=== PATIENT | female | born 1975 | race African-American/Black ===

== ENCOUNTER 2020-12-15 09:52 | Emergency (ER) | payer OTHER, BC ==
--- OUTSIDE RECORDS SUMMARY | 2020-12-15 09:56 | XMS REPORT | Continuity of Care Document ---
:1975 Author Organization [facility] t Address [address] [place] [address] Care Team Providers Name Role Phone Glen BAUMANN Primary Care Physician Fab BAUMANN Attending Clinician Sheba Scott Attending Clinician 3, Bridgette Mr Attending Clinician Unavailable 1, [address] Ct Room Attending Clinician Unavailable Fab BAUMANN Attending Clinician Alfredo BAUMANN Attending Clinician Bernard Ríos MD Attending Clinician FAB Attending Clinician Unavailable NANCY Attending Clinician Unavailable Nancy BAUMANN Attending Clinician Reema Diamond MD Attending Clinician Nancy BAUMANN Attending Clinician FAB Admitting Clinician Unavailable NANCY Admitting Clinician Unavailable Payers Payer Name Policy Type Policy Effective Date Expiration Date [facility] Number AETNA - MGD [id number] [facility] l [facility] [id number] MO/POS BLUE CROSS/BLUE [id number] [facility] [facility] SHIELDBCBS PPO 00:00:00 - Medical POS EPO Center [id number] 2018-Present [phone] [address], [place] [address]KPV Problems Condition Condition Condition Status Onset Resolution Last Treating Co mments Source Name Details Category Date Date Treatment Clinician Date Colon Colon Disease Active [facility] - [facility]: Medical 00 [place] S/P S/P Disease Active [facility] colect[facility] colectomy 01-24 [facility] - 00:00: Medical 00 Center Allergies, Adverse Reactions, Alerts Allergy Allergy Status Severity Reaction(s) Onset Inactive Treating Comm ents Source Name Type Date Date Clinician Ciprofmarni Propensi Active Other (See States [facility] xacin ty to Comments) 5-25 body felt [facility] - adverse 00:00: numb and Medical reaction 00 couldn't Center s walk. Family History Family Member Diagnosis Comments Start Date Stop Date Source Natural father Heart disease [facility] Natural father Stroke [facility] Natural mother Heart disease [facility] Social History Social Habit Start Date Stop Date Quantity Comments Source History [facility] - [facility]d Dr[facility] History [facility] - Alcohol Binge Medical Sara ter Sex Assigned At [facility] Exposure to Not sure [facility] - SARS[facility]CoV-2 (event) [facility] Tobacco use and 2020-12-14 2020-12-[address] [facility] Daniella kes - exposure 00:00:00 00:00:00 Medical Center Alcohol intake 2020-12-14 2020-12-14 [facility]:00 of alcohol Medical Center (finding) History SDOH 2019-12-16 2019-12-[address] [facility] - Alcohol Frequency 00:00:00 00:00:00 Medical [place] Alcohol Comment 2019-12-16 2019-12-[address] Daniella kes - 00:00:00 00:00:00 Medical Center Smoking Status Start Date Stop Date Source [facility]ations Ordered Filled Start Stop Current Ordering Indication Dosage Frequency Signature Comments Components Source Medication Medication Date Date Medication? Clinician (SIG) Name Name acetaminoph Yes 500mg Take [address] en 2-24 mg by [facility] - (TYLENOL) 15:13: mouth Medical 500 MG 46 every 6 Center tablet (six) hours as needed for Pain. METOPROLOL Yes 25mg Take [address] SUCCINATE 2-24 by mouth [facility] - ORAL 15:12: as needed Medical 46 . Center amitriptyli Yes 10mg Take [address] ne (ELAVIL) 2-24 by mouth [facility] - 10 MG 15:12: every Medical tablet 46 night as Center needed for Sleep. ergocalcife Yes [id number] Q7D Take [facility] rol 2-24 50,000 [facility] - (ERGOCALCIF 15:12: Units by Nm dg BAKER) 1,250 46 mouth once Ce nter mcg (50,000 a week. unit) capsule furosemide Yes 20mg Q.5D Take [address] (LASIX) 20 4-08 by mouth 2 Elizabeth es - MG tablet 14:57: (two) Medical 54 times Center daily. multivitami 2019-0 Yes 1{capsu QD Take [address] n capsule 4-08 le} capsule by Luke [facility] - 14:57: mouth Medical 54 daily. Center ibuprofen 0 Yes 200mg Take [address] (ADVIL,MOTR 4-08 mg by [facility] - IN) 200 MG 14:57: mouth Medica l tablet 54 every 6 Center (six) hours as needed for Pain. traMADoL 0 2020- No 100mg Take 2 [facility] t (ULTRAM) 50 4-08 04-11 tablets [facility] - mg tablet 00:00: 23:59 (100 mg Medi julius 00 :00 total) by Center mouth every 6 (six) hours for 10 doses. Max Daily Amount: 400 mg Vital Signs Vital Name Observation Time Observation Value Comments Source Body height 2020-12-14 15:13:[address] [facility] Body weight 2020-12-14 15:13:00 83.008 kg [facility] BMI 2020-12-14 15:13:00 31.41 kg/m2 [facility] Body temperature 2020-01-27 11:49:00 36.61 Goldie [facility] Respiratory rate 2020-01-27 11:49:00 16 /min [facility] Oxygen saturation in 2020-01-27 11:49:00 98 /min [facility] - Arterial blood by Medical Ce nter Pulse oximetry Systolic blood 2020-01-27 11:49:00 99 mm[Hg] [facility] Diastolic blood 2020-01-27 11:49:00 62 mm[Hg] [facility] Heart rate 2020-01-27 11:49:00 76 /min [facility] Procedures Procedure Date / Time Performing Clinician Source Performed MR ABDOMEN WITH & WITHOUT 2020-05-11 14:23:00 System, Provider N ot [facility] - IV CONTRAST In [facility] CT ABDOMEN/PELVIS WITH IV 2020-03-07 15:40:00 System, Provider N ot [facility] - CONTRAST In [facility] RHYTHM STRIP - SCAN 2020-01-29 10:00:37 Provider, Default [facility] POCT-GLUCOSE METER 2020-01-27 00:[facility] 2020-01-26 17:51:39 Provider, Default [facility] - - [facility] POCT-GLUCOSE METER 2020-01-26 11:12:00 Fab [facility] POCT-GLUCOSE METER 2020-01-26 09:13[facility] W/PLT COUNT & AUTO 2020-01-26 03:32:00 Dutch Jackson [facility] BASIC METABOLIC PANEL (7) 2020-01-26 03:32:00 Dutch Jackson [facility] MAGNESIUM 2020-01-26 03:32:00 Dutch Jackson [facility] PHOSPHORUS 2020-01-26 03:32:00 Dutch Jackson [facility] POCT-GLUCOSE METER 2020-01-25 21:21:00 Iyer, [facility] POCT-GLUCOSE METER 2020-01-25 14:09:00 Iyer, [facility] TISSUE EXAM 2020-01-25 11:45:00 Iyer, [facility] ANESTHESIA SPINAL BLOCK 2020-01-25 09:32:49 Greg Fuentes [facility] ROBOTIC 2020-01-25 08:30:00 Iyer, [facility] LAPAROSCOPY,HEMICOLECTOMY Medica [facility] PROCEDURE W/ DAVINCI XI 2020-01-25 08:30:00 Iyer, [facility] ABORH, MANUAL 2020-01-25 07:43:00 Maria Luz Stauffer [facility] POCT , URINE 2020-01-25 07:34:00 Yaneth Scott [facility] TYPE AND SCREEN, AUTOMATED 2020-01-25 07:32:[address] [facility] CARCINOEMBRYONIC ANTIGEN 2019-12-21 14:58:32 Rich Del Castillo [facility] (CEA) [facility] REPORT OF PROCEDURE - 2019-12-21 14:29:25 Rich Del Castillo [facility] 2019-12-21 14:12:00 Rich Del Castillo [facility] COLONOSCOPY,BIOPSY 2019-12-21 13:49:00 Rich Del Castillo [facility] COLONOSCOPY,SUBMUCOSAL 2019-12-21 13:49:[address] [facility] POCT , URINE 2019-12-21 12:54:00 Ana Diamond [facility] Plan of Care Planned Activity Planned Date Details Comments Source Future Scheduled Test 2020-10-21 DEPRESSION SCREENING [facility] - 00:00:00 (12+) [code = [facility] DEPRESSION SCREENING (12+)] Future Scheduled Test [address] [facility] - 00:00:00 (procedure) [code = Medical Center 10181925] Future Scheduled Test 2020-06-21 INFLU[address]ZA VACCINE [facility] - 00:00:00 (#1) [code = Medical Center INFLUENZA VACCINE (#1)] Future Scheduled Test 2020-05-21 INFLUENZA VACCINE [place] [facility] 00:00:00 [code = INFLUENZA VACCINE] Future Scheduled Test 1996 [facility] malignant neoplasm Medical C enter of cervix (procedure) [code = 419022742] Future Scheduled Test 1996 Screening for [place] [facility] 00:00:00 malignant neoplasm of cervix (procedure) [code = 305357849] Future Scheduled Test 1994 DTAP/TDAP/TD [facility] - 00:[facility] VACCINES (1 - Tdap) Medical Center [code = DTAP/TDAP/TD VACCINES (1 - Tdap)] Future Scheduled Test [address] [facility] - 00:00:00 SCREENING [code = [facility] nt HEPATITIS C SCREENING] Future Scheduled Test 1993 Hepatitis C [place] [facility] 00:00:00 screening (procedure) [code = 552691193] Future Scheduled Test 1991 COVID-19 VACCINE (1 [place] [facility] 00:00:00 of 2) [code = COVID-19 VACCINE (1 of 2)] Future Appointment 2020-12-23 Rich Del Castillo MD, [facility] - 14:30:[address] [place], [place] [id number] Future Appointment 2020-12-23 Rich Del Castillo MD, [facility] - 14:30:[address] [place], [place] [address] Encounters Start End Encounter Admission Attending Care Care Encounter Source Date/Time Date/Time Type Type Clinicians Facility Department ID 2020-11-09 2020-11-09 Office Marshall Iyer [facility] [id number] 11:33:31 13:00:49 Visit Bridgette [id number] 0.2.7.2.686 [id number] 2020-08-10 2020-08-10 Office Iyer, [facility] [id number] 10:44:10 13:53:12 Visit Bridgette [id number] 0.2.7.2.686 [id number] 2020-08-09 2020-08-09 Office Iyer, [facility] [id number] 13:17:27 15:01:04 Visit Bridgette 350.1.13.21 0.2.7.2.686 [id number] 2020-05-11 2020-05-11 Office Iyer, [facility] [id number] 12:06:08 13:26:37 Visit Bridgette 350.1.13.21 0.2.7.2.686 [id number] 2020-03-02 2020-03-02 Office Iyer, [facility] [id number] 10:08:22 10:23:22 Visit Bridgette 350.1.13.21 0.2.7.2.686 [id number] 2020-02-09 2020-02-09 Office Iyer, [facility] [id number] 11:30:47 13:19:13 Visit Bridgette 350.1.13.21 0.2.7.2.686 [id number] 2020-01-05 2020-01-05 Office Iyer, [facility] [id number] 09:22:56 10:26:50 Visit Bridgette 350.1.13.21 0.2.7.2.686 [id number] 2019-12-08 2019-12-08 Office Nancy BCLalito [id number] 13:55:08 14:25:08 Visit Rich AMBULATOR 350.1.13.21 Y 0.2.7.2.686 [id number] Results Test Description Test Time Test Comments Results Result [facility] e Comments MR, ABDOMEN, 2020-05-11 FINAL REPORT WITHOUT / WITH IV 18:20:00 PATIENT ID: CONTRAST [id number] TECHNIQUE: MRI of the abdomen WITHOUT and WITH intravenous contrast. INDICATION: c18.2. COMPARISON: CT from 03/07/2020. FINDINGS: LOWER THORAX: Unremarkable. LIVER: No hepatic signal abnormality. A cyst in segment VII measures 1.3 cm on series 7 image 11. A cyst in segment measures 0.5 cm on series 7 image 13. BILIARY: Static bile in the gallbladder. No biliary ductal dilatation or filling defect.SPLEEN: No splenomegaly.PANCRE : No focal masses or ductal dilatation. ADRENALS: No adrenal nodules.KIDNEYS/URE TERS: No hydronephrosis or solid mass lesions. PERITONEUM/RETROPER ITONEUM: Trace free fluid in the pelvis.LYMPH NODES: No lymphadenopathy.VES SELS: Unremarkable. GI TRACT: No distention or wall thickening. BONES AND SOFT TISSUES: Unremarkable. IMPRESSION: No metastatic disease in the abdomen. Signed: Dylan Sánchez Verified Date/Time: 05/11/2020 18:20:12 Reading Location: [address] Radiology Reading Room abdomen 2020-05-11 Interface, [facility] & with IV 18:20:00 Ris In - 05/11/2020 - Medical contrast 6:[address] REPORT TECHNIQUE: MRI of the abdomen WITHOUT and WITH intravenous contrast. INDICATION: c18.2. COMPARISON: CT from 03/07/2020. FINDINGS: LOWER THORAX: Unremarkable. LIVER: No hepatic signal abnormality. A cyst in segment VII measures 1.3 cm on series 7 image 11. A cyst in segment measures 0.5 cm on series 7 image 13. BILIARY: Static bile in the gallbladder. No biliary ductal dilatation or filling defect.SPLEEN: No splenomegaly.PANCRE : No focal masses or ductal dilatation. ADRENALS: No adrenal nodules.KIDNEYS/URE TERS: No hydronephrosis or solid mass lesions. PERITONEUM/RETROPER ITONEUM: Trace free fluid in the pelvis.LYMPH NODES: No lymphadenopathy.VES SELS: Unremarkable. GI TRACT: No distention or wall thickening. BONES AND SOFT TISSUES: Unremarkable. IMPRESSION: No metastatic disease in the abdomen. Signed: Dylan Sánchez Verified Date/Time: 05/11/2020 18:20:12 Reading Location: [address] Radiology Reading Room , ABDOMEN 2020-03-07 FINAL REPORT 16:09:00 CT of the abdomen and pelvis, with contrast Clinical History: C18.2, R10.31 Technique: CT of the abdomen and pelvis is performed with intravenous contrast administration. This exam was performed according to our departmental dose optimization program which includes automated exposure control, adjustment of the mA and/or kV according to patient's size and/or use of iterative reconstructive technique. Comparison Film: None Discussion: Visualized lower thorax is unremarkable. No liver lesion is identified. There is no biliary ductal dilatation, gallbladder is unremarkable. The spleen, pancreas, adrenal glands are unremarkable. Kidneys demonstrate no mass, hydronephrosis or radiopaque stone. No bowel obstruction. Patient is status post right hemicolectomy. No abnormal bowel wall thickening. In the pelvis, bladder, uterus and adnexa are unremarkable. No recurrent mass, ascites, or lymphadenopathy. Osseous structures are intact. No suspicious bony lesion is identified. Impression: Status post right hemicolectomy. No recurrent mass or metastatic disease identified in the abdomen or pelvis. Signed: Frank Finn Verified Date/Time: 03/07/2020 16:09:09 Reading Location: [facility] C013X Ortho Consult Reading Room Abdomen/Pelvis 2020-03-07 Interface, [facility] with IV Contrast 16:09:00 Ris In - 03/07/2020 - Medical 4:11 PM CDINAL Center REPORT CT of the abdomen and pelvis, with contrast Clinical History: C18.2, R10.31 Technique: CT of the abdomen and pelvis is performed with intravenous contrast administration. This exam was performed according to our departmental dose optimization program which includes automated exposure control, adjustment of the mA and/or kV according to patient's size and/or use of iterative reconstructive technique. Comparison Film: None Discussion: Visualized lower thorax is unremarkable. No liver lesion is identified. There is no biliary ductal dilatation, gallbladder is unremarkable. The spleen, pancreas, adrenal glands are unremarkable. Kidneys demonstrate no mass, hydronephrosis or radiopaque stone. No bowel obstruction. Patient is status post right hemicolectomy. No abnormal bowel wall thickening. In the pelvis, bladder, uterus and adnexa are unremarkable. No recurrent mass, ascites, or lymphadenopathy. Osseous structures are intact. No suspicious bony lesion is identified. Impression: Status post right hemicolectomy. No recurrent mass or metastatic disease identified in the abdomen or pelvis. Signed: Frank Finn Verified Date/Time: 03/07/2020 16:09:09 Reading Location: [facility] C013X Ortho Consult Reading Room Tissue Exam 2020-01-27 13:45:00 Test Item Value Reference Range Interpretation Comme nts Case Report (test code = 104) Surgical Pathology Report Case: [id number] Authorizing Provider: Marshall Iyer MD Collected: 01/25/2020 11:45 AM Ordering Location: [facility] Received: 01/25/2020 01:32 PM SERVICES Pathologist: Vashti Caballero MD Specimen: Large Intestine, Colon - Right/Ascending DIAGNOSIS (test code = 3220) [id number] pcd BSbHBaqkjLuTQssv2WoO7SoZtWwIAtnddInOXPwGw dbprkxNIBaPMM7euSpWPOzNTuoJYMrJDalUq7fwRT tqBbqSvNgMCEpw5zanyDKwqnxgSg3n2wyXKAmJpO7 zSCxRCgfH1stfeTxaKSgENDgMYo4vZ40JSImqJ8ba XSqHMruqwSoCvD9WIwqZNUnVaQ5UHTukDSkUEZvS1 qwWEAyQNlvBMIqZAvgrMQwNAZ9gCvpp6N3wIHpmAO roTypXnKiVfQdISHPm1JzSAa5gMkaH4PfQREzBvC9 fNBdEJFbGVbnRGZvVVUlbaB5qI70YFrearP7nEJap 9Ltv04ka570xN0epZLhQXO3IUGsVVYrxXWuSIAiWH A4TEDrtMZxL0n1EdLpeNYvM4M3NoZtwKMcX2D9OjP cqOPsL8M1LpDhtQByZVHtdIUgGo6wpPZrkDRwxw2n ep09BNO1n4NuzHvpYDU4GDZ3VuPyEz2hdZFuQDKuE T9aYzOrnPHdTWIrqf68kFavSFlqzxNdmT2jTqNoGD PemAEqWPSqQX9vlPXpRZUosG5ubgsgZJQnTxFvoby gWYPibRvyuoYnXg0qoGqbIWZ0WJtpO3xigB5sYkS7 CJilD9lpiQ7iQCu9YHmbvVE8XFHbnY4uHA9razfmd 3tvSbNbFB5kyhfhl7ptMaSpPZ7mget9x7hjCwOrWD 4pgvzgm0ddYdEhDNifYVQmxmpcPTLjg8YhzqyoTIA po7LnO4BklNxiD47lvQhoB85vPLOtcDsgyJ9trExi qL1nTcUjTqZiPHwhqOurnLZawqbhCSvdcoHqCRlnt uioKOKzBAxkA2doMrQuMBQjiRuxFUntu5PmSHWqXO WwNnIzGSVGEG9VAC9RRELGXE8UDFKKQCNEHSYIOH3 TNZGBFEAKPLhrKSEHMSWYYKOJNO1FNRlkuKWvFCDf VQ0bLDEHTz6GFJMNDA5ZLQCdVB1TZNDKTVQKAHybP RjUIjRONC0ITAZEFGTodEDrKZLkAT6mZ5PXTWWYH7 VmATCYH3JlHOlDYE2ZLL8TTrVeXirzR76yqOOdUGD jDY8mUUDRJ8ZjYV1FPGDERnWMIiSIDQ0VS9GUJNFH FNTcRAFOZEGWTJkrNVXhJOJcZFAFHWeeZXMLF9iRD gSNQKuYDMyXKLNZR7JjYD8ALPAVRaOgD6EuOH8NXf BJMIYAO7OEITMMJsGCAe6XTAlvOLjHQGHAQlXADSO YJHKMXSWFLVGdD3LcUCDYOu8KIAZmPVBAVGdDWKme JNZTY4KMLFyjZZTYBN7APCOWYielsAHgBTOaQE3cS x4fJUZEHK5HESKILCTXFoCYX9jFFeNSJDYIRLaQWX MCIAOxvtQcKQXeZQ6IMPyZHFGBD2KCR0IIRTOCEAw AZlPYVE9PYLpCEF1ZKQXJXLXraJQfVALoOD6pZDaq NTjVCRofDb6IUTYlOcCCXMTRZfQuJa7KLN2KLHPCR HTQGBVkI6ONW7zIX11IRQqlIdJ3AFboLGHnOHXjPR IzQKGuGHRTJCDQJpBOBXvHPA1EWNEJNW5kIR4qF67 DAGILKV7QCKOBG2EGS8ucDNFcFXJzOQSHHVVNV9sG F8sQFXWCGUhGFBMTPEIDPNNFJ9PYEF9DEFazMD2ZZ KIADwGOOLn9mQEVLZk6rA7pLSE2MRBBEw3gOHbqxR CeRVNdYH4lP4OABSPXEe2OQBvUEUWKJP7VBAccVNK uBXRtPGCVRYQiX65KLPMFXTurLZT2l2zurSJrESWt kPCfEZGcPOkfhmMpZHAjScmhsbozFRQvBLY6etExF TPwCKbcRJToCWdbMi4stPYdkHrbHwMfEAXfz6nuaa APbmnexXv0t9zvGEFpHkU1nRRfJEzwY8bezrYkfLE tCPXuDVk9rZ22IXCjnD9ugDEwOXqdwiTpTyV7RLfd QIYmUdK6OJBxfPUeBHFeT5uyJVIzQRxeLHWrNYaev OJaXCE1gDpca3A7qVOnzFKzsIeoMtHsLySbKqJNw5 WsRZf4nScaN2FcJFTfOjC3cJHvGBDoAHvjXFMsRPJ wppE3zB89WMxjkqB3xIMnk7Mmk08vt632wF4kzXCs HSG2WTZnYTVaeQXaMDZlCSS0WMVzlQCvV6joJDNvM T1mswfnHXzfAOigKSUuhRA9EAUhwKSmV8KnGSBnVX raZNLwocc7UsItOe2thSIkvZwbBKbaf3jzd3aeeMC jJci1XMSiMzRrGeguEIrzn5Cpd2gaXBBzvg3wZKR7 cJTofSmvq9Y7nVJhZPHonBWkPIMcAQ6lmLWcASVzh U5cwqmnJRJtAuFfpjwcXRDckGegyeLzXf8hdAbhXA J7JAvhY8vaaX1aBfY9PYruK0esvM2yPHw1DAgbBFO rtVI4ofH8SGXwaUHcO7KqkE7eONHvWW7gczn5m2fw AFL7WXbcJSUxWmF6usX0NSCzxZWlKJYpyHmbMQtdt 382SDU9IeFoNLSpu7QjJ1TcbHffP67xsZgkC49iAZ JbcWeskR3ylLuhoE7vZqEgSxDhCRouaSbyIU4eOEE xQ8phtMJeXYHzSILpE5bgRaXjbR5fiJwnWFimxuUr CTVxZar6GNLdkMHzIDSlLdb6RLThNAThN27syyimH TO5aJ5ni5opr7MuJGqmYCA5TSGrc11rTCgihdA6UU alId7qMuIrVUD0CGfvRKO7vN== COMMENT (test code = 3359) a7gnkHDeCIKspFLoRpQgVJJeLEPfq7zzPNSlfZEd Z qSbMpFeNnRkLbgobORwFLWaPpOcl8mdk567fDIfo7 jkSZYtUcN4cCVjHZHwdZSmV507ZUBqCNiqy3eyn7G zUAZwmQQdy0K6QPTOldqsaIp5dDxjN68cq6P5Tnvu K6hdPFIxXJUqV4JaRQ0eJMJdVjx0JIV3RMK8OLQjR STfG5PoOD2yFGFjfZRnOKv1o4pvyPhuXSIkPEX2p9 naEFpztwYiUU1vde7dwJr5d6rehuTzPISgJLDlfFO BDNJnE5SxcXewVc5aaKb5lMjuGpmwXNH8Nch8ZA7v ev83tfw5hKvvXSFflekxIwZ6HLjlZQUzvrqrSYi3S FxtYXJnbDcyMFxtYXJncjcyMFxtYXJndDcyMFxtYX WbSaozYLweOAWxLUW0RUrmf921SCW6PFarf3kvj8x qdDUbLdv6UTYwXwNlXsneFUzsl9Gul2aiRFVwrw5x RWQ5pSVppMror3Y3bKUhUDNmaFJpjvDyOCXkToF8C JyuYN1iyz73XVKdLYN0yw8bhJSefEbsgnWmlDKvXK oyL1AkYQVqs303FOPfN1YnXPVfy2T6duHtZlZlVGO bnJI2gqU3UUYpKHu3uCUiieC1cwQosTVrY5zyqL89 DfXphNTuO6YbqU82CjXqxPLeE5CdvP98NuXxxRKjL 4SonH48VtSbxBAfQSAdyADzCe0gmAPudKHce7CisM BwEQclF24nv724GMBdabDtZ2lonURheblktZIljal eBBjbwmK9AEo7cxHydxzqgLcbmLPjsuhcNHrugqFd TDqkdnugQUFlQBtpS6stIhKkCXZzeCozIEtrr1RtX BNaBQAxRtReSP5ylL4gqOzmuP1ozGRalLCkrBJpvL QbhwHsOh5hUK8ZMrBuew77DYitxjymUUYQXVGjMP8 IOY47SAJBUYKkAxVkouSyAUkIGOVbZRbheeWpUESs q6ZrWBYxm64vdCJqe4KaH58lz75tWdylxCY5JTHcS A7kOfHnTlBcyPpzpU8kAlQzSyFsKAmpMU8rRYYmG8 bqvIMmEUThZKIlU2dhEpAcqF7etQwzGPumrcRiQMX xNjAgXCdhMFxwbGFpblxmMVxmczIwXGxhbmcxMDMz MAleW6cqKpPhDUUbvVrmWYvzu8LbBDPiVKMoNvHnx GFyXHBsYWluXGYxXGZzMjBcbGFuZzEwMzNcaGljaF dsTDiwDkUeYZPwZOurS9kgKtGhJ2VsPXAvLjQcWuM UNMYuCG61XJHzwvQ3UTApd663FFJiCUzfDRTpNXPr MjBcbGFuZzEwMzNcaGljaFxmMVxkYmNoXGYxXGxvY 7quCrThBmDzVQrvZEVagETjCXlrt3DbzuOnlQyiXC XrLBHyNZQoAFsnFWQyKQKgSgQvmPksqN3tOwYqPyA mZXomJG3aIQTxP3cjwYLxYHMtAPDwY9seSyPhvJ3a yNcwTLhywxLiSP9oUTqhr9Mlk1OqsdFudOHpgcXdj PXsUSGhsO4nWR2rWZ4ASvRgiy76YTrqqemtaU13JU Nzr9MfTkhjiMK2JH7jFG0vO2Sij0L0APqbfWVrPDk yo7MfRfwlqGM2KPlbR8puCU3UIR2UDE6mlAIodU== SYNOPTIC REPORT (test code = 71) COLON AND RECTUM: Resection, Inclu ding Transanal Disk Excision of Rectal Neoplasms (ColoRectal - All Specimens) 8th Edition - Protocol posted: 12/17/2018 SPECIMEN Procedure: Right hemicolectomy TUMOR Tumor Site: Right (ascending) colon Histologic Type: Adenocarcinoma Histologic Grade: G2: Moderately differentiated Tumor Size: Greatest dimension (Centimeters): 2.8 cm Tumor Deposits: Not identified Tumor Extension: Tumor invades muscularis propria Macroscopic Tumor Perforation: Not identified Lymphovascular Invasion: Not identified Perineural Invasion: Not identified Treatment Effect: No known presurgical therapy MARGINS Margins: All margins are uninvolved by invasive carcinoma, high-grade dysplasia, intramucosal adenocarcinoma, and adenoma Margins Examined: Proximal Margins Examined: Distal Margins Examined: Radial or Mesenteric Distance of Invasive Carcinoma from Closest Margin: 7.0 cm Closest Margin: Radial or Mesenteric LYMPH NODES Number of Lymph Nodes Involved: 0 Number of Lymph Nodes Examined: 47 PATHOLOGIC STAGE CLASSIFICATION (pTNM, AJCC 8th Edition) Primary Tumor (pT): pT2 Regional Lymph Nodes (pN): pN0 ADDITIONAL FINDINGS Additional Pathologic Findings: None identified CPT Code(s) (test code = 3357) [id number]vTKJg bGFuZ wOsOrJpLsFvSicxeSAcSLEqLwRbc0xnt650uIXua4 qoNTNtNnE2zRLrKJAvaTVjW056o2rxh9ukbfTxnGM 6RMJqYPE7QRhajlSdzqT9TEygkRLgHuA8PZrqdlHw NPrhqvMuerCqWoc2ENMiI244DQE7sDejs1ywDSF4V NGvGZNpIgYbVe8smSJeI544QAItWBIKPBNmnEy6RY DmazVffiPgxNGDk790J155c7iaQTGspnFpgPcEynk ri4quT081WCYxkTUcbnKtCaMlIDCfpOZocLI6SIBz WL0ykckoUtGeTZ2adocsNuGsYN1ptdw1TzZtSS8ad oiyOqFtQFpaJBPydtzxCFMdj4IujbmnQZ8rQ9Lzy3 M8zX7ouHSkMXDkaTSwAaHyTKYclh8vlZDhYPrpt1L aBRZ7rhT6xEDdxQAfUSHqTT41Jhxpd9KjXrrsWRD0 SRTinpBqr5Kwn3mkWfBavfSpT8otI0SdYIBrPSHhO QLrYgTlfmCzh1Wzw5QsgEQshDx4c4bnWPJoQWNjiL xcx2vfCPU6ZRNyQ8N0tSWsw0psAOapTKOrjOF9jtv wWJvvUJZyrtU6qvxxQDceMTKrjFY5dpdbYWsyBHPz RyD7ubccLOecACSnQNR3RTmkt138NAA5WNrqGhfqK WdlXHBnbmNvbnRccGduZGVjXHBsYWluXHBsYWluXG YgZUOkBuImfBkljYsdaA7kGgKgMnJmLWzkCS1cBHU mZ9qdpZRvSAGfIGLaA6joDiIuxK0naEvvRDjnssQh FUk8WeY5YNTzkq8= CLINICAL HISTORY (test code = 3356) a4mzkHLfUTKjtZSzFjDyWKDcHMOrw4k cZGVmbGFuZ qKeUtXbSbSbOqdlmDClJZKuSmMge8yhj603rFWdw3 nbBNWcCeZ0vRRcBQFnbBOoA717FIHjANsur4ksh7P xHKKqnJYac8N6KJAWqiicwOy1aNsnG57ud5Q6Kvbn R1ftNAXyUOIcG3LmIK3wFTJmWsr3XZE7MWP1BENoJ YGzG7HiMZ9kYCPsdWTeCZn1r1yuoMhqUQGxFGC3q6 obGWywumUuEV4dyt0vaFe8r5rkilZfXNPwGXLfsPE ROZJrJ8BooHkoPq0tbTn7pRbiFqdjTMX9Gee9EM3l ot50vxz6cBzjCYDozpphEdX3AUlsCJLryeduADs5R FxtYXJnbDcyMFxtYXJncjcyMFxtYXJndDcyMFxtYX EwZwliRUgkOZDyLUR1UBqdt231OWU3JImfm3vqb7k rnNXlLii1VTYcMcHuXiojVPtgv9Flg7zyLSBkma4d ZGN8kDGmfCfhk4R6uVHaWGNteBLicwYrSUKfYsF4R BpsRB3xbb24NQJvZPO5cl5kpTEpjTzozrAayUGkTR saO6HuMHBqv754SSEqS5UbURPwy9F9vgFaNiBnCWC voFY6ntP6RDIpQAh9cQNwjyK3klZdpQXwT1hseM14 KcHssBKqT4HikQ68StDcrNJoX5KzmI69MwHcaQRjO 3QsaL61LkBjcRTuRVLoxTMlVr4ojQByuHDqc8MkhL QiWCoiP67hp714UPSugtZeR9vnzRLzumjooVPacth eZBfukzG6ISDbpwPtnAgfzO6aFcIrWxXfVHmsHO2r SRUzF3oycPGtEORqNMDxP9dwAxJwxQ9bhFipKSsfo qZsAB93QODuDNLjkO8sGR0vnAnkxwQdhUFuYW8skM LupHZoXzQuy8oezcezYBF6 SPECIMEN SOURCE (test code = 3377) w7engNXeBWClqVAbCnDdOZEnTPTyj3sa ZGVmbGFuZ bDkQzMdNlQlWqtoiXUlQJXoXgUwl1ulz401fFGms9 bbIFIlQpU8tUJlBJFwhIPgU982YYUzFUmwn2bet3O qRPUliTJwd5T2BXIJbdvriKt6kCguK06sd3J8Tcns O8ytPNVoQIUfI1HqSM1jDGWfQcm3SKA5RLS5GIUeI SVjK0MvEZ1eTDPppFAqUVt3m6xclGpgGVOpFDY5t6 tmWZcenaHsNY0jsg2lhUz6s1esfyXrWQEgKKEmaAU ZHICtI5BqwZleKm2sfAd0kPkjHrpiUVR8Czu0JE8p wk95tsx1dNzqQYFzdcqwTqY2YCpyYXNjcnvkXGi4V FxtYXJnbDcyMFxtYXJncjcyMFxtYXJndDcyMFxtYX DgGodeACmpHRUaKKJ1SYcyp406YFI0GSeyi3nnc3w zqQKrNtj7IAZfVmTuCosaFTejq6Nno4amPGYbrk4k KQI6iBJifScbx1N5zIXpZEYvnPAakuQjIHKeMcC8P GfbUB4awb99EQAkCIU1xl7gvUClwLmortFxrWEeIT bwO7ImVQUuc959QMQrQ8ZuWBPiw5S8gpUbZwZrIBR rbSG1jxJ9CVIgGAw3iOHbhdY4gtLryWRwP6vhdS36 DcCqmKKfD4ShsN67NyBqgSVnW5LydL08VuLgaPXuZ 8WvoD44YgKkhIJhXUJeiAKxEq2ioKMerLUub2VexL JnNOtzL61hf561MYGpobFoK6cjwTVyttzyiEThdlk rJQuprtV7DZSdQZCdGSydCHVrHCPjNnEkcGKbMaZu PaMmtEyonWimZDvdWbIiCXJcZJriR3maEvMiIpFzU RDFBoNmYBOvY7PbsL72QJE8qQ3lEWXqk0jsdl1coB rpsL8gw3XdprLmzgonuUVtyH== GROSS DESCRIPTION (test code = 3366) m8bbqNTtPZLvrRLkLkYbFGLyFKR jc2tlCNVggRIvN hVtXbQzPrRhWrgfmLDqINOtPxEhk6vvz192bVXnz4 ecCXJsHcW7oRSwBQBjjAXlA179d7tvm3sooxKymNG 0XSDcONO8UClidnQgsmD5DLivuOBsFgM7DLlzcxVp BLpuesIkgiYzQkt4MGWgN774WLE0fWeho3lyVDR4A GKmWBJaLsGwZv9psTAqP405SFQlPNTBREQvvFv3KF ZvxqIjuuEdaNPBj268H548z3dkJSKzfiWciAiKksy su1srV785TVUxfMYevtGrFeLyINDppZEquLD1CIBy CP4efwzyHyUfGS2fetxzAuCpCS0aodh0NwDiWI5qd gygEnMhVGenKQRtysenCQMlz7IvxzqdMC8wE4Paa4 T4bR3qdHUfPNQxkYFqBoOlKHKxlc9xxAHsUAfri0U kYDR1dbM2mTCbuHMoBXQeAI28Rnifv2UePqekPLQ3 SFGtazBrj5Jfb7zzUcQgmjLbK0dzT5CjAUCkSGApA FFzQmCaiuTai1Pdo4RykQQgbWk8i9ggSUVsINScyJ hzw6jgFTO6KLLgP6P1gWXgm1nsWUalVUGoqTC7qok sDDtaHCXuibJ5bsiySYgtVLEzgJX3fdmrEHdqTEKt MdW1gpliYJpyKTOhMZQ9FLsew816NPC1LTvxNoagG WdlXHBnbmNvbnRccGduZGVjXHBsYWluXHBsYWluXG [file] VELHrJQ3KOSNokUGI9 MICROSCOPIC DESCRIPTION (test code = x6qpzMUwNNNgpLOfRwJmHZXdLUN jp1poSHJheZMeB 3371) iWeUySiWhObCqjohRZyKBNqLiOaw9dky281iOBgh2 lpEEOgQoJ1wODiMCUmdVGkW037f5nut6nwicJoyOY 6HNUwPVL6JQfzkoLlaaT3OVczgEEoRyH4RUroesVv CHowipTyysLvRha5RZXvO491PEM6aLurp8trQHR5X VMbTSOwYgJtHh3hpRImQ828AUUiGNJLKBZywOe7OT TpuwOkilInqQYOs091O391x8kqCYQpzaTezWoHvzm fg8peD643DLQfyOPlnjCxGmCuLIGdqLZtmHG8MADf SI1gmurgPbZaJF9lngddIiSuNQ6lopj1YgXnSE6up tkbGzNeBLpmBRLnpnfrKWYpr0JvsuwoPS1hH1Uoq8 R8oK2wtCEdAHSjxEIeEhTrVYPfeg0igXDtFWmzl7D zEOF2ziQ0rMLkgRHiGVNjNT92Miuyj2QzGlsuTNV6 QHMazjEho7Qwp3toYfEapoCtK8rgB2QjWMPvQWIrQ OFnKiFskvWxt7Poz8IffJMytYj0k5siXFSwOPLkbC xvz7mcALJ8BXQuO7V7kADug4gfEGrvEHHqfBO2xpp bHVxbRMBmotA1zgakHVsfKTIygQM1hrpvQZkiHKQy YrZ5sbxdBIbaZGXiERS4WKauu409SFX0TAndPvznT WdlXHBnbmNvbnRccGduZGVjXHBsYWluXHBsYWluXG VpVKTaAjWydZkssKfaiC6lJvHgZaEcUMthTM9qKFD kL0ogkHDpOZGgCLNsS9kjYiZwrM9hqBksBMoankDm DNRsthOahu5zZF3caUPucK== Gross assessment was performed at [facility], (test code = 2777) Department of Pathology, [address] [place] [address], Technical component was performed at [facility], (test code = 2778) Department of Pathology, [address] [place] [address], Professional component was performed [facility], at (test code = 2779) Department of Pathology, [address] [place] [address], [facility] HospitalT[facility] [id number] 13:45:00Surgical Pathology Report Case: [id number] Authorizing Provider: Marshall Iyer MD Collected: 01/25/2020 11:45 AM Ordering Location: [facility] Received: 01/25/2020 01:32 PM SERVICES Pathologist: Vashti Caballero MD Specimen: Large Intestine, Colon - Right/Ascending ASCENDING COLON AND TERMINAL ILEUM, HEMICOLECTOMY: - ADENOCARCINOMA, MODERATELY DIFFERENTIATED - GREATEST TUMOR DIMENSION: 2.8 CM - TUMOR INVADES INTO MUSCULARIS PROPRIA - ALL MARGINS NEGATIVE FOR INVASIVE OR INTRAMUCOSAL CARCINOMA, HIGH GRADE DYSPLASIA OR ADENOMA (PROXIMAL, DISTAL, MESENTERIC) - NO PERINEURAL INVASION IDENTIFIED - NO LYMPHOVASCULAR INVASION IDENTIFIED - 47 LYMPH NODES NEGATIVE FOR METASTATIC CARCINOMA (0/47) TATTOO PIGMENT SEEN IN SOME LYMPH NODES - PATHOLOGIC STAGE CLASSIFICATION (pTNM, AJCC 8th Edition) : uP3D9Iy - SEE SYNOPTIC REPORT - SEE COMMENT Signing Patholo gist Direct Phone Line: [phone] signed by Vashti Caballero MD on 01/27/2020 at 1:45PMImmunohistochemical stains for MMR proteins, MSH-2, MSH-6, PMS-2 and MLH-1, was performed on priorcolon biopsy [id number]. IHC Interpretation:No loss of nuclear expression of MMR proteins: low probability of microsatellite instability-high (MSI-H).COLON AND RECTUM: Resection, Including Transanal Disk Excision of Rectal Neoplasms (ColoRectal - All Specimens)8th Edition - Protocol posted: 12/17/2018SPECIMEN Procedure: Right hemicolectomy TUMOR Tumor Site: Right (ascending) colon Histologic Type: Adenocarcinoma Histologic Grade: G2: Moderately differentiated Tumor Size: Greatest dimension (Centimeters): 2.8 cm Tumor Deposits: Not identified Tumor Extension: Tumor invades muscularis propria Macroscopic Tumor Perforation: Not identified Lymphovascular Invasion: Not identified Perineural Invasion: Not identified Treatment Effect: No known presurgical therapy MARGINS Margins: All margins are uninvolved by invasive carcinoma, high-grade dysplasia, intramucosal adenocarcinoma, and adenoma Margins Examined: Proximal Margins Examined: Distal Margins Examined: Radial or Mesenteric Distance of Invasive Carcinoma from Closest Margin: 7.0 cm Closest Margin: Radial or Mesenteric LYMPH NODES Number of Lymph Nodes Involved: 0 Number of Lymph Nodes Examined: 47 PATHOLOGIC STAGE CLASSIFICATION (pTNM, AJCC 8th Edition) Primary Tumor (pT): pT2 Regional Lymph Nodes (pN): pN0 ADDITIONAL FINDINGS Additional Pathologic Findings: None identified [id number] malignant neoplasm of colonA. Large intestine, colon-right/ascendingA. Received fresh, labeled with the patient's name, accession number "large intestine, colon- right/ascending" is a right hemicolectomy. The terminal ileum is 3.7 cm in length and 2.7 cm in diameter. The colon is 13.5 cm in length and 3.5 cm in diameter. There is a moderate amount of mesenteric adipose tissue. The appendix is absent.The serosa displays an area of tattoo ink in the proximal ascending colon. The remaining serosa is pink and smooth. The specimen is opened to reveal an ill-defined, north-pink, polypoid mass just proximal to the tattoo ink in the proximal ascending colon measuring 2.8 x 2.4 x 0.9 cm. The mass is 7.5 cm from the distal margin, 7.0 cm from the closest mesenteric margin, and 8.2 cm from the proximal margin. The mass involves the muscularis propria, but does not invade into the underlying fat or serosa. There is tattoo ink in the mucosa of the ileocecal valve. The mucosa is north-pink, smooth with normal architecture. There are multiple pink-blas lymph nodes ranging 0.2- 1.1 cm. Attendance Clerk sections (mass in its entirety) are submitted.Ink code:Blue- serosaSection code:A1: Entire proximal margin, en faceA2: Attendance Clerk of distal margin, en faceA3: Closest mesenteric margin, en faceA4: Ileocecal valve with tattoo ink and terminal ileumA5-A7: Mass to muscleA8-A9: Mass to serosa, full-thicknessA 10-11: Remainder of massA 12: Uninvolved colonic mucosaA 13: 5 intact lymph nodesA 14: 5 intact lymph nodesA 15: 1 lymph node, trisectedA 16-A 27: 1 lymph node bisected in each cassetteA 28: 5 intact lymph nodesA 29: 5 intact lymph nodesA 30: 5 intact lymph nodesA 31: 5 intact lymph nodesChelsea RAY Frank PA (ASCP)Performed.[facility], Department of Pathology, [address] [place] [address], [facility], [facility] of [facility], [address] [place] [address], [facility]fgphuP[facility], Department of Pathology, [address] [place] [address], GMW-Glucose [id number] 00:49:00 Test Item Value Reference Range Interpretation Comments POC-Glucose Meter (test 104 mg/dL 70-110 : TE STED AT [facility] code = 1538) [address] [place] [address], 770 30: Electronic Warfare Operator/Techni johnathon ID = [id number] for CROW GARCIA Lab Interpretation (test Normal code = 71745-2) [facility] [id number] 00:49:00 Test Item Value Reference Range Interpretation Comments POC-GLUCOSE METER 104 mg/dL 70-110 : TESTED A T [facility] 6720 (BEAKER) (test code = [facility], 1538) 827[address]: Electronic Warfare Operator/Techni johnathon ID = [id number] for CROW GOMEZ POCT-GLUCOSE [id number] 11:24:00 Test Item Value Reference Range Interpretation Comments POC-GLUCOSE METER 103 mg/dL 70-110 : TESTED A T [facility] 6720 (BEAKER) (test code = [facility], 1538) 08806: Electronic Warfare Operator/Techni johnathon ID = [id number] for HÉCTOR FIERRO, MARY POCT-GLUCOSE [id number] 09:24:00 Test Item Value Reference Range Interpretation Comments POC-GLUCOSE METER 92 mg/dL 70-110 : TESTED A T [facility] 6720 (BEAKER) (test code = [facility], 1538) 12374: Electronic Warfare Operator/Techni johnathon ID = [id number] for BLAINE ER, MARY Basic metabolic [id number] 04:27:00 Test Item Value Reference Range Interpretation Comments Sodium (test code = 137 meq/L 098-650 0440-2) Potassium (test code = 4.1 meq/L 3.5-5.1 2823-3) Chloride (test code = 110 meq/L 98-107 H 5-0) CO2 (test code = 24 meq/L 22-29 8-9) BUN (test code = 7 mg/dL 7-21 3094-0) Creatinine (test code 0.83 mg/dL 0.57-1.25 = 2160-0) Glucose (test code = 108 mg/dL 70-105 H 2345-7) Calcium (test code = 7.9 mg/dL 8.4-10.2 L 34248-1) EGFR (test code = 91 mL/min/1.73 [place] [address]-3) NOT ACCURATE CREATININE CLEARANCE IN PREDICTING GLOMERULAR FILTRATION RATE . ESTIMATED GFR I S NOT APPLICABLE FOR DIALYSIS PATIENTS. SHONDA (test code = SHONDA) Electronic Warfare Operator ASHLY Starkey Lab Interpretation Abnormal (test code = 78371-4) [facility] HospitalBASIC METABOLIC [id number] 04:27:00 Test Item Value Reference Range Interpretation Comments SODIUM (BEAKER) 137 meq/L 136-145 (test code = 381) POTASSIUM (BEAKER) 4.1 meq/L 3.5-5.1 (test code = 379) CHLORIDE (BEAKER) 110 meq/L 98-107 H (test code = 382) CO2 (BEAKER) (test 24 meq/L 22-29 code = 355) BLOOD UREA NITROGEN 7 mg/dL 7-21 (BEAKER) (test code = 354) CREATININE (BEAKER) 0.83 mg/dL 0.57-1.25 (test code = 358) GLUCOSE RANDOM 108 mg/dL 70-105 H (BEAKER) (test code = 652) CALCIUM (BEAKER) 7.9 mg/dL 8.4-10.2 L (test code = 697) EGFR (BEAKER) (test 91 mL/min/1.73 ESTIMA JEFF GFR IS code = 1092) sq m NOT ACCURATE CREATININE CLEARANCE IN PREDICTING GLOMERULAR FILTRATION RATE . ESTIMATED GFR I S NOT APPLICABLE FOR DIALYSIS PATIEN TS. Electronic Warfare Operator ID - BARBARA [id number] 04:26:00 Test Item Value Reference Range Interpretation Comments Magnesium (test code = 1.9 mg/dL 1.6-2.6 41146-1) SHONDA (test code = SHONDA) Electronic Warfare Operator ASHLY JIMENEZ M Lab Interpretation (test Normal code = 51188-6) [facility] HospitalPhosphorus2020-04-07 04:26:00 Test Item Value Reference Range Interpretation Comments Phosphorus (test code = 3.0 mg/dL 2.3-4.7 2777-1) SHONDA (test code = SHONDA) Electronic Warfare Operator ID - BARBARA M Lab Interpretation (test Normal code = 22672-7) [facility] HospitalMAGNESIUM2020-04-07 04:26:00 Test Item Value Reference Range Interpretation Comments MAGNESIUM (BEAKER) (test code = 1.9 mg/dL 1.6-2.6 627) Electronic Warfare Operator ID - BARBARA [id number] 04:26:00 Test Item Value Reference Range Interpretation Comments PHOSPHORUS (BEAKER) (test code = 3.0 mg/dL 2.3-4.7 604) Electronic Warfare Operator ID - BARBARA MCBC with platelet count + automated [id number] 04:09:00 Test Item Value Reference Range Interpretation Comments WBC (test code = 6690-2) 7.2 See_Comment [A utomated message] The system [employer] generated this result transmitted ref erence range: 3.5 - 10 .5 K/L. The refe rence range was not u sed to interpret this result as normal/abnor mal. RBC (test code = 789-8) 3.44 See_Comment L [Au tomated message] The system [employer] generated this result transmitted ref erence range: 3.93 - 5 .22 M/L. The refe rence range was not u sed to interpret this result as normal/abnor mal. MCHC (test code = 786-4) 31.1 See_Comment L [A utomated message] The system [employer] generated this result transmitted ref erence range: 32.2 - 3 5.5 GM/DL. The refe rence range was not u sed to interpret this result as normal/abnor mal. Hematocrit (test code = 27.3 % 34.1-44.9 L 4544-3) MCV (test code = 787-2) 79.4 fL 79.4-94.8 MCH (test code = 785-6) 24.7 pg 25.6-32.2 L RDW (test code = 788-0) 15.6 % 11.7-14.4 H Platelets (test code = 241 See_Comment [Aut omated message] 777-3) The system [employer] generated this result transmitted ref erence range: 150 - 45 0 K/CU MM. The referen ce range was not u sed to interpret this result as normal/abnor mal. MPV (test code = 9.6 fL 9.4-12.3 86561-4) nRBC (test code = 413) 0 See_Comment [Aut omated message] The system [employer] generated this result transmitted ref erence range: 0 - 0 /1 00 WBC. The refere nce range was not u sed to interpret this result as normal/abnor mal. % Neutros (test code = 70 % 429) % Lymphs (test code = 18 % 430) % Monos (test code = 12 % 431) % Eos (test code = 432) 0 % % Baso (test code = 437) 0 % # Neutros (test code = 5.02 See_Comment [Aut omated message] 670) The system [employer] generated this result transmitted ref erence range: 1.56 - 6 .13 K/L. The refe rence range was not u sed to interpret this result as normal/abnor mal. # Lymphs (test code = 1.25 See_Comment [Auto mated message] 414) The system [employer] generated this result transmitted ref erence range: 1.18 - 3 .74 K/L. The refe rence range was not u sed to interpret this result as normal/abnor mal. # Monos (test code = 0.85 See_Comment H [Autom ated message] 415) The system [employer] generated this result transmitted ref erence range: 0.24 - 0 .36 K/L. The refe rence range was not u sed to interpret this result as normal/abnor mal. # Eos (test code = 416) 0.00 See_Comment L [Au tomated message] The system [employer] generated this result transmitted ref erence range: 0.04 - 0 .36 K/L. The refe rence range was not u sed to interpret this result as normal/abnor mal. # Baso (test code = 417) 0.01 See_Comment [A utomated message] The system [employer] generated this result transmitted ref erence range: 0.01 - 0 .08 K/L. The refe rence range was not u sed to interpret this result as normal/abnor mal. Immature 0 % 0-1 Granulocytes-Relative (test code = 2801) Lab Interpretation (test Abnormal code = 50265-1) [facility] W/PLT COUNT & AUTO [id number] 04:09:00 Test Item Value Reference Range Interpretation Comments WHITE BLOOD CELL COUNT (BEAKER) 7.2 K/ L 3.5-10.5 (test code = 775) RED BLOOD CELL COUNT (BEAKER) 3.44 M/ L 3.93-5.22 L (test code = 761) HEMOGLOBIN (BEAKER) (test code = 8.5 GM/DL 11.2-15.7 L 410) HEMATOCRIT (BEAKER) (test code = 27.3 % 34.1-44.9 L 411) MEAN CORPUSCULAR VOLUME (BEAKER) 79.4 fL 79.4-94.8 (test code = 753) MEAN CORPUSCULAR HEMOGLOBIN 24.7 pg 25.6-32.2 L (BEAKER) (test code = 751) MEAN CORPUSCULAR HEMOGLOBIN CONC 31.1 GM/DL 32.2-35.5 L (BEAKER) (test code = 752) RED CELL DISTRIBUTION WIDTH 15.6 % 11.7-14.4 H (BEAKER) (test code = 412) PLATELET COUNT (BEAKER) (test 241 K/CU MM 150-450 code = 756) MEAN PLATELET VOLUME (BEAKER) 9.6 fL 9.4-12.3 (test code = 754) NUCLEATED RED BLOOD CELLS 0 /100 WBC 0-0 (BEAKER) (test code = 413) NEUTROPHILS RELATIVE PERCENT 70 % (BEAKER) (test code = 429) LYMPHOCYTES RELATIVE PERCENT 18 % (BEAKER) (test code = 430) MONOCYTES RELATIVE PERCENT 12 % (BEAKER) (test code = 431) EOSINOPHILS RELATIVE PERCENT 0 % (BEAKER) (test code = 432) BASOPHILS RELATIVE PERCENT 0 % (BEAKER) (test code = 437) NEUTROPHILS ABSOLUTE COUNT 5.02 K/ L 1.56-6.13 (BEAKER) (test code = 670) LYMPHOCYTES ABSOLUTE COUNT 1.25 K/ L 1.18-3.74 (BEAKER) (test code = 414) MONOCYTES ABSOLUTE COUNT (BEAKER) 0.85 K/ L 0.24-0.36 H (test code = 415) EOSINOPHILS ABSOLUTE COUNT 0.00 K/ L 0.04-0.36 L (BEAKER) (test code = 416) BASOPHILS ABSOLUTE COUNT (BEAKER) 0.01 K/ L 0.01-0.08 (test code = 417) IMMATURE GRANULOCYTES-RELATIVE 0 % 0-1 PERCENT (BEAKER) (test code = 2801) POCT-GLUCOSE [id number] 21:33:00 Test Item Value Reference Range Interpretation Comments POC-GLUCOSE METER 122 mg/dL 70-110 H : TESTED A T [facility] 6720 (BEAKER) (test code = [facility]AQUELIN [facility], 1538) 14969: Electronic Warfare Operator/Techni johnathon ID = [id number] for LOAN EMMANUEL POCT-GLUCOSE [id number] 14:21:00 Test Item Value Reference Range Interpretation Comments POC-GLUCOSE METER 126 mg/dL 70-110 H : TESTED A T [facility] 6720 (BEAKER) (test code = YAQUELIN Woodward [facility], 1538) 71844: Electronic Warfare Operator/Techni johnathon ID = [id number] for TERESSA WHITAKER ANESTHESIA SPINAL [id number] 09:32:49Greg Fuentes MD - 01/25/2020 9:32 AM CDTSpinal BlockPatient location during procedure: ORStart time: 01/25/2020 8:51 AMEnd time: 01/25/2020 8:56 AM Procedure Indication: procedure for pain, at surgeon's request and post-op pain managementStaffingAnesthesiologist: Greg Fuentes MDPerformed: personally Preanesthetic ChecklistCompleted: patient identified, pre-op evaluation, timeout performed, IV checked, risks and benefits discussed, monitors and equipment checked, anesthesia consent given, prep site dry prior to draping and maximum sterile barriers were used: cap, mask, sterile gown, sterile gloves, and large sterile sheetPrepPrep: BetadineProcedures: sterile gloves, surgical mask, surgical hat, sterile technique and prep and sterile drape appliedSpinal BlockPatient position: sittingPatient monitoring: EKG, HR, BP and BeO1Kjmjozbp: midlineLevel: L3-4Injection technique: single-shotNeedleNeedle type: Other (tomas) Needle gauge: 25 GNeedle Length: 9 cmUsed introducerAssessmentSensory level: T57Ezhltb: cerebrospinal fluidpatient tolerated the procedure well, patient had no immediate complic ations and patient had adequate level of anesthesia and negative Allis clamp testAdditional NotesPatient tolerated well. No pain on injection or throughout procedure.[facility] HospitalABORH, [id number] 08:15:00 Test Item Value Reference Range Interpretation Comments ABO Grouping (test code = 2588) A Rh Factor (test code = 2589) POS [facility] HospitalType and screen, [id number] 08:14:00 Test Item Value Reference Range Interpretation Comments ABO/RH AUTOMATED (BEAKER) (test A POSITIVE code = 2260) Ab Scrn (test code = 890-4) NEGATIVE [facility] HospitalPOCT , [id number] 07:34:00 Test Item Value Reference Range Interpretation Comments Test Urine, POC (test Negative code = 9302291) Control line present?, POC (test Yes code = 9173542) Background clear?, POC (test code Yes = 9269067) UPT Cassette Lot #, POC (test code 8543715 = 9091395) UPT Cassette Expiration Date, POC 05/20/2021 (test code = 4848538) [facility] HospitalTISSUE [id number] 16:17:00Surgical Pathology Report Case: [id number] Authorizing Provider: Rich Del Castillo MD Collected: 12/21/2019 1412 Ordering Location: [facility] Received: 12/21/2019 1608 SERVICES Pathologist: Liv Brown MD Specimen: Large Intestine, Colon - Right/Ascending, ULCER/ MASS BX Immunohistochemical stains for MSH-2, MSH-6, PMS-2 and MLH-1 were performed on this adenocarcinoma. Tumor cells have nuclear reactivity with MSH-2, MSH-6, PMS-2 and MLH-1. The lymphocytes and stromal cells show nuclear staining as positive internal controls. IHC Interpretation:No loss of nuclear expression of MMR proteins: low probability of microsatellite instability-high (MSI- H).Addendum electronically signed by Liv Azevedo MD on 12/31/2019 at 4:17 PMA. COLON, ASCENDING, BIOPSY OF ULCER/MASS: - INVASIVE ADENOCARCINOMA, MODERATELY DIFFERENTIATEDComment: The finding was communicated via secure email with Dr. Del Castillo at 8:36 on December 23, 2019.FREDISK/brooke Signing Pathologist Direct Phone Line: [phone] signed by Liv Azevedo MD on 12/23/2019 at 5:25 [id number]; [id number]; 08335 z3Yxjmy diagnosis: Lower abdominal painRight ascending colonReceived in formalin labeled with the patient's name, accession number and "right ascending colon ulcer/mass" are multiple north-pink tissue fragments measuring up to 0.2 cm in greatest dimension which are filtered and submitted in toto in A1. PA/pl Immunohistochemical stains for MMR are pending. An addendum will follow. The interpretation of this case included the use of immunohistochemistry or special stains.Control Slides Examined: In-house known positive controls were evaluated along with the test tissue. These control slides run alongside ofthe patients sample show appropriate staining. Internal positive and negative controls when available are evaluated Immunohistochemistry technical testing was performed at [facility], Pathology Laboratory where it was developed and its performance characteristics were determined.It has not been cleared or approved by the U.S. Food and Drug Administration. The FDA has determinedthat such clearance or approval is not necessary. The test is used for clinical purposes. It should not be regarded as investigational or for research. This laboratory is certified under the Clinical Laboratory Improvement Amendments of 1988 (CLIA-88) as qualified to perform high complexity clinical laboratory testing. Carcinoembryonic Antigen (CEA)2019-12-21 17:16:00 Test Item Value Reference Range Interpretation Comments CEA, SERUM (test code = 1.2 ng/mL 0-5 9-6) SHONDA (test code = SHONDA) Electronic Warfare Operator ID - DB Lab Interpretation (test Normal code = 00578-2) [facility] HospitalCARCINOEMBRYONIC ANTIGEN (CEA)2019-12-21 17:16:00 Test Item Value Reference Range Interpretation Comments CARCINOEMBRYONIC ANTIGEN (BEAKER) 1.2 ng/mL 0.0-5.0 (test code = 685) Electronic Warfare Operator ID - DB
--- NOTE | 2020-12-15 11:38 | RAD REPORT ---
EXAM DESCRIPTION: RAD - Chest Single View - 12/15/2020 11:07 am CLINICAL HISTORY: subclavian VT, right-sided chest and shoulder pain COMPARISON: May 2011 TECHNIQUE: AP portable chest image was obtained 12/15/2020 11:07 am . FINDINGS: Lungs are clear. Heart and vasculature are normal. No measurable pleural effusion and no p neumothorax. No acute bony abnormality seen. No acute aortic findings suspected. IMPRESSION: No acute cardiopulmonary process. No significant change from comparison study.
[2020-12-15 11:43] LABS: Absolute Lymphocytes (CBC) 2.3 K/uL (0.7-4.9); Basophils % 0.9 % (0-1.3); Hematocrit 34.1 % (36.0-45.0); Lymphocytes % 50.3 % (15.3-44.8); RBC Red Blood Cell Count 4.15 M/uL (3.86-4.86)
[2020-12-15 11:55] LABS: Protime INR 1.04
[2020-12-15 12:01] LABS: ALT/SGPT 22 U/L (12-78); AST/SGOT 16 U/L (15-37); Albumin 3.6 g/dL (3.4-5.0); Alkaline Phosphatase 81 U/L (45-117); BUN Blood Urea Nitrogen 13 mg/dL (7-18); Bicarbonate 26 mmol/L (21-32); Bilirubin Direct < 0.1 mg/dL (0-0.2); Bilirubin Total 0.4 mg/dL (0.2-1.0); Glucose Level 95 mg/dL (74-106); Magnesium 2.3 mg/dL (1.8-2.4); NT PRO-BNP 6 pg/mL (<125); Potassium 3.6 mmol/L (3.5-5.1); Protein, Total 7.7 g/dL (6.4-8.2); Sodium Level 141 mmol/L (136-145); Troponin (Emerg Dept Use Only) < 0.02 ng/mL (0.0-0.045)
[2020-12-15 13:14] LABS: Blood Morphology Comment NOT SEEN (NOT SEEN); Platelet Estimate ADEQ
--- NOTE | 2020-12-15 13:18 | RAD REPORT ---
EXAM DESCRIPTION: CT - Chest Angio - 12/15/2020 1:05 pm CLINICAL HISTORY: Chest pain/right subclavian venous thrombus COMPARISON: None. TECHNIQUE: Dynamically enhanced axial 3 mm thick images of the chest were obtained during administra tion of <100> mL Isovue 370 IV contrast. Coronal and oblique reconstruction images were generated and reviewed. Exam utilizes a protocol for optimal evaluation of pulmonary arterial tree. Maximum intensity projections 3D imaging was utilized All CT scans are performed using dose optimization technique as appropriate and may include automated exposure control or mA/KV adjustment according to patient size. FINDINGS: A pulmonary embolus is not seen. A thoracic aortic aneurysm is not noted. A pleural effusion is not seen. A pericardial effusion is not seen. A lung consolidation is not present. IMPRESSION: Negative for a pulmonary embolism.
[2020-12-15] MEDS ORDERED: RIVAROXABAN 10 MG TABLET PO ONE (14:15)
[2020-12-15] MEDS ORDERED: HYDROCODONE/APAP 10/325 TAB ONE (15:00)
--- NOTE | 2020-12-15 15:59 | ER ---
Nurse's Notes [facility] Name: Melissa Cuadra Age: 45 yrs Sex: Female : 1975 Arrival Date: 12/15/2020 Time: 09:53 Bed 15 Private MD: Kenna Carroll K Diagnosis: Acute embolism and thrombosis of right subclavian vein Presentation: 12/15 10:19 Chief complaint: Patient states: i just came here got blood work today and sonogram and tw2 xray today my doctor sent me over Dr. Carroll and she said the talked to Dr. Varghese, having right sided pain, and right arm. Coronavirus screen: At this time, the client does not indicate any symptoms associated with coronavirus-19. Ebola Screen: Patient denies travel to an Ebola-affected area in the 21 days before illness onset. Initial Sepsis Screen: Does the patient meet any 2 criteria? No. Patient's initial sepsis screen is negative. Does the patient have a suspected source of infection? No. Patient's initial sepsis screen is negative. Risk Assessment: Do you want to hurt yourself or someone else? Patient reports no desire to harm self or others. Onset of symptoms was December 15, 2020. 10:19 Method Of Arrival: Ambulatory tw2 10:19 Acuity: JENNY 3 tw2 Triage Assessment: 10:22 General: Appears uncomfortable, well groomed, Behavior is calm, cooperative, tw2 appropriate for age. Pain: Complains of pain in abdomen and right arm. 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 - Social history:: Smoking status: . Screenin:33 Abuse screen: Denies threats or abuse. Nutritional screening: No deficits noted. tw2 Tuberculosis screening: No symptoms or risk factors identified. Fall Risk None identified. Assessment: 10:25 General: SEE TRIAGE NOTE. bp 11:30 Reassessment: No changes from previously documented assessment. Patient and/or family bp updated on plan of care and expected duration. Pain level reassessed. Patient is alert, oriented x 3, equal unlabored respirations, skin warm/dry/pink. ALL CURRENT ORDERS COMPLETED. 13:30 Reassessment: No changes from previously documented assessment. Patient and/or family bp updated on plan of care and expected duration. Pain level reassessed. Patient is alert, oriented x 3, equal unlabored respirations, skin warm/dry/pink. PT RETURNED FROM CT. 15:30 Reassessment: No changes from previously documented assessment. Patient and/or family bp updated on plan of care and expected duration. Pain level reassessed. Patient is alert, oriented x 3, equal unlabored respirations, skin warm/dry/pink. PT SEEN BY HOSPITALIST. PER PT, SHE WOULD PREFER D/C. 16:46 Reassessment: PT D/C HOME AMBULATORY, DX WITH DVT. bp Vital Signs: 10:19 BP 109 / 83; Pulse 82; Resp 17; Temp 97.8(TE); Pulse Ox 99% on R/A; Weight 82.55 kg; tw2 Height 5 ft. 4 in. (162.56 cm); Pain 8/10; 11:33 BP 97 / 84; Pulse 84; Resp 16; Pulse Ox 99% ; bp 13:30 BP 103 / 82; Pulse 73; Resp 17; Pulse Ox 95% ; bp 15:30 BP 101 / 82; Pulse 86; Resp 17; Pulse Ox 97% ; bp 16:30 BP 114 / 76; Pulse 64; Resp 18; Temp 97.9; Pulse Ox 95% ; bp 10:19 Body Mass Index 31.24 (82.55 kg, 162.56 cm) tw2 ED Course: 09:53 Patient arrived in ED. as 09:54 Kenna Carroll MD is Private Physician. as 09:56 Neno Varghese MD is Attending Physician. kdr 10:21 Triage completed. tw2 10:22 Arm band placed on. tw2 10:25 Bed in low position. Call light in reach. tw2 10:32 Macario Nunez, WILIAM is Primary Nurse. bp 11:07 XRAY Chest (1 view) In Process Unspecified. EDMS 11:33 Inserted saline lock: 20 gauge in left antecubital area, using aseptic technique. Blood bp collected. 13:05 CT Chest Angio In Process Unspecified. EDMS 15:58 Kenna Carroll MD is Referral Physician. kdr 16:47 No provider procedures requiring assistance completed. IV discontinued, intact, bp bleeding controlled, No redness/swelling at site. Pressure dressing applied. Administered Medications: 14:15 Drug: Br[place] 10 mg-325 mg 1 tabs Route: PO; bp 16:20 Follow up: Response: No adverse reaction bp 14:45 Drug: Xarelto 10 mg Route: PO; bp 16:21 Follow up: Response: No adverse reaction bp 16:00 Drug: HydroCORTISONE 50 mg Route: IVP; Site: right antecubital; bp 16:21 Follow up: Response: No adverse reaction bp Outcome: 15:59 Discharge ordered by MD. kdr 16:47 Discharged to home ambulatory. bp 16:47 Condition: stable 16:47 Discharge instructions given to patient, Instructed on discharge instructions, follow up and referral plans. the need for admit, Demonstrated understanding of instructions, follow-up care, medications, Prescriptions given X 3. 17:04 Patient left the ED. aa5 Signatures: Dispatcher [employer] EDMS Neno Varghese MD MD kdr Stephanie Trotter Audri, RN RN aa5 Rahel Hernandez RN RN tw2 Macario Nunez, RN RN bp
--- NOTE | 2020-12-15 15:59 | EDPHYS ---
Physician Documentation [facility] Name: Melissa Cuadra Age: 45 yrs Sex: Female : 1975 Arrival Date: 12/15/2020 Time: 09:53 Bed 15 Private MD: Kenna Carroll K ED Physician Neno Varghese HPI: 12/16 12:42 This 45 yrs old Black Female presents to ER via Ambulatory with complaints of abnormal kdr u/s VT subclavian vein. 12:43 The patient or guardian complains of pain, that is acute. The complaints affect the kdr anterior aspect of right shoulder, right bicep, right antecubital area and dorsal aspect of right forearm. Context: The problem was sustained at home, resulted from unknown cause, The patient had been having pain for a few weeks and Dr. sanchez sent her for US of her arm. A right subclavian VT was found and the patient was told to come to the ED. Onset: The symptoms/episode began/occurred gradually, 2 week(s) ago. Treatment prior to arrival includes: no previous treatment. Modifying factors: The symptoms are alleviated by nothing. the symptoms are aggravated by movement, lifting weight, bending arm. Associated signs and symptoms: The patient has no apparent associated signs or symptoms. Severity of symptoms: At their worst the symptoms were moderate, in the emergency department the symptoms are unchanged. The patient has not experienced similar symptoms in the past. The patient has been recently seen by a physician: the patient's primary care provider. 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 - Social history:: Smoking status: . ROS: 12/16 12:43 Constitutional: Negative for fever, chills, and weight loss, Eyes: Negative for injury, kdr pain, redness, and discharge, ENT: Negative for injury, pain, and discharge, Neck: Negative for injury, pain, and swelling, Cardiovascular: Negative for chest pain, palpitations, and edema, Respiratory: Negative for shortness of breath, cough, wheezing, and pleuritic chest pain. Exam: 14:52 Constitutional: This is a well developed, well nourished patient who is awake, alert, kdr and in no acute distress. Head/Face: Normocephalic, atraumatic. Eyes: Pupils equal round and reactive to light, extra-ocular motions intact. Lids and lashes normal. Conjunctiva and sclera are non-icteric and not injected. Cornea within normal limits. Periorbital areas with no swelling, redness, or edema. Neck: Trachea midline, no thyromegaly or masses palpated, and no cervical lymphadenopathy. Supple, full range of motion without nuchal rigidity, or vertebral point tenderness. No Meningismus. Chest/axilla: Normal chest wall appearance and motion. Nontender with no deformity. No lesions are appreciated. Cardiovascular: Regular rate and rhythm with a normal S1 and S2. No gallops, murmurs, or rubs. Normal PMI, no JVD. No pulse deficits. Respiratory: Lungs have equal breath sounds bilaterally, clear to auscultation and percussion. No rales, rhonchi or wheezes noted. No increased work of breathing, no retractions or nasal flaring. Abdomen/GI: Soft, non-tender, with normal bowel sounds. No distension or tympany. No guarding or rebound. No evidence of tenderness throughout. Back: No spinal tenderness. No costovertebral tenderness. Full range of motion. Skin: Warm, dry with normal turgor. Normal color with no rashes, no lesions, and no evidence of cellulitis. Neuro: Awake and alert, GCS 15, oriented to person, place, time, and situation. Cranial nerves II-XII grossly intact. Motor strength 5/5 in all extremities. Sensory grossly intact. Cerebellar exam normal. Normal gait. Psych: Awake, alert, with orientation to person, place and time. Behavior, mood, and affect are within normal limits. 14:52 Musculoskeletal/extremity: Extremities: grossly normal except: noted in the anterior aspect of right shoulder, right bicep, right antecubital area, posterior aspect of right shoulder, right tricep and right elbow: decreased ROM, pain, tenderness. Vital Signs: 12/15 10:19 BP 109 / 83; Pulse 82; Resp 17; Temp 97.8(TE); Pulse Ox 99% on R/A; Weight 82.55 kg; tw2 Height 5 ft. 4 in. (162.56 cm); Pain 8/10; 11:33 BP 97 / 84; Pulse 84; Resp 16; Pulse Ox 99% ; bp 13:30 BP 103 / 82; Pulse 73; Resp 17; Pulse Ox 95% ; bp 15:30 BP 101 / 82; Pulse 86; Resp 17; Pulse Ox 97% ; bp 16:30 BP 114 / 76; Pulse 64; Resp 18; Temp 97.9; Pulse Ox 95% ; bp 10:19 Body Mass Index 31.24 (82.55 kg, 162.56 cm) tw2 MDM: 15:59 Patient medically screened. [facility] 12/16 14:52 Data reviewed: vital signs, nurses notes, lab test result(s), EKG, radiologic studies. kdr Counseling: I had a detailed discussion with the patient and/or guardian regarding: the historical points, exam findings, and any diagnostic results supporting the discharge/admit diagnosis, lab results, radiology results, the need for outpatient follow up. Physician consultation: Kimberly Finnegan MD regarding consult, patient's condition, need to come to ED to see patient, and will see patient in ED, immediately, would like medications started, Eliquis. Special discussion: I discussed with the patient/guardian in detail that at this point there is no indication for admission to the hospital. It is understood, however, that if the symptoms persist or worsen the patient needs to return immediately for re-evaluation. ED course: The patient was stable and without complication in the ED.. 12/15 10:31 Order name: Basic Metabolic Panel; Complete Time: 12:27 [facility] 12/15 10:31 Order name: CBC with Diff; Complete Time: 13:53 [facility] 12/15 10:31 Order name: LFT's; Complete Time: 12:27 [facility] 12/15 10:31 Order name: Magnesium; Complete Time: 12:27 [facility] 12/15 10:31 Order name: NT PRO-BNP; Complete Time: 12:27 [facility] 12/15 10:31 Order name: PT-INR; Complete Time: 12:27 [facility] 12/15 10:31 Order name: Troponin (emerg Dept Use Only); Complete Time: 12:27 [facility] 12/15 10:31 Order name: XRAY Chest (1 view); Complete Time: 12:27 [facility] 12/15 10:31 Order name: DD; Complete Time: 12:27 [facility] 12/15 11:49 Order name: Manual Differential; Complete Time: 13:53 EDMS 12/15 16:03 Order name: COVID-19 : Document "Date of Symptom Onset" if Symptomatic. [facility] 12/15 16:03 Order name: Flu kdr 12/15 10:31 Order name: EKG; Complete Time: 10: [facility] 12/15 10:31 Order name: Cardiac monitoring; Complete Time: 10: [facility] 12/15 10:31 Order name: EKG - Nurse/Tech; Complete Time: 12: [facility] 12/15 10:31 Order name: IV Saline Lock; Complete Time: 11: [facility] 12/15 10:31 Order name: Labs collected and sent; Complete Time: 11: [facility] 12/15 10:31 Order name: O2 Per Protocol; Complete Time: 10:33 [facility] 12/15 10:31 Order name: O2 Sat Monitoring; Complete Time: 10: [facility] 12/15 12:29 Order name: CT Chest Angio; Complete Time: 13:53 kdr Administered Medications: 12/15 14:15 Drug: Hannacroix 10 mg-325 mg 1 tabs Route: PO; bp 16:20 Follow up: Response: No adverse reaction bp 14:45 Drug: Xarelto 10 mg Route: PO; bp 16:21 Follow up: Response: No adverse reaction bp 16:00 Drug: HydroCORTISONE 50 mg Route: IVP; Site: right antecubital; bp 16:21 Follow up: Response: No adverse reaction bp Disposition: 12/15/20 15:59 Discharged to Home. Impression: Acute embolism and thrombosis of right subclavian vein. - Condition is Stable. - Discharge Instructions: Deep Vein Thrombosis, Venous Thromboembolism. - Prescriptions for Tramadol 50 mg Oral Tablet - take 1 tablet by ORAL route every 8 hours as needed; 12 tablet. - Medication Reconciliation Form, Thank You Letter, Prescription Opioid Use, Work release form form. - Follow up: Kenna Carroll MD; When: 2 - 3 days; Reason: If symptoms return, Further diagnostic work-up, Recheck today's complaints, Continuance of care, Re-evaluation by your physician. - Problem is an ongoing problem. - Symptoms are unchanged. - Notes: See the perscription given for diections on her medications. Dr. Finnegan can be contacted by your oncologist at [phone]. Signatures: Dispatcher [employer] EDCO Neno Varghese MD MD kdr Jane Fitzgerald, RN RN aa5 Rahel Hernandez RN RN tw2 Macario Nunez RN RN bp Corrections: (The following items were deleted from the chart) 16:39 16:04 CORONAVIRUS ordered. [facility]CO EDMS 16:39 16:04 Influenza Screen (A ordered. [facility] EDMS 17:04 15:59 12/15/2020 15:59 Discharged to Home. Impression: Acute embolism and thrombosis of aa5 right subclavian vein. Condition is Stable. Discharge Instructions: Deep Vein Thrombosis. Forms are Medication Reconciliation Form, Thank You Letter, Antibiotic Education, Prescription Opioid Use. Follow up: Kenna Carroll; When: 2 - 3 days; Reason: If symptoms return, Further diagnostic work-up, Recheck today's complaints, Continuance of care, Re-evaluation by your physician. Problem is an ongoing problem. Symptoms are unchanged. kdr
[2020-12-15] MEDS ORDERED: HYDROCORTISONE SUC 100 MG INJ ONE (16:24)
--- NOTE | 2020-12-15 16:51 | P.CNS ---
Date of Consult: 12/15/20 Reason for Consult: Right subclavian DVT Requesting Physician: Neno Varghese Primary Care Provider: Glen Chief Complaint: Right upper extremity pain History of Present Illness: Patient is a 45-year-old female came to the hospital with pain in her right upper extremity. She was found have a subclavian DVT in the right subclavian vein. Patient has a history of colon cancer status post prior shore a section. She has had no evidence of lymph node involvement. She has not had any other treatments including no chemo or radiation. She has been following up with her oncologist as an outpatient in the [facility] [place] system. She was having pain in her right side and she noticed some swelling in the right upper extremity. The pain was worsening so she went to see her PCP, Dr. Carroll. Dr. Carroll Center to the ER were she had a right upper extremity Doppler performed which revealed a subclavian DVT. Patient will be started on anti coagulation and she can be discharged with further outpatient follow-up. She will get started on Eliquis 10 mg p.o. b.i.d. for 1 week and then she will take 5 mg p.o. b.i.d. for at least 3-6 months. She needs to have a hypercoagulable workup performed. She also needs to make sure she is ruled out for metastatic colon cancer. I will also give her some medication for phlebitis-hydrocortisone 50 mg IV push x1 and then prednisone 20 mg daily for 5 days Allergies ciprofloxacin [From Cipro] Allergy (Unverified 05/28/17 20:37) Unknown - Past Medical/Surgical History -: Colon cancer -: Partial colectomy - Family History Father Family History: Reviewed- Non-Contributory - Social History Smoking Status: Current every day smoker Review of Systems 10-point ROS is otherwise unremarkable Physical Examination Reviewed General: Alert, In no apparent distress, Oriented x3 HEENT: Atraumatic, Normocephalic Neck: Supple, 2+ carotid pulse no bruit, JVD not distended, No Thyromegaly Respiratory: Clear to auscultation bilaterally, Normal air movement Cardiovascular: Normal pulses, Regular rate/rhythm, Normal S1 S2 Gastrointestinal: Hypoactive, Soft and benign, Non-distended Musculoskeletal: No clubbing, Swelling, Erythema Neurological: Normal gait, Normal speech, Normal strength at 5/5 x4 extr, Normal tone, Sensation intact, Cranial nerves 3-12 intact Laboratory Data (last 24 hrs) 12/15/20 11:31: PT 12.0, INR 1.04 12/15/20 11:31: WBC 4.70, Hgb 11.2 L, Hct 34.1 L, Plt Count 297 12/15/20 11:31: Sodium 141, Potassium 3.6, BUN 13, Creatinine 0.81, Glucose 95, Magnesium 2.3, Total Bilirubin 0.4, AST 16, ALT 22, Alkaline Phosphatase 81 - Problems (1) Deep vein thrombosis, upper right extremity Current Visit: Yes Status: Acute (2) History of colon cancer Current Visit: Yes Status: Acute Conclusions/ Impression: Plan: 1. Continue with hydrocortisone IV push x1 2. Eliquis 10 mg p.o. x1 3. Plan to discharge on Eliquis 10 mg p.o. b.i.d. for 1 week, then 5 mg p.o. b.i.d. for 3 months 4. Prednisone 20 mg p.o. daily for 5 days to help with phlebitis symptoms 5. Outpatient follow with Oncology for hypercoagulable workup as well as evaluation for metastasis of colon cancer Critical Care: No Time Spent Managing Pts care (In Minutes): 40
[2020-12-15 17:34] LABS: SARS-COV-2 RT PCR NEGATIVE (NEGATIVE)
== END 2020-12-15 17:04 | disposition home or self-care (01) ==
LOC: ER 09:52
DX: I82.B11 Acute embolism and thrombosis of right subclavian vein (principal); Z20.822 Contact with and (suspected) exposure to COVID-19; Z85.038 Personal history of other malignant neoplasm of large intestine; Z88.1 Allergy status to other antibiotic agents
CPT/HCPCS: 85025; 80048; 36415; 83735; 85610; 85379; 80076; 84484; 83880; 0240U; 71275; 71045; 96374; 99284; Q9967; J1720

== ENCOUNTER 2023-02-18 20:26 | Emergency (ER) | payer OTHER, BC ==
--- OUTSIDE RECORDS SUMMARY | 2023-02-18 20:38 | XMS REPORT | Continuity of Care Document ---
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 14:00: 00:00 mouth Medical capsule 34 :00 daily . [facility] furosemide 2021- No 20mg Q.5D Take [address] [facility] (LASIX) 20 7- 07-28 by mouth 2 [facility] MG tablet 13:59: 00:00 (two) Medica l 23 :00 times Center daily. furosemide 2021- No 20mg Q.5D Take [address] [facility] (LASIX) 20 7- 07-28 by mouth 2 [facility] MG tablet 13:59: 00:00 (two) Medica l 23 :00 times Center daily. furosemide 2021- No 20mg Q.5D Take [address] [facility] (LASIX) 20 7- 07-28 by mouth 2 [facility]iella k[facility] MG tablet 13:59: 00:00 (two) Medica l 23 :00 times Center daily. furosemide 2021-2021- No 20mg Q.5D Take [address] [facility] (LASIX) 20 7-28 07-28 by mouth 2 [facility]iella k[facility] MG tablet 13:59: 00:00 (two) Medica l 23 :00 times Center daily. furosemide 2021- No 20mg Q.5D Take [address] [facility] (LASIX) 20 7-28 07-28 by mouth 2 [facility]iella kes MG tablet 13:59: 00:00 (two) Medica l 23 :00 times Center daily. furosemide 2021-2021- No 20mg Q.5D Take [address] [facility] (LASIX) 20 7-28 07-28 by mouth 2 [facility]iella k[facility] MG tablet 13:59: 00:00 (two) Medica l 23 :00 times Center daily. furosemide 2021-2021- No 20mg Q.5D Take [address] [facility] (LASIX) 20 7-28 07-28 by mouth 2 [facility] k[facility] MG tablet 13:59: 00:00 (two) Medica l 23 :00 times Center daily. furosemide 2021- 2022- No 20mg Q.5D Take [address] [facility] (LASIX) 20 05-17 by mouth 2 [facility]iella k[facility] MG tablet 13:59: 00:00 (two) Medica l 23 :00 times Center daily. furosemide 2021-2021- No 20mg Q.5D Take [address] [facility] (LASIX) 20 05-17 by mouth 2 [facility]iella k[facility] MG tablet 13:59: 00:00 (two) Medica l 23 :00 times Center daily. furosemide 2021- 202- No 20mg Q.5D Take [address] [facility] (LASIX) 05-17 by mouth 2 [facility] k[facility] MG tablet 13:59: 00:00 (two) Medica l 23 :00 times Center daily. furosemide 2021- No 20mg Q.5D Take [address] [facility] (LASIX) 05-17 by mouth 2 [facility]iella k[facility] MG tablet 13:59: 00:00 (two) Medica l 23 :00 times Center daily. ergocalcife 2021-0 2022- No [id number] Q7D Take [facility] 05-17 50,000 [facility] (ERGOCALCIF 13:59: 00:00 Units by M edical SAMUEL) 1,250 08 :00 mouth once Ce nter mcg (50,000 a week. unit) capsule ergocalcife 2021-0 2022- No [id number] Q7D Take [facility] 05-17 50,000 [facility] (ERGOCALCIF 13:59: 00:00 Units by M edical SAMUEL) 1,250 08 :00 mouth once Ce nter mcg (50,000 a week. unit) capsule ergocalcife 2-0 2022- No [id number] Q7D Take [facility] 05-17- 50,000 [facility] (ERGOCALCIF 13:59: 00:00 Units by M edical SAMUEL) 1,250 08 :00 mouth once Ce nter mcg (50,000 a week. unit) capsule ergocalcife 2022-0 2022- No [id number] Q7D Take [facility] 7-05-17 50,000 [facility] (ERGOCALCIF 13:59: 00:00 Units by M edical SAMUEL) 1,250 08 :00 mouth once Ce nter mcg (50,000 a week. unit) capsule ergocalcife 2022-0 2022- No [id number] Q7D Take [facility] 7-05-17 50,000 [facility] (ERGOCALCIF 13:59: 00:00 Units by M edical SAMUEL) 1,250 08 :00 mouth once Ce nter mcg (50,000 a week. unit) capsule ergocalcife 2022-0 2022- No [id number] Q7D Take [facility] rol 7-05-17 50,000 [facility] (ERGOCALCIF 13:59: 00:00 Units by M edical SAMUEL) 1,250 08 :00 mouth once Ce nter mcg (50,000 a week. unit) capsule ergocalcife 2022-0 2022- No [id number] Q7D Take [facility] 7-05-17 50,000 [facility] (ERGOCALCIF 13:59: 00:00 Units by M edical SAMUEL) 1,250 08 :00 mouth once Ce nter mcg (50,000 a week. unit) capsule ergocalcife 2022-0 2022- No [id number] Q7D Take [facility] 7-05-17 50,000 [facility] (ERGOCALCIF 13:59: 00:00 Units by M edical SAMUEL) 1,250 08 :00 mouth once Ce nter mcg (50,000 a week. unit) capsule ergocalcife 2022-0 2022- No [id number] Q7D Take [facility] 7-05-17 50,000 [facility] (ERGOCALCIF 13:59: 00:00 Units by M edical SAMUEL) 1,250 08 :00 mouth once Ce nter mcg (50,000 a week. unit) capsule ergocalcife 2022-0 2022- No [id number] Q7D Take [facility] 7-28 05-17 50,000 [facility] (ERGOCALCIF 13:59: 00:00 Units by M edical SAMUEL) 1,250 08 :00 mouth once Ce nter mcg (50,000 a week. unit) capsule ergocalcife 2021-2021- No [id number] Q7D Take [facility] 05-17 50,000 [facility] (ERGOCALCIF 13:59: 00:00 Units by Lalito BAKER) 1,250 08 :00 mouth once Ce nter mcg (50,000 a week. unit) capsule furosemide 2021-2021- No 20mg Take 20 mg [facility] (LASIX) 20 7- 07 by mouth [facility] MG tablet 09:16: 00:00 daily. of 06 :00 Medicin e gabapentin 2021-2021- No 100mg Take 100 [facility] ([facility]) [facility] 09:15: 00:00 mouth. of capsule 57 :00 Medicin e Multiple Yes 1{capsu Take 1 [facility] Vitamin 7- le} capsule by [facility] (MULTIVITAM 08:50: mouth. of INS) CAPS 37 Medicin e tramadol Yes tramadol [facility] (ULTRAM) 50 7- 50 mg [facility] MG tablet 08:50: tablet of 37 Medicin e chlorthalid Yes 25mg Take 1 [facility] one 7- Tablet by [place] (HYGROTEN) 00:00: mouth of 25 MG 00 daily. Medicin tablet e chlorthalid Yes 25mg Take 1 [facility] one 7- Tablet by [place] (HYGROTEN) 00:00: mouth of 25 MG 00 daily. Medicin tablet e furosemide Yes 20mg Take 20 mg [facility] (LASIX) 20 6-29 by mouth Colle ge MG tablet 08:48: daily. of 07 Medicin e Multiple Yes 1{capsu Take 1 [facility] Vitamin 6-29 le} capsule by [facility] (MULTIVITAM 08:48: mouth. of INS) CAPS 07 Medicin e gabapentin 2021-0 Yes 100mg Take 100 [facility] (NEURONTIN) 6-29 mg by [place] 100 MG 08:48: mouth. of capsule 07 Medicin e tramadol Yes tramadol [facility] (ULTRAM) 50 6-29 50 mg [facility] MG tablet 08:48: tablet of 07 Medicin e Apixaban 2021- No 5mg Take 5 mg [place] [facility] (ELIQUIS) 5 6-29 06-29 by mouth [facility] MG TABS 08:47: 00:00 two times of 45 :00 daily. Medicin e Na Yes [id number] 177mL Take 177 [place] [facility] Sulfate-K 6-29 mL by [place] Sulfate-Mg 00:00: mouth See of Sulf 00 Admin Medicin (SUPREP Instructio e BOWEL PREP ns. KIT) 17.5-3.13-1 .6 GM/177ML SOLN Na Yes [id number] 177mL Take 177 [place] [facility] Sulfate-K 6-29 mL by [place] Sulfate-Mg 00:00: mouth See of Sulf 00 Admin Medicin (SUPREP Instructio e BOWEL PREP ns. KIT) 17.5-3.13-1 .6 GM/177ML SOLN chlorthalid 2021- No TAKE ONE B [facility] one 04-04 (1) [place] (HYGROTEN) 00:00: 00:00 TABLET(S) o f 50 MG 00 :00 BY MOUTH Medicin tablet EVERY e MORNING. Na 2021- No [id number] 177mL Take 177 [facility] Sulfate-K 6-13 06-29 mL by [place] Sulfate-Mg 00:00: 00:00 mouth See o f Sulf 00 :00 Admin Medicin (SUPREP Instructio e BOWEL PREP ns. KIT) 17.5-3.13-1 .6 GM/177ML SOLN ondansetron Yes DISSOLVE 1 [facility] (ZOFRAN-ODT 6-09 TABLET BY Col [facility]ge ) 4 mg 00:00: MOUTH of disintegrat 00 EVERY 8 Medic in ing tablet HOURS e NEEDED FOR NAUSEA FOR UP TO 5 DAYS ondansetron Yes DISSOLVE 1 [facility] (ZOFRAN-ODT 6-09 TABLET BY [facility] ) 4 mg 00:00: MOUTH of disintegrat 00 EVERY 8 Medic in ing tablet HOURS e NEEDED FOR NAUSEA FOR UP TO 5 DAYS ondansetron 2021- No DISSOLVE 1 [facility] (ZOFRAN-ODT 6- 12-22 TABLET BY Co llege ) 4 mg 00:00: 00:00 MOUTH of disintegrat 00 :00 EVERY 8 Medic in ing tablet HOURS e NEEDED FOR NAUSEA FOR UP TO 5 DAYS linaCLOtide 2021-0 Yes TAKE 1 [facility] (LINZESS) 6-06 CAPSULE BY [facility] 145 MCG 00:00: MOUTH of CAPS 00 EVERY DAY Medicin e linaCLOtide 2021-0 Yes TAKE 1 [facility] (LINZESS) 6-06 CAPSULE BY [facility] 145 MCG 00:00: MOUTH of CAPS 00 EVERY DAY Medicin e linaCLOtide 2021-0 2021- No TAKE 1 [place] [facility] (LINZESS) 03-26 12- CAPSULE BY [facility] 145 MCG 00:00: 00:00 MOUTH of CAPS 00 :00 EVERY DAY Medicin e dicyclomine 2021- No 10mg Take 1 [place] [facility] (BENTYL) 10 03-26 capsule by [facility] MG capsule 00:00: 00:00 mouth 3 of 00 :00 times Medicin daily as e needed for Pain. ondansetron 2021-0 2021- No 4mg Take [address] [facility] (ZOFRAN-ODT 6-04 06-09 tablet (4 Daniella k[facility] ) 4 MG 00:00: 23:59 mg total) Medic al disintegrat 00 :00 by mouth Cent er ing tablet every 8 (eight) hours as needed for Nausea for up to 5 days. ondansetron 2021-0 2021- No 4mg Take [address] [facility] (ZOFRAN-ODT 6-04 06-09 tablet (4 Daniella kes ) 4 MG 00:00: 23:59 mg total) Medic al disintegrat 00 :00 by mouth Cent er ing tablet every 8 (eight) hours as needed for Nausea for up to 5 days. ondansetron 2021-0 2021- No 4mg Take [address] [facility] (ZOFRAN-ODT 6-04 06-09 tablet (4 Daniella kes ) 4 MG 00:00: 23:59 mg total) Medic al disintegrat 00 :00 by mouth Cent er ing tablet every 8 (eight) hours as needed for Nausea for up to 5 days. ondansetron 2021-0 2021- No 4mg Take [address] [facility] (ZOFRAN-ODT 6-04 06-09 tablet (4 Daniella kes ) 4 MG 00:00: 23:59 mg total) Medic al disintegrat 00 :00 by mouth Cent er ing tablet every 8 (eight) hours as needed for Nausea for up to 5 days. ondansetron 2022-0 2022- No 4mg Take [address] [facility] (ZOFRAN-ODT 6-04 06-09 tablet (4 Daniella kes ) 4 MG 00:00: 23:59 mg total) Medic al disintegrat 00 :00 by mouth Cent er ing tablet every 8 (eight) hours as needed for Nausea for up to 5 days. ondansetron 2022-0 2- No 4mg Take [address] [facility] (ZOFRAN-ODT 6-04 06-09 tablet (4 [facility]iella kes ) 4 MG 00:00: 23:59 mg total) Medic al disintegrat 00 :00 by mouth Cent er ing tablet every 8 (eight) hours as needed for Nausea for up to 5 days. ondansetron 2-0 2- No 4mg Take [address] [facility] (ZOFRAN-ODT 6-04 06-09 tablet (4 [facility]iella kes ) 4 MG 00:00: 23:59 mg total) Medic al disintegrat 00 :00 by mouth Cent er ing tablet every 8 (eight) hours as needed for Nausea for up to 5 days. ondansetron 2-0 2- No 4mg Take [address] [facility] (ZOFRAN-ODT 6-04 06-09 tablet (4 Daniella kes ) 4 MG 00:00: 23:59 mg total) Medic al disintegrat 00 :00 by mouth Cent er ing tablet every 8 (eight) hours as needed for Nausea for up to 5 days. ondansetron 2-0 2- No 4mg Take [address] [facility] (ZOFRAN-ODT 6-04 06-09 tablet (4 Daniella kes ) 4 MG 00:00: 23:59 mg total) Medic al disintegrat 00 :00 by mouth Cent er ing tablet every 8 (eight) hours as needed for Nausea for up to 5 days. ondansetron 2022-0 2- No 4mg Take [address] [facility] (ZOFRAN-ODT 6-04 06-09 tablet (4 Daniella kes ) 4 MG 00:00: 23:59 mg total) Medic al disintegrat 00 :00 by mouth Cent er ing tablet every 8 (eight) hours as needed for Nausea for up to 5 days. ondansetron 2021- No 4mg Take [address] [facility] (ZOFRAN-ODT -01 24-09 tablet (4 Daniella kes ) 4 MG 00:00: 23:59 mg total) Medic al disintegrat 00 :00 by mouth Cent er ing tablet every 8 (eight) hours as needed for Nausea for up to 5 days. traMADoL 2021- No 50mg Take [address] [facility] (ULTRAM) 50 6- 06-07 tablet (50 L [facility] mg tablet 00:00: 23:59 mg total) Me dical 00 :00 by mouth Center every 6 (six) hours as needed for Pain for up to 3 days. Max Daily Amount: 200 mg traMADoL 2021-2021- No 50mg Take [address] [facility] (ULTRAM) 50 6- 06-07 tablet (50 L [facility] mg tablet 00:00: 23:59 mg total) Me dical 00 :00 by mouth Center every 6 (six) hours as needed for Pain for up to 3 days. Max Daily Amount: 200 mg traMADoL 2021- No 50mg Take [address] [facility] (ULTRAM) 50 6- 06-07 tablet (50 [facility] mg tablet 00:00: 23:59 mg total) Me dical 00 :00 by mouth Center every 6 (six) hours as needed for Pain for up to 3 days. Max Daily Amount: 200 mg traMADoL 2021- No 50mg Take [address] [facility] (ULTRAM) 50 - 06-07 tablet (50 [facility] mg tablet 00:00: 23:59 mg total) Me dical 00 :00 by mouth Center every 6 (six) hours as needed for Pain for up to 3 days. Max Daily Amount: 200 mg traMADoL 2021- No 50mg Take [address] [facility] (ULTRAM) 50 6-04 06-07 tablet (50 [facility] mg tablet 00:00: 23:59 mg total) Me dical 00 :00 by mouth Center every 6 (six) hours as needed for Pain for up to 3 days. Max Daily Amount: 200 mg traMADoL 2021- No 50mg Take [address] [facility] (ULTRAM) 50 6-04 06-07 tablet (50 [facility] mg tablet 00:00: 23:59 mg total) Me dical 00 :00 by mouth Center every 6 (six) hours as needed for Pain for up to 3 days. Max Daily Amount: 200 mg traMADoL 2021-0 2- No 50mg Take [address] [facility] (ULTRAM) 50 6-04 06-07 tablet (50 [facility] mg tablet 00:00: 23:59 mg total) Me dical 00 :00 by mouth Center every 6 (six) hours as needed for Pain for up to 3 days. Max Daily Amount: 200 mg traMADoL 2021-0 2021- No 50mg Take [address] [facility] (ULTRAM) 50 6-04 06-07 tablet (50 L [facility] mg tablet 00:00: 23:59 mg total) Me dical 00 :00 by mouth Center every 6 (six) hours as needed for Pain for up to 3 days. Max Daily Amount: 200 mg traMADoL 2021-0 2021- No 50mg Take [address] [facility] (ULTRAM) 50 6-04 06-07 tablet (50 L [facility] mg tablet 00:00: 23:59 mg total) Me dical 00 :00 by mouth Center every 6 (six) hours as needed for Pain for up to 3 days. Max Daily Amount: 200 mg traMADoL 2021-0 2021- No 50mg Take [address] [facility] (ULTRAM) 50 6-04 06-07 tablet (50 [facility] mg tablet 00:00: 23:59 mg total) Me dical 00 :00 by mouth Center every 6 (six) hours as needed for Pain for up to 3 days. Max Daily Amount: 200 mg traMADoL 2021-0 2021- No 50mg Take [address] [facility] (ULTRAM) 50 6-04 06-07 tablet (50 [facility] mg tablet 00:00: 23:59 mg total) Me dical 00 :00 by mouth Center every 6 (six) hours as needed for Pain for up to 3 days. Max Daily Amount: 200 mg B12 LIPO-B B12 LIPO-B 2021-0 No B12 LIPO-B [place] [facility] QW IM QW 5-04 IM QW Communi 00:00: [facility] B12 LIPO-B B12 LIPO-B 2021-0 No B12 LIPO-B [place] [facility] QW IM QW 5-04 IM QW Communi 00:00: ty 00 [facility] B12 LIPO-B B12 LIPO-B 0 No B12 LIPO-B [place] [facility] QW IM QW 5-04 IM QW Communi 00:00: ty 00 [facility] B12 LIPO-B B12 LIPO-B 0 No B12 LIPO-B [place] [facility] QW IM QW 5-04 IM QW Communi 00:00: ty 00 [facility] B12 LIPO-B B12 LIPO-B 0 No B12 LIPO-B [place] [facility] QW IM QW 5-04 IM QW Communi 00:00: ty 00 [facility] B12 LIPO-B B12 LIPO-B 0 No B12 LIPO-B [place] [facility] QW IM QW 5-04 IM QW Communi 00:00: ty 00 [facility] B12 LIPO-B B12 LIPO-B 0 No B12 LIPO-B [place] [facility] QW IM QW 5-04 IM QW Communi 00:00: ty 00 [facility] B12 LIPO-B B12 LIPO-B 0 No B12 LIPO-B [place] [facility] QW IM QW 5-04 IM QW Communi 00:00: ty 00 [facility] rivaroxaban 0 2021- No 1{tbl} Take 1 [facility] (XARELTO) 01-19 06-29 Tablet by [facility] 10 MG TABS 00:00: 00:00 mouth of 00 :00 daily Medicin (with main e meal). furosemide Yes 20mg Take 20 mg [facility] (LASIX) 20 3-31 by mouth Colle ge MG tablet 14:40: daily. of Medicin e Multiple Yes 1{capsu Take 1 [facility] Vitamin 3-31 le} capsule by [facility] (MULTIVITAM 14:40: mouth. of INS) CAPS 06 Medicin e Apixaban Yes 2.5mg Take 2.5 [facility] 2.5 MG TABS 3-31 mg by [facility] 00:00: mouth of 00 every 12 Medicin hours. e Apixaban Yes 2.5mg Take 2.5 [facility] 2.5 MG TABS 3-31 mg by [facility] 00:00: mouth of 00 every 12 Medicin hours. e Apixaban Yes 2.5mg Take 2.5 [facility] 2.5 MG TABS 3-31 mg by [facility] 00:00: mouth of 00 every 12 Medicin hours. e furosemide Yes 20mg Take 20 mg [facility] (LASIX) 20 3-21 by mouth Colle ge MG tablet 14:05: daily. of 44 Medicin e Multiple Yes 1{capsu Take 1 [facility] Vitamin 3-21 le} capsule by Mal e (MULTIVITAM 14:05: mouth. of INS) CAPS 44 Medicin e Na No [SUPREP] [facility] Sulfate-K 3-21 03-21 Take as Colleg e Sulfate-Mg 00:00: 00:00 directed. o f Sulf 00 :00 Medicin (SUPREP e BOWEL PREP KIT) 17.5-3.13-1 .6 GM/177ML SOLN LINZESS 145 Yes TAKE 1 [facility] MCG CAPS 3-10 CAPSULE BY Colle ge 00:00: MOUTH of 00 EVERY DAY Medicin e LINZESS 145 Yes TAKE 1 [facility] MCG CAPS 3-10 CAPSULE BY Colle ge 00:00: MOUTH of 00 EVERY DAY Medicin e furosemide Yes 20mg Take 20 mg [facility] (LASIX) 20 1-27 by mouth Colle ge MG tablet 13:53: daily. of 40 Medicin e Multiple Yes 1{capsu Take 1 [facility] Vitamin 1-27 le} capsule by Mal e (MULTIVITAM 13:53: mouth. of INS) CAPS 40 Medicin e furosemide 2020-10 Yes 20mg Take 20 mg [facility] (LASIX) 20 2-23 by mouth Colle ge MG tablet 16:34: daily. of 45 Medicin e Multiple 2020-10 Yes 1{capsu Take 1 [facility] Vitamin 2-23 le} capsule by [facility]g e (MULTIVITAM 16:34: mouth. of INS) CAPS 45 Medicin e linaCLOtide 2020-10 Yes 145ug Take 145 [facility] (LINZESS) 2-09 mcg by [place] 145 MCG 00:00: mouth of CAPS 00 daily. Medicin e linaCLOtide 2020-10 Yes 145ug Take 145 [facility] (LINZESS) 2-09 mcg by [place] 145 MCG 00:00: mouth of CAPS 00 daily. Medicin e MOTEGRITY 2 2020-10 Yes TAKE 2 MG [facility] MG TABS 2-08 BY MOUTH [place] 00:00: DAILY. of 00 Medicin e MOTEGRITY 2 2020-10- No TAKE 2 MG [facility] MG TABS 2-08 -27 BY MOUTH [place] 00:00: 00:00 DAILY. of 00 :00 Medicin e furosemide 2020-10 Yes 20mg Take 20 mg [facility] (LASIX) 20 1-30 by mouth Colle ge MG tablet 09:16: daily. of 54 Medicin e Multiple 2020-10 Yes 1{capsu Take 1 [facility] Vitamin 1-30 le} capsule by [facility] (MULTIVITAM 09:16: mouth. of INS) [facility] 54 Medicin e Ergocalcife 2020-10- No [id number] Take [place] [facility] rol 1.25 MG 1-30 11-30 50,000 Colle ge ([id number] UT) 09:16: 00:00 Units by of [facility] 51 :00 mouth. Medicin e ELIQUIS 5 2020-10 Yes TAKE 1 [facility] MG TABS 1-30 TABLET BY [place] 00:00: MOUTH of 00 TWICE A Medicin DAY e ELIQUIS 5 2020-10 Yes TAKE 1 [facility] MG TABS 1-30 TABLET BY [place] 00:00: MOUTH of 00 TWICE A Medicin DAY e ELIQUIS 5 2020-10 Yes TAKE 1 [facility] MG TABS 1-30 TABLET BY [place] 00:00: MOUTH of 00 TWICE A Medicin DAY e ELIQUIS 5 2020-10- No TAKE 1 [facility] MG TABS 1-30 03-31 TABLET BY [facility] 00:00: 00:00 MOUTH of 00 :00 TWICE A Medicin DAY e furosemide 2020-10 Yes 20mg Take 20 mg [facility] (LASIX) 20 0-26 by mouth Colle ge MG tablet 15:47: daily. of 47 Medicin e Multiple 2020-10 Yes 1{capsu Take 1 [facility] Vitamin 0-26 le} capsule by [facility] (MULTIVITAM 15:47: mouth. of INS) CAPS 47 Medicin e Ergocalcife 2020-10 Yes [id number] Take [facility]l 1.25 MG 0-26 50,000 [facility] e ([id number] UT) 15:47: Units by of CAPS 47 mouth. Medicin e PEG 2020-10 Yes [id number] 240g Take 240 g [place] [facility] 3350-KCl-Na 0-22 by mouth [facility] Bcb-NaCl-Na 00:00: Use as of Sulf (PEG 00 Directed. Medic in 3350/ELECTR Use as e OLYTES) 240 directed g SOLR PEG 2020-10 202- No [id number] 240g Take 240 g [facility] 3350-KCl-Na 0-22 11-30 by mouth [facility] Bcb-NaCl-Na 00:00: 00:00 Use as of Sulf (PEG 00 :00 Directed. Medic in 3350/ELECTR Use as e OLYTES) 240 directed g SOLR furosemide Yes 20mg Take 20 mg [facility] (LASIX) 20 9-23 by mouth Colle ge MG tablet 16:59: daily. of 43 Medicin e furosemide Yes 20mg Take 20 mg [facility] (LASIX) 20 9-23 by mouth Colle ge MG tablet 16:59: daily. of 43 Medicin e furosemide Yes 20mg Take 20 mg [facility] (LASIX) 20 9-23 by mouth Colle ge MG tablet 16:59: daily. of 43 Medicin e Multiple 2020-2020- No 1{capsu Take 1 [place] [facility] Vitamin 8-13 06-24 le} capsule by Col[facility] (MULTIVITAM 09:27: 00:00 mouth. of INS) CAPS 05 :00 Medicin e furosemide Yes 20mg Take 20 mg [facility] (LASIX) 20 8-24 by mouth Colle ge MG tablet 09:27: daily. of 03 Medicin e gabapentin 2020- No Take by [place] [facility] (NEURONTIN) 06-13-24 mouth. Colle ge 100 MG 09:26: 00:00 of capsule 59 :00 Medicin e Metoprolol- 2020- No Take by [facility] hydroCHLORO 06-13-24 mouth. Colle ge thiazide 09:26: 00:00 of (METOPROLOL 56 :00 Medicin -HCTZ ER e OR) Metoprolol- Yes Take by [place] [facility] hydroCHLORO 6-24 mouth. Matthewg e thiazide 16:46: of (METOPROLOL 33 Medicin -HCTZ ER e OR) furosemide Yes 20mg Take 20 mg [facility] (LASIX) 20 6-24 by mouth Colle ge MG tablet 16:46: daily. of 33 Medicin e Multiple Yes 1{capsu Take 1 [facility] Vitamin 6-24 le} capsule by Mal e (MULTIVITAM 16:46: mouth. of INS) CAPS 33 Medicin e gabapentin Yes Take by [facility] (NEURONTIN) 6-24 mouth. Colleg e 100 MG 16:46: of capsule 33 Medicin e gabapentin Yes Take by [facility] (NEURONTIN) 4-21 mouth. Colleg e 100 MG 16:32: of capsule 36 Medicin e Metoprolol- Yes Take by [place] [facility] hydroCHLORO 4-21 mouth. Mal e thiazide 16:31: of (METOPROLOL 54 Medicin -HCTZ ER e OR) furosemide Yes 20mg Take 20 mg [facility] (LASIX) 20 4-21 by mouth Colle ge MG tablet 16:31: daily. of 54 Medicin e Multiple Yes 1{capsu Take 1 [facility] Vitamin 4-21 le} capsule by [facility] (MULTIVITAM 16:31: mouth. of INS) CAPS 54 Medicin e triamcinolo 2020- No [id number] 1mL [facility] 01-30 [id number] [place] acetonide 21:00: 20:53 of (KENALOG-40 00 :00 Medicin ) 40 mg/mL e 40 mg, lidocaine 1% (10 mg/mL) 1 mL, bupivacaine (MARCAINE) 0.5 % 1 mL triamcinolo 2020- No [id number] 1mL 1 mL, [facility] 01-30 [id number] [facility] acetonide 21:00: 20:53 cular, of (KENALOG-40 00 :00 ONCE, 1 Medic in ) 40 mg/mL dose, Mon e 40 mg, 01/30/21 at lidocaine 1600 1% (10 mg/mL) 1 mL, bupivacaine (MARCAINE) 0.5 % 1 mL Metoprolol- Yes Take by [place] [facility] hydroCHLORO 4-12 mouth. [facility] thiazide 20:04: of (METOPROLOL 56 Medicin -HCTZ ER e OR) furosemide Yes 20mg Take 20 mg [facility] (LASIX) 20 4-12 by mouth Colle ge MG tablet 20:04: daily. of 56 Medicin e Multiple Yes 1{capsu Take 1 [facility] Vitamin 4-12 le} capsule by [facility] (MULTIVITAM 20:04: mouth. of INS) CAPS 56 Medicin e pantoprazol Yes [facility] 4-05 [place] (PROTONIX) 00:00: of 40 MG 00 Medicin tablet e pantoprazol Yes [facility] 4-05 [place] (PROTONIX) 00:00: of 40 MG 00 Medicin tablet e pantoprazol Yes [facility] 4-05 [place] (PROTONIX) 00:00: of 40 MG 00 Medicin tablet e furosemide Yes 20mg Take 20 mg [facility] (LASIX) 20 3-19 by mouth Colle [facility] MG tablet 13:22: daily. of 11 Medicin e omeprazole 0 2020- No 40mg Take 1 [facility] (PRILOSEC) 3-19 05-19 capsule by [facility] 40 MG 00:00: 04:59 mouth two of capsule 00 :00 times Medicin daily for e 60 days. omeprazole 2020- No 40mg Take 1 [facility] (PRILOSEC) 3-19 04-12 capsule by [facility] 40 MG 00:00: 00:00 mouth two of capsule 00 :00 times Medicin daily for e 60 days. ELIQUIS 5 Yes TAKE 1 [facility] MG TABS 3-11 TABLET BY [place] 00:00: MOUTH of 00 TWICE A Medicin DAY e ELIQUIS 5 Yes TAKE 1 [facility] MG TABS 3-11 TABLET BY [place] 00:00: MOUTH of 00 TWICE A Medicin DAY e ELIQUIS 5 Yes TAKE 1 [facility] MG TABS 3-11 TABLET BY [place] 00:00: MOUTH of 00 TWICE A Medicin DAY e tramadol Yes TAKE 1 [facility] ([facility]: EVERY 6 of 00 HOURS Medicin NEEDED FOR e PAIN ELIQUIS 5 Yes TAKE 1 [facility] MG TABS 3-11 TABLET BY [place] 00:00: MOUTH of 00 TWICE A Medicin DAY e tramadol Yes TAKE 1 [facility] ([facility]AM) [facility] 00:00: EVERY 6 of 00 HOURS Medicin NEEDED FOR e PAIN ELIQUIS 5 Yes TAKE 1 [facility] MG TABS 3-11 TABLET BY [place] 00:00: MOUTH of 00 TWICE A Medicin DAY e tramadol Yes TAKE 1 [facility] (ULTRAM) 50 3-[facility] tablet 00:00: EVERY 6 of 00 HOURS Medicin NEEDED FOR e PAIN ELIQUIS 5 Yes TAKE 1 [facility] MG TABS 3-11 TABLET BY [place] 00:00: MOUTH of 00 TWICE A Medicin DAY e ELIQUIS 5 0 Yes TAKE 1 [facility] MG TABS 3-11 TABLET BY [place] 00:00: MOUTH of 00 TWICE A Medicin DAY e ELIQUIS 5 0 Yes TAKE 1 [facility] MG TABS 3-11 TABLET BY [place] 00:00: MOUTH of 00 TWICE A Medicin DAY e ELIQUIS 5 0 Yes TAKE 1 [facility] MG TABS 3-11 TABLET BY [place] 00:00: MOUTH of 00 TWICE A Medicin DAY e ELIQUIS 5 0 2020- No TAKE 1 [facility] MG TABS 3-11 11-30 TABLET BY [facility] 00:00: 00:00 MOUTH of 00 :00 TWICE A Medicin DAY e pantoprazol 2020- No 40mg Take 40 mg [facility] e 3-09 -09 by mouth. [place] (PROTONIX) 00:00: 04:59 of 40 MG 00 :00 Medicin tablet e pantoprazol 2020- No 40mg Take 40 mg [facility] e 3-06 25-09 by mouth. [place] (PROTONIX) 00:00: 04:59 of 40 MG 00 :00 Medicin tablet e ondansetron 2020- No TAKE 1 [place] [facility] (ZOFRAN-ODT 12-27 04-12 TABLET ([facility] ) 4 mg 00:00: 00:00 MG TOTAL) of disintegrat 00 :00 BY MOUTH Medi [place] ing tablet EVERY 8 e (EIGHT) HOURS NEEDED FOR UP TO 7 DAYS. gabapentin 2020- No 200mg Take 200 [facility] (NEURONTIN) 12-27 04-09 mg by [facility] 100 MG 00:00: 04:59 mouth. of capsule 00 :00 Medicin e furosemide Yes 20mg Take 20 mg [facility] (LASIX) 20 3-04 by mouth [facility] MG tablet 21:11: daily. of 42 [facility] e Eliquis 5 Yes 5mg QD Take [address] [facility] daily . [address] Eliquis 5 2020- Yes 5mg QD Take [address] [facility] tablet 3-04 [facility]: daily . [address] 5 2020- Yes 5mg QD Take [address] [facility] tablet 3-04 [facility]: daily . [address] Eliquis 5 2020-0 Yes 5mg QD Take [address] [facility] tablet 3-04 [facility]: daily . [address] Eliquis 5 2020-0 Yes 5mg QD Take [address] [facility] tablet 3-04 by mouth [facility]: daily . [address] Eliquis 5 2020-0 Yes 5mg QD Take [address] [facility] tablet 3-04 by [facility]: daily . [address] Eliquis 5 0 Yes 5mg QD Take [address] [facility] tablet 3-04 by [facility] 00:[facility]: daily . [address] Eliquis 5 2020-0 Yes 5mg QD Take [address] [facility] tablet 3-04 by [facility]: daily . [address] 5 2020-0 Yes 5mg QD Take [address] [facility] tablet 3-04 by [facility]: daily . [address] Eliquis 5 2020-0 Yes 5mg QD Take [address] [facility] tablet 3-04 [facility]: daily . [address] 5 Yes 5mg QD Take [address] [facility] tablet 3-04 [facility]: daily . [address] predniSONE Yes TAKE 1 [facility] (DELTASONE) 2-25 TABLET BY [facility] 20 MG 00:00: MOUTH of tablet 00 EVERY DAY Medicin FOR 3 DAYS e predniSONE Yes TAKE 1 [facility] (DELTASONE) 2-25 TABLET BY [facility] 20 MG 00:00: MOUTH of tablet 00 EVERY DAY Medicin FOR 3 DAYS e predniSONE Yes TAKE 1 [facility] (DELTASONE) 2-25 TABLET BY [facility] 20 MG 00:00: MOUTH of tablet 00 EVERY DAY Medicin FOR 3 DAYS e clindamycin Yes TAKE 1 [facility] (CLEOCIN) 2-23 CAPSULE BY [facility] 300 MG 00:00: MOUTH of capsule 00 EVERY 12 Medicin HOURS FOR e 7 DAYS fluconazole Yes 1 TABLET [facility] (DIFLUCAN) 2-23 ONCE AND [facility] 150 MG 00:00: REPEAT IN of tablet 00 3 DAYS Medicin ORALLY 1 e DAYS clindamycin Yes TAKE 1 [facility] (CLEOCIN) 2-23 CAPSULE BY [facility] 300 MG 00:00: MOUTH of capsule 00 EVERY 12 Medicin HOURS FOR e 7 DAYS fluconazole Yes 1 TABLET [facility] (DIFLUCAN) 2-23 ONCE AND [facility] 150 MG 00:00: REPEAT IN of tablet 00 3 DAYS Medicin ORALLY 1 e DAYS clindamycin Yes TAKE 1 [facility] (CLEOCIN) 2-23 CAPSULE BY [facility] 300 MG 00:00: MOUTH of capsule 00 EVERY 12 Medicin HOURS FOR e 7 DAYS fluconazole Yes 1 TABLET [facility] (DIFLUCAN) 2-23 ONCE AND [facility] 150 MG 00:00: REPEAT IN of tablet 00 3 DAYS Medicin ORALLY 1 e DAYS dicyclomine 2021- No TAKE [address] [facility] (BENTYL) 10 2-16 07-28 CAPSULE BY [facility] MG capsule 00:00: 00:00 MOUTH 4 Med ical 00 :00 TIMES Center DAILY (BEFORE MEALS AND NIGHTLY). 1 BY MOUTH FOUR TIMES A DAY dicyclomine [id number] TAKE [address] [facility] (BENTYL) 10 12-06 CAPSULE BY [facility] MG capsule 00:00: 00:00 MOUTH 4 Med ical 00 :00 TIMES Center DAILY (BEFORE MEALS AND NIGHTLY). 1 BY MOUTH FOUR TIMES A DAY dicyclomine 2021- No TAKE [address] [facility] (BENTYL) 10 12-06 CAPSULE BY [facility] MG capsule 00:00: 00:00 MOUTH 4 Med ical 00 :00 TIMES Center DAILY (BEFORE MEALS AND NIGHTLY). 1 BY MOUTH FOUR TIMES A DAY dicyclomine 2021- No TAKE [address] [facility] (BENTYL) 10 12-06 CAPSULE BY [facility] MG capsule 00:00: 00:00 MOUTH 4 Med ical 00 :00 TIMES Center DAILY (BEFORE MEALS AND NIGHTLY). 1 BY MOUTH FOUR TIMES A DAY dicyclomine 2021- No TAKE [address] [facility] (BENTYL) 10 12-06 CAPSULE BY [facility] MG capsule 00:00: 00:00 MOUTH 4 Med ical 00 :00 TIMES Center DAILY (BEFORE MEALS AND NIGHTLY). 1 BY MOUTH FOUR TIMES A DAY dicyclomine 2021- No TAKE [address] [facility] (BENTYL) 10 12-06 CAPSULE BY [facility] MG capsule 00:00: 00:00 MOUTH 4 Med ical 00 :00 TIMES Center DAILY (BEFORE MEALS AND NIGHTLY). 1 BY MOUTH FOUR TIMES A DAY dicyclomine 2021- No TAKE [address] [facility] (BENTYL) 10 12-06 CAPSULE BY [facility] MG capsule 00:00: 00:00 MOUTH 4 Med ical 00 :00 TIMES Center DAILY (BEFORE MEALS AND NIGHTLY). 1 BY MOUTH FOUR TIMES A DAY dicyclomine 2021- No TAKE [address] [facility] (BENTYL) 10 12-06 CAPSULE BY [facility] MG capsule 00:00: 00:00 MOUTH 4 Med ical 00 :00 TIMES Center DAILY (BEFORE MEALS AND NIGHTLY). 1 BY MOUTH FOUR TIMES A DAY dicyclomine 2021- No TAKE [address] [facility] (BENTYL) 10 12-06 CAPSULE BY [facility] MG capsule 00:00: 00:00 MOUTH 4 Med ical 00 :00 TIMES Center DAILY (BEFORE MEALS AND NIGHTLY). 1 BY MOUTH FOUR TIMES A DAY dicyclomine 2021- No TAKE [address] [facility] (BENTYL) 10 12-06- CAPSULE BY [facility] MG capsule 00:00: 00:00 MOUTH 4 Med ical 00 :00 TIMES Center DAILY (BEFORE MEALS AND NIGHTLY). 1 BY MOUTH FOUR TIMES A DAY dicyclomine 2021- No TAKE [address] [facility] (BENTYL) 10 12-06- CAPSULE BY [facility] MG capsule 00:00: 00:00 MOUTH 4 Med ical 00 :00 TIMES Center DAILY (BEFORE MEALS AND NIGHTLY). 1 BY MOUTH FOUR TIMES A DAY phentermine Yes TAKE 1 [facility] (ADIPEX-P) 2-04 TABLET BY [facility] 37.5 MG 00:00: MOUTH of tablet 00 EVERY DAY Medicin AFTER e BREAKFAST phentermine Yes TAKE 1 [facility] (ADIPEX-P) 2-04 TABLET BY [facility] 37.5 MG 00:00: MOUTH of tablet 00 EVERY DAY Medicin AFTER e BREAKFAST phentermine Yes TAKE 1 [facility] (ADIPEX-P) 2-04 TABLET BY [facility] 37.5 MG 00:00: MOUTH of tablet 00 EVERY DAY Medicin AFTER e BREAKFAST furosemide Yes 20mg Take 20 mg [facility] (LASIX) 20 1-20 by mouth [facility] MG tablet 17:45: daily. of 07 Medicin e dicyclomine Yes 10mg Take 1 [facility] (BENTYL) 10 1-13 capsule by [facility] MG capsule 00:00: mouth 4 of 00 times Medicin daily e (before meals and nightly). 1 by mouth four times a day Na Yes [SUPREP] [facility] Sulfate-K 1-13 Take as College Sulfate-Mg 00:00: directed. of Sulf 00 Medicin (SUPREP e BOWEL PREP KIT) 17.5-3.13-1 .6 GM/177ML SOLN dicyclomine Yes 10mg Take 1 [facility] (BENTYL) 10 1-13 capsule by [facility]lege MG capsule 00:00: mouth 4 of 00 times Medicin daily e (before meals and nightly). 1 by mouth four times a day Na Yes [SUPREP] [facility] Sulfate-K -13 Take as College Sulfate-Mg 00:00: directed. of Sulf 00 Medicin (SUPREP e BOWEL PREP KIT) 17.5-3.13-1 .6 GM/177ML SOLN dicyclomine Yes 10mg Take 1 [facility] (BENTYL) 10 11-02 capsule by [facility]lege MG capsule 00:00: mouth 4 of 00 times Medicin daily e (before meals and nightly). 1 by mouth four times a day dicyclomine 2020- No 10mg Take 1 [place] [facility] (BENTYL) 10 11-02 04-12 capsule by C [facility] MG capsule 00:00: 00:00 mouth 4 of 00 :00 times Medicin daily e (before meals and nightly). 1 by mouth four times a day Na 2020- No [SUPREP] [facility] Sulfate-K -13 -19 Take as [facility] Sulfate-Mg 00:00: 00:00 directed. o f Sulf 00 :00 Medicin (SUPREP e BOWEL PREP KIT) 17.5-3.13-1 .6 GM/177ML SOLN tizanidine 2019-10 Yes 1 tablet [place] [facility] (ZANAFLEX) 0-09 as needed [facility] 2 MG tablet 00:00: of 00 Medicin e tizanidine 2019-10- No 1 tablet [facility] (ZANAFLEX) 0-09 -27 as needed [facility] 2 MG tablet 00:00: 00:00 of 00 :00 Medicin e Scopolamine 2020-0 Yes 1{patch Place 1 [facility] 1 MG/3DAYS 5-20 } Patch onto [facility] PT72 00:00: the skin of 00 every 72 Medicin hours. e Scopolamine 2020-0 Yes 1{patch Place 1 [facility] 1 MG/3DAYS 5-20 } Patch onto [facility] PT72 00:00: the skin of 00 every 72 Medicin hours. e Scopolamine 2020-0 Yes 1{patch Place 1 [facility] 1 MG/3DAYS 5-20 } Patch onto [facility] PT72 00:00: the skin of 00 every 72 Medicin hours. e Scopolamine 2020-0 Yes 1{patch Place 1 [facility] 1 MG/3DAYS 5-20 } Patch onto [facility] PT72 00:00: the skin of 00 every 72 Medicin hours. e Scopolamine 2020-0 Yes 1{patch Place 1 [facility] 1 MG/3DAYS 5-20 } Patch onto [facility] PT72 00:00: the skin of 00 every 72 Medicin hours. e Scopolamine 2020-0 Yes 1{patch Place 1 [facility] 1 MG/3DAYS 5-20 } Patch onto [facility] PT72 00:00: the skin of 00 every 72 Medicin hours. e Scopolamine 2020-0 2021- No 1{patch Place 1 [facility] 1 MG/3DAYS 5-20 04-12 } Patch onto [facility] PT72 00:00: 00:00 the skin of 00 :00 every 72 Medicin hours. e furosemide 2020-0 Yes 20mg Take 20 mg [facility] (LASIX) 20 5-13 by mouth [facility] MG tablet 15:28: daily. of 39 Medicin e furosemide 2020-0 Yes 20mg Take 20 mg [facility] (LASIX) 20 5-13 by mouth [facility] MG tablet 15:28: daily. of 39 Medicin e furosemide 2020-0 Yes 20mg Take 20 mg [facility] (LASIX) 20 5-13 by mouth [facility] MG tablet 15:28: daily. of 39 Medicin e furosemide 2020-0 Yes 20mg Take 20 mg [facility] (LASIX) 20 5-13 by mouth [facility] MG tablet 15:28: daily. of 39 Medicin e ondansetron 2020-0 Yes 4mg Take 1 Tab [facility] (ZOFRAN) 4 5-13 by mouth [facility] MG tablet 00:00: every 8 of 00 hours as Medicin needed for e Nausea. ondansetron 2020-0 Yes 4mg Take 1 Tab [facility] (ZOFRAN) 4 5-13 by mouth [facility] MG tablet 00:00: every 8 of 00 hours as Medicin needed for e Nausea. ondansetron 2020-0 Yes 4mg Take 1 Tab [facility] (ZOFRAN) 4 5-13 by mouth [facility] MG tablet 00:00: every 8 of 00 hours as Medicin needed for e Nausea. ondansetron 2020-0 Yes 4mg Take 1 Tab [facility] (ZOFRAN) 4 5-13 by mouth [facility]le [facility] MG tablet 00:00: every 8 of 00 hours as Medicin needed for e Nausea. ondansetron 2020-0 Yes 4mg Take 1 Tab [facility] (ZOFRAN) 4 5-13 by mouth [facility] MG tablet 00:00: every 8 of 00 hours as Medicin needed for e Nausea. ondansetron 2020-0 Yes 4mg Take 1 Tab [facility] (ZOFRAN) 4 5-13 by mouth [facility] MG tablet 00:00: every 8 of 00 hours as Medicin needed for e Nausea. ondansetron 2020-0 Yes 4mg Take 1 Tab [facility] (ZOFRAN) 4 5-13 by mouth [facility] MG tablet 00:00: every 8 of 00 hours as Medicin needed for e Nausea. ondansetron 2020-0 2020- No 4mg Take 1 Tab [facility] (ZOFRAN) 4 5-13 04-12 by mouth [facility] MG tablet 00:00: 00:00 every 8 of 00 :00 hours as Medicin needed for e Nausea. Metoprolol- 2020-0 Yes Take by [place] [facility] hydroCHLORO 4-21 mouth. Mal e thiazide 16:40: of (METOPROLOL 50 Medicin -HCTZ ER e OR) Metoprolol- 2020-0 Yes Take by [place] [facility] hydroCHLORO 4-21 mouth. Mal e thiazide 16:40: of (METOPROLOL 50 Medicin -HCTZ ER e OR) Metoprolol- 2020-0 Yes Take by [place] [facility] hydroCHLORO 4-21 mouth. Mal e thiazide 16:40: of (METOPROLOL 50 Medicin -HCTZ ER e OR) Metoprolol- 2020-0 Yes Take by [place] [facility] hydroCHLORO 4-21 mouth. Mal e thiazide 16:40: of (METOPROLOL 50 Medicin -HCTZ ER e OR) Metoprolol- 2020-0 Yes Take by [place] [facility] hydroCHLORO 4-21 mouth. Mal e thiazide 16:40: of (METOPROLOL 50 Medicin -HCTZ ER e OR) Metoprolol- 2020-0 Yes Take by [place] [facility] hydroCHLORO 4-21 mouth. Mal e thiazide 16:40: of (METOPROLOL 50 Medicin -HCTZ ER e OR) Metoprolol- 2020-0 Yes Take by [place] [facility] hydroCHLORO 4-21 mouth. Colleg e thiazide 16:40: of (METOPROLOL 50 Medicin -HCTZ ER e OR) Metoprolol- 2019-0 Yes Take by [place] [facility] hydroCHLORO 4-21 mouth. Colleg e thiazide 16:40: of (METOPROLOL 50 Medicin -HCTZ ER e OR) furosemide 2020-0 Yes 20mg Take 20 mg [facility] (LASIX) 20 3-17 by mouth [facility] MG tablet 14:38: daily. of 15 Medicin e Metoprolol- 2020-0 Yes Take by [place] [facility] hydroCHLORO 3-17 mouth. Colleg e thiazide 14:38: of (METOPROLOL 15 Medicin -HCTZ ER e OR) furosemide 2019-0 Yes 20mg Take 20 mg [facility] (LASIX) 20 3-17 by mouth [facility] MG tablet 14:38: daily. of 15 Medicin e Na 2020-0 Yes [id number] Take as [facility] Sulfate-K 3-17 directed [facility] Sulfate-Mg 00:00: of Sulf 00 Medicin (SUPREP e BOWEL PREP KIT) 17.5-3.13-1 .6 GM/177ML SOLN neomycin 2020-0 Yes [id number] Take 2 [facility] (MYCIFRADIN 3-17 tablets by Mirta blair ) 500 MG 00:00: mouth at of tablet 00 1:00PM, Medicin 4:00 PM, e and 7:00 PM the day prior to your surgery metronidazo 2020-0 Yes [id number] Take 1 [facility] (FLAGYL) 3-17 tablet by [facility] 500 MG 00:00: mouth at of tablet 00 1:00 PM, Medicin 4:00 PM, e and 7:00 PM the day prior to your surgery Na 2020-0 2020- No [id number] Take as [facility] Sulfate-K 3-17 04-21 directed [facility] Sulfate-Mg 00:00: 00:00 of Sulf 00 :00 Medicin (SUPREP e BOWEL PREP KIT) 17.5-3.13-1 .6 GM/177ML SOLN neomycin 2020-0 2020- No [id number] Take 2 [facility] (MYCIFRADIN 3-17 04-21 tablets by Kumar potter ) 500 MG 00:00: 00:00 mouth at of tablet 00 :00 1:00PM, Medicin 4:00 PM, e and 7:00 PM the day prior to your surgery metronidazo 2019-0 2020- No [id number] Take 1 [facility] (FLAGYL) 3-17 - tablet by [facility] 500 MG 00:00: 00:00 mouth at of tablet 00 :00 1:00 PM, Medicin 4:00 PM, e and 7:00 PM the day prior to your surgery Vitamin D, 2019-0 Yes 1{capsu Take 1 Cap [facility] 2-19 le} by mouth [facility], 1.25 00:00: every 7 of MG (. Medicin [place]) CAPS e Vitamin D, 0 Yes 1{capsu Take 1 Cap [facility] Ergocalcife 2-19 le} by mouth [facility], 1.25 00:00: every 7 of MG (. Medicin [place]) CAPS e Vitamin D, Yes 1{capsu Take 1 Cap [facility] Ergocalcife 2-19 le} by mouth [facility], 1.25 00:00: every 7 of MG (. Medicin [place]) CAPS e Vitamin D, 0 Yes 1{capsu Take 1 Cap [facility] Ergocalcife 2-19 le} by mouth [facility], 1.25 00:00: every 7 of MG (. Medicin [place]) CAPS e Vitamin D, 2019-0 Yes 1{capsu Take 1 Cap [facility] Ergocalcife 2-19 le} by mouth [facility], 1.25 00:00: every 7 of MG (. Medicin [place]) CAPS e Vitamin D, 2019-0 Yes 1{capsu Take 1 Cap [facility] 2-19 le} by mouth [facility] rol, 1.25 00:00: every 7 of MG (. Medicin [place]) CAPS e Vitamin D, 2019-0 Yes 1{capsu Take 1 Cap [facility] Ergocalcife 2-19 le} by mouth [facility], 1.25 00:00: every 7 of MG (. Medicin [place]) CAPS e Vitamin D, 2019-0 Yes 1{capsu Take 1 Cap [facility] Ergocalcife 2-19 le} by mouth [facility] rol, 1.25 00:00: every 7 of MG ( days. Medicin [place]) CAPS e Vitamin D, 2019-0 Yes 1{capsu Take 1 Cap [facility] Ergocalcife 2-19 le} by mouth [facility] rol, 1.25 00:00: every 7 of MG ( days. Medicin [place]) CAPS e Vitamin D, 2019-0 2020- No 1{capsu Take 1 Cap [facility] Ergocalcife 2-19 04-12 le} by mouth [facility] rol, 1.25 00:00: 00:00 every 7 of MG ( 00 :00 days. Medicin [place]) CAPS e Metoprolol- 2019-0 Yes Take by [place] [facility] hydroCHLORO 2-18 mouth. Colleg e thiazide 20:17: of (METOPROLOL 30 Medicin -HCTZ ER e OR) furosemide 2019-0 Yes 20mg Take 20 mg [facility] (LASIX) 20 2-18 by mouth [facility]le [facility] MG tablet 20:17: daily. of 30 Medicin e amitriptyli 2020-0 Yes 10mg Take 1 Tab [facility] (ELAVIL) 2-18 by mouth [facility] 10 MG 00:00: nightly. of tablet 00 Take 1 tab Medicin nightly e for 7 days, if not too drowsy then 2 tabs nightly for 7 days, then 3 tabs at bedtime amitriptyli 2020-0 Yes 10mg Take 1 Tab [facility] ne (ELAVIL) 2-18 by mouth [facility] 10 MG 00:00: nightly. of tablet 00 Take 1 tab Medicin nightly e for 7 days, if not too drowsy then 2 tabs nightly for 7 days, then 3 tabs at bedtime amitriptyli 2020-0 Yes 10mg Take 1 Tab [facility] ne (ELAVIL) 2-18 by mouth [facility] 10 MG 00:00: nightly. of tablet 00 Take 1 tab Medicin nightly e for 7 days, if not too drowsy then 2 tabs nightly for 7 days, then 3 tabs at bedtime amitriptyli 2020-0 Yes 10mg Take 1 Tab [facility] (ELAVIL) 2-18 by mouth [facility] 10 MG 00:00: nightly. of tablet 00 Take 1 tab Medicin nightly e for 7 days, if not too drowsy then 2 tabs nightly for 7 days, then 3 tabs at bedtime amitriptyli 2020-0 Yes 10mg Take 1 Tab [facility] ne (ELAVIL) 2-18 by mouth [facility] 10 MG 00:00: nightly. of tablet 00 Take 1 tab Medicin nightly e for 7 days, if not too drowsy then 2 tabs nightly for 7 days, then 3 tabs at bedtime amitriptyli 2020-0 Yes 10mg Take 1 Tab [facility] (ELAVIL) 2-18 by mouth [facility] 10 MG 00:00: nightly. of tablet 00 Take 1 tab Medicin nightly e for 7 days, if not too drowsy then 2 tabs nightly for 7 days, then 3 tabs at bedtime amitriptyli 2020-0 Yes 10mg Take 1 Tab [facility] ne (ELAVIL) 2-18 by mouth [facility] 10 MG 00:00: nightly. of tablet 00 Take 1 tab Medicin nightly e for 7 days, if not too drowsy then 2 tabs nightly for 7 days, then 3 tabs at bedtime amitriptyli 2020-0 Yes 10mg Take 1 Tab [facility] ne (ELAVIL) 2-18 by mouth [facility] 10 MG 00:00: nightly. of tablet 00 Take 1 tab Medicin nightly e for 7 days, if not too drowsy then 2 tabs nightly for 7 days, then 3 tabs at bedtime Na 2020-0 Yes [SUPREP] [facility] Sulfate-K 2-18 Take as [facility] Sulfate-Mg 00:00: directed. of Sulf 00 Medicin (SUPREP e BOWEL PREP KIT) 17.5-3.13-1 .6 GM/177ML SOLN amitriptyli 2020-0 Yes 10mg Take 1 Tab [facility] ne (ELAVIL) 2-18 by mouth [facility] 10 MG 00:00: nightly. of tablet 00 Take 1 tab Medicin nightly e for 7 days, if not too drowsy then 2 tabs nightly for 7 days, then 3 tabs at bedtime Na 2020-0 Yes [SUPREP] [facility] Sulfate-K 2-18 Take as [facility] Sulfate-Mg 00:00: directed. of Sulf 00 Medicin (SUPREP e BOWEL PREP KIT) 17.5-3.13-1 .6 GM/177ML SOLN amitriptyli 2020-0 Yes 10mg Take 1 Tab [facility] (ELAVIL) 2-18 by mouth [facility] 10 MG 00:00: nightly. of tablet 00 Take 1 tab Medicin nightly e for 7 days, if not too drowsy then 2 tabs nightly for 7 days, then 3 tabs at bedtime amitriptyli 2019-0 202- No 10mg Take 1 Tab [facility] ne (ELAVIL) 2-18 04-12 by mouth [facility] 10 MG 00:00: 00:00 nightly. of tablet 00 :00 Take 1 tab Medicin nightly e for 7 days, if not too drowsy then 2 tabs nightly for 7 days, then 3 tabs at bedtime Na 2020- No [SUPREP] [facility] Sulfate-K -18 - Take as Colleg e Sulfate-Mg 00:00: 00:00 directed. o f Sulf 00 :00 Medicin (SUPREP e BOWEL PREP KIT) 17.5-3.13-1 .6 GM/177ML SOLN chlorthalid chlorthalid No chlorthali [place] one 50 mg one 50 mg done 50 mg [facility] tablet TAKE tablet TAKE tablet ty ONE (1) ONE (1) TAKE ONE Hospi ta TABLET(S) TABLET(S) (1) l BY MOUTH BY MOUTH TABLET(S) Cl inics EVERY EVERY BY MOUTH MORNING. MORNING. EVERY MORNING. methylpredn methylpredn No methylpred [place] isolone 4 isolone 4 nisolone 4 [facility] mg tablets mg tablets mg tablets ty in a dose in a dose in a dose Hospita pack pack pack l Clinics chlorthalid chlorthalid No chlorthali [place] one 50 mg one 50 mg done 50 mg [facility] tablet TAKE tablet TAKE tablet ty ONE (1) ONE (1) TAKE ONE Hospi ta TABLET(S) TABLET(S) (1) l BY MOUTH BY MOUTH TABLET(S) Cl inics EVERY EVERY BY MOUTH MORNING. MORNING. EVERY MORNING. clobetasol clobetasol No clobetasol [place] 0.05 % 0.05 % 0.05 % Communi topical topical topical ty ointment ointment ointment [facility] lidocaine 5 lidocaine 5 No lidocaine [place] % topical % topical 5 % Commu ni ointment ointment topical ty ointment [facility] methylpredn methylpredn No methylpred [place] isolone 4 isolone 4 nisolone 4 Communi mg tablets mg tablets mg tablets ty in a dose in a dose in a dose [facility] chlorthalid chlorthalid No chlorthali [place] one 50 mg one 50 mg done 50 mg [facility]i tablet TAKE tablet TAKE tablet ty ONE (1) ONE (1) TAKE ONE Hospi ta TABLET(S) TABLET(S) (1) l BY MOUTH BY MOUTH TABLET(S) Cl inics EVERY EVERY BY MOUTH MORNING. MORNING. EVERY MORNING. clobetasol clobetasol No clobetasol [place] 0.05 % 0.05 % 0.05 % [facility]i topical topical topical ty ointment ointment ointment [facility] lidocaine 5 lidocaine 5 No lidocaine [place] % topical % topical 5 % Commu ni ointment ointment topical ty ointment [facility] methylpredn methylpredn No methylpred [place] isolone 4 isolone 4 nisolone 4 Communi mg tablets mg tablets mg tablets ty in a dose in a dose in a dose [facility] pain-p34x pain-p34x No pain-p34x [place] [id number] Communi /ketoprofen /ketoprofen %/ketoprof ty 8%/baclofen 8%/baclofen en8%/[facility] 2%/gabapent 2%/gabapent fen2%/heather l in6% Apply in6% Apply pentin6% Clinics 1-2 grams 1-2 grams Apply 1-2 (pumps) to (pumps) to grams affected affected (pumps) to area 4 area 4 affected times daily times daily area 4 or as or as times directed. directed. daily or Rub in well Rub in well as for 2 for 2 directed. minutes. minutes. Rub in well for 2 minutes. chlorthalid chlorthalid No chlorthali [place] one 50 mg one 50 mg done 50 mg [facility] tablet TAKE tablet TAKE tablet ty ONE (1) ONE (1) TAKE ONE Hospi ta TABLET(S) TABLET(S) (1) l BY MOUTH BY MOUTH TABLET(S) Cl inics EVERY EVERY BY MOUTH MORNING. MORNING. EVERY MORNING. clobetasol clobetasol No clobetasol [place] 0.05 % 0.05 % 0.05 % Communi topical topical topical ty ointment ointment ointment [facility] lidocaine 5 lidocaine 5 No lidocaine [place] % topical % topical 5 % Commu ni ointment ointment topical ty ointment [facility] methylpredn methylpredn No methylpred [place] isolone 4 isolone 4 nisolone 4 Communi mg tablets mg tablets mg tablets ty in a dose in a dose in a dose [facility] pack pack pack l [facility] pain-p34x pain-p34x No pain-p34x [place] [id number]% [id number]% Communi /ketoprofen /ketoprofen %/ketoprof ty 8%/baclofen 8%/baclofen en8%/[facility] 2%/gabapent 2%/gabapent fen2%/heather l in6% Apply in6% Apply pentin6% Clinics 1-2 grams 1-2 grams Apply 1-2 (pumps) to (pumps) to grams affected affected (pumps) to area 4 area 4 affected times daily times daily area 4 or as or as times directed. directed. daily or Rub in well Rub in well as for 2 for 2 directed. minutes. minutes. Rub in well for 2 minutes. chlorthalid chlorthalid No chlorthali [place] one 50 mg one 50 mg done 50 mg [facility] tablet TAKE tablet TAKE tablet ty ONE (1) ONE (1) TAKE ONE Hospi ta TABLET(S) TABLET(S) (1) l BY MOUTH BY MOUTH TABLET(S) Cl inics EVERY EVERY BY MOUTH MORNING. MORNING. EVERY MORNING. clobetasol clobetasol No clobetasol [place] 0.05 % 0.05 % 0.05 % [facility]i topical topical topical ty ointment ointment ointment [facility] dicyclomine dicyclomine No dicyclomin [place] 10 mg 10 mg e 10 mg [facility] capsule capsule capsule ty [facility] lidocaine 5 lidocaine 5 No lidocaine [place] % topical % topical 5 % Commu ni ointment ointment topical ty ointment [facility] Linzess 145 Linzess 145 No Linzess [place] mcg capsule mcg capsule 145 mcg [facility] capsule ty [facility] methylpredn methylpredn No methylpred [place] isolone 4 isolone 4 nisolone 4 Communi mg tablets mg tablets mg tablets ty in a dose in a dose in a dose [facility] pack pack pack l [facility] ondansetron ondansetron No ondansetro [place] 4 mg 4 mg n 4 mg Communi disintegrat disintegrat disintegra ty ing tablet ing tablet ting Hos sandra tablet l [facility] pain-p34x pain-p34x No pain-p34x [place] % [id number] Communi /ketoprofen /ketoprofen %/ketoprof ty 8%/baclofen 8%/baclofen en8%/[facility] 2%/gabapent 2%/gabapent fen2%/heather l in6% Apply in6% Apply pentin6% Clinics 1-2 grams 1-2 grams Apply 1-2 (pumps) to (pumps) to grams affected affected (pumps) to area 4 area 4 affected times daily times daily area 4 or as or as times directed. directed. daily or Rub in well Rub in well as for 2 for 2 directed. minutes. minutes. Rub in well for 2 minutes. tramadol 50 tramadol 50 No tramadol [place] mg tablet mg tablet 50 mg Comm uni tablet ty [facility] chlorthalid chlorthalid No chlorthali [place] one 50 mg one 50 mg done 50 mg Communi tablet TAKE tablet TAKE tablet ty ONE (1) ONE (1) TAKE ONE Hospi ta TABLET(S) TABLET(S) (1) l BY MOUTH BY MOUTH TABLET(S) Cl inics EVERY EVERY BY MOUTH MORNING. MORNING. EVERY MORNING. clobetasol clobetasol No clobetasol [place] 0.05 % 0.05 % 0.05 % Communi topical topical topical ty ointment ointment ointment Hos sandra l [facility] dicyclomine dicyclomine No dicyclomin [place] 10 mg 10 mg e 10 mg Communi capsule capsule capsule ty [facility] lidocaine 5 lidocaine 5 No lidocaine [place] % topical % topical 5 % Commu ni ointment ointment topical ty ointment [facility] Linzess 145 Linzess 145 No Linzess [place] mcg capsule mcg capsule 145 mcg Communi capsule ty [facility] methylpredn methylpredn No methylpred [place] isolone 4 isolone 4 nisolone 4 Communi mg tablets mg tablets mg tablets ty in a dose in a dose in a dose [facility] pack pack pack l [facility] ondansetron ondansetron No ondansetro [place] 4 mg 4 mg n 4 mg Communi disintegrat disintegrat disintegra ty ing tablet ing tablet ting [facility] tablet [facility] pain-p34x pain-p34x No pain-p34x [place] [id number] Communi /ketoprofen /ketoprofen %/ketoprof ty 8%/baclofen 8%/baclofen en8%/[facility] 2%/gabapent 2%/gabapent fen2%/heather l in6% Apply in6% Apply pentin6% Clinics 1-2 grams 1-2 grams Apply 1-2 (pumps) to (pumps) to grams affected affected (pumps) to area 4 area 4 affected times daily times daily area 4 or as or as times directed. directed. daily or Rub in well Rub in well as for 2 for 2 directed. minutes. minutes. Rub in well for 2 minutes. Suprep Suprep No Suprep [place] Bowel Prep Bowel Prep Bowel Prep Communi Kit 17.5 Kit 17.5 Kit 17.5 ty gram-3.13 gram-3.13 gram-3.13 Hospita gram-1.6 gram-1.6 gram-1.6 l gram oral gram oral gram oral Clinics solution solution solution tramadol 50 tramadol 50 No tramadol [place] mg tablet mg tablet 50 mg Comm uni tablet ty [facility] chlorthalid chlorthalid No chlorthali [place] one 50 mg one 50 mg done 50 mg Communi tablet TAKE tablet TAKE tablet ty ONE (1) ONE (1) TAKE ONE Hospi ta TABLET(S) TABLET(S) (1) l BY MOUTH BY MOUTH TABLET(S) Cl inics EVERY EVERY BY MOUTH MORNING. MORNING. EVERY MORNING. clobetasol clobetasol No clobetasol [place] 0.05 % 0.05 % 0.05 % Communi topical topical topical ty ointment ointment ointment [facility] l Clinics dicyclomine dicyclomine No dicyclomin [place] 10 mg 10 mg e 10 mg Communi capsule capsule capsule ty [facility] lidocaine 5 lidocaine 5 No lidocaine [place] % topical % topical 5 % Commu ni ointment ointment topical ty ointment [facility] Linzess 145 Linzess 145 No Linzess [place] mcg capsule mcg capsule 145 mcg Communi capsule ty [facility] methylpredn methylpredn No methylpred [place] isolone 4 isolone 4 nisolone 4 Communi mg tablets mg tablets mg tablets ty in a dose in a dose in a dose [facility] pack pack pack [facility] ondansetron ondansetron No ondansetro [place] 4 mg 4 mg n 4 mg Communi disintegrat disintegrat disintegra ty ing tablet ing tablet ting [facility] tablet l [facility] pain-p34x pain-p34x No pain-p34x [place] [id number] Communi /ketoprofen /ketoprofen %/ketoprof ty 8%/baclofen 8%/baclofen en8%/[facility] 2%/gabapent 2%/gabapent fen2%/heather l in6% Apply in6% Apply pentin6% Clinics 1-2 grams 1-2 grams Apply 1-2 (pumps) to (pumps) to grams affected affected (pumps) to area 4 area 4 affected times daily times daily area 4 or as or as times directed. directed. daily or Rub in well Rub in well as for 2 for 2 directed. minutes. minutes. Rub in well for 2 minutes. Suprep Suprep No Suprep [place] Bowel Prep Bowel Prep Bowel Prep Communi Kit 17.5 Kit 17.5 Kit 17.5 ty gram-3.13 gram-3.13 gram-3.13 Hospita gram-1.6 gram-1.6 gram-1.6 l gram oral gram oral gram oral Clinics solution solution solution tramadol 50 tramadol 50 No tramadol [place] mg tablet mg tablet 50 mg Comm uni tablet ty [facility] chlorthalid chlorthalid No chlorthali [place] one 50 mg one 50 mg done 50 mg Communi tablet TAKE tablet TAKE tablet ty ONE (1) ONE (1) TAKE ONE Hospi ta TABLET(S) TABLET(S) (1) l BY MOUTH BY MOUTH TABLET(S) Cl inics EVERY EVERY BY MOUTH MORNING. MORNING. EVERY MORNING. clobetasol clobetasol No clobetasol [place] 0.05 % 0.05 % 0.05 % Communi topical topical topical ty ointment ointment ointment [facility] l [facility] dicyclomine dicyclomine No dicyclomin [place] 10 mg 10 mg e 10 mg Communi capsule capsule capsule ty [facility] lidocaine 5 lidocaine 5 No lidocaine [place] % topical % topical 5 % Commu ni ointment ointment topical ty ointment [facility] Linzess 145 Linzess 145 No Linzess [place] mcg capsule mcg capsule 145 mcg Communi capsule ty [facility] methylpredn methylpredn No methylpred [place] isolone 4 isolone 4 nisolone 4 Communi mg tablets mg tablets mg tablets ty in a dose in a dose in a dose [facility] pack pack pack l [facility] ondansetron ondansetron No ondansetro [place] 4 mg 4 mg n 4 mg Communi disintegrat disintegrat disintegra ty ing tablet ing tablet ting [facility] tablet l [facility] pain-p34x pain-p34x No pain-p34x [place] % [id number] Communi /ketoprofen /ketoprofen %/ketoprof ty 8%/baclofen 8%/baclofen en8%/[facility]lo [facility] 2%/gabapent 2%/gabapent fen2%/heather l in6% Apply in6% Apply pentin6% Clinics 1-2 grams 1-2 grams Apply 1-2 (pumps) to (pumps) to grams affected affected (pumps) to area 4 area 4 affected times daily times daily area 4 or as or as times directed. directed. daily or Rub in well Rub in well as for 2 for 2 directed. minutes. minutes. Rub in well for 2 minutes. Suprep Suprep No Suprep [place] Bowel Prep Bowel Prep Bowel Prep Communi Kit 17.5 Kit 17.5 Kit 17.5 ty gram-3.13 gram-3.13 gram-3.13 Hospita gram-1.6 gram-1.6 gram-1.6 l gram oral gram oral gram oral Clinics solution solution solution tramadol 50 tramadol 50 No tramadol [place] mg tablet mg tablet 50 mg Comm uni tablet ty [facility] Eliquis 5 Eliquis 5 No Eliquis 5 [place] mg tablet 1 mg tablet 1 mg tablet Communi tablet BID tablet BID 1 tablet ty BID [facility] furosemide furosemide No furosemide [place] 20 mg 20 mg 20 mg Communi tablet 1 tablet 1 tablet 1 ty tablet BID tablet BID tablet BID [facility] tramadol 50 tramadol 50 No tramadol [place] mg tablet mg tablet 50 mg Comm uni as needed as needed tablet as ty needed [facility] Eliquis 5 Eliquis 5 No Eliquis 5 [place] mg tablet 1 mg tablet 1 mg tablet Communi tablet BID tablet BID 1 tablet ty BID [facility] furosemide furosemide No furosemide [place] 20 mg 20 mg 20 mg Communi tablet 1 tablet 1 tablet 1 ty tablet BID tablet BID tablet BID [facility] tramadol 50 tramadol 50 No tramadol [place] mg tablet mg tablet 50 mg Comm uni as needed as needed tablet as ty needed [facility] Immunizations Ordered Immunization Filled Immunization Date Status Commen ts Source Name Name [facility] SARS-CoV-2 2021-03-19 Completed [facility] Vaccination 00:00:00 of Medicine [facility] SARS-CoV-2 2021-03-19 Completed [facility] Vaccination 00:00:00 of Medicine [facility] SARS-CoV-2 2021-03-19 Completed [facility] Vaccination 00:00:00 of Medicine [facility] SARS-CoV-2 2021-03-19 Completed [facility] Vaccination 00:00:00 of Medicine [facility] SARS-CoV-2 2021-03-19 Completed [facility] Vaccination 00:00:00 of Medicine COVID-19, mRNA, COVID-19, mRNA, 2021-03-19 Completed [facility] LNP-S, PF, 30 LNP-S, PF, 30 00:00:00 Hospital Clinics mcg/0.3 mL dose mcg/0.3 mL dose [email or web address] COVID-19, mRNA, COVID-19, mRNA, 2021-03-19 Completed [facility] LNP-S, PF, 30 LNP-S, PF, 30 00:00:00 Hospital Clinics mcg/0.3 mL dose mcg/0.3 mL dose ([employer]) ([employer]) COVID-19, mRNA, COVID-19, mRNA, 2021-03-19 Completed [facility] LNP-S, PF, 30 LNP-S, PF, 30 00:00:00 Hospital Clinics mcg/0.3 mL dose mcg/0.3 mL dose ([employer]) ([employer]) COVID-19, mRNA, COVID-19, mRNA, 2021-03-19 Completed [facility] LNP-S, PF, 30 LNP-S, PF, 30 00:00:00 Hospital Clinics mcg/0.3 mL dose mcg/0.3 mL dose ([employer]) ([employer]) COVID-19, mRNA, COVID-19, mRNA, 2021-03-19 Completed [facility] LNP-S, PF, 30 LNP-S, PF, 30 00:00:00 Hospital Clinics mcg/0.3 mL dose mcg/0.3 mL dose ([employer]) ([employer]) COVID-19, mRNA, COVID-19, mRNA, 2021-03-19 Completed [facility] LNP-S, PF, 30 LNP-S, PF, 30 00:00:00 Hospital Clinics mcg/0.3 mL dose mcg/0.3 mL dose ([employer]) ([employer]) COVID-19, mRNA, COVID-19, mRNA, 2021-03-19 Completed [facility] LNP-S, PF, 30 LNP-S, PF, 30 00:00:00 Hospital Clinics mcg/0.3 mL dose mcg/0.3 mL dose ([employer]) ([employer]) COVID-19, mRNA, COVID-19, mRNA, 2021-03-19 Completed [facility] LNP-S, PF, 30 LNP-S, PF, 30 00:00:00 Hospital Clinics mcg/0.3 mL dose mcg/0.3 mL dose ([employer]) ([employer]) COVID-19, mRNA, COVID-19, mRNA, 2021-03-19 Completed [facility] LNP-S, PF, 30 LNP-S, PF, 30 00:00:00 Hospital Clinics mcg/0.3 mL dose mcg/0.3 mL dose ([employer]) ([employer]) COVID-19, mRNA, COVID-19, mRNA, 2021-03-19 Completed [facility] LNP-S, PF, 30 LNP-S, PF, 30 00:00:00 Hospital Clinics mcg/0.3 mL dose mcg/0.3 mL dose ([employer]) ([employer]) COVID-19, mRNA, COVID-19, mRNA, 2021-03-19 Completed [facility] LNP-S, PF, 30 LNP-S, PF, 30 00:00:00 Hospital Clinics mcg/0.3 mL dose mcg/0.3 mL dose ([employer]) ([employer]) [facility]izer SARS-CoV-2 2021-03-08 Completed [facility] Vaccination 00:00:00 of Medicine Pfizer SARS-CoV-2 2021-03-08 Completed [facility] Vaccination 00:00:00 of Medicine Pfizer SARS-CoV-2 2021-03-08 Completed [employer] Vaccination 00:00:00 of Medicine Pfizer SARS-CoV-2 2021-03-08 Completed [employer] Vaccination 00:00:00 of Medicine Pfizer SARS-CoV-2 2021-03-08 Completed [employer] Vaccination 00:00:00 of Medicine Pfizer SARS-CoV-2 2021-03-08 Completed [employer] Vaccination 00:00:00 of Medicine Pfizer SARS-CoV-2 2021-03-08 Completed [employer] Vaccination 00:00:00 of Medicine Pfizer SARS-CoV-2 2021-03-08 Completed [employer] Vaccination 00:00:00 of Medicine Pfizer SARS-CoV-2 2021-03-08 Completed [facility] Vaccination 00:00:00 of Medicine Pfizer SARS-CoV-2 2021-03-08 Completed [employer] Vaccination 00:00:00 of Medicine Pfizer SARS-CoV-2 2021-03-08 Completed [facility] Vaccination 00:00:00 of Medicine Pfizer SARS-CoV-2 2021-03-08 Completed [employer] Vaccination 00:00:00 of Medicine Pfizer SARS-CoV-2 2021-03-08 Completed [facility] Vaccination 00:00:00 of Medicine Pfizer SARS-CoV-2 2021-03-08 Completed [facility] Vaccination 00:00:00 of Medicine Pfizer SARS-CoV-2 2021-03-08 Completed [facility] Vaccination 00:00:00 of Medicine Pfizer SARS-CoV-2 2021-03-08 Completed [facility] Vaccination 00:00:00 of Medicine Pfizer SARS-CoV-2 2021-03-08 Completed [facility] Vaccination 00:00:00 of Medicine COVID-19, mRNA, COVID-19, mRNA, 2021-02-18 Completed [facility] LNP-S, PF, 30 LNP-S, PF, 30 00:00:00 Hospital Clinics mcg/0.3 mL dose mcg/0.3 mL dose ([employer]) ([employer]) COVID-19, mRNA, COVID-19, mRNA, 2021-02-18 Completed [facility] LNP-S, PF, 30 LNP-S, PF, 30 00:00:00 Hospital Clinics mcg/0.3 mL dose mcg/0.3 mL dose ([employer]) ([employer]) COVID-19, mRNA, COVID-19, mRNA, 2021-02-18 Completed [facility] LNP-S, PF, 30 LNP-S, PF, 30 00:00:00 Hospital Clinics mcg/0.3 mL dose mcg/0.3 mL dose ([employer]) ([employer]) COVID-19, mRNA, COVID-19, mRNA, 2021-02-18 Completed [facility] LNP-S, PF, 30 LNP-S, PF, 30 00:00:00 Hospital Clinics mcg/0.3 mL dose mcg/0.3 mL dose ([employer]) ([employer]) COVID-19, mRNA, COVID-19, mRNA, 2021-02-18 Completed [facility] LNP-S, PF, 30 LNP-S, PF, 30 00:00:00 Hospital Clinics mcg/0.3 mL dose mcg/0.3 mL dose ([employer]) ([employer]) COVID-19, mRNA, COVID-19, mRNA, 2021-02-18 Completed [facility] LNP-S, PF, 30 LNP-S, PF, 30 00:00:00 Hospital Clinics mcg/0.3 mL dose mcg/0.3 mL dose ([employer]) ([employer]) COVID-19, mRNA, COVID-19, mRNA, 2021-02-18 Completed [facility] LNP-S, PF, 30 LNP-S, PF, 30 00:00:00 Hospital Clinics mcg/0.3 mL dose mcg/0.3 mL dose ([employer]) ([employer]) COVID-19, mRNA, COVID-19, mRNA, 2021-02-18 Completed [facility] LNP-S, PF, 30 LNP-S, PF, 30 00:00:00 Hospital Clinics mcg/0.3 mL dose mcg/0.3 mL dose ([employer]) (Pf[employer]) COVID-19, mRNA, COVID-19, mRNA, 2021-02-18 Completed [facility] LNP-S, PF, 30 LNP-S, PF, 30 00:00:00 Hospital Clinics mcg/0.3 mL dose mcg/0.3 mL dose ([employer]) (Pf[employer]) COVID-19, mRNA, COVID-19, mRNA, 2021-02-18 Completed [facility] LNP-S, PF, 30 LNP-S, PF, 30 00:00:00 Hospital Clinics mcg/0.3 mL dose mcg/0.3 mL dose ([employer]) (Pf[employer]) COVID-19, mRNA, COVID-19, mRNA, 2021-02-18 Completed [facility] LNP-S, PF, 30 LNP-S, PF, 30 00:00:00 Hospital Clinics mcg/0.3 mL dose mcg/0.3 mL dose (Pf[employer]) (Pfizer-[employer]) [facility] SARS-CoV-2 2021-02-13 Completed [facility] Vaccination 00:00:00 of Medicine [facility] SARS-CoV-2 2021-02-13 Completed [employer] Vaccination 00:00:00 of Medicine Pfizer SARS-CoV-2 2021-02-13 Completed [employer] Vaccination 00:00:00 of Medicine Pfizer SARS-CoV-2 2021-02-13 Completed [facility] Vaccination 00:00:00 of Medicine Pfizer SARS-CoV-2 2021-02-13 Completed [employer] Vaccination 00:00:00 of Medicine Pfizer SARS-CoV-2 2021-02-13 Completed [employer] Vaccination 00:00:00 of Medicine Pfizer SARS-CoV-2 2021-02-13 Completed [facility] Vaccination 00:00:00 of Medicine Pfizer SARS-CoV-2 2021-02-13 Completed [employer] Vaccination 00:00:00 of Medicine Pfizer SARS-CoV-2 2021-02-13 Completed [employer] Vaccination 00:00:00 of Medicine Pfizer SARS-CoV-2 2021-02-13 Completed [facility] Vaccination 00:00:00 of Medicine Pfizer SARS-CoV-2 2021-02-13 Completed [facility] Vaccination 00:00:00 of Medicine Pfizer SARS-CoV-2 2021-02-13 Completed [facility] Vaccination 00:00:00 of Medicine Pfizer SARS-CoV-2 2021-02-13 Completed [facility] Vaccination 00:00:00 of Medicine Pfizer SARS-CoV-2 2021-02-13 Completed [facility] Vaccination 00:00:00 of Medicine Pfizer SARS-CoV-2 2021-02-13 Completed [facility] Vaccination 00:00:00 of Medicine Pfizer SARS-CoV-2 2021-02-13 Completed [employer] Vaccination 00:00:00 of Medicine Pfizer SARS-CoV-2 2021-02-13 Completed [facility] Vaccination 00:00:00 of Medicine Vital Signs Vital Name Observation Time Observation Value Comments Source HEIGHT 2021-01-30 08:51:00 162.6 cm WEIGHT 2021-01-30 08:51:00 85.276 kg HEIGHT 2020-12-14 15:13:00 162.6 cm WEIGHT 2020-12-14 15:13:00 83.008 kg HEIGHT 2020-12-22 19:45:00 162.6 cm WEIGHT 2020-12-22 19:45:00 83.008 kg Systolic blood 2023-01-07 16:19:00 106 mm[Hg] [facility] pressure Medicine Diastolic blood 2023-01-07 16:19:00 73 mm[Hg] [facility] pressure Medicine Heart rate 2023-01-07 16:19:00 93 /min [facility] Body temperature 2023-01-07 16:19:00 35.72 [facility] Respiratory rate 2023-01-07 16:19:00 19 /min [facility] Body height 2023-01-07 16:19:00 162.6 cm [facility] Body weight 2023-01-07 16:19:00 77.565 kg [facility] BMI 2023-01-07 16:19:00 29[facility]35 [facility] Sy[facility]olic blood 2022-11-13 21:37:00 100 mm[Hg] [facility] pressure Medicine Diastolic blood 2022-11-13 21:37:00 69 mm[Hg] [facility] Medicine Heart rate 2022-11-13 21:37:00 103 /min [facility] Body temperature 2022-11-13 21:37:00 36.89 [facility] Respiratory rate 2022-11-13 21:37:00 18 /min [facility] Body height 2022-11-13 21:37:00 162.6 cm [facility] Body weight 2022-11-13 21:37:00 82.101 kg [facility] BMI 2022-11-13 21:37:00 31.07 kg[facility]m2 [facility] Systolic blood 2022-11-13 20:13:00 100 mm[Hg] [facility] pressure Medicine Diastolic blood 2022-11-13 20:13:00 69 mm[Hg] [facility] pressure Medicine Heart rate 2022-11-13 20:13:00 104 /min [facility] Body temperature 2022-11-13 20:13:00 36.89 [facility] Respiratory rate 2022-11-13 20:13:00 18 /min [facility] Body height 2022-11-13 20:13:00 162.6 cm [facility] Body weight 2022-11-13 20:13:00 82.464 [facility] BMI 2022-11-13 20:13:00 31.21 kg/m2 [facility] Systolic blood 2022-10-11 21:33:00 118 mm[Hg] [facility] pressure Medicine Diastolic blood 2022-10-11 21:33:00 76 mm[Hg] [facility] pressure Medicine Heart rate 2022-10-11 21:33:00 99 /min [facility] Body temperature 2022-10-11 21:33:00 36.89 [facility] Respiratory rate 2022-10-11 21:33:00 16 /min [facility] Body height 2022-10-11 21:33:00 162.6 cm [facility] Body weight 2022-10-11 21:33:00 85.458 kg [facility] BMI 2022-10-11 21:33:00 32.34 kg/m2 [facility] Oxygen saturation in 2022-10-11 21:33:00 97 /min [facility] Arterial blood by Medicine Pulse oximetry HEIGHT 2022-10-11 17:13:00 162.6 cm WEIGHT 2022-10-11 17:13:00 85.4 kg HEIGHT 2022-10-11 17:13:00 162.6 cm WEIGHT 2022-10-11 17:13:00 85.4 kg HEIGHT 2022-10-11 17:13:00 162.6 cm WEIGHT 2022-10-11 17:13:00 85.4 kg HEIGHT 2022-05-18 11:48:00 162.6 cm WEIGHT 2022-05-18 11:48:00 88.905 kg HEIGHT 2022-05-17 13:55:00 162.6 cm WEIGHT 2022-05-17 13:55:00 88.905 kg HEIGHT 2022-05-18 11:48:00 162.6 cm WEIGHT 2022-05-18 11:48:00 88.905 kg HEIGHT 2022-05-17 13:55:00 162.6 cm WEIGHT 2022-05-17 13:55:00 88.905 kg HEIGHT 2022-05-18 11:48:00 162.6 cm WEIGHT 2022-05-18 11:48:00 88.905 kg HEIGHT 2022-05-17 13:55:00 162.6 cm WEIGHT 2022-05-17 13:55:00 88.905 kg Systolic blood 2022-04-20 13:46:00 94 mm[Hg] [facility] pressure Medicine Diastolic blood 2022-04-20 13:46:00 68 mm[Hg] [facility] Medicine Heart rate 2022-04-20 13:46:00 90 /min [facility] Body temperature 2022-04-20 13:46:00 36.39 [facility] Respiratory rate 2022-04-20 13:46:00 16 /min [facility] Body height 2022-04-20 13:46:00 162.6 cm [facility] Body weight 2022-04-20 13:46:00 89.359 kg [facility] BMI 2022-04-20 13:46:00 33.81 [facility] Oxygen saturation in 2022-04-20 13:46:00 97 /min [facility] Arterial blood by [facility] Pulse oximetry Systolic blood 2022-04-18 13:43:00 96 mm[Hg] [facility] Medicine Diastolic blood 2022-04-18 13:43:00 68 mm[Hg] [facility] Medicine Heart rate 2022-04-18 13:43:00 106 /min [facility] Body height 2022-04-18 13:43:00 162.6 cm [facility] Body weight 2022-04-18 13:43:00 89.812 kg [facility] BMI 2022-04-18 13:43:00 33.99 kg/m2 [facility] BP Diastolic 2022-04-18 00:00:00 68 mm[Hg] [facility] s Height 2022-04-18 00:00:00 64 [in_i] [facility] s BMI (Body Mass 2022-04-18 00:00:00 34.3 kg/m2 [facility] BP Systolic 2022-04-18 00:00:00 109 mm[Hg] [facility] Body Weight 2022-04-18 00:00:00 3200 [oz_av] [facility] BP Diastolic 2022-04-13 00:00:00 69 mm[Hg] [facility] Height 2022-04-13 00:00:00 64 [in_i] [facility] s BMI (Body Mass 2022-04-13 00:00:00 33.6 kg/m2 [facility] Index) [facility] s BP Systolic 2022-04-13 00:00:00 103 mm[Hg] [facility] s Body Weight 2022-04-13 00:00:00 3135 [oz_av] [facility] BP Diastolic 2022-04-04 00:00:00 73 mm[Hg] [facility] Height 2022-04-04 00:00:00 64 [in_i] [facility] BMI (Body Mass 2022-04-04 00:00:00 34.2 kg/m2 [facility] Index) [facility] BP Systolic 2022-04-04 00:00:00 109 mm[Hg] [facility] Body Weight 2022-04-04 00:00:00 3184 [oz_av] [facility] BP Diastolic 2022-03-30 00:00:00 62 mm[Hg] [facility] Height 2022-03-30 00:00:00 64 [in_i] [facility] s BMI (Body Mass 2022-03-30 00:00:00 34 kg/m2 [facility] Index) [facility] s BP Systolic 2022-03-30 00:00:00 108 mm[Hg] [facility] Body Weight 2022-03-30 00:00:00 3167 [oz_av] [facility] HEIGHT 2022-03-24 12:42:00 162.6 cm WEIGHT 2022-03-24 12:42:00 88.905 kg HEIGHT 2022-03-24 12:42:00 162.6 cm WEIGHT 2022-03-24 12:42:00 88.905 kg HEIGHT 2022-03-24 12:42:00 162.6 cm WEIGHT 2022-03-24 12:42:00 88.905 kg BP Diastolic 2022-03-21 00:00:00 70 mm[Hg] [facility] Height 2022-03-21 00:00:00 64 [in_i] [facility] BMI (Body Mass 2022-03-21 00:00:00 33.6 kg/m2 [facility]) [facility] s BP Systolic 2022-03-21 00:00:00 99 mm[Hg] [facility] s Body Weight 2022-03-21 00:00:00 3136 [oz_av] [facility] BP Diastolic 2022-03-13 00:00:00 73 mm[Hg] [facility] Height 2022-03-13 00:00:00 64 [in_i] [facility] BMI (Body Mass 2022-03-13 00:00:00 33.6 kg/m2 [facility]) [facility] BP Systolic 2022-03-13 00:00:00 100 mm[Hg] [facility] Body Weight 2022-03-13 00:00:00 3136 [oz_av] [facility] BP Diastolic 2022-03-07 00:00:00 67 mm[Hg] [facility] Height 2022-03-07 00:00:00 64 [in_i] [facility] BMI (Body Mass 2022-03-07 00:00:00 33.8 kg/m2 [facility]) [facility] s BP Systolic 2022-03-07 00:00:00 106 mm[Hg] [facility] Body Weight 2022-03-07 00:00:00 3153.44 [oz_av] [facility] BP Diastolic 2022-02-28 00:00:00 70 mm[Hg] [facility] Height 2022-02-28 00:00:00 64 [in_i] [facility] BMI (Body Mass 2022-02-28 00:00:00 33.7 kg/m2 [facility]) [facility] s BP Systolic 2022-02-28 00:00:00 105 mm[Hg] [facility] Body Weight 2022-02-28 00:00:00 3144 [oz_av] [facility] Body Weight 2022-02-21 00:00:00 3170.4 [oz_av] [facility] s BP Diastolic 2022-02-21 00:00:00 78 mm[Hg] [facility] Height 2022-02-21 00:00:00 64 [in_i] [facility] BMI (Body Mass 2022-02-21 00:00:00 34 kg/m2 [facility] BP Systolic 2022-02-21 00:00:00 111 mm[Hg] [facility] Systolic blood 2022-01-18 19:35:00 119 mm[Hg] [facility] pressure Medicine Diastolic blood 2022-01-18 19:35:00 83 mm[Hg] [facility] pressure Medicine Heart rate 2022-01-18 19:35:00 90 /min [facility] Body temperature 2022-01-18 19:35:00 36.78 [facility] Body height 2022-01-18 19:35:00 162.6 cm [facility] Body weight 2022-01-18 19:35:00 91.989 kg [facility] BMI 2022-01-18 19:35:00 34.81 kg/m2 [facility] Systolic blood 2022-01-08 19:04:00 107 mm[Hg] [facility] pressure Medicine Diastolic blood 2022-01-08 19:04:00 73 mm[Hg] [facility] pressure Medicine Heart rate 2022-01-08 19:04:00 93 /min [facility] Body temperature 2022-01-08 19:04:00 37 [facility] Body height 2022-01-08 19:04:00 162.6 cm [facility] Body weight 2022-01-08 19:04:00 89.359 kg [facility] BMI 2022-01-08 19:04:00 33.81 kg/m2 [facility] Systolic blood 2021-11-16 19:53:00 107 mm[Hg] [facility] pressure Medicine Diastolic blood 2021-11-16 19:53:00 71 mm[Hg] [facility] Medicine Heart rate 2021-11-16 19:53:00 74 /min [facility] Body temperature 2021-11-16 19:53:00 36.17 [facility] Body height 2021-11-16 19:53:00 162.6 cm [facility] Medicine Body weight 2021-11-16 19:53:00 89.359 kg [facility] BMI 2021-11-16 19:53:00 33.81 kg/m2 [facility] blood 2021-10-12 22:31:00 109 mm[Hg] [facility] pressure Medicine Diastolic blood 2021-10-12 22:31:00 78 mm[Hg] [facility] pressure Medicine Heart rate 2021-10-12 22:31:00 102 /min [facility] Body temperature 2021-10-12 22:31:00 36.72 [facility] Respiratory rate 2021-10-12 22:31:00 18 /min [facility] Body height 2021-10-12 22:31:00 162.6 cm [facility] Body weight 2021-10-12 22:31:00 89.495 kg [facility] BMI 2021-10-12 22:31:00 33.87 kg/m2 [facility] BP Diastolic 2021-09-20 00:00:00 68 mm[Hg] [facility] s Height 2021-09-20 00:00:00 64 [in_i] [facility] s BMI (Body Mass 2021-09-20 00:00:00 33.8 kg/m2 [facility] s BP Systolic 2021-09-20 00:00:00 104 mm[Hg] [facility] s Body Weight 2021-09-20 00:00:00 3152 [oz_av] [facility] s Body height 2021-09-19 15:16:00 162.6 cm [facility] Body weight 2021-09-19 15:16:00 87.544 kg [facility] BMI 2021-09-19 15:16:00 33.13 kg/m2 [facility] Systolic blood 2021-08-15 20:46:00 105 mm[Hg] [facility] pressure Medicine Diastolic blood 2021-08-15 20:46:00 75 mm[Hg] [facility] pressure Medicine Body height 2021-08-15 20:46:00 162.6 cm [facility] Body weight 2021-08-15 20:46:00 87.544 kg [facility] BMI 2021-08-15 20:46:00 33.13 kg/m2 [facility] Systolic blood 2021-08-03 16:13:00 105 mm[Hg] [facility] pressure Medicine Diastolic blood 2021-08-03 16:13:00 72 mm[Hg] [facility] pressure Medicine Heart rate 2021-08-03 16:13:00 84 /min [facility] Body temperature 2021-08-03 16:13:00 36.61 [facility] Body height 2021-08-03 16:13:00 162.6 cm [facility] Body weight 2021-08-03 16:13:00 89.359 kg [facility] BMI 2021-08-03 16:13:00 33.81 kg/m2 [facility] Systolic blood 2021-07-13 21:56:00 119 mm[Hg] [facility] Medicine Diastolic blood 2021-07-13 21:56:00 74 mm[Hg] [facility] Medicine Heart rate 2021-07-13 21:56:00 94 /min [facility] Body temperature 2021-07-13 21:56:00 36.72 [facility] Respiratory rate 2021-07-13 21:56:00 18 /min [facility] Body height 2021-07-13 21:56:00 162.6 cm [facility] Body weight 2021-07-13 21:56:00 89.721 kg [facility] BMI 2021-07-13 21:56:00 33.95 kg/m2 [facility] Body height 2021-06-13 14:25:00 162.6 cm [facility] Body weight 2021-06-13 14:25:00 85.276 kg [facility] BMI 2021-06-13 14:25:00 32.27 kg/m2 [facility] Systolic blood 2021-04-13 21:46:00 114 mm[Hg] [facility] Medicine Diastolic blood 2021-04-13 21:46:00 80 mm[Hg] [facility] Medicine Heart rate 2021-04-13 21:46:00 90 /min [facility] Body temperature 2021-04-13 21:46:00 36.67 [facility] Body height 2021-04-13 21:46:00 162.6 cm [facility] Body weight 2021-04-13 21:46:00 86.183 kg [facility] BMI 2021-04-13 21:46:00 32.61 kg/m2 [facility] Systolic blood 2021-02-08 16:26:00 112 mm[Hg] [facility] pressure Medicine Diastolic blood 2021-02-08 16:26:00 79 mm[Hg] [facility] pressure Medicine Heart rate 2021-02-08 16:26:00 76 /min [facility] Body temperature 2021-02-08 16:26:00 36.72 [facility] Body height 2021-02-08 16:26:00 162.6 cm [facility] Body weight 2021-02-08 16:26:00 85.276 kg [facility] BMI 2021-02-08 16:26:00 32.27 kg/m2 [facility] Systolic blood 2021-01-30 20:03:00 111 mm[Hg] [facility] pressure Medicine Diastolic blood 2021-01-30 20:03:00 76 mm[Hg] [facility] pressure Medicine Heart rate 2021-01-30 20:03:00 97 /min [facility] Body height 2021-01-30 20:03:00 162.6 cm [facility] Body weight 2021-01-30 20:03:00 84.369 kg [facility] BMI 2021-01-30 20:03:00 31.93 kg/m2 [facility] HEIGHT 2021-01-30 08:51:00 162.6 cm WEIGHT 2021-01-30 08:51:00 85.276 kg Systolic blood 2021-01-06 13:23:00 104 mm[Hg] [facility] pressure Medicine Diastolic blood 2021-01-06 13:23:00 75 mm[Hg] [facility] pressure Medicine Heart rate 2021-01-06 13:23:00 94 /min [facility] Body temperature 2021-01-06 13:23:00 36.11 [facility] Body height 2021-01-06 13:23:00 162.6 cm [facility] Body weight 2021-01-06 13:23:00 86.183 kg [facility] BMI 2021-01-06 13:23:00 32.61 kg/m2 [facility] HEIGHT 2020-12-22 19:45:00 162.6 cm WEIGHT 2020-12-22 19:45:00 83.008 kg Systolic blood 2020-12-22 21:08:00 108 mm[Hg] [facility] pressure Medicine Diastolic blood 2020-12-22 21:08:00 68 mm[Hg] [facility] Medicine Heart rate 2020-12-22 21:08:00 119 /min [facility] Body temperature 2020-12-22 21:08:00 36.89 [facility] Body height 2020-12-22 21:08:00 162.6 cm [facility] Body weight 2020-12-22 21:08:00 84.369 kg [facility] BMI 2020-12-22 21:08:00 31.93 kg/m2 [facility] Systolic blood 2020-11-09 17:44:00 106 mm[Hg] [facility] Medicine Diastolic blood 2020-11-09 17:44:00 71 mm[Hg] [facility] Medicine Heart rate 2020-11-09 17:44:00 83 /min sp02 100 [facility] temperature 2020-11-09 17:44:00 36.67 [facility] Respiratory rate 2020-11-09 17:44:00 16 /min [facility] Body height 2020-11-09 17:44:00 162.6 cm [facility] Body weight 2020-11-09 17:44:00 83.462 kg [facility] BMI 2020-11-09 17:44:00 31.58 kg/m2 [facility] Systolic blood 2020-11-09 17:44:00 106 mm[Hg] [facility] pressure Medicine Diastolic blood 2020-11-09 17:44:00 71 mm[Hg] [facility] Medicine Heart rate 2020-11-09 17:44:00 83 /min sp02 100 [facility] Body temperature 2020-11-09 17:44:00 36.67 [facility] Respiratory rate 2020-11-09 17:44:00 16 /min [facility] Body height 2020-11-09 17:44:00 162.6 cm [facility] Body weight 2020-11-09 17:44:00 83.462 kg [facility] BMI 2020-11-09 17:44:00 31.58 kg/m2 [facility] Systolic blood 2020-08-10 19:42:00 128 mm[Hg] [facility] pressure Medicine Diastolic blood 2020-08-10 19:42:00 80 mm[Hg] [facility] pressure Medicine Heart rate 2020-08-10 19:42:00 81 /min [facility] Body temperature 2020-08-10 19:42:00 36.67 [facility] Respiratory rate 2020-08-10 19:42:00 16 /min [facility] Body height 2020-08-10 19:42:00 162.6 cm [facility] Body weight 2020-08-10 19:42:00 85.73 kg [facility] BMI 2020-08-10 19:42:00 32.44 kg/m2 [facility] Systolic blood 2020-08-10 19:42:00 128 mm[Hg] [facility] pressure Medicine Diastolic blood 2020-08-10 19:42:00 80 mm[Hg] [facility] pressure Medicine Heart rate 2020-08-10 19:42:00 81 /min [facility] Body temperature 2020-08-10 19:42:00 36.67 [facility] Respiratory rate 2020-08-10 19:42:00 16 /min [facility] Body height 2020-08-10 19:42:00 162.6 cm [facility] Body weight 2020-08-10 19:42:00 85.73 kg [facility] BMI 2020-08-10 19:42:00 32.44 kg/m2 [facility] Systolic blood 2020-05-11 17:17:00 101 mm[Hg] [facility] pressure Medicine Diastolic blood 2020-05-11 17:17:00 68 mm[Hg] [facility] pressure Medicine Heart rate 2020-05-11 17:17:00 99 /min [facility] Body temperature 2020-05-11 17:17:00 36.78 [facility] Respiratory rate 2020-05-11 17:17:00 20 /min [facility] Body weight 2020-05-11 17:17:00 85.73 kg [facility] BMI 2020-05-11 17:17:00 32.44 kg/m2 [facility] Systolic blood 2020-05-11 17:17:00 101 mm[Hg] [facility] pressure Medicine Diastolic blood 2020-05-11 17:17:00 68 mm[Hg] [facility] Medicine Heart rate 2020-05-11 17:17:00 99 /min [facility] Body temperature 2020-05-11 17:17:00 36.78 [facility] Respiratory rate 2020-05-11 17:17:00 20 /min [facility] Body weight 2020-05-11 17:17:00 85.73 kg [facility] BMI 2020-05-11 17:17:00 32.44 kg/m2 [facility] Systolic blood 2020-03-02 15:28:00 109 mm[Hg] [facility] pressure Medicine Diastolic blood 2020-03-02 15:28:00 75 mm[Hg] [facility] Medicine Heart rate 2020-03-02 15:28:00 85 /min [facility] Body temperature 2020-03-02 15:28:00 36.39 [facility] Respiratory rate 2020-03-02 15:28:00 16 /min [facility] Body height 2020-03-02 15:28:00 162.6 cm [facility] Body weight 2020-03-02 15:28:00 86.183 kg [facility] BMI 2020-03-02 15:28:00 32.61 kg/m2 [facility] Systolic blood 2020-03-02 15:28:00 109 mm[Hg] [facility] pressure Medicine Diastolic blood 2020-03-02 15:28:00 75 mm[Hg] [facility] pressure Medicine Heart rate 2020-03-02 15:28:00 85 /min [facility] Body temperature 2020-03-02 15:28:00 36.39 [facility] Respiratory rate 2020-03-02 15:28:00 16 /min [facility] Body height 2020-03-02 15:28:00 162.6 cm [facility] Body weight 2020-03-02 15:28:00 86.183 kg [facility] BMI 2020-03-02 15:28:00 32.61 kg/m2 [facility] Systolic blood 2020-02-09 16:40:00 105 mm[Hg] [facility] pressure Medicine Diastolic blood 2020-02-09 16:40:00 74 mm[Hg] [facility] Medicine Heart rate 2020-02-09 16:40:00 109 /min [facility] Body temperature 2020-02-09 16:40:00 36.67 [facility] Respiratory rate 2020-02-09 16:40:00 16 /min [facility] Body height 2020-02-09 16:40:00 162.6 cm [facility] Body weight 2020-02-09 16:40:00 84.369 kg [facility] BMI 2020-02-09 16:40:00 31.93 kg/m2 [facility] Systolic blood 2020-02-09 16:40:00 105 mm[Hg] [facility] pressure Medicine Diastolic blood 2020-02-09 16:40:00 74 mm[Hg] [facility] pressure Medicine Heart rate 2020-02-09 16:40:00 109 /min [facility] Body temperature 2020-02-09 16:40:00 36.67 [facility] Respiratory rate 2020-02-09 16:40:00 16 /min [facility] Body height 2020-02-09 16:40:00 162.6 cm [facility] Body weight 2020-02-09 16:40:00 84.369 kg [facility] BMI 2020-02-09 16:40:00 31.93 kg/m2 [facility] Systolic blood 2020-01-05 14:33:00 114 mm[Hg] [facility] pressure Medicine Diastolic blood 2020-01-05 14:33:00 76 mm[Hg] [facility] Medicine Heart rate 2020-01-05 14:33:00 82 /min [facility] Body temperature 2020-01-05 14:33:00 36.61 [facility] Respiratory rate 2020-01-05 14:33:00 20 /min [facility] Body height 2020-01-05 14:33:00 162.6 cm [facility] Body weight 2020-01-05 14:33:00 86.728 kg [facility] BMI 2020-01-05 14:33:00 32.82 kg/m2 [facility] Systolic blood 2020-01-05 14:33:00 114 mm[Hg] [facility] Medicine Diastolic blood 2020-01-05 14:33:00 76 mm[Hg] [facility] Medicine Heart rate 2020-01-05 14:33:00 82 /min [facility] Body temperature 2020-01-05 14:33:00 36.61 [facility] Respiratory rate 2020-01-05 14:33:00 20 /min [facility] Body height 2020-01-05 14:33:00 162.6 cm [facility] Body weight 2020-01-05 14:33:00 86.728 kg [facility] BMI 2020-01-05 14:33:00 32.82 kg/m2 [facility] Systolic blood 2019-12-08 20:10:00 100 mm[Hg] [facility] pressure Medicine Diastolic blood 2019-12-08 20:10:00 60 mm[Hg] [facility] Medicine Heart rate 2019-12-08 20:10:00 106 /min [facility] Respiratory rate 2019-12-08 20:10:00 18 /min [facility] Body height 2019-12-08 20:10:00 162.6 cm [facility] Body weight 2019-12-08 20:10:00 85.73 kg [facility] BMI 2019-12-08 20:10:00 32.44 kg/m2 [facility] Systolic blood 2019-12-08 20:10:00 100 mm[Hg] [facility] Medicine Diastolic blood 2019-12-08 20:10:00 60 mm[Hg] [facility] Medicine Heart rate 2019-12-08 20:10:00 106 /min [facility] Respiratory rate 2019-12-08 20:10:00 18 /min [facility] Body height 2019-12-08 20:10:00 162.6 cm [facility] Body weight 2019-12-08 20:10:00 85.73 kg [facility] BMI 2019-12-08 20:10:00 32.44 kg/m2 [facility] Systolic blood 2022-10-11 23:09:00 113 mm[Hg] [facility] Diastolic blood 2022-10-11 23:09:00 79 mm[Hg] [facility] Heart rate 2022-10-11 23:09:00 76 /min [facility] Body temperature 2022-10-11 23:09:00 36.83 Goldie [facility] Respiratory rate 2022-10-11 23:09:00 16 /min [facility] Oxygen saturation in 2022-10-11 23:09:00 99 /min [facility] Arterial blood by Medical [facility]ter Pulse oximetry Body height 2022-10-11 17:13:00 162.6 cm [facility] Body weight 2022-10-11 17:13:00 85.4 kg [facility] BMI 2022-10-11 17:13:00 32.32 kg/m2 [facility] Systolic blood 2022-05-18 13:10:00 117 mm[Hg] [facility] Diastolic blood 2022-05-18 13:10:00 75 mm[Hg] [facility] Heart rate 2022-05-18 13:10:00 67 /min [facility] Respiratory rate 2022-05-18 13:10:00 18 /min [facility] Oxygen saturation in 2022-05-18 13:10:00 99 /min [facility] Arterial blood by [facility] Pulse oximetry Body temperature 2022-05-18 12:39:00 36.5 Goldie [facility] Body height 2022-05-18 11:48:00 162.6 cm [facility] Body weight 2022-05-18 11:48:00 88.905 kg [facility] BMI 2022-05-18 11:48:00 33.64 kg/m2 [facility] Procedures Procedure Date / Time Performing Clinician Source Performed METHYLMALONIC ACID,SERUM 2023-01-02 14:09:52 [facility] HEMOGLOBIN A1C 2023-01-02 14:09:52 [facility] VITAMIN B1 2023-01-02 14:09:52 [facility] HEP B CORE ANTIBODY, TOTAL 2023-01-02 14:09:52 [facility] HEPATITIS B SURFACE ANTIGEN 2023-01-02 14:09:52 [facility] HEPATITIS B SURFACE AB QUAL 2023-01-02 14:09:52 [facility] VITAMIN B12 2023-01-02 14:09:51 [facility] FOLATE 2023-01-02 14:09:51 [facility] COMPREHENSIVE METABOLIC 2023-01-02 14:09:51 [facility] TSH REFLEX TO FREE T4 2023-01-02 14:09:51 [facility] PROTEIN ELECTROPHORESIS, 2023-01-02 14:09:51 [facility] PROTEIN ELECTROPHORESIS 2023-01-02 14:09:51 [facility] HEPATITIS C REFLEX QNT 2023-01-02 14:07:24 [facility] HIV AB/AG 4TH GEN W RFLX 2023-01-02 14:07:13 [facility] HC VENOUS DOPPLER EXT UNI 2022-10-11 23:05:00 Jez [facility] ELECTROCARDIOGRAM COMPLETE 2022-10-11 22:40:00 Car [facility] HIGH SENSITIVITY TROPONIN I 2022-10-11 21:32:00 Duong Cooper [facility] CT BRAIN WITHOUT IV 2022-10-11 21:20:00 [facility] CTA CHEST FOR PULMONARY 2022-10-11 21:20:00 Je[facility] EMBOLUS [facility] COMPREHENSIVE METABOLIC 2022-10-11 19:11[facility]00 [facility] CBC W/PLT COUNT & AUTO 2022-10-11 19:11:00 Jez [facility] DIFFERENTIAL [facility] PROTHROMBIN TIME/INR 2022-10-11 19:11:00 Jez Aure [facility] S [facility] CBC W/PLT COUNT & AUTO 2022-10-11 19:11:[address] [facility] HIGH SENSITIVITY TROPONIN I 2022-10-11 19:10:00 Aure [facility] SARS-COV2/INFLUENZA/RSV 2022-10-11 18:57:00 [facility] ECG 12-LEAD 2022-10-11 18:55:09 Jez [facility] ECG 12-LEAD 2022-10-11 18:55:09 Unknown, [facility] ECG 12-LEAD 2022-10-11 18:55:09 Unknown, [facility] ELECTROCARDIOGRAM COMPLETE 2022-10-11 16:40:00 [facility] EKG-SCANNED 2022-10-11 00:00:00 Provider, [facility] CBC W/AUTO DIFF WITH 2022-08-14 13:38:03 [facility] BASIC METABOLIC PANEL 2022-08-14 13:38:03 [facility] CPAP MACHINE 2022-08-02 00:00:00 [facility] CPAP MACHINE 2022-06-28 10:34:39 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 [facility] (SCN) SCANNED ORDER 2022-06-28 09:55:58 [facility] POLYSOMNOGRAPHY 2022-05-31 21:56:19 System, McT Provider [facility] POLYSOMNOGRAPHY REPORT - 2022-05-31 00:00:00 Provider, Aleksandr Heath [facility] TISSUE EXAM 2022-05-18 12:25:00 Antoine Leigh [facility] POTASSIUM 2022-05-18 12:13:00 Tobias Ambrose [facility] COLONOSCOPY, WITH BIOPSY 2022-05-18 12:11:00 Sheikh Antoine [facility] HCG, SERUM, QUALITATIVE 2022-05-18 11:56:00 Tobias Ambrose [facility] REPORT OF PROCEDURE - 2022-05-18 11:45:59 Antoine Leigh [facility] ENDOSCOPY [facility] EKG-SCANNED 2022-05-18 00:00:00 Provider, Aleksandr [facility] ECG 12-LEAD 2022-05-16 12:33:10 Unknown, Hl7 [facility] ECG 12-LEAD 2022-05-16 12:33:10 Unknown, Hl7 [facility] ECG 12-LEAD 2022-05-16 12:32:23 Unknown, Hl7 [facility] ECG 12-LEAD 2022-05-16 12:32:23 Unknown, Hl7 [facility] COVID ANTIGEN 2022-05-16 12:29:00 Antoine Leigh [facility] BASIC METABOLIC PANEL 2022-05-16 12:29:00 Tobias Ambrose [place] [facility]T COUNT & AUTO 2022-05-16 12:29:00 Tobias Ambrose [facility] PT/APTT 2022-05-16 12:29:00 Tobias Ambrose [facility] CBC W/PLT COUNT & AUTO 2022-05-16 12:29:00 Tobias Ambrose [facility] XR CHEST 2 VIEWS 2022-04-20 10:19:00 Alexis Panda [facility] BASIC METABOLIC PANEL 2022-04-20 09:28:59 [facility] ANTICARDIOLIPIN IGG 2022-04-20 09:20:08 [facility] KATHRYN W REFLEX TITER 2022-04-20 09:18:54 [facility] TSH REFLEX TO FREE T4 2022-04-20 09:18:54 [facility] ANTI DNA, DOUBLE STRANDED 2022-04-20 09:18:54 [facility] Medicine AMB REF TO GASTROENTEROLOGY 2022-03-30 11:58:40 [facility] Medicine CT ABDOMEN/PELVIS WITH IV 2022-03-24 16:26:00 Edward Love [facility] CONTRAST [facility] CBC W/PLT COUNT & AUTO 2022-03-24 14:20:00 Edward Love [facility] COMPREHENSIVE METABOLIC 2022-03-24 14:20:00 Edward Love [facility] PANEL [facility] LIPASE 2022-03-24 14:20:00 Edward Love [facility] MAGNESIUM 2022-03-24 14:20:00 Edward Love [facility] HIGH SENSITIVITY TROPONIN I 2022-03-24 14:20:00 Edward Love [facility] PHOSPHORUS 2022-03-24 14:20:00 Edward Love [facility] HCG, QUANTITATIVE, 2022-03-24 14:20:00 Edward Love [facility] CBC W/PLT COUNT & AUTO 2022-03-24 14:20:00 Edward Love [facility] DIFFERENTIAL [facility] UNATTENDED SLEEP STUDY 2021-11-15 21:00:18 HessTejas valdivia CARLOTTA Karimi W[facility] VENOUS DOPPLER LEGS 2021-09-20 16:20:00 Tejas Hess [facility] XR ABDOMEN/KUB 1 VIEW 2021-09-12 16:14:00 Antoine Leigh [facility] EMG PM&R 2021-08-03 16:00:00 [facility] EMG PM&R 2021-08-03 16:00:00 Fuad [facility] ege [facility] COMPREHENSIVE METABOLIC 2020-01-05 15:27:00 Yaneth [facility] Medicine CEA 2020-01-05 15:27:00 [facility] CBC W/AUTO DIFF WITH 2020-01-05 15:27:00 Tyler [facility] Medicine PROTIME & PTT 2020-01-05 15:27:00 [facility] Appendectomy 2015-10-21 00:00:[address] [facility] Surgical Biopsy of Colon [facility] Plan of Care Planned Activity Planned Date Details Comments Source Future Scheduled 2032-05-18 Screening for malignant [facility] Test 00:00:00 neoplasm of colon Medical Ce nter (procedure) [code = 782515004] Future Scheduled 2032-05-18 Screening for malignant [facility] Test 00:00:00 neoplasm of colon Medical Ce nter (procedure) [code = 567202712] Future Scheduled 2032-05-18 Screening for malignant [facility] Test 00:00:00 neoplasm of colon Medical Ce nter (procedure) [code = 065366504] Future Scheduled 2032-05-18 Screening for malignant [facility] Test 00:00:00 neoplasm of colon Medical Ce nter (procedure) [code = 715279486] Future Scheduled 2032-05-18 Screening for malignant [facility] Test 00:00:00 neoplasm of colon Medical Ce nter (procedure) [code = 943201707] Future Scheduled 2032-05-18 Screening for malignant [facility] Test 00:00:00 neoplasm of colon Medical Ce nter (procedure) [code = 303751943] Future Scheduled 2032-05-18 Screening for malignant [facility] Test 00:00:00 neoplasm of colon Medical Ce nter (procedure) [code = 852698012] Future Scheduled 2032-05-18 Screening for malignant [facility] Test 00:00:00 neoplasm of colon Medical Ce nter (procedure) [code = 416821322] Future Scheduled 2032-05-18 Screening for malignant [facility] Test 00:00:00 neoplasm of colon Medical Ce nter (procedure) [code = 926068484] Future Scheduled 2032-05-18 Screening for malignant [facility] Test 00:00:00 neoplasm of colon Medical Ce nter (procedure) [code = 325061989] Future Scheduled 2032-05-18 Screening for malignant [facility] Test 00:00:00 neoplasm of colon Medical Ce nter (procedure) [code = 944200813] Future Scheduled 2032-05-18 Screening for malignant [facility] Test 00:00:00 neoplasm of colon Medical Ce nter (procedure) [code = 310186421] Future Scheduled 2032-05-18 Screening for malignant [facility] Test 00:00:00 neoplasm of colon Medical Ce nter (procedure) [code = 305644131] Future Scheduled 2032-05-18 Screening for malignant [facility] Test 00:00:00 neoplasm of colon Medical Ce nter (procedure) [code = 641143004] Future Scheduled 2032-05-18 Screening for malignant [facility] Test 00:00:00 neoplasm of colon Medical Ce nter (procedure) [code = 245570361] Future Scheduled 2032-05-18 Screening for malignant [facility] Test 00:00:00 neoplasm of colon Medical Ce nter (procedure) [code = 185576854] Future Scheduled 2032-05-18 Screening for malignant [facility] Test 00:00:00 neoplasm of colon Medical Ce nter (procedure) [code = 005130389] Future Scheduled 2032-05-18 Screening for malignant [facility] Test 00:00:00 neoplasm of colon Medical Ce nter (procedure) [code = 689320677] Future Scheduled 2032-05-18 Screening for malignant [facility] Test 00:00:00 neoplasm of colon Medical Ce nter (procedure) [code = 176004494] Future Scheduled 2032-05-18 Screening for malignant [facility] Test 00:00:00 neoplasm of colon Medical Ce nter (procedure) [code = 561874962] Future Scheduled 2032-05-18 Screening for malignant [facility] Test 00:00:00 neoplasm of colon Medical Ce nter (procedure) [code = 375452336] Future Scheduled 2032-05-18 Screening for malignant [facility] Test 00:00:00 neoplasm of colon Medical Ce nter (procedure) [code = 869198242] Future Scheduled 2023-10-[address] [facility] Test 00:00:00 [facility] Scre[facility] (12+) [code = Tobacco Cessation Counseling and Screening (12+)] Future Scheduled 2023-10-[address] [facility] Test 00:00:00 [facility] Screening (12+) [code = Tobacco Cessation Counseling and Screening (12+)] Future Scheduled 2023-10-[address] [facility] Test 00:00:00 [facility] Screening (12+) [code = Tobacco Cessation Counseling and Screening (12+)] Future Scheduled 2023-10-[address] [facility] Test 00:00:00 [facility] Screening (12+) [code = Tobacco Cessation Counseling and Screening (12+)] Future Scheduled 2023-10-[address] [facility] Test 00:00:00 [facility] Screening (12+) [code = Tobacco Cessation Counseling and Screening (12+)] Future Scheduled 2023-10-[address] [facility] Test 00:00:00 [facility] Screening (12+) [code = Tobacco Cessation Counseling and Screening (12+)] Future Scheduled 2023-10-[address] [facility] Test 00:00:00 [facility] r Screening (12+) [code = Tobacco Cessation Counseling and Screening (12+)] Future Scheduled 2023-10-[address] [facility] Test 00:00:00 [facility] Screening (12+) [code = Tobacco Cessation Counseling and Screening (12+)] Future Scheduled 2023-06-[address] [facility] Test 00:00:00 (Season Ended) [code = Medic al Center INFLUENZA VACCINE (Season Ended)] Future Scheduled 2023-05-[address] [facility] Test 00:00:00 [facility] Screening (12+) [code = Tobacco Cessation Counseling and Screening (12+)] Future Scheduled 2023-05-[address] [facility] Test 00:00:00 [facility] Screening (12+) [code = Tobacco Cessation Counseling and Screening (12+)] Future Scheduled 2023-01-19 INFLUENZA VACCINE [code [facility] 16:49:32 = INFLUENZA VACCINE] Hospita l Future Scheduled 2023-01-19 COVID-19 [facility] (#[facility]) [facility] [code = COVID-19 Hospital VACCINE (#1)] Future Scheduled 2023-01-19 Screening for malignant [facility] 16:49:32 neoplasm of cervix Hospital (procedure) [code = 924233919] Future Scheduled 2023-01-19 BREAST CANCER SCREENING [facility] 16:49:32 [code = BREAST CANCER Hospit al SCREENING] Future Scheduled 2023-01-19 [facility]COPY [facility]ING [facility] 16:[facility]32 [code = COLONOSCOPY Hospital SCREENING] Future Scheduled 2023-01-14 Pneumococcal Combined [employer] Test 08:20:00 (1 - PCV) [code = of Medicin e Pneumococcal Combined (1 - PCV)] Future Scheduled 2023-01-14 TETANUS SHOT (ADULT) [place] [employer] Test 08:20:00 [code = TETANUS SHOT of Medi cine (ADULT)] Future Scheduled 2023-01-14 Screening for malignant [employer] Test 08:20:00 neoplasm of cervix of Medici ne (procedure) [code = 341705404] Future Scheduled 2023-01-14 COVID-19 Vaccine (4 - [employer] Test 08:20:00 Booster for Pfizer of Medici ne series) [code = COVID-19 Vaccine (4 - Booster for Pfizer series)] Future Scheduled 2023-01-14 Screening for malignant [employer] Test 08:20:00 neoplasm of breast of Medici ne (procedure) [code = 042387391] Future Scheduled 2023-01-14 FLU VACCINE > 6 MONTHS [employer] Test 08:20:00 [code = FLU VACCINE > 6 of M edicine MONTHS] Future Scheduled 2023-01-14 Screening for malignant [employer] Test 08:20:00 neoplasm of colon of Medicin e (procedure) [code = 221400612] Future Scheduled 2023-01-14 BMI Follow Up Plan [employer] Test 08:20:00 [code = BMI Follow Up of Med icine Plan] Future Scheduled 2022-11-13 MRI BRAIN WO CONTRAST 1 Occurrences [employer] Test 16:54:50 [code = 03940-5] starting of Medicine 11/13/2022 until 11/13/2023 Future Scheduled 2022-11-13 MRA HEAD WO CONTRAST 1 Occurrences [employer] Test 16:54:50 [code = 44682-9] starting of Medicine 11/13/2022 until 11/13/2023 Future Scheduled 2022-11-13 MRA NECK WO CONTRAST 1 Occurrences [employer] Test 16:54:50 [code = 27874-8] starting of Medicine 11/13/2022 until 11/13/2023 Future Scheduled 2022-11-13 TSH [code = 86138-2] Ordered: [place] [employer] Test 16:27:46 11/13/2022 of Medicine Future Scheduled 2022-11-13 XR C-SPINE AP, LAT, 1 Occurrences [place] [employer] Test 16:24:14 OBLIQUES W FLEX-EXT starting of Medic ine [code = 03755-5] 11/13/2022 until 11/13/2023 Future Scheduled 2022-11-13 XR LUMBAR SPINE AP 1 Occurrences [employer] Test 16:24:14 LATERAL OBLIQUES starting of Medicine FLEXION AND EXTENSION 11/13/2022 until [code = 69494-6] 11/13/2023 Future Scheduled 2022-11-13 Pneumococcal Combined [employer] Test 16:09:13 (1 - PCV) [code = of Medicin e Pneumococcal Combined (1 - PCV)] Future Scheduled 2022-11-13 TETANUS SHOT (ADULT) [place] [employer] Test 16:09:13 [code = TETANUS SHOT of Medi cine (ADULT)] Future Scheduled 2022-11-13 BMI Follow Up Plan [employer] Test 16:09:13 [code = BMI Follow Up of Med icine Plan] Future Scheduled 2022-11-13 Human immunodeficiency [employer] Test 16:09:13 virus screening of Medicine (procedure) [code = 210707833] Future Scheduled 2022-11-13 Hepatitis C screening [employer] Test 16:09:13 (procedure) [code = of Medic ine 781618012] Future Scheduled 2022-11-13 Screening for malignant [facility] Test 16:09:13 neoplasm of cervix of Medici ne (procedure) [code = 894269454] Future Scheduled 2022-11-13 COVID-19 Vaccine (4 - [employer] Test 16:09:13 Booster for Pfizer of Medici ne series) [code = COVID-19 Vaccine (4 - Booster for Pfizer series)] Future Scheduled 2022-11-13 Screening for malignant [employer] Test 16:09:13 neoplasm of breast of Medici ne (procedure) [code = 583994280] Future Scheduled 2022-11-13 FLU VACCINE > 6 MONTHS [employer] Test 16:09:13 [code = FLU VACCINE > 6 of M edicine MONTHS] Future Scheduled 2022-11-13 Screening for malignant [employer] Test 16:09:13 neoplasm of colon of Medicin e (procedure) [code = 974685879] Future Scheduled 2022-11-13 Pneumococcal Combined [employer] Test 16:09:13 (1 - PCV) [code = of Medicin e Pneumococcal Combined (1 - PCV)] Future Scheduled 2022-11-13 TETANUS SHOT (ADULT) [place] [employer] Test 16:09:13 [code = TETANUS SHOT of Medi cine (ADULT)] Future Scheduled 2022-11-13 BMI Follow Up Plan [employer] Test 16:09:13 [code = BMI Follow Up of Med icine Plan] Future Scheduled 2022-11-13 Human immunodeficiency [employer] Test 16:09:13 virus screening of Medicine (procedure) [code = 729916157] Future Scheduled 2022-11-13 Hepatitis C screening [employer] Test 16:09:13 (procedure) [code = of Medic ine 033284163] Future Scheduled 2022-11-13 Screening for malignant [facility] Test 16:09:13 neoplasm of cervix of Medici ne (procedure) [code = 175806444] Future Scheduled 2022-11-13 COVID-19 Vaccine (4 - [employer] Test 16:09:13 Booster for Pfizer of Medici ne series) [code = COVID-19 Vaccine (4 - Booster for Pfizer series)] Future Scheduled 2022-11-13 Screening for malignant [facility] Test 16:09:13 neoplasm of breast of Medici ne (procedure) [code = 712449064] Future Scheduled 2022-11-13 FLU VACCINE > 6 MONTHS [employer] Test 16:09:13 [code = FLU VACCINE > 6 of M edicine MONTHS] Future Scheduled 2022-11-13 Screening for malignant [facility] Test 16:09:13 neoplasm of colon of Medicin e (procedure) [code = 740267125] Future Scheduled 2022-10-[address] [facility] Test 00:00:00 (12+) [code = Medical Center DEPRESSION SCREENING (12+)] Future Scheduled 2022-10-[address] [facility] Test 00:00:00 (12+) [code = Medical Center DEPRESSION SCREENING (12+)] Future Scheduled 2022-10-[address] [facility] Test 00:00:00 (12+) [code = Medical Center DEPRESSION SCREENING (12+)] Future Scheduled 2022-10-[address] [facility] Test 00:00:00 (12+) [code = Medical Center DEPRESSION SCREENING (12+)] Future Scheduled 2022-10-[address] [facility] Test 00:00:00 (12+) [code = Medical Center DEPRESSION SCREENING (12+)] Future Scheduled 2022-10-[address] [facility] Test 00:00:00 (12+) [code = Medical Center DEPRESSION SCREENING (12+)] Future Scheduled 2022-10-[address] [facility] Test 00:00:00 (12+) [code = Medical Center DEPRESSION SCREENING (12+)] Future Scheduled 2022-10-[address] [facility] Test 00:00:00 (12+) [code = Medical Center DEPRESSION SCREENING (12+)] Future Scheduled 2022-10-11 [facility]15 COMPLETE [code = 48004] of M edicine Future Scheduled 2022-10-11 Pneumococcal Combined [employer] Test 16:14:20 (1 - PCV) [code = of Medicin e Pneumococcal Combined (1 - PCV)] Future Scheduled 2022-10-11 TETANUS SHOT (ADULT) [place] [facility] Test 16:14:20 [code = TETANUS SHOT of Medi cine (ADULT)] Future Scheduled 2022-10-11 BMI FOLLOW UP PLAN [employer] Test 16:14:20 [code = BMI FOLLOW UP of Med icine PLAN] Future Scheduled 2022-10-11 Hepatitis C screening [facility] Test 16:14:20 (procedure) [code = of Medic ine 156107711] Future Scheduled 2022-10-11 Human immunodeficiency B [facility] Test 16:14:20 virus screening of Medicine (procedure) [code = 835377184] Future Scheduled 2022-10-11 Screening for malignant [facility] Test 16:14:20 neoplasm of cervix of Medici ne (procedure) [code = 715739281] Future Scheduled 2022-10-11 COVID-19 Vaccine (4 - [facility] Test 16:14:20 Booster for Pfizer of Medici ne series) [code = COVID-19 Vaccine (4 - Booster for Pfizer series)] Future Scheduled 2022-10-11 Screening for malignant [facility] Test 16:14:20 neoplasm of breast of Medici ne (procedure) [code = 441860406] Future Scheduled 2022-10-11 FLU VACCINE > 6 MONTHS B [facility] Test 16:14:20 [code = FLU VACCINE > 6 of M edicine MONTHS] Future Scheduled 2022-10-11 Screening for malignant [facility] Test 16:14:20 neoplasm of colon of Medicin e (procedure) [code = 749515718] Future Scheduled 2022-06-28 Screening for malignant [facility] 09:56:02 neoplasm of cervix Hospital (procedure) [code = 932678186] Future Scheduled 2022-06-28 BREAST CANCER SCREENING [facility] 09:56:02 [code = BREAST CANCER Hospit al SCREENING] Future Scheduled 2022-06-28 [facility]COPY [facility]ING [facility] 09:[facility]:02 [code = COLONOSCOPY Hospital SCREENING] Future Scheduled 2022-06-28 INFLUENZA VACCINE [code [facility] 09:56:02 = INFLUENZA VACCINE] Hospita l Future Scheduled 2022-06-28 HEPATITIS B VACCINES (1 [facility] 09:56:02 of 3 - 3-dose series) Hospit al [code = HEPATITIS B VACCINES (1 of 3 - 3-dose series)] Future Scheduled 2022-06-28 COVID-19 VACCINE (#1) [facility] 09:56:02 [code = COVID-19 Hospital VACCINE (#1)] Future Scheduled 2022-06-21 INFLUENZA [facility]ACCINE (#1[facility] [code = INFLUENZA Medical Ce nter VACCINE (#1)] Future Scheduled 2022-06-21 INFLUENZA VACCINE (#1) [facility] 00:00:00 [code = INFLUENZA Medical Ce nter VACCINE (#1)] Future Scheduled 2022-06-21 INFLUENZA VACCINE (#1) [facility] 00:00:00 [code = INFLUENZA Medical Ce nter VACCINE (#1)] Future Scheduled 2022-06-21 INFLUENZA VACCINE (#1) [facility] 00:00:00 [code = INFLUENZA Medical Ce nter VACCINE (#1)] Future Scheduled 2022-06-21 INFLUENZA VACCINE (#1) [facility] 00:00:00 [code = INFLUENZA Medical Ce nter VACCINE (#1)] Future Scheduled 2022-06-21 INFLUENZA VACCINE (#1) [facility] 00:00:00 [code = INFLUENZA Medical Ce nter VACCINE (#1)] Future Scheduled 2022-06-21 INFLUENZA VACCINE (#1) [facility] 00:00:00 [code = INFLUENZA Medical Ce nter VACCINE (#1)] Future Scheduled 2022-06-21 INFLUENZA VACCINE (#1) [facility] 00:00:00 [code = INFLUENZA Medical Ce nter VACCINE (#1)] Future Scheduled 2022-06-21 INFLUENZA VACCINE (#1) [facility] 00:00:00 [code = INFLUENZA Medical Ce nter VACCINE (#1)] Future Scheduled 2022-06-21 INFLUENZA VACCINE (#1) [facility] 00:00:00 [code = INFLUENZA Medical Ce nter VACCINE (#1)] Future Scheduled 2022-04-20 Pneumococcal Combined [facility] Test 09:40:36 (1 - PCV) [code = of Medicin e Pneumococcal Combined (1 - PCV)] Future Scheduled 2022-04-20 TETANUS SHOT (ADULT) [facility] Test 09:40:36 [code = TETANUS SHOT of Medi cine (ADULT)] Future Scheduled 2022-04-20 BMI FOLLOW UP PLAN [facility] Test 09:40:36 [code = BMI FOLLOW UP of Med icine PLAN] Future Scheduled 2022-04-20 Hepatitis C screening [facility] Test 09:40:36 (procedure) [code = of Medic ine 052654705] Future Scheduled 2022-04-20 Human immunodeficiency [facility] Test 09:40:36 virus screening of Medicine (procedure) [code = 126143420] Future Scheduled 2022-04-20 Screening for malignant [facility] Test 09:40:36 neoplasm of cervix of Medici ne (procedure) [code = 818733329] Future Scheduled 2022-04-20 Screening for malignant [facility] Test 09:40:36 neoplasm of colon of Medicin e (procedure) [code = 657055659] Future Scheduled 2022-04-20 Screening for malignant [facility] Test 09:40:36 neoplasm of breast of Medici ne (procedure) [code = 039382737] Future Scheduled 2022-04-20 FLU VACCINE > 6 MONTHS B [facility] Test 09:40:36 [code = FLU VACCINE > 6 of edicine MONTHS] Future Scheduled 2022-04-20 BASIC METABOLIC PANEL Ordered: [facility] Test 09:28:59 [code = 25906-7] 04/20/2022 of Medicine Future Scheduled 2022-04-20 ANTICARDIOLIPIN IGG Ordered: [facility] Test 09:20:08 [code = NOCPT] 04/20/2022 of Medicine Future Scheduled 2022-04-20 KATHRYN W REFLEX TITER Ordered: [facility] Test 09:18:54 [code = NOCPT] 04/20/2022 of Medicine Future Scheduled 2022-04-20 TSH REFLEX TO FREE T4 Ordered: [facility] Test 09:18:54 [code = 3016-3] 04/20/2022 of Medicine Future Scheduled 2022-04-20 ANTI DNA, DOUBLE Ordered: [facility] Test 09:18:54 STRANDED REFLEX [code = 04/20/2022 of M edicine 48339] Future Scheduled 2022-04-20 XR CHEST PA AND LATERAL 1 Occurrences [facility] Test 09:18:54 [code = 45819-4] starting of Medicine 04/20/2022 until 04/20/2023 Future Scheduled 2022-04-18 COLONOSCOPY W MAC GI 1 Occurrences [employer] Test 09:06:06 DEPT [code = 86774932] starting of Me dicine 04/18/2022 until 10/18/2022 Future Scheduled 2022-04-18 Pneumococcal Combined [employer] Test 08:45:21 (1 - PCV) [code = of Medicin e Pneumococcal Combined (1 - PCV)] Future Scheduled 2022-04-18 TETANUS SHOT (ADULT) [place] [employer] Test 08:45:21 [code = TETANUS SHOT of Medi cine (ADULT)] Future Scheduled 2022-04-18 BMI FOLLOW UP PLAN [employer] Test 08:45:21 [code = BMI FOLLOW UP of Med icine PLAN] Future Scheduled 2022-04-18 Hepatitis C screening [employer] Test 08:45:21 (procedure) [code = of Medic ine 877196683] Future Scheduled 2022-04-18 Human immunodeficiency [employer] Test 08:45:21 virus screening of Medicine (procedure) [code = 826550950] Future Scheduled 2022-04-18 Screening for malignant [facility] Test 08:45:21 neoplasm of cervix of Medici ne (procedure) [code = 684380578] Future Scheduled 2022-04-18 Screening for malignant [facility] [employer] Test 08:45:21 neoplasm of colon of Medicin e (procedure) [code = 636958021] Future Scheduled 2022-04-18 Screening for malignant [facility] [employer] Test 08:45:21 neoplasm of breast of Medici ne (procedure) [code = 973272089] Future Scheduled 2022-04-18 FLU VACCINE > 6 MONTHS [employer] Test 08:45:21 [code = FLU VACCINE > 6 of M edicine MONTHS] Future Scheduled 2022-01-18 Pneumococcal Combined [employer] Test 15:17:46 (1 of 4 - PCV13) [code of Me dicine = Pneumococcal Combined (1 of 4 - PCV13)] Future Scheduled 2022-01-18 TETANUS SHOT (ADULT) [place] [employer] Test 15:17:46 [code = TETANUS SHOT of Medi cine (ADULT)] Future Scheduled 2022-01-18 BMI FOLLOW UP PLAN [employer] Test 15:17:46 [code = BMI FOLLOW UP of Med icine PLAN] Future Scheduled 2022-01-18 Hepatitis C screening [employer] Test 15:17:46 (procedure) [code = of Medic ine 180107059] Future Sched[facility] 2022-01-18 [facility] 15[facility]17:46 virus screening of Medicine (procedure) [code = 789485250] Future Scheduled 2022-01-18 Screening for malignant [facility] [employer] Test 15:17:46 neoplasm of cervix of Medici ne (procedure) [code = 657911475] Future Scheduled 2022-01-18 Screening for malignant [facility] [employer] Test 15:17:46 neoplasm of colon of Medicin e (procedure) [code = 998927511] Future Scheduled 2022-01-18 Screening for malignant [employer] Test 15:17:46 neoplasm of breast of Medici ne (procedure) [code = 901255427] Future Scheduled 2022-01-18 FLU VACCINE > 6 MONTHS Postponed from [facility] Test 15:17:46 [code = FLU VACCINE > 6 05/21/2021 of edicine MONTHS] (Postpone Reason: Patient declined today) Future Scheduled 2022-01-08 Pneumococcal Combined [employer] Test 14:25:34 (1 of 4 - PCV13) [code of Mt dicine = Pneumococcal Combined (1 of 4 - PCV13)] Future Scheduled 2022-01-08 TETANUS SHOT (ADULT) [place] [facility] Test 14:25:34 [code = TETANUS SHOT of Medi cine (ADULT)] Future Scheduled 2022-01-08 BMI FOLLOW UP PLAN [facility] Test 14:25:34 [code = BMI FOLLOW UP of Med icine PLAN] Future Scheduled 2022-01-08 Hepatitis C screening [employer] Test 14:25:34 (procedure) [code = of Medic ine 552076532] Future Scheduled 2022-01-08 [facility] 14:25:34 virus screening of Medicine (procedure) [code = 305218500] Future Scheduled 2022-01-08 [facility] [facility] [employer] [facility] 14:25:34 neoplasm of cervix of Medici ne (procedure) [code = 332785882] Future Scheduled 2022-01-08 Screening for malignant [facility] [employer] Test 14:25:34 neoplasm of colon of Medicin e (procedure) [code = 791053871] Future Scheduled 2022-01-08 Screening for malignant [facility] [employer] Test 14:25:34 neoplasm of breast of Medici ne (procedure) [code = 384235384] Future Scheduled 2022-01-08 FLU VACCINE > 6 MONTHS Postponed from [facility] [employer] Test 14:25:34 [code = FLU VACCINE > 6 05/21/2021 of M edicine MONTHS] (Postpone Reason: Patient declined today) Future Scheduled 2021-11-16 Screening for malignant [facility] Test 14:47:58 neoplasm of breast of Medici ne (procedure) [code = 741501404] Future Scheduled 2021-11-16 Pneumococcal Combined [employer] Test 14:47:58 (1 of 4 - PCV13) [code of Me dicine = Pneumococcal Combined (1 of 4 - PCV13)] Future Scheduled 2021-11-16 TETANUS SHOT (ADULT) [place] [employer] Test 14:47:58 [code = TETANUS SHOT of Medi cine (ADULT)] Future Scheduled 2021-11-16 BMI FOLLOW UP PLAN [facility] Test 14:47:58 [code = BMI FOLLOW UP of Med icine PLAN] Future Scheduled 2021-11-16 Hepatitis C screening Ba [facility] Test 14:47:58 (procedure) [code = of Medic ine 295856253] Future Scheduled 2021-11-16 Human immunodeficiency B [facility] [employer] Test 14:47:58 virus screening of Medicine (procedure) [code = 744491130] Future Scheduled 2021-11-16 Screening for malignant [facility] Test 14:47:58 neoplasm of cervix of Medici ne (procedure) [code = 804531337] Future Scheduled 2021-11-16 COVID-19 Vaccine (3 - [facility] [employer] Test 14:47:58 Booster for Pfizer of Medici ne series) [code = COVID-19 Vaccine (3 - Booster for Pfizer series)] Future Scheduled 2021-11-16 Screening for malignant [facility] [employer] Test 14:47:58 neoplasm of colon of Medicin e (procedure) [code = 121971017] Future Scheduled 2021-11-16 FLU VACCINE > 6 MONTHS Postponed from [facility] Test 14:47:58 [code = FLU VACCINE > 6 05/21/2021 of M edicine MONTHS] (Postpone Reason: Patient declined today) Future Scheduled 2021-10-[address] [facility] Test 00:00:00 (12+) [code = Medical Center DEPRESSION SCREENING (12+)] Future Scheduled 2021-10-[address] [facility] Test 00:00:00 (12+) [code = Medical Center DEPRESSION SCREENING (12+)] Future Scheduled 2021-10-[address] [facility] Test 00:00:00 (12+) [code = Medical Center DEPRESSION SCREENING (12+)] Future Scheduled 2021-10-12 PROTIME-INR [code = Ordered: [employer] [facility] 17:09:07 5902-2] 10/12/2021 of Medicine Future Scheduled 2021-10-12 APTT [code = 99722-9] Ordered: [employer] [facility] 17:09:07 10/12/2021 of Medicine Future Scheduled 2021-10-12 D-DIMER,QUANTITATIVE Ordered: [place] [employer] [facility] 17:09:07 [code = 78433-0] 10/12/2021 of Medicine Future Scheduled 2021-10-12 COMPLETE PFT WITH 1 Occurrences [employer] Test 17:03:38 BRONCHODILATOR [code = starting of Me dicine 74218] 10/12/2021 until 10/12/2022 Future Scheduled 2021-10-12 Screening for malignant [employer] Test 16:33:21 neoplasm of breast of Medici ne (procedure) [code = 120894945] Future Scheduled 2021-10-12 Pneumococcal Combined [employer] Test 16:33:21 (1 of 4 - PCV13) [code of Me dicine = Pneumococcal Combined (1 of 4 - PCV13)] Future Scheduled 2021-10-12 TETANUS SHOT (ADULT) [place] [employer] Test 16:33:21 [code = TETANUS SHOT of Medi cine (ADULT)] Future Scheduled 2021-10-12 BMI FOLLOW UP PLAN [employer] Test 16:33:21 [code = BMI FOLLOW UP of Med icine PLAN] Future Scheduled 2021-10-12 Hepatitis C screening [employer] [facility] 16:33:21 (procedure) [code = of Medic ine 125742848] Future Scheduled 2021-10-12 Human immunodeficiency [facility] [employer] Test 16:33:21 virus screening of Medicine (procedure) [code = 898971379] Future Scheduled 2021-10-12 Screening for malignant [facility] [employer] Test 16:33:21 neoplasm of cervix of Medici ne (procedure) [code = 937714161] Future Scheduled 2021-10-12 Screening for malignant [facility] Test 16:33:21 neoplasm of colon of Medicin e (procedure) [code = 308096624] Future Scheduled 2021-10-12 FLU VACCINE > 6 MONTHS Postponed from [facility] Test 16:33:21 [code = FLU VACCINE > 6 05/21/2021 of M edicine MONTHS] (Postpone Reason: Patient declined today) Diagnostic Test 2021-09-20 rf (rheumatoid factor), S weeny Pending 00:00:00 serum [code = rf [facility] (rheumatoid factor), [facility] serum] Clinics Diagnostic Test 2021-09-20 KATHRYN (antinuclear [place] Pending 00:00:00 antibodies) screen, Communit y serum [code = KATHRYN [facility] (antinuclear Clinics antibodies) screen, serum] Diagnostic Test 2021-09-20 C-reactive protein, Sween y Pending 00:00:00 quantitative [code = [facility] C-reactive protein, [facility] quantitative] Clinics Diagnostic Test 2021-09-20 uric acid, serum or Sween y Pending 00:00:00 plasma [code = uric Communit y acid, serum or plasma] [facility] Diagnostic Test 2021-09-20 CMP, serum or plasma [place]e [place] Pending 00:00:00 [code = CMP, serum or Commun ity plasma] [facility] Clinics Diagnostic Test 2021-09-20 CBC w/ auto diff [code [place] Pending 00:00:00 = CBC w/ auto diff] [facility] Clinics Diagnostic Test 2021-09-20 systemic lupus [place] Pending 00:00:00 erythematosus profile Commun ity [code = systemic lupus Hospi francis erythematosus profile] Clini cs Diagnostic Test 2021-09-20 BNP (B-type natriuretic S weeny Pending 00:00:00 peptide), serum or Community plasma [code = BNP [facility] (B-type natriuretic Clinics peptide), serum or plasma] Diagnostic Test 2021-09-20 complement C3C, serum Swe yamini Pending 00:00:00 or plasma [code = Community complement C3C, serum Hospit al or plasma] Clinics Diagnostic Test 2021-09-20 cytomegalovirus (cmv) Swe yamini Pending 00:00:00 igg+igm Ab, serum [code Comm unity = cytomegalovirus (cmv) Hosp ital igg+igm Ab, serum] Clinics Diagnostic Test 2021-09-20 carcinoembryonic Ag, [place]e [place] Pending 00:00:00 quant, serum or plasma Commu nity [code = Hospital carcinoembryonic Ag, Clinics quant, serum or plasma] Diagnostic Test 2021-09-20 lyme disease igg+igm [place]e [place] Pending 00:00:00 Ab, serum [code = lyme Commu nity disease igg+igm Ab, Hospital serum] Clinics Diagnostic Test 2021-09-20 ldh, serum or plasma [place]e [place] Pending 00:00:00 [code = ldh, serum or Commun ity plasma] Hospital Clinics Diagnostic Test 2021-09-20 urinalysis, complete [place]e [place] Pending 00:00:00 [code = urinalysis, Communit y complete] Hospital Clinics Future Scheduled 2021-09-19 Screening for malignant [employer] [facility] 09:16:38 neoplasm of breast of Medici ne (procedure) [code = 003285195] Future Scheduled 2021-09-19 Pneumococcal Combined [employer] Test 09:16:38 (1 of 4 - PCV13) [code of Me dicine = Pneumococcal Combined (1 of 4 - PCV13)] Future Scheduled 2021-09-19 TETANUS SHOT (ADULT) [place] [facility] [employer] Test 09:16:38 [code = TETANUS SHOT of Medi cine (ADULT)] Future Scheduled 2021-09-19 BMI FOLLOW UP PLAN [employer] [facility] 09:16:38 [code = BMI FOLLOW UP of Med icine PLAN] Future Scheduled 2021-09-19 Hepatitis C screening [employer] [facility] 09:16:38 (procedure) [code = of Medic ine 948615850] Future Scheduled 2021-09-19 Human immunodeficiency [facility] [employer] Test 09:16:38 virus screening of Medicine (procedure) [code = 091741218] Future Scheduled 2021-09-19 Screening for malignant [employer] 09:16:38 neoplasm of cervix of Medici ne (procedure) [code = 001202614] Future Scheduled 2021-09-19 Screening for malignant [facility] [employer] Test 09:16:38 neoplasm of colon of Medicin e (procedure) [code = 446161776] Future Scheduled 2021-09-19 FLU VACCINE > 6 MONTHS Postponed from [facility] Test 09:16:38 [code = FLU VACCINE > 6 05/21/2021 of M edicine MONTHS] (Postpone Reason: Patient declined today) Future Scheduled 2021-08-15 Screening for malignant [facility] Test 17:19:34 neoplasm of breast of Medici ne (procedure) [code = 904505687] Future Scheduled 2021-08-15 TETANUS SHOT (ADULT) [place] [employer] Test 17:19:34 [code = TETANUS SHOT of Medi cine (ADULT)] Future Scheduled 2021-08-15 BMI FOLLOW UP PLAN [employer] [facility] 17:19:34 [code = BMI FOLLOW UP of Med icine PLAN] Future Scheduled 2021-08-15 Hepatitis C screening Ba [facility] Test 17:19:34 (procedure) [code = of Medic ine 748580867] Future Scheduled 2021-08-15 Human immunodeficiency B [facility] Test 17:19:34 virus screening of Medicine (procedure) [code = 767765853] Future Scheduled 2021-08-15 Screening for malignant [facility] Test 17:19:34 neoplasm of cervix of Medici ne (procedure) [code = 768030450] Future Scheduled 2021-08-15 Screening for malignant [facility] Test 17:19:34 neoplasm of colon of Medicin e (procedure) [code = 165082943] Future Scheduled 2021-08-15 FLU VACCINE > 6 MONTHS Postponed from [facility] Test 17:19:34 [code = FLU VACCINE > 6 05/21/2021 of M edicine MONTHS] (Postpone Reason: Patient declined today) Diagnostic Test 2021-08-15 ECHO, COMPLETE [code = Expected: [facility] [employer] Pending 00:00:00 [id number]] 08/15/2021, of Medicine Expires: 02/13/2022 Future Scheduled 2021-08-03 Screening for malignant [facility] Test 11:40:30 neoplasm of breast of Medici ne (procedure) [code = 659050565] Future Scheduled 2021-08-03 TETANUS SHOT (ADULT) [place] [employer] Test 11:40:30 [code = TETANUS SHOT of Medi cine (ADULT)] Future Scheduled 2021-08-03 BMI FOLLOW UP PLAN [employer] Test 11:40:30 [code = BMI FOLLOW UP of Med icine PLAN] Future Scheduled 2021-08-03 Hepatitis C screening [employer] [facility] 11:40:30 (procedure) [code = of Medic ine 172584023] Future Scheduled 2021-08-03 Human immunodeficiency [facility] [employer] Test 11:40:30 virus screening of Medicine (procedure) [code = 689589104] Future Scheduled 2021-08-03 Screening for malignant [employer] 11:40:30 neoplasm of cervix of Medici ne (procedure) [code = 927914407] Future Scheduled 2021-08-03 Screening for malignant [facility] [employer] Test 11:40:30 neoplasm of colon of Medicin e (procedure) [code = 887944150] Future Scheduled 2021-08-03 FLU VACCINE > 6 MONTHS Postponed from [facility] [employer] Test 11:40:30 [code = FLU VACCINE > 6 05/21/2021 of M fayeicine MONTHS] (Postpone Reason: Patient declined today) Future Scheduled 2021-07-20 Screening for malignant [employer] 00:05:53 neoplasm of breast of Medici ne (procedure) [code = 238344301] Future Scheduled 2021-07-20 TETANUS SHOT (ADULT) [place] [employer] Test 00:05:53 [code = TETANUS SHOT of Medi cine (ADULT)] Future Scheduled 2021-07-20 BMI FOLLOW UP PLAN [employer] Test 00:05:53 [code = BMI FOLLOW UP of Med icine PLAN] Future Scheduled 2021-07-20 Hepatitis C screening [employer] [facility] 00:05:53 (procedure) [code = of Medic ine 124046372] Future Scheduled 2021-07-20 Screening for malignant [facility] [employer] Test 00:05:53 neoplasm of breast of Medici ne (procedure) [code = 765477142] Future Scheduled 2021-07-20 TETANUS SHOT (ADULT) [place] [employer] Test 00:05:53 [code = TETANUS SHOT of Medi cine (ADULT)] Future Scheduled 2021-07-20 BMI FOLLOW UP PLAN [employer] Test 00:05:53 [code = BMI FOLLOW UP of Med icine PLAN] Future Scheduled 2021-07-20 Hepatitis C screening [employer] [facility] 00:05:53 (procedure) [code = of Medic ine 881957815] Future Scheduled 2021-07-20 Human immunodeficiency [facility] [employer] Test 00:05:53 virus screening of Medicine (procedure) [code = 239770420] Future Scheduled 2021-07-20 Screening for malignant [facility] [employer] Test 00:05:53 neoplasm of cervix of Medici ne (procedure) [code = 512486055] Future Scheduled 2021-07-20 Human immunodeficiency [facility] [employer] Test 00:05:53 virus screening of Medicine (procedure) [code = 676680043] Future Scheduled 2021-07-20 FLU VACCINE > 6 MONTHS [employer] [facility] 00:05:53 [code = FLU VACCINE > 6 of M edicine MONTHS] Future Scheduled 2021-07-20 Screening for malignant [facility] [employer] Test 00:05:53 neoplasm of colon of Medicin e (procedure) [code = 215499087] Future Scheduled 2021-07-20 Screening for malignant [employer] [facility] 00:05:53 neoplasm of cervix of Medici ne (procedure) [code = 294561782] Future Scheduled 2021-07-20 FLU VACCINE > 6 MONTHS [employer] [facility] 00:05:53 [code = FLU VACCINE > 6 of M edicine MONTHS] Future Scheduled 2021-07-20 Screening for malignant [facility] [employer] Test 00:05:53 neoplasm of colon of Medicin e (procedure) [code = 203661238] Future Scheduled 2021-06-13 Screening for malignant [employer] [facility] 09:26:40 neoplasm of breast of Medici ne (procedure) [code = 882051775] Future Scheduled 2021-06-13 TETANUS SHOT (ADULT) [place] [employer] Test 09:26:40 [code = TETANUS SHOT of Medi cine (ADULT)] Future Scheduled 2021-06-13 BMI FOLLOW UP PLAN [employer] Test 09:26:40 [code = BMI FOLLOW UP of Med icine PLAN] Future Scheduled 2021-06-13 Hepatitis C screening [employer] [facility] 09:26:40 (procedure) [code = of Medic ine 614710173] Future Scheduled 2021-06-13 Human immunodeficiency [facility] [employer] Test 09:26:40 virus screening of Medicine (procedure) [code = 176146529] Future Scheduled 2021-06-13 Screening for malignant [facility] [employer] Test 09:26:40 neoplasm of cervix of Medici ne (procedure) [code = 629919730] Future Scheduled 2021-06-13 FLU VACCINE > 6 MONTHS [employer] [facility] 09:26:40 [code = FLU VACCINE > 6 of M edicine MONTHS] Future Scheduled 2021-06-13 Screening for malignant [employer] [facility] 09:26:40 neoplasm of colon of Medicin e (procedure) [code = 505538766] Future Scheduled 2021-05-14 COVID-19 VACCINE ([facility] - [facility]00 Booster for Pfizer Medical C enter series) [code = COVID-19 VACCINE (4 - Booster for Pfizer series)] Future Scheduled 2021-05-14 COVID-19 VACCINE (4 - [facility] Test 00:00:00 Booster for Pfizer Medical C enter series) [code = COVID-19 VACCINE (4 - Booster for Pfizer series)] Future Scheduled 2021-05-14 COVID-19 VACCINE (4 - [facility] Test 00:00:00 Booster for Pfizer Medical C enter series) [code = COVID-19 VACCINE (4 - Booster for Pfizer series)] Future Scheduled 2021-04-14 Screening for malignant [facility] [employer] Test 09:04:17 neoplasm of breast of Medici ne (procedure) [code = 337350581] Future Scheduled 2021-04-14 TETANUS SHOT (ADULT) [place] [employer] Test 09:04:17 [code = TETANUS SHOT of Medi cine (ADULT)] Future Scheduled 2021-04-14 BMI FOLLOW UP PLAN [employer] Test 09:04:17 [code = BMI FOLLOW UP of Med icine PLAN] Future Scheduled 2021-04-14 Hepatitis C screening [facility] [employer] Test 09:04:17 (procedure) [code = of Medic ine 070812083] Future Scheduled 2021-04-14 Human immunodeficiency [facility] [employer] Test 09:04:17 virus screening of Medicine (procedure) [code = 140879824] Future Scheduled 2021-04-14 Screening for malignant [employer] [facility] 09:04:17 neoplasm of cervix of Medici ne (procedure) [code = 601745222] Future Scheduled 2021-04-14 FLU VACCINE > 6 MONTHS [employer] Test 09:04:17 [code = FLU VACCINE > 6 of M edicine MONTHS] Future Scheduled 2021-04-14 Screening for malignant [employer] Test 09:04:17 neoplasm of colon of Medicin e (procedure) [code = 863336126] Future Scheduled 2020 Lipid panel (procedure) [facility] Test 00:00:00 [code = 92714584] Medical Ce nter Future Scheduled 2020 Lipid panel (procedure) [facility] Test 00:00:00 [code = 25946001] Medical Ce nter Future Scheduled 2020 Lipid panel (procedure) [facility] Test 00:00:00 [code = 24828614] Medical Ce nter Future Scheduled 2020 Lipid panel (procedure) [facility] Test 00:00:00 [code = 88833511] Medical Ce nter Future Scheduled 2020 Lipid panel (procedure) [facility] Test 00:00:00 [code = 07945291] Medical Ce nter Future Scheduled 2020 Lipid panel (procedure) [facility] Test 00:00:00 [code = 06899183] Medical Ce nter Future Scheduled 2020 Lipid panel (procedure) [facility] Test 00:00:00 [code = 65015320] Medical Ce nter Future Scheduled 2020 Lipid panel (procedure) [facility] Test 00:00:00 [code = 45828016] Medical Ce nter Future Scheduled 2020 Lipid panel (procedure) [facility] Test 00:00:00 [code = 68854792] Medical Ce nter Future Scheduled 2020 Lipid panel (procedure) [facility] Test 00:00:00 [code = 08373459] Medical Ce nter Future Scheduled 2020 Lipid panel (procedure) [facility] Test 00:00:00 [code = 19392520] Medical Ce nter Diagnostic Test 2020-05-10 MRI ABDOMEN W WO Expected: [facility] Pending 00:00:00 CONTRAST [code = 05/10/2020, of Medicine 64949-7] Expires: 02/08/2021 Future Scheduled 1996 Screening for malignant [facility] Test 00:00:00 neoplasm of cervix Medical C enter (procedure) [code = 263336814] Future Scheduled 1996 Screening for malignant [facility] Test 00:00:00 neoplasm of cervix Medical C enter (procedure) [code = 407224177] Future Scheduled 1996 Screening for malignant [facility] Test 00:00:00 neoplasm of cervix Medical C enter (procedure) [code = 758616612] Future Scheduled 1996 Screening for malignant [facility] Test 00:00:00 neoplasm of cervix Medical C enter (procedure) [code = 929974655] Future Scheduled 1996 Screening for malignant [facility] Test 00:00:00 neoplasm of cervix Medical C enter (procedure) [code = 929705587] Future Scheduled 1996 Screening for malignant [facility] Test 00:00:00 neoplasm of cervix Medical C enter (procedure) [code = 509830197] Future Scheduled 1996 Screening for malignant [facility] Test 00:00:00 neoplasm of cervix Medical C enter (procedure) [code = 687015233] Future Scheduled 1996 Screening for malignant [facility] Test 00:00:00 neoplasm of cervix Medical C enter (procedure) [code = 841236791] Future Scheduled 1996 Screening for malignant [facility] Test 00:00:00 neoplasm of cervix Medical C enter (procedure) [code = 203728690] Future Scheduled 1996 Screening for malignant [facility] Test 00:00:00 neoplasm of cervix Medical C enter (procedure) [code = 964065199] Future Scheduled 1996 Screening for malignant [facility] Test 00:00:00 neoplasm of cervix Medical C enter (procedure) [code = 570149051] Future Scheduled 1994 DTAP/TDAP/TD VACCINES [facility] Test 00:00:00 (1 - Tdap) [code = Medical C enter DTAP/TDAP/TD VACCINES (1 - Tdap)] Future Scheduled 1994 DTAP/TDAP/TD VACCINES [facility] 00:00:00 (1 - Tdap) [code = Medical C enter DTAP/TDAP/TD VACCINES (1 - Tdap)] Future Scheduled 1994 DTAP/TDAP/TD VACCINES [facility] 00:00:00 (1 - Tdap) [code = Medical C enter DTAP/TDAP/TD VACCINES (1 - Tdap)] Future Scheduled 1994 DTAP/TDAP/TD VACCINES [facility] 00:00:00 (1 - Tdap) [code = Medical C enter DTAP/TDAP/TD VACCINES (1 - Tdap)] Future Scheduled 1994 DTAP/TDAP/TD VACCINES [facility] 00:00:00 (1 - Tdap) [code = Medical C enter DTAP/TDAP/TD VACCINES (1 - Tdap)] Future Scheduled 1994 DTAP/TDAP/TD VACCINES [facility] 00:00:00 (1 - Tdap) [code = Medical C enter DTAP/TDAP/TD VACCINES (1 - Tdap)] Future Scheduled 1994 DTAP/TDAP/TD VACCINES [facility] 00:00:00 (1 - Tdap) [code = Medical C enter DTAP/TDAP/TD VACCINES (1 - Tdap)] Future Scheduled 1994 DTAP/TDAP/TD VACCINES [facility] 00:00:00 (1 - Tdap) [code = Medical C enter DTAP/TDAP/TD VACCINES (1 - Tdap)] Future Scheduled 1994 DTAP/TDAP/TD VACCINES [facility] 00:00:00 (1 - Tdap) [code = Medical C enter DTAP/TDAP/TD VACCINES (1 - Tdap)] Future Scheduled 1994 DTAP/TDAP/TD VACCINES [facility] 00:00:00 (1 - Tdap) [code = Medical C enter DTAP/TDAP/TD VACCINES (1 - Tdap)] Future Scheduled 1994 DTAP/TDAP/TD VACCINES [facility] 00:00:00 (1 - Tdap) [code = Medical C enter DTAP/TDAP/TD VACCINES (1 - Tdap)] Future Scheduled 1993 HEPATITIS C [facility]CREENING [facility] 00:00:00 [code = HEPATITIS C Medical Center SCREENING] Future Scheduled 1993 HEPATITIS C [facility]ING [facility] 00:00:00 [code = HEPATITIS C Medical Center SCREENING] Future Scheduled 1993 HEPATITIS C [facility]ING [facility] 00:00:00 [code = HEPATITIS C Medical Center SCREENING] Future Scheduled 1993 HEPATITIS C [facility]ING [facility] 00:00:00 [code = HEPATITIS C Medical Center SCREENING] Future Scheduled 1993 HEPATITIS C [facility]ING [facility] 00:00:00 [code = HEPATITIS C Medical Center SCREENING] Future Scheduled 1993 HEPATITIS C [facility]ING [facility] 00:00:00 [code = HEPATITIS C Medical Center SCREENING] Future Scheduled 1993 HEPATITIS C [facility]ING [facility] 00:00:00 [code = HEPATITIS C Medical Center SCREENING] Future Scheduled 1993 HEPATITIS C [facility]ING [facility] 00:00:00 [code = HEPATITIS C Medical Center SCREENING] Future Scheduled 1993 HEPATITIS C [facility] 00:00:00 [code = HEPATITIS C Medical Center SCREENING] Future Scheduled 1993 HEPATITIS C [facility] 00:00:00 [code = HEPATITIS C Medical Center SCREENING] Future Scheduled 1993 HEPATITIS C [facility] 00:00:00 [code = HEPATITIS C Medical Center SCREENING] Future Scheduled [address] [facility] Test 00:00:00 0-64 YRS (1 - PCV) Medical C enter [code = PNEUMOCOCCAL VACCINE 0-64 YRS (1 - PCV)] Future Scheduled [address] [facility] Test 00:00:00 0-64 YRS (1 - PCV) Medical C enter [code = PNEUMOCOCCAL VACCINE 0-64 YRS (1 - PCV)] Future Scheduled [address] [facility] Test 00:00:00 0-64 YRS (1 - PCV) Medical C enter [code = PNEUMOCOCCAL VACCINE 0-64 YRS (1 - PCV)] Future Scheduled [address] [facility] Test 00:00:00 0-64 YRS (1 - PCV) Medical C enter [code = PNEUMOCOCCAL VACCINE 0-64 YRS (1 - PCV)] Future Scheduled [address] [facility] Test 00:00:00 0-64 YRS (1 - PCV) Medical C enter [code = PNEUMOCOCCAL VACCINE 0-64 YRS (1 - PCV)] Future Scheduled [address] [facility] Test 00:00:00 0-64 YRS (1 - PCV) Medical C enter [code = PNEUMOCOCCAL VACCINE 0-64 YRS (1 - PCV)] Future Scheduled [address] [facility] Test 00:00:00 0-64 YRS (1 - PCV) Medical C enter [code = PNEUMOCOCCAL VACCINE 0-64 YRS (1 - PCV)] Future Scheduled [address] [facility] Test 00:00:00 0-64 YRS (1 - PCV) Medical C enter [code = PNEUMOCOCCAL VACCINE 0-64 YRS (1 - PCV)] Future Scheduled [address] [facility] Test 00:00:00 0-64 YRS (1 - PCV) Medical C enter [code = PNEUMOCOCCAL VACCINE 0-64 YRS (1 - PCV)] Future Scheduled [address] [facility] Test 00:00:00 0-64 YRS (1 - PCV) Medical C enter [code = PNEUMOCOCCAL VACCINE 0-64 YRS (1 - PCV)] Future Scheduled [address] [facility] Test 00:00:00 0-64 YRS (1 - PCV) Medical C enter [code = PNEUMOCOCCAL VACCINE 0-64 YRS (1 - PCV)] Future Scheduled 1975 CT Colonography (combo) [facility] Test 00:00:00 [code = CT Colonography [facility] (combo)] Future Scheduled 1975 Screening for malignant [facility] Test 00:00:00 neoplasm of colon Medical Ce nter (procedure) [code = 524162243] Future Scheduled 1975 Screening for malignant [facility] Test 00:00:00 neoplasm of colon Medical Ce nter (procedure) [code = 465462368] Future Scheduled 1975 Sigmoidoscopy [code = [facility] 00:[facility] S[facility]oscopy] Medical Cente r Future Scheduled 1975 CT Colonography (combo) [facility] Test 00:00:00 [code = CT Colonography Medi julius [facility] (com[facility])] Future Scheduled 1975 Screening for malignant [facility] 00:00:00 neoplasm of colon Medical Ce nter (procedure) [code = 373871700] Future Scheduled 1975 Screening for malignant [facility] 00:00:00 neoplasm of colon Medical Ce nter (procedure) [code = 520326745] Future Scheduled 1975 Sigmoidoscopy [facility]code [facility]] Medical Vijayae r Future Scheduled 1975 CT Colonography (combo) [facility] 00:00:00 [code = CT [facility] Future Scheduled 1975 Screening for malignant [facility] 00:00:00 neoplasm of colon Medical Ce nter (procedure) [code = 377234719] Future Scheduled 1975 Screening for malignant [facility] 00:00:00 neoplasm of colon Medical Ce nter (procedure) [code = 980783379] Future Scheduled 1975 Sigmoidoscopy [code = [facility] Sigmoidoscopy] Medical Neeru r Future Scheduled 1975 CT Colonography (combo) [facility] 00:00:00 [code = CT [facility] Future Scheduled 1975 Screening for malignant [facility] 00:00:00 neoplasm of colon Medical Ce nter (procedure) [code = 911251100] Future Scheduled 1975 Screening for malignant [facility] 00:00:00 neoplasm of colon Medical Ce nter (procedure) [code = 890327718] Future Scheduled 1975 Sigmoidoscopy [facility]code = [facility] 00:[facility] S[facility]oidoscopy] Medical Neeru r Future Scheduled 1975 CT Colonography (combo) [facility] 00:00:00 [code = CT [facility] Future Scheduled 1975 Screening for malignant [facility] 00:00:00 neoplasm of colon Medical Ce nter (procedure) [code = 671642140] Future Scheduled 1975 Screening for malignant [facility] 00:00:00 neoplasm of colon Medical Ce nter (procedure) [code = 744774920] Future Scheduled 1975 Sigmoidoscopy [code = [facility] 00:[facility] Sigmoidoscopy] Medical Neeru r Future Scheduled 1975 CT Colonography (combo) [facility] 00:00:00 [code = CT [facility] Future Scheduled 1975 Screening for malignant [facility] 00:00:00 neoplasm of colon Medical Ce nter (procedure) [code = 468188305] Future Scheduled 1975 Screening for malignant [facility] 00:00:00 neoplasm of colon Medical Ce nter (procedure) [code = 448909861] Future Scheduled 1975 Sigmoidoscopy [code = [facility] 00:[facility] S[facility]oidoscopy] Medical Cente r Future Scheduled 1975 CT Colonography (combo) [facility] 00:00:00 [code = CT [facility] Future Scheduled 1975 Screening for malignant [facility] 00:00:00 neoplasm of colon Medical Ce nter (procedure) [code = 598099991] Future Scheduled 1975 Screening for malignant [facility] 00:00:00 neoplasm of colon Medical Ce nter (procedure) [code = 410894144] Future Scheduled 1975 Sigmoidoscopy [code = [facility] 00:[facility] Sigmoidoscopy] Medical Cente r Future Scheduled 1975 CT Colonography (combo) [facility] 00:00:00 [code = CT Colonography [facility] Future Scheduled 1975 Screening for malignant [facility] 00:00:00 neoplasm of colon Medical Ce nter (procedure) [code = 616789627] Future Scheduled 1975 Screening for malignant [facility] 00:00:00 neoplasm of colon Medical Ce nter (procedure) [code = 587444410] Future Scheduled 1975 Sigmoidoscopy [code [facility] 00:[facility] Sigmoidoscopy] Medical Cente r Future Scheduled 1975 CT Colonography (combo) [facility] 00:00:00 [code = CT [facility] Future Scheduled 1975 Screening for malignant [facility] 00:00:00 neoplasm of colon Medical Ce nter (procedure) [code = 908017259] Future Scheduled 1975 Screening for malignant [facility] 00:00:00 neoplasm of colon Medical Ce nter (procedure) [code = 542827711] Future Scheduled 1975 Sigmoidoscopy [code [facility] S[facility]oidoscopy] Medical Vijayae r Future Scheduled 1975 CT Colonography (combo) [facility] 00:00:00 [code = CT [facility] Future Scheduled 1975 Screening for malignant [facility] 00:00:00 neoplasm of colon Medical Ce nter (procedure) [code = 880476290] Future Scheduled 1975 Screening for malignant [facility] 00:00:00 neoplasm of colon Medical Ce nter (procedure) [code = 126463595] Future Scheduled 1975 Sigmoidoscopy [code [facility] 00:[facility] Sigmoidoscopy] Medical Vijayae r Future Scheduled 1975 CT Colonography (combo) [facility] 00:00:00 [code = CT Colonography [facility] (combo)] Future Scheduled 1975 Screening for malignant [facility] 00:00:00 neoplasm of colon Medical Ce nter (procedure) [code = 287341170] Future Scheduled 1975 Screening for malignant [facility] 00:00:00 neoplasm of colon Medical Ce nter (procedure) [code = 254229326] Future Scheduled 1975 Sigmoidoscopy [code [facility] S[facility]oscopy] Medical Vijayae r Future Scheduled TETANUS SHOT (ADULT) [employer] [facility] [code = TETANUS SHOT of Medi cine (ADULT)] Future Scheduled BMI FOLLOW UP PLAN [facility] r [facility] Test [code = BMI FOLLOW UP of Med icine PLAN] Future Scheduled HIV SCREENING [code = [employer] [facility] HIV SCREENING] of Medicine Future Scheduled CERVICAL CANCER [facility] [employer] Test SCREENING 3 YEAR FOLLOW of M edicine UP [code = CERVICAL CANCER SCREENING 3 YEAR FOLLOW UP] Future Scheduled FLU VACCINE > 6 MONTHS [employer] [facility] [code = FLU VACCINE > 6 of M edicine MONTHS] Future Scheduled CEA [code = 9-6] Ordered: [employer] [facility] 02/09/2020 of Medicine Future Scheduled MAMMOGRAM ANNUAL [code [employer] [facility] = MAMMOGRAM ANNUAL] of Medic ine Future Scheduled TETANUS SHOT (ADULT) [employer] [facility] [code = TETANUS SHOT of Medi cine (ADULT)] Future Scheduled BMI FOLLOW UP PLAN [employer] [facility] [code = BMI FOLLOW UP of Med icine PLAN] Future Scheduled HIV SCREENING [code = [employer] [facility] HIV SCREENING] of Medicine Future Scheduled CERVICAL CANCER [employer] [facility] SCREENING 3 YEAR FOLLOW of M edicine UP [code = CERVICAL CANCER SCREENING 3 YEAR FOLLOW UP] Future Scheduled FLU VACCINE > 6 MONTHS [employer] [facility] [code = FLU VACCINE > 6 of M edicine MONTHS] Future Scheduled MAMMOGRAM ANNUAL [code [employer] [facility] = MAMMOGRAM ANNUAL] of Medic ine Future Scheduled TETANUS SHOT (ADULT) [employer] [facility] [code = TETANUS SHOT of Medi cine (ADULT)] Future Scheduled BMI FOLLOW UP PLAN [employer] [facility] [code = BMI FOLLOW UP of Med icine PLAN] Future Scheduled HIV SCREENING [code = [employer] [facility] HIV SCREENING] of Medicine Future Scheduled CERVICAL CANCER [facility] C [facility]lege Test SCREENING 3 YEAR FOLLOW of M edicine UP [code = CERVICAL CANCER SCREENING 3 YEAR FOLLOW UP] Future Scheduled FLU VACCINE > 6 MONTHS [employer] [facility] [code = FLU VACCINE > 6 of M edicine MONTHS] Future Scheduled MAMMOGRAM ANNUAL [code [employer] [facility] = MAMMOGRAM ANNUAL] of Medic ine Future Scheduled TETANUS SHOT (ADULT) [employer] [facility] [code = TETANUS SHOT of Medi cine (ADULT)] Future Scheduled BMI FOLLOW UP PLAN [employer] [facility] [code = BMI FOLLOW UP of Med icine PLAN] Future Scheduled HIV SCREENING [code = [employer] [facility] HIV SCREENING] of Medicine Future Scheduled CERVICAL CANCER [facility] [employer] Test SCREENING 3 YEAR FOLLOW of M edicine UP [code = CERVICAL CANCER SCREENING 3 YEAR FOLLOW UP] Future Scheduled FLU VACCINE > 6 MONTHS [employer] [facility] [code = FLU VACCINE > 6 of M edicine MONTHS] Future Scheduled MAMMOGRAM ANNUAL [code [employer] [facility] = MAMMOGRAM ANNUAL] of Medic ine Future Scheduled TETANUS SHOT (ADULT) [employer] Test [code = TETANUS SHOT of Medi cine (ADULT)] Future Scheduled BMI FOLLOW UP PLAN [employer] [facility] [code = BMI FOLLOW UP of Med icine PLAN] Future Scheduled HEPATITIS C SCREENING [employer] [facility] [code = HEPATITIS C of Medic ine SCREENING] Future Scheduled HIV SCREENING [code = [employer] [facility] HIV SCREENING] of Medicine Future Scheduled CERVICAL CANCER [facility] C [employer]lege Test SCREENING 3 YEAR FOLLOW of M edicine UP [code = CERVICAL CANCER SCREENING 3 YEAR FOLLOW UP] Future Scheduled FLU VACCINE > 6 MONTHS [employer] [facility] [code = FLU VACCINE > 6 of M edicine MONTHS] Future Scheduled ZOSTER VACCINE (1 of 2) [facility] Test [code = ZOSTER VACCINE of Me dicine (1 of 2)] Future Scheduled MAMMOGRAM ANNUAL [code [employer] [facility] = MAMMOGRAM ANNUAL] of Medic ine Future Scheduled TETANUS SHOT (ADULT) [employer] Test [code = TETANUS SHOT of Medi cine (ADULT)] Future Scheduled BMI FOLLOW UP PLAN [employer] [facility] [code = BMI FOLLOW UP of Med icine PLAN] Future Scheduled HEPATITIS C SCREENING [employer] [facility] [code = HEPATITIS C of Medic ine SCREENING] Future Scheduled HIV SCREENING [code = [employer] HIV SCREENING] of Medicine Future Scheduled CERVICAL CANCER [facility] [employer]lege Test SCREENING 3 YEAR FOLLOW of M edicine UP [code = CERVICAL CANCER SCREENING 3 YEAR FOLLOW UP] Future Scheduled FLU VACCINE > 6 MONTHS [employer] [facility] [code = FLU VACCINE > 6 of M edicine MONTHS] Future Scheduled ZOSTER VACCINE (1 of 2) [employer] [facility] [code = ZOSTER VACCINE of Me dicine (1 of 2)] Future Scheduled CEA [code = 2039-03] Ordered: [employer] [facility] 11/09/2020 of Medicine Future Scheduled COVID-19 Vaccine [facility] Test Evaluation [code = of Medici ne COVID-19 Vaccine Evaluation] Future Scheduled [facility]AL [facility]] of Medic ine Future Scheduled TETANUS SHOT (ADULT) [employer] Test [code = TETANUS SHOT of Medi cine (ADULT)] Future Scheduled BMI FOLLOW UP PLAN [employer] [facility] [code = BMI FOLLOW UP of Med icine PLAN] Future Scheduled HEPATITIS C SCREENING [employer] [facility] [code = HEPATITIS C of Medic ine SCREENING] Future Scheduled HIV SCREENING [code = [employer] HIV SCREENING] of Medicine Future Scheduled CERVICAL CANCER [employer] Test SCREENING 3 YEAR FOLLOW of M edicine UP [code = CERVICAL CANCER SCREENING 3 YEAR FOLLOW UP] Future Scheduled FLU VACCINE > 6 MONTHS [employer] [facility] [code = FLU VACCINE > 6 of M edicine MONTHS] Future Scheduled COVID-19 Vaccine [employer] [facility] Evaluation [code = of Medici ne COVID-19 Vaccine Evaluation] Future Scheduled MAMMOGRAM ANNUAL [code [employer] [facility] = MAMMOGRAM ANNUAL] of Medic ine Future Scheduled TETANUS SHOT (ADULT) [employer] Test [code = TETANUS SHOT of Medi cine (ADULT)] Future Scheduled BMI FOLLOW UP PLAN [employer] Test [code = BMI FOLLOW UP of Med icine PLAN] Future Scheduled HEPATITIS C SCREENING [employer] [facility] [code = HEPATITIS C of Medic ine SCREENING] Future Scheduled HIV SCREENING [code = [employer] HIV SCREENING] of Medicine Future Scheduled CERVICAL CANCER [facility] C [facility]lege Test SCREENING 3 YEAR FOLLOW of M edicine UP [code = CERVICAL CANCER SCREENING 3 YEAR FOLLOW UP] Future Scheduled FLU VACCINE > 6 MONTHS [employer] [facility] [code = FLU VACCINE > 6 of M edicine MONTHS] Future Scheduled Screening for malignant [employer] [facility] neoplasm of breast of Medici ne (procedure) [code = 241716933] Future Scheduled TETANUS SHOT (ADULT) [employer] Test [code = TETANUS SHOT of Medi cine (ADULT)] Future Scheduled COVID-19 Vaccine (1) [employer] [facility] [code = COVID-19 of Medicine Vaccine (1)] Future Scheduled BMI FOLLOW UP PLAN [employer] [facility] [code = BMI FOLLOW UP of Med icine PLAN] Future Scheduled Hepatitis C screening [employer] [facility] (procedure) [code = of Medic ine 270974030] Future Scheduled Human immunodeficiency [employer] virus screening of Medicine (procedure) [code = 984137690] Future Scheduled Screening for malignant [employer] [facility] neoplasm of cervix of Medici ne (procedure) [code = 763495943] Future Scheduled FLU VACCINE > 6 MONTHS [employer] [facility] [code = FLU VACCINE > 6 of M edicine MONTHS] Future Scheduled Screening for malignant [facility] [employer] Test neoplasm of colon of Medicin e (procedure) [code = 179004247] Future Scheduled Screening for malignant [employer] [facility] neoplasm of breast of Medici ne (procedure) [code = 598082628] Future Scheduled TETANUS SHOT (ADULT) [employer] [facility] [code = TETANUS SHOT of Medi cine (ADULT)] Future Scheduled COVID-19 Vaccine (1) [employer] [facility] [code = COVID-19 of Medicine Vaccine (1)] Future Scheduled BMI FOLLOW UP PLAN [employer] [facility] [code = BMI FOLLOW UP of Med icine PLAN] Future Scheduled Hepatitis C screening [employer] [facility] (procedure) [code = of Medic ine 039080490] Future Scheduled Human immunodeficiency [employer] virus screening of Medicine (procedure) [code = 083057886] Future Scheduled Screening for malignant [facility] [employer] Test neoplasm of cervix of Medici ne (procedure) [code = 752221442] Future Scheduled FLU VACCINE > 6 MONTHS [employer] [facility] [code = FLU VACCINE > 6 of M edicine MONTHS] Future Scheduled Screening for malignant [employer] [facility] neoplasm of colon of Medicin e (procedure) [code = 244405207] Future Scheduled Screening for malignant [facility] [employer] Test neoplasm of breast of Medici ne (procedure) [code = 602084395] Future Scheduled TETANUS SHOT (ADULT) [employer] Test [code = TETANUS SHOT of Medi cine (ADULT)] Future Scheduled BMI FOLLOW UP PLAN [employer] Test [code = BMI FOLLOW UP of Med icine PLAN] Future Scheduled Hepatitis C screening [employer] [facility] (procedure) [code = of Medic ine 685744736] Future Scheduled [facility] virus screening of Medicine (procedure) [code = 433669759] Future Scheduled Screening for malignant [facility] [employer] Test neoplasm of cervix of Medici ne (procedure) [code = 773190594] Future Scheduled COVID-19 Vaccine (2 - [employer] Pfizer 2-dose series) of Med icine [code = COVID-19 Vaccine (2 - Pfizer 2-dose series)] Future Scheduled FLU VACCINE > 6 MONTHS [employer] [facility] [code = FLU VACCINE > 6 of M edicine MONTHS] Future Scheduled Screening for malignant [employer] [facility] neoplasm of colon of Medicin e (procedure) [code = 156778123] Future Scheduled CBC W/AUTO DIFF WITH Ordered: [facility] Test PLATELETS [code = 12/08/2019 of Medicin e 22188-9] Future Scheduled CELIAC DISEASE PANEL Ordered: [facility] Test [code = 36077-2] 12/08/2019 of Medicine Future Scheduled FERRITIN [code = Ordered: [facility] Test 72433-2] 12/08/2019 of Medicine Future Scheduled VITAMIN B12 [code = Ordered: [facility] Test 2132-9] 12/08/2019 of Medicine Future Scheduled VITAMIN D 25 HYDROXY Ordered: [facility] Test [code = 1989-3] 12/08/2019 of Medicine Future Scheduled COMPREHENSIVE METABOLIC Ordered: [facility] Test PANEL [code = 08983-9] 12/08/2019 of Mt dicine Future Scheduled MAMMOGRAM ANNUAL [code [employer] [facility] = MAMMOGRAM ANNUAL] of Medic ine Future Scheduled TETANUS SHOT (ADULT) [employer] Test [code = TETANUS SHOT of Medi cine (ADULT)] Future Scheduled BMI FOLLOW UP PLAN [employer] Test [code = BMI FOLLOW UP of Med icine PLAN] Future Scheduled HIV SCREENING [code = [employer] [facility] HIV SCREENING] of Medicine Future Scheduled CERVICAL CANCER [facility] C [facility]lege Test SCREENING 3 YEAR FOLLOW of M edicine UP [code = CERVICAL CANCER SCREENING 3 YEAR FOLLOW UP] Future Scheduled FLU VACCINE > 6 MONTHS [employer] [facility] [code = FLU VACCINE > 6 of M edicine MONTHS] Future Scheduled MAMMOGRAM ANNUAL [code [employer] [facility] = MAMMOGRAM ANNUAL] of Medic ine Future Scheduled EGD W/MAC - GI DEPT 1 Occurrences [employer] Test [code = 29456] starting of Medicine 01/06/2021 until 07/09/[address] ABDOMEN PELVIS W 1 Occurrences [employer] Test CONTRAST [code = starting of Medicine 41925-6] 03/02/2020 until 03/02/[address] ABDOMEN PELVIS W WO 1 Occurrences [employer] [facility] CONTRAST [code = starting of Medicine 64285-5] 12/08/2019 until 07/08/2020 Future Scheduled COLONOSCOPY W MAC GI 1 Occurrences [employer] Test DEPT [code = 78980] starting of Medic ine 12/08/2019 until 06/07/2020 Instructions [facility] Encounters Start End Encounter Admission Attending Care Care Encounter Source Date/Time Date/Time Type Type Clinicians Facility Department ID 2022-04-03 Outpatient MARSHALL ROLON [facility] Surgery [id number] [facility] 11:16:35 2021-07-29 Outpatient , [facility] Surgery [id number] SLE 09:46:34 ANTOINE 2021-07-29 Outpatient NANCY, [facility] Surgery [id number] SLE 03:19:43 MARTIN 2020-12-22 Inpatient UR DIONY [facility] Internal [id number] SLE 19:22:00 MAGALY Med 2020-01-[address] [facility] [id number] SLE 06:19:00 [id number] 2023-01-07 2023-01-07 Office TARI Boogie [id number] [facility] 11:00:00 15:55:23 Visit Cullen AMBULATOR 350.1.13.21 College Y 0.2.7.2.686 of [id number] Medi [place] 300 e 2023-01-02 2023-01-02 Outpatient TARI PANDA BC [id number] [facility] 13:31:32 14:00:52 ALEXIS [facility] 2022-12-26 2022-12-26 Outpatient BCM BC [id number] [facility] 12:44:17 12:44:17 [facility] 2022-12-26 2022-12-26 Outpatient BCM BC [id number] [facility] 12:43:49 12:43:49 [facility] 2022-12-26 2022-12-26 Outpatient BCM BC [id number] [facility] 12:27:00 12:27:00 [facility] 2022-12-26 2022-12-26 [id number] [facility] 12:26:33 12:26:33 [facility] 2022-12-26 2022-12-26 Outpatient BC BC [id number] [facility] 12:24:45 12:24:45 [facility] 2022-11-13 2022-11-13 Office TRAI Ballesteros [id number] [facility] 15:30:00 16:00:00 Visit Car AMBULATOR 350.1.13.21 College Y 0.2.7.2.686 of [id number] Medi [place] 300 e 2022-11-13 2022-11-[address] [facility] [id number] [facility] 13:59:58 15:54:12 Visit Bridgette 350.1.13.21 Co llege 0.2.7.2.686 of [id number] Medi [place] 506 e 2022-10-11 2022-10-25 Office TARI BALLESTEROS 1.2.840.114 [id number] [facility] 15:18:41 09:14:34 Visit CAR AMBULATOR 350.1.13.21 College Y 0.2.7.2.686 [id number] Medi florinda 300 e 2022-10-11 2022-10-11 Outpatient [facility] [id number] [facility] 00:00:00 23:59:00 [facility] 2022-10-11 2022-10-11 Emergency Mcmillan, [facility] [id number] 17:44:00 23:10:00 [facility] 2022-10-11 2022-10-11 Emergency ER Mcmillan, [facility] [id number] [address] 17:44:00 23:10:00 [facility] 2022-10-11 2022-10-11 Emergency ER [facility] Emergency [id number] [facility] 17:44:00 23:10:00 [facility] 2022-10-11 2022-10-11 Orders [facility] [id number] 00:00:00 00:00:00 [facility] 2022-10-11 2022-10-[address] [facility] [id number] [facility] 00:[facility] 00:00:00 [facility] 2022-10-11 2022-10-[address] [facility] [id number] [facility] 00:[facility] 00:00:00 [facility] 2022-10-11 2022-10-11 Orders [facility] [id number] 00:00:00 00:00:00 [facility] 2022-08-14 2022-08-14 Outpatient TARI [facility]LESTEROS [facility] [id number] [facility] 12:42:16 13:24:30 [facility] 2022-07-14 2022-07-14 Outpatient MATEUSZ [facility] [id number] [place] 00:00:00 00:00:00 [facility] 2022-06-28 2022-06-28 Outpatient TARI FLORES [facility] [id number] [facility] 09:55:58 10:06:29 SHELIA Collins ege of Medicin e 2022-06-09 2022-06-09 Outpatient SISSON_C [facility] [id number] [place] 00:00:00 00:00:00 0820 [facility] 2022-05-31 2022-05-31 Outpatient CARA WILLIS [facility] SLE [id number] [facility] 19:44:00 23:59:00 FID 2022-05-31 2022-05-31 [facility] [id number] 19:00:00 23:59:00 Encounter [facility] 2022-05-31 2022-05-31 [facility] [id number] 19:00:00 23:59:00 Encounter [facility] 2022-05-18 2022-05-18 [facility] [id number] 10:45:00 13:28:00 Encounter [facility] 2022-05-18 2022-05-18 Outpatient CARA LEIGH, [facility] Surgery [id number] [facility] 10:45:00 13:28:00 [facility] 2022-05-18 2022-05-18 [facility] [id number] 10:45:00 13:28:00 Encounter [facility] 2022-05-18 2022-05-18 Surgery [facility] [id number] 12:35:00 13:05:00 [facility] 2022-05-18 2022-05-18 Surgery [facility] [id number] 12:35:00 13:05:00 [facility] 2022-05-18 2022-05-18 Anesthesia Tobias Ambrose [facility] [id number] 12:11:00 12:39:00 Event Yves Mariano [facility] 2022-05-18 2022-05-18 Anesthesia Tobias Ambrose [facility] [id number] 12:11:00 12:39:00 Event Yves Mariano [facility] 2022-05-18 2022-05-18 Outpatient TARI LEIGH [facility] [id number] [facility] 10:19:33 10:19:33 ANTOINE leon of Medicin e 2022-05-18 2022-05-[address] [facility] [id number] [facility] 00:00:00 00:00:00 [facility] 2022-05-18 2022-05-[address] [facility] [id number] [facility] 00:[facility]00 00:00:00 [facility] 2022-05-17 2022-05-[address] [facility] [id number] [facility] 00:[facility]:00 00:00:00 [facility] 2022-05-17 2022-05-[address] [facility] [id number] [facility] 00:00:00 00:00:00 [facility] 2022-05-16 2022-05-16 [facility] [id number] 12:27:55 23:59:00 Encounter [facility] 2022-05-16 2022-05-16 Outpatient EL [facility] [id number] [facility] 12:27:55 23:59:00 2022-05-16 2022-05-16 [facility] [id number] 12:27:55 23:59:00 Encounter [facility] 2022-05-16 2022-05-16 Orders [facility] [id number] 00:00:00 00:00:00 Only [facility] 2022-05-16 2022-05-16 Orders [facility] [id number] 00:00:00 00:00:00 Only [facility] 2022-05-02 2022-05-02 Outpatient SISSON_C [facility] [id number] [place] 05:20:00 05:20:00 [id number] [facility] 2022-04-27 2022-04-27 Outside [facility] [id number] 00:00[facility]00 00:00:00 Orders [facility] 2022-04-27 2022-04-27 Outside [facility] [id number] 00:00:00 00:00:00 Orders [facility] 2022-04-27 2022-04-27 Outside [facility] [id number] 00:00:00 00:00:00 Orders [facility] 2022-04-27 2022-04-27 Outside [facility] [id number] 00:00:00 00:00:00 Orders [facility] 2022-04-24 2022-04-24 [facility] [id number] 23:59:00 23:59:00 Encounter [facility] 2022-04-24 2022-04-24 [facility] [id number] 23:59:00 23:59:00 Encounter [facility] 2022-04-24 2022-04-24 [facility] [id number] [facility] 00:00:00 23:59:00 2022-04-20 2022-04-[address] [facility] [id number] SLE 10:06:12 23:59:00 ALEXIS 2022-04-20 2022-04-20 [facility] [id number] 10:02:37 23:59:00 Encounter [facility] 2022-04-20 2022-04-20 [facility] [id number] 10:02:37 23:59:00 [facility]-04-[facility] 2022-04-20 Office TARI PANDA 1.2.840.114 [id number] [facility] 08:38:56 11:22:23 Visit ALEXIS AMBULATOR 350.1.13.21 College Y 0.2.7.2.686 of [id number] [facility] 300 e 2022-04-20 2022-04-20 [facility] [id number] 00:00:00 00:00:00 Orders [facility] 2022-04-20 2022-04-20 [facility] [id number] 00:00:00 00:00:00 Orders [facility] 2022-04-18 2022-04-18 Office JENNIFER Leigh 1.2.840.114 [id number] [facility] 09:00:00 09:28:27 Visit Antoine Asher AMBULATOR 350.1.13.21 College Y 0.2.7.2.686 of [id number] [facility] 300 e 2022-04-18 2022-04-18 Outpatient SALLY_Kumar [facility] [id number] [place] 03:56:00 03:56:00 0629 [facility] 2022-04-18 2022-04-18 [facility] [place] 00:00:00 00:00:00 Amy Zavala MSN, MACHINE PIE MAKER, [facility] ty FLEET TECHNICIAN-C: [address] [place] [facility] [address], [facility] [address], Jaskaran Zavala, ROSALVA MSN, FLEET TECHNICIAN-C [address] , Ph. 2022-04-18 2022-04-18 Outpatient Sally [facility] [id number] 00:00:00 00:00:00 Chloe [id number] 2022-04-13 2022-04-13 Outpatient MATEUSZ [facility] [id number] [place] 02:20:00 02:20:00 0624 Commun i ty Hospita l [facility] 2022-04-13 2022-04-13 [facility] [place] 00:00:00 00:00:00 Sally [facility] uni MSN, MACHINE PIE MAKER, Hospital - ty FLEET TECHNICIAN-C: [address] [place] [facility], Clinic s [address], Chloe [address], Jaskaran Zavala, [place] MSN, FLEET TECHNICIAN-C [address] , Ph. 2022-04-13 2022-04-13 Outpatient Sally [facility] [id number] 00:00:00 00:00:00 Chloe [id number] 2022-04-04 2022-04-04 Outpatient WATERS_S [facility] [id number] [place] 03:21:00 03:21:00 0615 Commun i ty Hospita l [facility] 2022-04-04 2022-04-04 [facility] [place] 00:00:00 00:00:00 Sally, [facility] MSN, MACHINE PIE MAKER, Hospital - ty FLEET TECHNICIAN-C: [address] [place] [facility] Clinic s [address], Chloe [address], Jaskaran [place], [place] MSN, FLEET TECHNICIAN-C [address] , Ph. 2022-04-04 2022-04-04 [facility] [id number] 00:00:00 00:00:00 Chloe [id number] 2022-03-30 2022-03-30 Outpatient [facility] [id number] [facility] 11:20:53 11:30:18 SHELIA Collins ege of Medicin e 2022-03-30 2022-03-30 Outpatient W[facility]ERS_[facility] [id number] [place] 02:42:00 02:42:00 0610 Commun i ty Hospita [facility] Clinics 2022-03-30 2022-03-30 [facility] [place] 10 [place] 00:00:00 00:00:00 Sally, [facility] uni MSN, MACHINE PIE MAKER, Hospital - ty FLEET TECHNICIAN-C: [address] [place] [facility] [address], Chloe [address], Jaskaran Zavala [place] MSN, FLEET TECHNICIAN-C [address] , Ph. 2022-03-30 2022-03-30 [facility] [id number] c-e 00:00:00 00:00:00 Chloe [id number] 2022-03-24 2022-03-24 Emergency Alao, [facility] [id number] 12:45:00 19:16:00 [facility] 2022-03-24 2022-03-24 Emergency ER Alao, [facility] [id number] 12:45:00 19:16:00 [facility] 2022-03-24 2022-03-24 Emergency ER [facility] Emergency [id number] SLE 12:45:00 19:16:00 [facility] 2022-03-24 2022-03-[address] [facility] [id number] [facility] 00:[facility]00 00:00:00 [facility] 2022-03-24 2022-03-[address] [facility] [id number] [facility] 00:00:00 00:00:00 [facility] 2022-03-21 2022-03-21 Outpatient WATERS_S [facility] [id number] [place] 02:09:00 02:09:00 0601 Commun i ty Hospita l Clinics 2022-03-21 2022-03-21 [facility] [place] 00:00:00 00:00:00 Amy Zavala MSN, MACHINE PIE MAKER, Hospital - ty FLEET TECHNICIAN-C: [address] [place] [facility] [address], Chloe [address], Jaskaran Zavala [place] MSN, FLEET TECHNICIAN-C [address] , Ph. 2022-03-21 2022-03-21 Outpatient Sally [facility] [id number] [id number] 00:00:00 00:00:00 Chloe [id number] 2022-03-13 2022-03-13 Outpatient WATERS_S [facility] [id number] [place] 12:48:00 12:48:00 0524 Commun i ty Hospita l Clinics 2022-03-13 2022-03-13 [facility] [place] 00:00:00 00:00:00 Sally, [facility] MSN, MACHINE PIE MAKER, Hospital - ty FLEET TECHNICIAN-C: [address] [place] [facility] [address], Chloe [address], SallyJaskaran tadeo [place] MSN, FLEET TECHNICIAN-C [address] , Ph. 2022-03-13 2022-03-13 Outpatient Sally [facility] [id number] 00:00:00 00:00:00 Chloe [id number] 2022-03-07 Outpatient NEMO_S [facility] [id number] [place] 11:50:00 11:50:00 0518 Commun i ty Hospita l Clinics 2022-03-07 2022-03-07 [facility] [place] 00:00:00 00:00:00 Sally [facility] uni MSN, MACHINE PIE MAKER, Hospital - ty FLEET TECHNICIAN-C: [address] [place] [facility], Clinic s [address], Chloe [address], SallyJaskaran tadeo [place] MSN, FLEET TECHNICIAN-C [address] , Ph. 2022-03-07 2022-03-07 Outpatient Sally [facility] [id number] [id number] 00:00:00 00:00:00 Chloe [id number] 2022-02-28 2022-02-28 Outpatient WATERS_S [facility] [id number] [place] 11:10:00 11:10:00 0511 Commun i ty Hospita l Clinics 2022-02-28 2022-02-28 [facility] [place] 00:00:00 00:00:00 [facility] MSN, MACHINE PIE MAKER, Hospital - ty FLEET TECHNICIAN-C: [address] [place] [facility] [address], [facility] [address], Jaskaran Zavala [place] MSN, FLEET TECHNICIAN-C [address] , Ph. 2022-02-28 2022-02-28 Outpatient Sally [facility] [id number] 00:00:00 00:00:00 Chloe [id number] 2022-02-21 2022-02-21 Outpatient PAOLOS [facility] [id number] [place] 11:12:00 11:12:00 0504 Commun i ty Hospita l [facility] 2022-02-21 2022-02-21 Outpatient Sally [facility] [id number] 00:00:00 00:00:00 [facility] [id number] 2022-02-21 2022-02-21 [facility] [place] 00:00:00 00:00:00 Sally [facility] uni MSN, MACHINE PIE MAKER, Hospital - ty FLEET TECHNICIAN-C: [address] [place] [facility] [address], Chloe [address], Jaskaran Zavala [place] MSN, FLEET TECHNICIAN-C [address] , Ph. 2022-01-18 2022-01-[address] [facility] 1.2.840.114 [id number] [facility] 14:15:09 15:20:57 Visit Bridgette 350.1.13.21 Co llege 0.2.7.2.686 of [id number] Medi [place] 506 e 2022-01-08 2022-01-08 Office JENNIFER SLATER 1.2.840.114 [id number] [facility] 14:01:24 14:01:24 Visit YONGHOON AMBULATOR 350.1.13.21 College Y 0.2.7.2.686 of [id number] Medi [place] 800 e 2021-11-27 2021-11-27 Outpatient BRYON [facility] [id number] [facility] 13:29:14 13:54:40 YONGHOON Colle ge of Medicin e 2021-11-16 2021-11-16 Office JENNIFER SLATER 1.2.840.114 [id number] [facility] 13:38:03 17:36:23 Visit YONGHOON AMBULATOR 350.1.13.21 College Y 0.2.7.2.686 of [id number] Medi [place] 800 e 2021-11-15 2021-11-[address] [facility] [id number] [facility] 15:05:53 23:59:00 [place] 2021-11-15 2021-11-15 [facility] [id number] [facility] 15:00:00 23:59:00 Encounter [facility] 2021-10-12 2021-10-[address] [facility] 1.2.840.114 [id number] [facility] 16:22:49 14:16:45 Visit CHRIS BarrientosNair 350.1.13.21 Co llege 0.2.7.2.686 of [id number] Medi [place] 506 e 2021-09-27 2021-09-27 Outpatient WATERS_S [facility] [id number] [place] 02:07:00 02:07:00 0427 Commun i ty Hospita [facility] Clinics 2021-09-22 2021-09-22 Outpatient MERLE [facility] [id number] [facility] 15:31:56 15:55:35 Teresa CEJA of Medicin e 2021-09-20 2021-09-20 [facility] [id number] 15:53:02 23:59:00 Encounter [facility] 2021-09-20 2021-09-20 Outpatient LINUS CORONA SLE [id number] [facility] 15:53:02 23:59:00 TEJAS 2021-09-20 2021-09-20 Outpatient PAOLOS [facility] [id number] [place] 12:21:00 12:21:00 1201 [facility] 2021-09-20 2021-09-20 [facility] [place] [id number] [place] 00:00:00 00:00:00 [facility] MACHINE PIE MAKER-FUNCTIONAL TESTER-C: Hospital - ty [address] [facility] [address], [place] [address] , Ph. 2021-09-20 2021-09-20 Outpatient [facility] [id number] 00:00:00 00:00:00 Theodora [id number] 2021-09-20 2021-09-20 Outpatient [facility] [id number] 00:00:00 00:00:00 Theodora [id number] 2021-09-19 2021-09-19 Office TARI Jensen 1.2.840.[id number] [place] [address] 08:40:00 10:08:16 Visit Prathap AMBULATOR 350.1.13.21 College Y 0.2.7.2.686 [id number] Medi [place] 800 e 2021-09-12 2021-09-12 [facility] Sheikh [facility] [id number] 15:51:29 23:59:00 Encounter [facility] 2021-09-12 2021-09-12 Outpatient LINUS WEISS SLE [id number] [facility] 15:51:29 23:59:00 [facility] 2021-09-12 2021-09-12 Outpatient PAOLOS [facility] [id number] [place] 05:21:00 05:21:00 1123 Commun i ty Hospita l Clinics 2021-09-12 2021-09-12 Outside Manjula [facility] [id number] 00:00:00 00:00:00 Orders [facility] 2021-08-31 2021-08-31 [facility] [id number] 00:00:00 00:00:00 Orders [facility] 2021-08-24 2021-08-24 Outpatient BCM BC [id number] [facility] 16:11:08 16:11:08 Colleg e of Medicin e 2021-08-24 2021-08-24 Outpatient BCM BC [id number] [facility] 14:19:44 15:37:32 Colleg e of Medicin e 2021-08-24 2021-08-24 Outside Leigh [facility] [id number] 00:00:00 00:00:00 Orders [facility] 2021-08-15 2021-08-15 Office TARI HESS 1.2.840.114 [id number] [facility] 14:56:29 16:29:35 Visit TEJAS AMBULATOR 350.1.13.21 College Y 0.2.7.2.686 of [id number] Medi [place] 375 e 2021-08-03 2021-08-03 Office TARI JULIEN 1.2.840.114 [id number] [facility] 11:08:09 15:16:30 Visit RICARDO-CHYI AMBULATOR 350.1.13.21 College Y 0.2.7.2.686 of [id number] Medi [place] 800 e 2021-07-13 2021-07-[address] [facility] 1.2.840.114 [id number] [facility] 16:42:56 00:10:57 Visit Bridgette 350.1.13.21 Co llege 0.2.7.2.686 of [id number] Medi [place] 530 e 2021-06-13 2021-06-13 Office Mikey TARI 1.2.840.114 [id number] [facility] 09:20:03 10:00:03 Visit Prathap AMBULATOR 350.1.13.21 College Y 0.2.7.2.686 of [id number] [facility] [place] 800 e 2021-05-31 2021-05-31 Outpatient JENNIFER [facility] [id number] [facility] 14:59:59 15:58:52 PENNYBROOKE Castrog e of Medicin e 2021-05-31 2021-05-31 Outpatient FUAD [facility] SLE [id number] SLE 00:00:00 00:00:00 PENNY 2021-05-19 2021-05-19 Outpatient JENNIFER [facility] [id number] [facility] 14:29:25 15:27:41 PORFIRIO Colle ge of Medicin e 2021-04-13 2021-04-[address] [facility] 1.2.840.114 [id number] [facility] 16:43:57 16:48:20 Visit Bridgette 350.1.13.21 Co llege 0.2.7.2.686 of [id number] [facility] 530 e 2021-03-09 2021-03-09 Outpatient ROSEMARY BOLTON SLE [id number] SLE 00:00:00 00:00:00 2021-02-13 2021-02-13 Outpatient ROSEMARY BOLTON [facility] SLE [id number] SLE 00:00:00 00:00:00 2021-02-08 2021-02-[address] [facility] 1.2.840.114 [id number] [facility] 11:13:34 13:25:42 Visit Yaneth Bridgette 350.1.13.21 Co llege 0.2.7.2.686 of [id number] [facility] [place] 510 e 2021-01-30 2021-01-30 Office TARI Helton 1.2.840.114 [id number] [facility] 14:43:50 16:52:24 Visit Porfirio B AMBULATOR 350.1.13.21 College Y 0.2.7.2.686 of [id number] [facility] [place] 600 e 2021-01-26 2021-01-26 Outpatient ROSEMARY FAJARDO [facility] [id number] [facility] 00:00:00 00:00:00 2021-01-16 2021-01-16 Outpatient RUDY, [facility]H [facility] [id number] [facility] 00:00:00 00:00:00 [place] 2021-01-16 2021-01-16 Outpatient RUDY [facility] [id number] [facility] 00:00:00 00:00:00 [place] 2021-01-06 2021-01-06 Office Sheikh TARI 1.2.840.114 [id number] [facility] 08:17:04 08:47:04 Visit Antoine Asher AMBULATOR 350.1.13.21 College Y 0.2.7.2.686 of [id number] [facility] [place] 325 e 2020-12-22 2020-12-[address] [facility] 1.2.840.114 [id number] [facility] 15:08:12 15:47:39 Visit Bridgette 350.1.13.21 Co llege 0.2.7.2.686 of [id number] [facility] [place] 530 e 2020-12-14 2020-12-14 Outpatient CARA SLE[facility]yetta [facility] [id number] [facility] 00:00:00 00:00:00 2020-11-09 2020-11-09 [facility] 1.2.840.114 [id number] [facility] 11:33:31 13:00:49 Visit Bridgette 350.1.13.21 Co llege 0.2.7.2.686 of [id number] [facility] [place] 510 e 2020-11-09 2020-11-09 Office [facility] 1.2.840.114 [id number] 11:33:31 13:00:49 Visit Bridgette 350.1.13.21 0.2.7.2.686 [id number] 510 2020-08-10 2020-08-10 Office Shireen [facility] 1.2.840.114 [id number] [facility] 10:44:10 13:53:12 Visit Bridgette 350.1.13.21 Co llege 0.2.7.2.686 of [id number] [facility] 510 e 2020-08-10 2020-08-10 Office Sanon, Marshall [facility] 1.2.840.114 [id number] 10:44:10 13:53:12 Visit Bridgette 350.1.13.21 0.2.7.2.686 [id number] 510 2020-08-09 2020-08-09 Office [facility] 1.2.840.114 [id number] [facility] 13:17:27 15:01:04 Visit Bridgette 350.1.13.21 Co llege 0.2.7.2.686 of [id number] [facility] 510 e 2020-08-09 2020-08-09 Office Sanon, Marshall [facility] 1.2.840.114 [id number] 13:17:27 15:01:04 Visit Bridgette 350.1.13.21 0.2.7.2.686 [id number] 510 2020-05-11 2020-05-11 Office [facility] 1.2.840.114 [id number] [facility] 12:06:08 13:26:37 Visit Bridgette 350.1.13.21 Co llege 0.2.7.2.686 of [id number] [facility] 510 e 2020-05-11 2020-05-11 Office [facility] 1.2.840.114 [id number] 12:06:08 13:26:37 Visit Bridgette 350.1.13.21 0.2.7.2.686 [id number] 510 2020-05-11 2020-05-11 Outpatient LINUS MONTANO [facility] [id number] [facility] 00:00:00 00:00:00 YANETH 2020-05-03 2020-05-03 Outpatient TYLER TIANKenyetta [facility] [id number] [facility] 00:00:00 00:00:00 YANETH 2020-03-07 2020-03-07 Outpatient LINUS MONTANO [facility] [id number] [facility] 00:00:00 00:00:00 [place] 2020-03-04 2020-03-04 Outpatient CARA SCOTT, SLE [facility] [id number] [facility] 00:00:00 00:00:00 [place] 2020-03-02 2020-03-02 Office Sanon, Marshall [facility] 1.2.840.114 [id number] [facility] 10:08:22 10:23:22 Visit Bridgette 350.1.13.21 Co llege 0.2.7.2.686 of [id number] [facility] 510 e 2020-03-02 2020-03-02 Office Sanon, Marshall [facility] 1.2.840.114 [id number] 10:08:22 10:23:22 Visit Bridgette 350.1.13.21 0.2.7.2.686 [id number] [facility] 2020-02-09 2020-02-09 Office [facility] 1.2.840.114 [id number] [facility] 11:30:47 13:19:13 Visit Bridgette 350.1.13.21 Co llege 0.2.7.2.686 of [id number] [facility] 510 e 2020-02-09 2020-02-09 Office [facility] 1.2.840.114 [id number] 11:30:47 13:19:13 Visit Bridgette 350.1.13.21 0.2.7.2.686 [id number] [facility] 2020-01-19 2020-01-19 Outpatient SLE [facility] [id number] [facility] 00:00:00 00:00:00 [id number] 2020-01-05 2020-01-05 [facility] 1.2.840.114 [id number] [facility] 09:22:56 10:26:50 Visit Bridgette 350.1.13.21 Co llege 0.2.7.2.686 of [id number] [facility] 510 e 2020-01-05 2020-01-05 Office Sanon, Marshall [facility] 1.2.840.114 [id number] 09:22:56 10:26:50 Visit Bridgette 350.1.13.21 0.2.7.2.686 [id number] 2019-12-21 2019-12-[address] [facility] [id number] SLE 12:37:00 12:37:00 [id number] 2019-12-16 2019-12-[address] [facility] [id number] [facility] 19:01:22 23:59:00 [id number] 2019-12-08 2019-12-08 Office TARI Cruz 1.2.840.114 [id number] [facility] 13:55:08 14:25:08 Visit Martin AMBULATOR 350.1.13.21 College Y 0.2.7.2.686 [id number] [facility] 325 e 2019-12-08 2019-12-08 Office TARI Cruz 1.2.840.114 [id number] 13:55:08 14:25:08 Visit Martin AMBULATOR 350.1.13.21 Y 0.2.7.2.686 [id number] Results Test Description Test Time Test Comments Results Result [facility] e Comments PV, VENOUS 2022-10-11 Reason for DOPPLER ARM, LEFT 23:00:00 exam:->HEADACHERea son for exam:->JAW PAINReason for CARLOTTA KRISHNAMURTHY - exam:->[facility] VISIONReason for MELISSA CUADRA exam:->FATIGUE DOMONIQUE : 1975 Sex: F FINAL REPORT TECHNIQUE: Grayscale, color Doppler, and spectral Doppler ultrasound of the left upper extremity veins. INDICATION: HEADACHEJAW PAINBLURRED VISIONFATIGUE. COMPARISON: None. FINDINGS:The left internal jugular, subclavian, axillary, brachial, cephalic, and basilic veins are patent with normal waveforms and without echogenic filling defects. All of the veins that could be examined with compression maneuvers are normally compressible. IMPRESSION:No deep venous thrombosis in the left upper extremity. Signed: Davina Max MDReport Verified Date/Time: 10/11/2022 23:00:59 SENSITIVITY TROPONIN I 2022-10-11 22:01:59 Test Item Value Reference Range Interpretation Comme nts HIGH SENSITIVITY TROPONIN I < pg/ml See_Comment [Automated message] The system (test code = 2632720) which generated this result transmitted ref erence range: <=34. The reference r carol was not used to interpret th is result as normal/abnormal . The High-Sensitivity Troponin I assay is performed on Siemens Makstr IM Analyzer. Results of this assay should always be interpreted in conjunction with the patient's medical history, clinical presentation, and other findings.CT, BRAIN, WITHOUT IV [id number] 21:49:00Two days of L-sided neurologic deficitsUnlisted Reason for Exam - Click Yes and Enter Reason Below->No [facility] : 1975 Sex: FFINAL REPORT EXAM: CT, BRAIN, WITHOUT IV CONTRAST INDICATION: Neuro deficit, acute, stroke suspected TECHNIQUE: CT images from skull base to vertex without IV contrast. This exam was performed according to the departmental dose optimization program which includes automated exposure control, adjustment of the mA and/or kV according to the patient size, and/or use of an iterative re construction technique. COMPARISON: None. FINDINGS: Parenchyma: No evidence of acute infarction. No hemorrhage. No mass or mass effect. Extra-axial Collection: None Ventricular System: Normal Osseous Structures: No acute osseous abnormality. Included Orbits: Normal Paranasal Sinuses: Predominantly clear Tympanomastoid Cavities: Normal Other: None IMPRESSION:No acute abnormality on CT head without contrast. Signed: Davina Max MDReport Verified Date/Time: 10/11/2022 21:49:00 CT, CHEST, WITH IV CONTRAST- PE TEST [id number] 21:43:00Unlisted Reason for Exam - Click Yes and Enter Reason Below->No [facility] : 1975 Sex: FFINAL REPORT TECHNIQUE: CT scan of the chest WITH intravenous contrast. Dose modulation, iterative reconstruction, and/or weight-based adjustment of the mA/kV was utilized to reduce the radiation dose to as low as reasonably achievable. Coronal and sagittal reformations were provided. MIP images were provided to better assess the vasculature. INDICATION: PE suspected, high prob COMPARISON: None. FINDINGS: LINES/TUBES: None. PULMONARY ARTERIES: Proximal to the bifurcation of themain pulmonary artery, the main pulmonary artery is 2.6 cm in diameter. No filling defects within the pulmonary arteries to suggest pulmonary embolus. LUNGS AND AIRWAYS: Mild bilateral dependent atelectasis. No airspace consolidation. Tracheobronchial airways are clear. PLEURA: The pleural spaces are clear. HEART AND MEDIASTINUM: The visualized thyroid gland is normal. No mediastinal, hilar, or axillary lymphadenopathy. Heart is unremarkable. No pericardial effusion. SOFT TISSUES AND BONES: No acuteosseous abnormality. No significant soft tissue finding. UPPER ABDOMEN: Unremarkable. IMPRESSION:No p ulmonary embolism. No evidence of an acute intrathoracic abnormality. Signed: Davina Max MDReport Verified Date/Time: 10/11/2022 21:43:52 SARS-CoV2/Influenza/RSV RT- PCR (Symptomatic ONLY)2022-10-11 19:46:30 Test Item Value Reference Interpretation Comments Range SARS-COV2/RT-PCR Negative Negative The SARS-Co V-2 (test code = target nucleic 23187-2) acids are not detected in thi s specimen. Negat bart results do not preclude SARS-C oV-2 infection and should not be u sed as the sole bas is for patient management decisions. Nega tive results must be combined with clinical observations, patient history , and epidemiolog ical information. A false negative result may occu r if a specimen is improperly collected, transported or handled. This S ARS CoV-2 test is a rapid, real-tisha e RT-PCR test intended for th e qualitative detection of nucleic acid fr om SARS-CoV-2 in a [facility] from individual s suspected of COVID-19 by the ir healthcare provider. Influenza A RT-PCR Negative Negative The Flu A target (test code = [place] [address]-3) not detected in this specimen. Influenza B RT-PCR Negative Negative The Flu B target (test code = [place] 60549-2) not detected in this specimen. RSV by RT-PCR (test Negative Negative The RSV target code = 32698-8) nucleic acid s are not detected in this specimen. SHONDA (test code = The presence of SHONDA) SARS-CoV-2/FLU/RSV viral nucleic acids cannot rule out co-infections or disease caused by other viral or bacterial pathogens. As with any molecular test, mutations within the target regions of the Xpert Xpress SARS-CoV-2/Flu/RSV test could affect primer and/or probe binding resulting in failure to detect the presence of virus or the virus being detected less predictably. False negative results may occur if the virus is present at levels below the analytical limit of detection in this specimen. This Xpert Xpress SARS-CoV-2/Flu/RSV test is a rapid, real-time RT-PCR test intended for the qualitative detection of nucleic acid from Xpert Xpress SARS-CoV-2/Flu/RSV in a nasopharyngeal swab specimen collected from individuals suspected of Xpert Xpress SARS-CoV-2/Flu/RSV by their healthcare provider. Results from [facility] Xpert Xpress SARS-CoV-2/Flu/RSV test should be correlated with the clinical history, epidemiological data, and other data available to the clinician evaluating the patient. Viral nucleic acid may persist in vivo, independent of virus viability. Detection of analyte target(s) does not imply that the corresponding virus(es) are infectious or are the causative agents for clinical symptoms. This test has not been Food and Drug Administration (FDA) cleared or approved and has been authorized by FDA under an Emergency Use Authorization (EUA). This EUA will be effective until the declaration that circumstances exist justifying the authorization of the emergency use of in vitro diagnostic tests for detection and/or diagnosis of COVID-19 is terminated under Section 564(b)(2) of the Act or the EUA is revoked under Section 564(g) of the Act. Fact Sheet for Healthcare Providers:https://w DocTree/Docu ments/Xpert%20Xpres s%20SARS%20CoV-2/Fa ct%20Sheets/302-390 2%23HIVY-SHR-2%20HE ALTHCARE%20PROVIDER S%20FACT%20SHEET.pd f Fact Sheet for Healthcare Patients:https://Ak[employer]/Docum ents/Xpert%20Xpress %20SARS%20Cov-2/Fac t%20Sheets/302-3801 %88ZXCB-NDW-0%20PAT IENT%20FACT%20SHEET .pdf Lab Interpretation Normal (test code = 21762-7) [facility] 2022-10-11 19:46:30 Test Item Value Reference Interpretation Comments Range SARS-COV2/RT-PCR Negative Negative The SARS-Co V-2 (test code = target nucleic 16168-4) acids are not detected in thi s specimen. Negat bart results do not preclude SARS-C oV-2 infection and should not be u sed as the sole bas is for patient management decisions. Nega tive results must be combined with clinical observations, patient history , and epidemiolog ical information. A false negative result may occu r if a specimen is improperly collected, transported or handled. This S ARS CoV-2 test is a rapid, real-tisha e RT-PCR test intended for e qualitative detection of nucleic acid fr om SARS-CoV-2 in a nasopharyngeal swab specimen [facility] from individual s suspected of COVID-19 by the healthcare provider. Influenza A RT-PCR Negative Negative The Flu A target (test code = [place] 67[address]-7) not detected in this specimen. Influenza B RT-PCR Negative Negative The Flu B target (test code = [place] 68116-7) not detected in this specimen. RSV by RT-PCR (test Negative Negative The RSV target code = 47575-8) nucleic acid s are not detected in this specimen. SHONDA (test code = The presence of SHONDA) SARS-CoV-2/FLU/RSV viral nucleic acids cannot rule out co-infections or disease caused by other viral or bacterial pathogens. As with any molecular test, mutations within the target regions of the Xpert Xpress SARS-CoV-2/Flu/RSV test could affect primer and/or probe binding resulting in failure to detect the presence of virus or the virus being detected less predictably. False negative results may occur if the virus is present at levels below the analytical limit of detection in this specimen. This Xpert Xpress SARS-CoV-2/Flu/RSV test is a rapid, real-time RT-PCR test intended for the qualitative detection of nucleic acid from Xpert Xpress SARS-CoV-2/Flu/RSV in a nasopharyngeal swab specimen collected from individuals suspected of Xpert Xpress SARS-CoV-2/Flu/RSV by their healthcare provider. Results from [facility] Xpert Xpress SARS-CoV-2/Flu/RSV test should be correlated with the clinical history, epidemiological data, and other data available to the clinician evaluating the patient. Viral nucleic acid may persist in vivo, independent of virus viability. Detection of analyte target(s) does not imply that the corresponding virus(es) are infectious or are the causative agents for clinical symptoms. This test has not been Food and Drug Administration (FDA) cleared or approved and has been authorized by FDA under an Emergency Use Authorization (EUA). This EUA will be effective until the declaration that circumstances exist justifying the authorization of the emergency use of in vitro diagnostic tests for detection and/or diagnosis of COVID-19 is terminated under Section 564(b)(2) of the Act or the EUA is revoked under Section 564(g) of the Act. Fact Sheet for Healthcare Providers:https://w DocTree/Docu ments/Xpert%20Xpres s%20SARS%20CoV-2/Fa ct%20Sheets/302-390 2%13RTCZ-RRF-0%20HE ALTHCARE%20PROVIDER S%20FACT%20SHEET.pd f Fact Sheet for Healthcare Patients:https://[employer]/Docum ents/Xpert%20Xpress %20SARS%20Cov-2/Fac t%20Sheets/302-3801 %91STFZ-BTL-5%20PAT IENT%20FACT%20SHEET .pdf Lab Interpretation Normal (test code = 83297-7) [facility]Symptomatic ONLY[facility] 2022-10-11 19:46:30 Test Item Value Reference Interpretation Comments Range SARS-COV2/RT-PCR Negative Negative The SARS-Co V-2 (test code = target nucleic 44341-9) acids are not detected in thi s specimen. Negat bart results do not preclude SARS-C oV-2 infection and should not be u sed as the sole bas is for patient management decisions. Nega tive results must be combined with clinical observations, patient history , and epidemiolog ical information. A false negative result may occu r if a specimen is improperly collected, transported or handled. This S ARS CoV-2 test is a rapid, real-tisha e RT-PCR test intended for th e qualitative detection of nucleic acid fr om SARS-CoV-2 in a nasopharyngeal swab specimen [facility] from individual s suspected of COVID-19 by the ir healthcare provider. Influenza A RT-PCR Negative Negative The Flu A target (test code = [place] 99151-2) not detected in this specimen. Influenza B RT-PCR Negative Negative The Flu B target (test code = [place] 47961-7) not detected in this specimen. RSV by RT-PCR (test Negative Negative The RSV target code = 10568-6) nucleic acid s are not detected in this specimen. SHONDA (test code = The presence of SHONDA) SARS-CoV-2/FLU/RSV viral nucleic acids cannot rule out co-infections or disease caused by other viral or bacterial pathogens. As with any molecular test, mutations within the target regions of the Xpert Xpress SARS-CoV-2/Flu/RSV test could affect primer and/or probe binding resulting in failure to detect the presence of virus or the virus being detected less predictably. False negative results may occur if the virus is present at levels below the analytical limit of detection in this specimen. This Xpert Xpress SARS-CoV-2/Flu/RSV test is a rapid, real-time RT-PCR test intended for the qualitative detection of nucleic acid from Xpert Xpress SARS-CoV-2/Flu/RSV in a nasopharyngeal swab specimen collected from individuals suspected of Xpert Xpress SARS-CoV-2/Flu/RSV by their healthcare provider. Results from [facility] Xpert Xpress SARS-CoV-2/Flu/RSV test should be correlated with the clinical history, epidemiological data, and other data available to the clinician evaluating the patient. Viral nucleic acid may persist in vivo, independent of virus viability. Detection of analyte target(s) does not imply that the corresponding virus(es) are infectious or are the causative agents for clinical symptoms. This test has not been Food and Drug Administration (FDA) cleared or approved and has been authorized by FDA under an Emergency Use Authorization (EUA). This EUA will be effective until the declaration that circumstances exist justifying the authorization of the emergency use of in vitro diagnostic tests for detection and/or diagnosis of COVID-19 is terminated under Section 564(b)(2) of the Act or the EUA is revoked under Section 564(g) of the Act. Fact Sheet for Healthcare Providers:https://w ww.[employer]ation/Docu ments/Xpert%20Xpres s%20SARS%20CoV-2/Fa ct%20Sheets/302-390 2%19UWKJ-OGK-0%20HE ALTHCARE%20PROVIDER S%20FACT%20SHEET.pd f Fact Sheet for Healthcare Patients:https://ww w.Flywheel/Docum ents/Xpert%20Xpress %20SARS%20Cov-2/Fac t%20Sheets/302-3801 %75BWWX-DWU-7%20PAT IENT%20FACT%20SHEET .pdf Lab Interpretation Normal (test code = 11682-5) [facility]Symptomatic ONLY) 2022-10-11 19:46:30 Test Item Value Reference Interpretation Comments Range SARS-COV2/RT-PCR Negative Negative The SARS-Co V-2 (test code = target nucleic 57797-1) acids are not detected in thi s specimen. Negat bart results do not preclude SARS-C oV-2 infection and should not be u sed as the sole bas is for patient management decisions. Nega tive results must be combined with clinical observations, patient history , and epidemiolog ical information. A false negative result may occu r if a specimen is improperly collected, transported or handled. This S ARS CoV-2 test is a rapid, real-tisha e RT-PCR test intended for th e qualitative detection of nucleic acid fr om SARS-CoV-2 in a nasopharyngeal swab specimen [facility] from individual s suspected of COVID-19 by the ir healthcare provider. Influenza A RT-PCR Negative Negative The Flu A target (test code = [place] 44122-4) not detected in this specimen. Influenza B RT-PCR Negative Negative The Flu B target (test code = [place] 24974-2) not detected in this specimen. RSV by RT-PCR (test Negative Negative The RSV target code = 32274-3) nucleic acid s are not detected in this specimen. SHONDA (test code = The presence of SHONDA) SARS-CoV-2/FLU/RSV viral nucleic acids cannot rule out co-infections or disease caused by other viral or bacterial pathogens. As with any molecular test, mutations within the target regions of the Xpert Xpress SARS-CoV-2/Flu/RSV test could affect primer and/or probe binding resulting in failure to detect the presence of virus or the virus being detected less predictably. False negative results may occur if the virus is present at levels below the analytical limit of detection in this specimen. This Xpert Xpress SARS-CoV-2/Flu/RSV test is a rapid, real-time RT-PCR test intended for the qualitative detection of nucleic acid from Xpert Xpress SARS-CoV-2/Flu/RSV in a nasopharyngeal swab specimen collected from individuals suspected of Xpert Xpress SARS-CoV-2/Flu/RSV by their healthcare provider. Results from [facility] Xpert Xpress SARS-CoV-2/Flu/RSV test should be correlated with the clinical history, epidemiological data, and other data available to the clinician evaluating the patient. Viral nucleic acid may persist in vivo, independent of virus viability. Detection of analyte target(s) does not imply that the corresponding virus(es) are infectious or are the causative agents for clinical symptoms. This test has not been Food and Drug Administration (FDA) cleared or approved and has been authorized by FDA under an Emergency Use Authorization (EUA). This EUA will be effective until the declaration that circumstances exist justifying the authorization of the emergency use of in vitro diagnostic tests for detection and/or diagnosis of COVID-19 is terminated under Section 564(b)(2) of the Act or the EUA is revoked under Section 564(g) of the Act. Fact Sheet for Healthcare Providers:https://w DocTree/Docu ments/Xpert%20Xpres s%20SARS%20CoV-2/Fa ct%20Sheets/302-390 2%19EZVS-PYG-5%20HE ALTHCARE%20PROVIDER S%20FACT%20SHEET.pd f Fact Sheet for Healthcare Patients:https://[employer]/Docum ents/Xpert%20Xpress %20SARS%20Cov-2/Fac t%20Sheets/302-3801 %63QKFY-VPA-2%20PAT IENT%20FACT%20SHEET .pdf Lab Interpretation Normal (test code = 37002-0) [facility]Symptomatic ONLY) 2022-10-11 19:46:30 Test Item Value Reference Interpretation Comments Range SARS-COV2/RT-PCR Negative Negative The SARS-Co V-2 (test code = target nucleic 05757-9) acids are not detected in thi s specimen. Negat bart results do not preclude SARS-C oV-2 infection and should not be u sed as the sole bas is for patient management decisions. Nega tive results must be combined with clinical observations, patient history , and epidemiolog ical information. A false negative result may occu r if a specimen is improperly collected, transported or handled. This SARS CoV-2 test is a rapid, real-tisha e RT-PCR test intended for e qualitative detection of nucleic acid fr om SARS-CoV-2 in a nasopharyngeal swab specimen [facility] from individual s suspected of COVID-19 by the healthcare provider. Influenza A RT-PCR Negative Negative The Flu A target (test code = [place] 75854-6) not detected in this specimen. Influenza B RT-PCR Negative Negative The Flu B target (test code = [place] 12982-3) not detected in this specimen. RSV by RT-PCR (test Negative Negative The RSV target code = 30461-1) nucleic acid s are not detected in this specimen. SHONDA (test code = The presence of SHONDA) SARS-CoV-2/FLU/RSV viral nucleic acids cannot rule out co-infections or disease caused by other viral or bacterial pathogens. As with any molecular test, mutations within the target regions of the Xpert Xpress SARS-CoV-2/Flu/RSV test could affect primer and/or probe binding resulting in failure to detect the presence of virus or the virus being detected less predictably. False negative results may occur if the virus is present at levels below the analytical limit of detection in this specimen. This Xpert Xpress SARS-CoV-2/Flu/RSV test is a rapid, real-time RT-PCR test intended for the qualitative detection of nucleic acid from Xpert Xpress SARS-CoV-2/Flu/RSV in a nasopharyngeal swab specimen collected from individuals suspected of Xpert Xpress SARS-CoV-2/Flu/RSV by their healthcare provider. Results from [facility] Xpert Xpress SARS-CoV-2/Flu/RSV test should be correlated with the clinical history, epidemiological data, and other data available to the clinician evaluating the patient. Viral nucleic acid may persist in vivo, independent of virus viability. Detection of analyte target(s) does not imply that the corresponding virus(es) are infectious or are the causative agents for clinical symptoms. This test has not been Food and Drug Administration (FDA) cleared or approved and has been authorized by FDA under an Emergency Use Authorization (EUA). This EUA will be effective until the declaration that circumstances exist justifying the authorization of the emergency use of in vitro diagnostic tests for detection and/or diagnosis of COVID-19 is terminated under Section 564(b)(2) of the Act or the EUA is revoked under Section 564(g) of the Act. Fact Sheet for Healthcare Providers:https://Migo.me/Docu ments/Xpert%20Xpres s%20SARS%20CoV-2/Fa ct%20Sheets/302-390 2%89ZUEP-TQE-8%20HE ALTHCARE%20PROVIDER S%20FACT%20SHEET.pd f Fact Sheet for Healthcare Patients:https://[employer]/Docum ents/Xpert%20Xpress %20SARS%20Cov-2/Fac t%20Sheets/302-3801 %58SUVR-WQX-6%20PAT IENT%20FACT%20SHEET .pdf Lab Interpretation Normal (test code = 75542-0) [facility]Symptomatic ONLY[facility] 2022-10-11 19:46:30 Test Item Value Reference Interpretation Comments Range SARS-COV2/RT-PCR Negative Negative The SARS-Co V-2 (test code = target nucleic 54953-2) acids are not detected in thi s specimen. Negat bart results do not preclude SARS-C oV-2 infection and should not be u sed as the sole bas is for patient management decisions. Nega tive results must be combined with clinical observations, patient history , and epidemiolog ical information. A false negative result may occu r if a specimen is improperly collected, transported or handled. This S ARS CoV-2 test is a rapid, real-tisha e RT-PCR test intended for th e qualitative detection of nucleic acid fr om SARS-CoV-2 in a nasopharyngeal swab specimen [facility] from individual s suspected of COVID-19 by the ir healthcare provider. Influenza A RT-PCR Negative Negative The Flu A target (test code = [place] 97981-4) not detected in this specimen. Influenza B RT-PCR Negative Negative The Flu B target (test code = nucleic [place] re 92298-3) not detected in this specimen. RSV by RT-PCR (test Negative Negative The RSV target code = 11997-9) nucleic acid s are not detected in this specimen. SHONDA (test code = The presence of SHONDA) SARS-CoV-2/FLU/RSV viral nucleic acids cannot rule out co-infections or disease caused by other viral or bacterial pathogens. As with any molecular test, mutations within the target regions of the Xpert Xpress SARS-CoV-2/Flu/RSV test could affect primer and/or probe binding resulting in failure to detect the presence of virus or the virus being detected less predictably. False negative results may occur if the virus is present at levels below the analytical limit of detection in this specimen. This Xpert Xpress SARS-CoV-2/Flu/RSV test is a rapid, real-time RT-PCR test intended for the qualitative detection of nucleic acid from Xpert Xpress SARS-CoV-2/Flu/RSV in a nasopharyngeal swab specimen collected from individuals suspected of Xpert Xpress SARS-CoV-2/Flu/RSV by their healthcare provider. Results from [facility] Xpert Xpress SARS-CoV-2/Flu/RSV test should be correlated with the clinical history, epidemiological data, and other data available to the clinician evaluating the patient. Viral nucleic acid may persist in vivo, independent of virus viability. Detection of analyte target(s) does not imply that the corresponding virus(es) are infectious or are the causative agents for clinical symptoms. This test has not been Food and Drug Administration (FDA) cleared or approved and has been authorized by FDA under an Emergency Use Authorization (EUA). This EUA will be effective until the declaration that circumstances exist justifying the authorization of the emergency use of in vitro diagnostic tests for detection and/or diagnosis of COVID-19 is terminated under Section 564(b)(2) of the Act or the EUA is revoked under Section 564(g) of the Act. Fact Sheet for Healthcare Providers:https://w ww.[employer]/Docu ments/Xpert%20Xpres s%20SARS%20CoV-2/Fa ct%20Sheets/302-390 2%91MDIG-VPW-1%20HE ALTHCARE%20PROVIDER S%20FACT%20SHEET.pd f Fact Sheet for Healthcare Patients:https://ww w.[employer]wheel/Docum ents/Xpert%20Xpress %20SARS%20Cov-2/Fac t%20Sheets/302-3801 %41PKNH-GSO-8%20PAT IENT%20FACT%20SHEET .pdf Lab Interpretation Normal (test code = 10900-2) [facility]Symptomatic ONLY[facility] 2022-10-11 19:46:30 Test Item Value Reference Interpretation Comments Range SARS-COV2/RT-PCR Negative Negative The SARS-Co V-2 (test code = target nucleic 92320-8) acids are not detected in thi s specimen. Negat bart results do not preclude SARS-C oV-2 infection and should not be u sed as the sole bas is for patient management decisions. Nega tive results must be combined with clinical observations, patient history , and epidemiolog ical information. A false negative result may occu r if a specimen is improperly collected, transported or handled. This S ARS CoV-2 test is a rapid, real-tisha e RT-PCR test intended for th e qualitative detection of nucleic acid fr om SARS-CoV-2 in a nasopharyngeal swab specimen [facility] from individual s suspected of COVID-19 by the ir healthcare provider. Influenza A RT-PCR Negative Negative The Flu A target (test code = [place] 22566-0) not detected in this specimen. Influenza B RT-PCR Negative Negative The Flu B target (test code = nucleic [place] re 67589-9) not detected in this specimen. RSV by RT-PCR (test Negative Negative The RSV target code = 81868-1) nucleic acid s are not detected in this specimen. SHONDA (test code = The presence of SHONDA) SARS-CoV-2/FLU/RSV viral nucleic acids cannot rule out co-infections or disease caused by other viral or bacterial pathogens. As with any molecular test, mutations within the target regions of the Xpert Xpress SARS-CoV-2/Flu/RSV test could affect primer and/or probe binding resulting in failure to detect the presence of virus or the virus being detected less predictably. False negative results may occur if the virus is present at levels below the analytical limit of detection in this specimen. This Xpert Xpress SARS-CoV-2/Flu/RSV test is a rapid, real-time RT-PCR test intended for the qualitative detection of nucleic acid from Xpert Xpress SARS-CoV-2/Flu/RSV in a nasopharyngeal swab specimen collected from individuals suspected of Xpert Xpress SARS-CoV-2/Flu/RSV by their healthcare provider. Results from [facility] Xpert Xpress SARS-CoV-2/Flu/RSV test should be correlated with the clinical history, epidemiological data, and other data available to the clinician evaluating the patient. Viral nucleic acid may persist in vivo, independent of virus viability. Detection of analyte target(s) does not imply that the corresponding virus(es) are infectious or are the causative agents for clinical symptoms. This test has not been Food and Drug Administration (FDA) cleared or approved and has been authorized by FDA under an Emergency Use Authorization (EUA). This EUA will be effective until the declaration that circumstances exist justifying the authorization of the emergency use of in vitro diagnostic tests for detection and/or diagnosis of COVID-19 is terminated under Section 564(b)(2) of the Act or the EUA is revoked under Section 564(g) of the Act. Fact Sheet for Healthcare Providers:https://w DocTree/Docu ments/Xpert%20Xpres s%20SARS%20CoV-2/Fa ct%20Sheets/302-390 2%68WKQI-FSU-7%20HE ALTHCARE%20PROVIDER S%20FACT%20SHEET.pd f Fact Sheet for Healthcare Patients:https://[employer]/Docum ents/Xpert%20Xpress %20SARS%20Cov-2/Fac t%20Sheets/302-3801 %76MASG-FSZ-9%20PAT IENT%20FACT%20SHEET .pdf Lab Interpretation Normal (test code = 79444-0) [facility]Symptomatic ONLY) 2022-10-11 19:46:30 Test Item Value Reference Interpretation Comments Range SARS-COV2/RT-PCR Negative Negative The SARS-Co V-2 (test code = target nucleic 35509-7) acids are not detected in thi s specimen. Negat bart results do not preclude SARS-C oV-2 infection and should not be u sed as the sole bas is for patient management decisions. Nega tive results must be combined with clinical observations, patient history , and epidemiolog ical information. A false negative result may occu r if a specimen is improperly collected, transported or handled. This ARS CoV-2 test is a rapid, real-tisha e RT-PCR test intended for th e qualitative detection of nucleic acid fr om SARS-CoV-2 in a nasopharyngeal swab specimen collec waqar from individual s suspected of COVID-19 by the healthcare provider. Influenza A RT-PCR Negative Negative The Flu A target (test code = [place] [address]-4) not detected in this specimen. Influenza B RT-PCR Negative Negative The Flu B target (test code = [place] 95905-5) not detected in this specimen. RSV by RT-PCR (test Negative Negative The RSV target code = 40239-9) nucleic acid s are not detected in this specimen. SHONDA (test code = The presence of SHONDA) SARS-CoV-2/FLU/RSV viral nucleic acids cannot rule out co-infections or disease caused by other viral or bacterial pathogens. As with any molecular test, mutations within the target regions of the Xpert Xpress SARS-CoV-2/Flu/RSV test could affect primer and/or probe binding resulting in failure to detect the presence of virus or the virus being detected less predictably. False negative results may occur if the virus is present at levels below the analytical limit of detection in this specimen. This Xpert Xpress SARS-CoV-2/Flu/RSV test is a rapid, real-time RT-PCR test intended for the qualitative detection of nucleic acid from Xpert Xpress SARS-CoV-2/Flu/RSV in a nasopharyngeal swab specimen collected from individuals suspected of Xpert Xpress SARS-CoV-2/Flu/RSV by their healthcare provider. Results from [facility] Xpert Xpress SARS-CoV-2/Flu/RSV test should be correlated with the clinical history, epidemiological data, and other data available to the clinician evaluating the patient. Viral nucleic acid may persist in vivo, independent of virus viability. Detection of analyte target(s) does not imply that the corresponding virus(es) are infectious or are the causative agents for clinical symptoms. This test has not been Food and Drug Administration (FDA) cleared or approved and has been authorized by FDA under an Emergency Use Authorization (EUA). This EUA will be effective until the declaration that circumstances exist justifying the authorization of the emergency use of in vitro diagnostic tests for detection and/or diagnosis of COVID-19 is terminated under Section 564(b)(2) of the Act or the EUA is revoked under Section 564(g) of the Act. Fact Sheet for Healthcare Providers:https://w DocTree/Docu ments/Xpert%20Xpres s%20SARS%20CoV-2/Fa ct%20Sheets/302-390 2%20ERZK-IDU-1%20HE ALTHCARE%20PROVIDER S%20FACT%20SHEET.pd f Fact Sheet for Healthcare Patients:https://[employer]/Docum ents/Xpert%20Xpress %20SARS%20Cov-2/Fac t%20Sheets/302-3801 %38LDBP-LSQ-3%20PAT IENT%20FACT%20SHEET .pdf Lab Interpretation Normal (test code = 47790-7) [facility]pt[facility] 2022-10-11 19:46:30 Test Item Value Reference Interpretation Comments Range SARS-COV2/RT-PCR Negative Negative The SARS-Co V-2 (test code = target nucleic 07680-7) acids are not detected in thi s specimen. Negat bart results do not preclude SARS-C oV-2 infection and should not be u sed as the sole bas is for patient management decisions. Nega tive results must be combined with clinical observations, patient history , and epidemiolog ical information. A false negative result may occu r if a specimen is improperly collected, transported or handled. This S ARS CoV-2 test is a rapid, real-tisha e RT-PCR test intended for th e qualitative detection of nucleic acid fr om SARS-CoV-2 in a nasopharyngeal swab specimen colle waqar from individual s suspected of COVID-19 by the ir healthcare provider. Influenza A RT-PCR Negative Negative The Flu A target (test code = [place] [address]-4) not detected in this specimen. Influenza B RT-PCR Negative Negative The Flu B target (test code = [place] 11664-2) not detected in this specimen. RSV by RT-PCR (test Negative Negative The RSV target code = 02958-4) nucleic acid s are not detected in this specimen. SHONDA (test code = The presence of SHONDA) SARS-CoV-2/FLU/RSV viral nucleic acids cannot rule out co-infections or disease caused by other viral or bacterial pathogens. As with any molecular test, mutations within the target regions of the Xpert Xpress SARS-CoV-2/Flu/RSV test could affect primer and/or probe binding resulting in failure to detect the presence of virus or the virus being detected less predictably. False negative results may occur if the virus is present at levels below the analytical limit of detection in this specimen. This Xpert Xpress SARS-CoV-2/Flu/RSV test is a rapid, real-time RT-PCR test intended for the qualitative detection of nucleic acid from Xpert Xpress SARS-CoV-2/Flu/RSV in a nasopharyngeal swab specimen collected from individuals suspected of Xpert Xpress SARS-CoV-2/Flu/RSV by their healthcare provider. Results from [facility] Xpert Xpress SARS-CoV-2/Flu/RSV test should be correlated with the clinical history, epidemiological data, and other data available to the clinician evaluating the patient. Viral nucleic acid may persist in vivo, independent of virus viability. Detection of analyte target(s) does not imply that the corresponding virus(es) are infectious or are the causative agents for clinical symptoms. This test has not been Food and Drug Administration (FDA) cleared or approved and has been authorized by FDA under an Emergency Use Authorization (EUA). This EUA will be effective until the declaration that circumstances exist justifying the authorization of the emergency use of in vitro diagnostic tests for detection and/or diagnosis of COVID-19 is terminated under Section 564(b)(2) of the Act or the EUA is revoked under Section 564(g) of the Act. Fact Sheet for Healthcare Providers:https://w flory.[employer].Windation/Docu ments/Xpert%20Xpres s%20SARS%20CoV-2/Fa ct%20Sheets/302-390 2%43UFOZ-GHD-4%20HE ALTHCARE%20PROVIDER S%20FACT%20SHEET.pd f Fact Sheet for Healthcare Patients:https://ww w.Flywheel/Docum ents/Xpert%20Xpress %20SARS%20Cov-2/Fac t%20Sheets/302-3801 %57WVCO-OHY-7%20PAT IENT%20FACT%20SHEET .pdf Lab Interpretation Normal (test code = 15283-5) [facility] [id number] 19:46:30 Test Item Value Reference Range Interpretation Comments SARS-COV2/RT-PCR Negative Negative The SARS-Co V-2 target (test code = nucleic acids a re not 7526728) detected in thi s specimen. Negat bart results do not preclude SARS-CoV-2 infe ction and should not be u sed as the sole basis for patient management deci sions. Negative result s must be combined with c linical observations, p atient history, and epidemiological information. A false negative result may occur if a specimen i s improperly collins ected, transported or handled. This SARS CoV-2 test is a rapid, real-tisha e RT-PCR test intended f or the qualitative det ection of nucleic acid fr om SARS-CoV-2 in a nasopharyngeal swab specimen collec waqar from individuals vlad[place] pected of COVID-19 by the [facility] ide. INFLUENZA A RT-PCR Negative Negative The Flu A target nucleic (test code = acids are not d etected in 0884385) this specimen. INFLUENZA B RT-PCR Negative Negative The Flu B target nucleic (test code = acids are not d etected in 5387463) this specimen. RSV RT-PCR (test Negative Negative The RSV tar get nucleic code = 0204873) acids are no t detected in this specimen. The presence of SARS-CoV-2/FLU/RSV viral nucleic acids cannot rule out co- infections or disease caused by other viral or bacterial pathogens. As with any molecular test, mutations within the target regions of the Xpert Xpress SARS-CoV-2/Flu/RSV test could affect primer and/or probe binding resulting in failure to detect the presence of virus or the virus being detected less predictably. False negative results may occur if the virus is present at levels below the analytical limit of detection in thisspecimen.This Xpert Xpress SARS-CoV-2/Flu/RSV test is a rapid, real-time RT-PCR test intended for the qualitative detection of nucleic acid from Xpert Xpress SARS-CoV-2/Flu/RSV in a nasopharyngeal swabspecimen collected from individuals suspected of Xpert Xpress SARS-CoV-2/Flu/RSV by their healthcareprovider. Results from [facility] Xpert Xpress SARS-CoV-2/Flu/RSV test should be correlated with the clinical history, epidemiological data, and other data available to the clinician evaluating the patient. Viral nucleic acid may persist in vivo, independent of virus viability. Detection of analyte target(s)does not imply that the corresponding virus(es) are infectious or are the causative agents for clinical symptoms.This test has not been Food and Drug Administration (FDA) cleared or approved and has been authorized by FDA under an Emergency Use Authorization (EUA). This EUA will be effective until thedeclaration that circumstances exist justifying the authorization of the emergency use of in vitro diagnostic tests for detection and/or diagnosis of COVID-19 is terminated under Section 564(b)(2) of the Act or the EUA is revoked under Section 564(g) of the Act.Fact Sheet for Healthcare Providers:https ://www.Flywheel/Documents/Xpert%20Xpress%20SARS%20CoV-2/Fact%20Sheets/302-390 2%53JDXH-AQZ-7%20HEALTHCARE%20PROVIDERS%20FACT%20SHEET.pdfFact Sheet for Healthcare Patients:https://www.Flywheel/Docum ents/Xpert%20Xpress%20SARS%20Cov-2/Fact%20Sheets/302-3801%34IFTP-JQN-3%20PATIENT %20FACT%20SHEET.pdfCOMPREHENSIVE METABOLIC [id number] 19:36:50 Test Item Value Reference Range Interpretation Comments TOTAL PROTEIN 7.4 gm/dL 6.0-8.3 (BEAKER) (test code = 770) ALBUMIN (BEAKER) 4.9 g/dL 3.5-5.0 (test code = 1145) ALKALINE 72 U/L 40-150 PHOSPHATASE (BEAKER) (test code = 346) BILIRUBIN TOTAL 0.6 mg/dL 0.2-1.2 (BEAKER) (test code = 377) SODIUM (BEAKER) 140 meq/L 136-145 (test code = 381) POTASSIUM (BEAKER) 3.5 meq/L 3.5-5.1 (test code = 379) CHLORIDE (BEAKER) 105 meq/L 98-107 (test code = 382) CO2 (BEAKER) (test 26 meq/L 22-29 code = 355) BLOOD UREA 15 mg/dL 7-21 NITROGEN (BEAKER) (test code = 354) CREATININE 0.87 mg/dL 0.57-1.25 (BEAKER) (test code = 358) GLUCOSE RANDOM 90 mg/dL 70-105 (BEAKER) (test code = 652) CALCIUM (BEAKER) 9.1 mg/dL 8.4-10.2 (test code = 697) AST (SGOT) 19 U/L 5-34 (BEAKER) (test code = 353) ALT (SGPT) 10 U/L 6-55 (BEAKER) (test code = 347) EGFR (BEAKER) 83 Interpretatio n of eGFR (test code = 1092) mL/min/1.[address] age Description sq m Result G1 Norm al or high >=90 G2 Mildly decreased 60-89 G3a Mildl y to moderately 45-5 9 G3b Moderately to s everely 30-44 G4 Severl y decreased 15-29 G5 Kidney failure <15Reported eGF R is based on the CKD-EPI 2020 equation that d oes not use a race coefficientEsti mated GFR is not as accur ate as Creatinine Rimma mamie in predicting glom erular filtration rate . Estimated GFR is not appl icable for dialysis patien ts HIGH SENSITIVITY TROPONIN [id number] 19:34:20 Test Item Value Reference Range Interpretation Comments HIGH SENSITIVITY < pg/ml See_Comment [Automated message] TROPONIN I (test code = The system which 6831214) generated this result transmitted ref erence range: <=34. Th e reference range was not used to interpr et this result as normal/abnormal . The High-Sensitivity Troponin I assay is performed on [email or web address] IM Analyzer. Results of this assay should always be interpreted in conjunction with the patient's medical history, clinical presentation, and other findings. PROTHROMBIN TIME/[id number] 19:33:37 Test Item Value Reference Range Interpretation Comments PROTIME (BEAKER) 10.1 seconds 9.8-12.0 (test code = 759) INR (BEAKER) (test 0.92 See_Comment [Automat ed message] code = 370) The system [employer] generated this result transmitted ref erence range: <=5.90. The reference range was not used to int erpret this result as normal/abnormal . RECOMMENDED COUMADIN/WARFARIN INR THERAPY RANGESSTANDARD DOSE: 2.0 - 3.0 Includes: PROPHYLAXIS for venous thrombosis, systemic embolization; TREATMENT for venous thrombosis and/or pulmonary embolus.HIGH RISK: Target INR is 2.5-3.5 for patients with mechanical heart valves.CBC W/PLT COUNT & AUTO [id number] 19:22:17 Test Item Value Reference Range Interpretation Comments WHITE BLOOD CELL COUNT (BEAKER) 5.1 K/ L 3.5-10.5 (test code = 775) RED BLOOD CELL COUNT (BEAKER) 4.43 M/ L 3.93-5.22 (test code = 761) HEMOGLOBIN (BEAKER) (test code = 12.2 GM/DL 11.2-15.7 410) HEMATOCRIT (BEAKER) (test code = 38.3 % 34.1-44.9 411) MEAN CORPUSCULAR VOLUME (BEAKER) 87 fL 79-95 (test code = 753) MEAN CORPUSCULAR HEMOGLOBIN 27.5 pg 25.6-32.2 (BEAKER) (test code = 751) MEAN CORPUSCULAR HEMOGLOBIN CONC 31.9 GM/DL 32.2-35.5 L (BEAKER) (test code = 752) RED CELL DISTRIBUTION WIDTH 14.4 % 11.7-14.4 (BEAKER) (test code = 412) PLATELET COUNT (BEAKER) (test 310 K/CU MM 150-450 code = 756) MEAN PLATELET VOLUME (BEAKER) 9.8 fL 9.4-12.3 (test code = 754) NEUTROPHILS RELATIVE PERCENT 36 % (BEAKER) (test code = 429) LYMPHOCYTES RELATIVE PERCENT 48 % (BEAKER) (test code = 430) MONOCYTES RELATIVE PERCENT 12 % (BEAKER) (test code = 431) EOSINOPHILS RELATIVE PERCENT 3 % (BEAKER) (test code = 432) BASOPHILS RELATIVE PERCENT 1 % (BEAKER) (test code = 437) NEUTROPHILS ABSOLUTE COUNT 1.85 K/ L 1.56-6.13 (BEAKER) (test code = 670) LYMPHOCYTES ABSOLUTE COUNT 2.47 K/ L 1.18-3.74 (BEAKER) (test code = 414) MONOCYTES ABSOLUTE COUNT (BEAKER) 0.63 K/ L 0.24-0.36 H (test code = 415) EOSINOPHILS ABSOLUTE COUNT 0.14 K/ L 0.04-0.36 (BEAKER) (test code = 416) BASOPHILS ABSOLUTE COUNT (BEAKER) 0.04 K/ L 0.01-0.08 (test code = 417) IMMATURE GRANULOCYTES-RELATIVE 0.00 % 0.00-1.00 PERCENT (BEAKER) (test code = 2801) Tissue [id number] 17:46:53 Test Item Value Reference Range Interpretation Comments Case Report (test code Surgical Pathology = 104) Report Case: [id number] Authorizing Provider: Antoine Leigh MD Collected: 05/18/2022 12:25 PM Ordering Location: [facility] Received: 05/18/2022 01:23 PM Pathologist: Stephanie Dawn MD Specimen: Biopsy, Anastomotic Site, anastomotic site polyp DIAGNOSIS (test code = [id number] 3220) FuZzEwMzNcZnRuYmpcdWMx IHtccnRmMVxlcGljOTYwMl pkfzPbXBFleRPzC7Gevdqd LFiwQR0rLZ8opLqrnUMsyQ IpAXAuGdUvn4mrs936tASv o8miSPBRijpsvTz3dEgoU1 5wy4T8XvklL08xlBOwUEP0 XLHvQAKshPVlCWMuKSI7IE RpxHLgF8lwUFPjKB6vkqcm TBpzZSfkMYLpbUR8POBuvK ZwJ0DxLIToQLjsCOBarhc8 QbUwZr3itKHkwDzjAOjuHJ JkXHBsYWluXGZzMjAgVElT F5TGITRYOk6BBQHQDLDESu MXNaSSSV2QB6ODQxPWTYYZ YDVPI0TWALhqaKUzPOCzPU YDCXvSYGOYP0ZYNT8OP70U VWMRQTIIUZZPM7OGBA3KFT SyHTHOVZQkPU1DRPBIPEVY LM9AASREAKLCGBIIPHvHJW XUOY4MDO3GRPALY1rPEXJC MMtsMRPtSB1jPrFKDJVYQd AfAj0CANBHJ0BUUVTYTJNR VvFIARtJL85RPoZBJDCsdx 78YFI2ZgBti6W2AUX4RHEc CHXkh2gdANLjgXLxCcEuKw NcZnRuYmpcdWMxXGRlZmYw c8rpi266mKBeb5bqUEHgVq E9gKAiUNJitFMhD998XUUg NXsud0jpm8DjDJVgyDXvc5 N7HWTZadcrqOc7jVcxQ98q x1H4ImykF3nfTNHaQEGvQ3 GiIJ5qNBLrBqt2APQ2GUU1 XHXkMJRhC5LjBA3vLUPwfQ WhZQl6d0tqvUlxKXBeKVF9 t4laSNdwnlTaIT6pnj6hkP r9x8yzskUwEYGsCSFhcNJW OUDpV2XggPovGd1ljSq5mX kxPrneLBG2Jlz9RE6ejc93 mql1gZytGCIzibqkAnH2GP amKWLlmyyePKo3FKmnFGVe nMX4VSQczBXlZ6JaSEWxIM 5tura8KWK0TZzfYXHiOkL3 NDBcaGVhZGVyeTcyMFxmb2 10LZO1NjRiFC8rP0Wev0J5 nM3ksJGvYHBaxQTpRdPyEV Bedz2cpTNvENddj0QlRSE7 mzN4jPPzbUItLPYjKiH0WZ dgRB1dmw29PQCmIPQ0pw8e bGNccGdicmRyaGVhZFxwZ2 YvXKJfi042QJJaR8IaEXLm s1Q6qtOiKgArDCDcjSU6xr J9VMNhVA5ybfaop9vpQCja UNzmWBYmlyT9uiO4QDKkqU HnX0YdrS9yHDVdTP9ypmsz g7bdPSD1UXmtUDVzGSZ0Cw FgDXRqw4Ywbie5VbUpm3Am wXJtWXkaN04nw503YMZcdo MkC9rgiSYviripsMGuuupe EGavfgG7TVMhNSygdsujQM RyJTvuD5kbStDxMSZeuAvh RRgmz5QtQELpPOAhKeLxrJ JfJZGaWbm3TWFzrURjJHSf DzCwJ2dgtbauKpOYBEWwk5 wbL8rtiTKTiCPzS5ZsKAjn bmUgTGluZTogMjgxLTYzNy 74QKWlWSMpuf16 CPT Code(s) (test code h4yaaJQfWQOlvQE1NzCcCT = 3357) Hfz2hcf6JaaZCtjEBnOUny nXLphkYlxi05gAD0mC07FV 2aSPGyHxH4RCOkqkR3Kya2 NERtCCDbmDAqS857v3mwv2 wnexZzsXN3kJnfPXAxedus AcT3BAycTDZpwbnzZPf3CO abVOJazSZ7WGHvvRHmQ0Cw IFObNY4zjku6WQR8MEwtUX AoJtJ1SKGfsXWwKGLxzOxt XBude317OCE9QdJcLKYwxc DxcOkpvQ5nRcOjMGU5TJGq NVxwYXJ9 CLINICAL HISTORY (test v7cqcLMmHYJvgHF3ZoMqRZ code = 3356) Eha9dmj0MieLYavVYbSMgm jILsldNscn62kDR5uN01ES 6bBXTaRqZ3QPLyycU8Alh2 ZVNnCVPfvEXjA406v5tea5 guyhQtlAL4tEarDCVnzggf YwL3AOpvQBXuehakZDa2IY aaONPmyNG7MMAtzGEeL0Zh LFAzOZ9gmtf1RSI0MJijWB PxDmF6SWQleHGdDUFygPqz YRves440IJR4HuHwEVIpkb WojVaytK5uPfTdUGKDpnGd wE92NPIzPy3sDCLonChaha 16pOMpfFV8WPjfoAAkL7Sl r3BoU40bc67qN6ThD6DaSX Bhcn0= GROSS DESCRIPTION (test d2bpsSIsXRBsgGP3BvLdXR code = [id number]) Gfc1eaf3XscUVryIXsPZsq vAUcksKvvx93aWB1yI59YC 0pKSScIjJ0XGWhuaJ3Bet7 RXRpZLAcxEQxK924f8nuu8 vcfuQrhIJ2RWPxIQRmJ4Ul TY0iYIUpeDGhM88zcRHqZC X2WHVuEFQpkYEtAGCdUWW5 UEInjHKuG5lyEMNtMM9smc goWHvgSYagYRCnzGB9CTWc oSDvJ4HqGIHjHUhyIJSfon h5HaHhBd0mkBSpuFqdUWsq LKBls8skTXQpaZPtDPM4OO sndFBhNITvYEXlJJh6WJCh KZkgoUInLT4zgGmnGxbjnI smv4IatHPtUGjgKIPjPCJj TNgsDJGvA6LGYLTtKwsjDI I8BfJcMTu0PJtdY4VGIZKq JIH1MWr5PMT0BqH0QQa6PW FLKj1oCOy4RxSiCUm2MQD5 MjEyIFxcdCAyIFxcZmwgXF dnQMQbcBDkZDlmxvT1FHFj KMbyBSUkUfUcZY0sEkibvD X2EVPUssUziC8zz7GlEwQJ aXRlLlxwYXJcZnMyMFxjZj HlNdIzVQm9ETAhfS6qTx0k gWTpmL0leMHuHNbuSMR6nJ SgIDT1IKusJDU8GTD2mdTn NZLlPH41FExdND31qCImOQ PlAZQuLHRaKcctsTF0RXVe djGbgZ8nd4GlSoQebAFnJh CrqoYlcbZynJkbC3Jkc0Jr kQAjORYpeoiepZxpv0NtZZ QkCwTyY89muO5rM2VcABPt r1UlBPgrZQ2fnW8lPtQrLW hlIHNwZWNpbWVuIGlzIGVu hSzlZPf3CFR2Hu5gkJEmKR JnhqUtRDQeYGR7HVCAYM4d SBTJSH7afWyvPLVdGhFaAl urLyL8QMLmvCGwFTI6LQ2g nZmfOMSwZ9HpP1UowdC2ZS Bhcn0= MICROSCOPIC DESCRIPTION o8mqqEXdASFbxRQ4XeFxOC (test code = 3371) Qfa3zaf7PqjZAqqAEqZGkd gITavgFxwk39xWN0pJ29YY 8tCZIuOeR2KPFhjmH6Gsl4 HJVmMDMljSTjB583q4zim9 lhgcBwbAR7bRqnMGAxmowe YvU1BRwdIAFjpitaEDl8GX rzSJWhzMV0JZPhzZBoY3Cn ZWTqVO7smvf9LPX0MAutIP FiNwA9DDJalRBjIVDdcMue KBcpu384PYE0YxMgMUEixs VdiWxuhI0cAbTaLIBQYOES D8DEGVTlwPMbpB== [facility] [id number] 17:46:53 Test Item Value Reference Range Interpretation Comments Case Report (test code Surgical Pathology = 104) Report Case: [id number] Authorizing Provider: Antoine Leigh MD Collected: 05/18/2022 12:25 PM Ordering Location: [facility] Received: 05/18/2022 01:23 PM Pathologist: Stephanie Dawn MD Specimen: Biopsy, Anastomotic Site, anastomotic site polyp DIAGNOSIS (test code = n7yqnLIuZMDyg2ujJXCmxT 3220) FuZzEwMzNcZnRuYmpcdWMx IHtccnRmMVxlcGljOTYwMl qhhzLqVPOnsQAqF6Sasyqz WQhcHC7nEJ6ygHhvxFJfrC YsQHOjZjGns0ydf738zJJa p8xgBXMFjhityYc6aZnvY9 6sw4Q9AxkrV13zfGHlJYJ5 BHQqXPQliVFsLIShPKZ5UG JrjEVmF5jwLNRnES4jfrfc VCggOEseBSPdhHK6USJwvD XlU4YaPONzQTxqBANkood6 EiJbSa8cdRUxyAvrDWfnWA JkXHBsYWluXGZzMjAgVElT I9PARVOBYg0YSMJXHEXBFb UQJzOXYV5MF7HHPfFWAQVH QTKDO7ATFOjbqQXkBRWfNF DFMPkJYPNYB3HIYO8WR95O IQVLDUPTISVTO0UDGE6DKT BsKCTBUJBoBU9IOPHYMBSS XF3IECKYYSNECEUBPTdPPH YUQX3YOB7VJQRGH5oXSUYN TMrpWDZxNB2jAmYIHXXUCp YjWx3HJXUAA8CXOVHOGXZB QjLMBLuUD31VXhAJTZFzqp 47XJX1ThIhn2T5XTK9LTZh ULNru9jiQMKuqGUdAdMdWd NcZnRuYmpcdWMxXGRlZmYw i2fux800nLAcb2jyUNDaMp X2pKPnXKFvyWKmV899DLLc TKboa8xtj7IaVQHejAMzh7 E4IVSMhgotmYk1cWyvT68a q9Y7XysbG6zbDEKbTITvV7 VeVZ4uNGHdTbw5MPD9HKF2 VBUaCFRhL6EdPL8yYGOtoQ IsOPg2v2pyoJwqVASzZKO5 a0pgGXjltoZiTY4zxj6udD g2w9hogqTlKULdSHRxjZYV FQKuX2DciXqwCe5ucMq3cR zkAabfGUL5Qvn5FR6kjw31 rfk4fTvzRHFkzkmyQiV0XO giMQVjnsudOWd1SDsgIELk mJI3LLXqdKLoZ8OqFWOcYY 1dlwq3MXJ8FKepACYeAqL4 NDBcaGVhZGVyeTcyMFxmb2 14MFU5TjWiEE1wU1Hac9A1 qN8fxNQmEWKldVGyRgPbEG Nuiu7fkYExGOoqd2FySTY3 tsL1mNInuEVyNCWpOwA4XE vgZW4ipg11CJLyQEX3tv3d bGNccGdicmRyaGVhZFxwZ2 BaTKTrg011USDhH4FfOHFf g7Y9nzOiSrAmLLNodNH9hp D2LFFnDB3dytxop0ieHIgp FRgcTQKppeP3szN4FMStvV ZnH0LmgY1oVLWgUP0wfsll v3zpYEP0EYynECZbUQV8Ho KwNKOly8Azlvs2MuSiw3Tp vXJtBLpaK25lp812QLCvhf MoE1nseTSqldvqlRMezrqt QVvqgnJ5QNDyGQrjairoWP OvVMnjP7bzHbRmMCDqmVwg ECotr3QkXAGcMSArYyVmeF NgWHNyYne2NSBuwTDaZMHt HbRjZ7scfjkiOyOJUFSxm9 txI7oauVRAcDHwJ1FjDOgp bmUgTGluZTogMjgxLTYzNy 96YLKkIRFyyk13 CPT Code(s) (test code i0frvBJpJSOriEU7EyOnMX = 3357) Nrw9gjj6VjlIDjtSYzAPdm kSFeaeAkyo26fHD0yT23YA 8mVLXhXpT8WWNtekZ0Xvx9 NOXjISIawIToQ742f7dfy9 twjiRjnQV4cKcaHQJoxzrx DoV6LKoyAAJjezpnMLx6QS qoXEVffNP0KILvoQClL5Ru JRTdZE4ahgd3UNI8MAbjUC AwBhQ0CQEvnUTjOYUlqOhl SCxoa554VXD0JcFlLVWjez DbgXxxoD8eWxTeQVJ7HYHh NVxwYXJ9 CLINICAL HISTORY (test r8vgwYZyEZHvtJO2MzVdQZ code = 3356) Aao1amx4YbdZChgNAgWWtt nBYyyzGpgn27zVL2fY13TA 1bLSXyXyH0WSQqjuW3Cnk1 JYInQJJvjIUnN168c7hzz0 shbyMrtIS6vTptTLStxwkr MpN7XHajBGKlgnokSMw1OI zdZZSemSP1HGFjsKMqO1Xr FEYmEY8bzri6FXK6XSbwTT MjTrK0JCPhyFUmLOUzyQaq QFtox593QSM7HmTdKWJqec EubScwbL4eOgRyUIJRdxDo lT40LVPyBv9qMPGrhUrjum 77fHOmtHE4KYvydZLkB9Bt p4XvG37hl15sL7ZiZ6KsCU Bhcn0= GROSS DESCRIPTION (test a8xgzTXnXWPddFU6WaSeAP code = [id number]) Imj5mif3JsoXNhrXLvVHeo mQCqyzBjhr04yJF5jT29VG 0aHMOqDvQ5CCAxtiL1Uao0 PPZaTSOxqLWeK572n0vqd4 zujqIusKC4XAWxSLYjK9Fi WO1dCCTqoKZrP05kiSHgFV U4CTDqPDQjuDFlEGNkREX9 UBLnsFSoK4rgKNHuRS5dtm apKQkiTYgrNHLrbYJ5RJLo nGOaY6LuWBKtGMfmVHKrfj i3SsThTe4tvDYmnNnaFKby QLNab8wnTREyeCKdLVO8DX qtbBAuNXLvXPPnSUy0LAYi FPskvDTdKT0gbBcsXfcbaC hfj5NtgKAeKNdqJBNjTNJd PLvdJJYpW7ZJUKZnKbrpJR O5GnPnSFs0RIjwS6SEWEWt CVV6BNo1QJC2AgP7WPg4UX PHXg3nMIh4PkAfBEf0BTA0 MjEyIFxcdCAyIFxcZmwgXF dzCCDsdLQoZGcxoaR2BXDf HHsnAHIuAfCvYJ0qBboyzE J2FHISiuAnkW7wc3OsRtTL aXRlLlxwYXJcZnMyMFxjZj CbYwAxKTa6AFLzcU7bJy1q kNGrxS7feSBjGCxyAPX3yE XtZGS5GIbcXMG7FZS4wvZp QQTtLM06IAxoOJ75kZXgXR KzVOLjTPPtNmemrRX7IQEu ogYknV2bp3HoOiPoqCAlQa DbheRgprJhtWfwM0Udk7Rw zEUxNMHucudzqWuhf8YvJC YtCfCsF55gwI8uL1OqJOAe s6NzWMbpHD6ipM7nUoTwBS hlIHNwZWNpbWVuIGlzIGVu gRdtTXi6XXX8Ld4mmVXpCK IwycRvQZPoAYO2NYWABE1b PZNJIQ4luEhxVEGnIsSaHu vsChD5JEUtmCRjQDY1DF4l iDooBHCjF8ThD3YnsmU9KA Bhcn0= MICROSCOPIC DESCRIPTION j9ebbUHuPPXzhWC2JzQnNA (test code = 3371) Yls5qla4SovANnaOCqDBhf nNLrxiGxfz62pCA7pE17IV 0qODJdPiF1QUGenjP0Qrg3 LKXiHMSiwOTlY453r1lul5 idscQhdGJ5pJsmETEuonwv XoN7OIhpXLVvijvfMYo8GP isCAXfsAP9KTWziRUnW6Gq NKPtAZ7adnu1CPT8NCadTB XiQvR3TUHheRChGKDfnEcz KYqvq084CDZ4OtArRFOrvy PzeFzezD0cDaBuXCSCSVGJ T8ROTGFwxIQicK== [facility] [id number] 17:46:53 Test Item Value Reference Range Interpretation Comments Case Report (test code Surgical Pathology = 104) Report Case: [id number] Authorizing Provider: Antoine Leigh MD Collected: 05/18/2022 12:25 PM Ordering Location: [facility] Received: 05/18/2022 01:23 PM Pathologist: Stephanie Dawn MD Specimen: Biopsy, Anastomotic Site, anastomotic site polyp DIAGNOSIS (test code = [id number] 3220) FuZzEwMzNcZnRuYmpcdWMx IHtccnRmMVxlcGljOTYwMl lzgaXiTRCpwFGgV9Xroqhu NOwdSC1lSU8sqPgxmEOtpV OcLNXlRySyx9mrs601lURs y2msMPIDjmuwoKg3hDnwK3 1us8D7NojvY84erEJsDLL3 NNFwBTTtaRMjXGSoAZE9GP YieNSzD9vfTTTsJO6pqqoh TYjfPFfxRWKksNO9MBLwaI NoG9RcXPFgTBouYFHzlul5 WnCgYq0jtQTfwScnMFdbTP JkXHBsYWluXGZzMjAgVElT V2RSVJEZKl1KIZDNXNRFZa SBZnJYIJ2SZ3TPPzCXIMZQ OGGMC1CHCAowbXAqRBKaXJ DBNXgNTAGQP0XBRT1AE27S QRETFCVSCYKJT2RPBV7OYL HjZDGOHFMyVH1HALPRHMGG JL3XKCKNOEFFMQEZVPxJKI EPLC3TKF2EGMZCN1hCCXOL ZPomBERgPK6uSnMGXJJJVc OgRz0DTXJPH6IGITQRUPDJ CxMEDCcZR73CSrJYRIUxvd 26IUE2ZzTbq3C9VII8IMUz DQVzt1cmGJIzbTEyPjQbZi NcZnRuYmpcdWMxXGRlZmYw t8wff879sARox9jeWDAkJc C9wEBaYQSfsCItH843MWYi BYxmq9hvb6XsUSWznVJeq8 A4VGALhbtdrIi6iTtqA47d q2A8FtrwE3fjDIZhUXZwJ3 FgQE8rKFGuUuc5PVJ0LAL0 IIAkPHQeH9QuDM3uPUVejQ XfFKm8x2ytgRmsLUSvOHM0 b3mmDOzkabWpHC9nzz1nsV p8y3yuqmBkBFZrFSMdyXRI GAAkN0GapDqxYp4nnKj7tL hvAxzeASX7Gqe0CY4gjy71 fkp0dQeeMCHszlvaCuL6EY lhEPDazqvvNYw9QHqaSXOd eGU6PFThlELzX4WxTNZhMP 1wzta7MGK0NCoiISCgJbY9 NDBcaGVhZGVyeTcyMFxmb2 93OEP5LhVeFY5xL7Qmj9I4 eP9iuWRyKQYwuHCrVsTkHC Lpfy5rlPDnTTwhs2ZcWJR1 ejT4hIVduSKhSVLqSjS1FG oaPG3iua29WIZrCJD6qo7k bGNccGdicmRyaGVhZFxwZ2 NtLQQhx275ZPJyE2GeUQKg i7N4opWoBqRvIQAtxMZ6ya H6WYAbOQ1voejud0ttZNru YWqbQVHjqhZ7qkZ4ZPQpoX MmA5JetI1xMKUlUP1mvioz z2osJJR8ESjoRUWoFOS1Yq OlQGWyz2Vabft7LgVvh5Ak uQKuXLbiQ23ed040PTAyas QyK3wptEUdmofgoBYbcneg KSoyfwH1PGMdUEansrlzLH MkOBwvV9kiHaFoQNBeeHqz YBuxh6QvPNUkPBGhUrDibF OwSUQmGxu7EGXagLWkQPSo QiJwU1ngpzklKzBKAMVfx4 qwL5brxTAAdVUnK9QjHGkd bmUgTGluZTogMjgxLTYzNy 36LSXhIMJkse38 CPT Code(s) (test code c8tvwBYcZYVqpRA6DgDcGD = 3357) Mrz6lix4QaeVSycORuFLyr dPIyugLctg14aKJ2mG82RU 5aCFUfIhW4MGUqofK9Pts3 VGXsJAYgrJXxV426e8tsy9 zqagRcpGG6fNxiQZZriadp WaA5SFtcDFTeqkuvVSp1SY usKWDlgQM3PZCsnTDrR4Ac HFSzZR3jyns6BGS9CGclYM LeRaN1VFSnrMOfERPytRvw YIzgw800AWB6QxCgBYTvbg DgzQdxvC2eUpAbACQ0WXVv NVxwYXJ9 CLINICAL HISTORY (test o5qeeCPfKQAaqFG0GoKiAX code = 3356) Olm9ucj7PtkIUgiDEhJEuo tDMfhhAsnm53yNW0wT29AK 6jJWCkYoG4RXWdaiD2Ptk9 WNWmRVSnyKZuD311z3wcs5 lqhzXsnST0pJgbWXUoqcam JeC7XOawQBUdjnilFBy9MD yePHLihHN5LXUheWFqR9Jk TRWoBL0jybi6YRR2UVneZQ GsZrJ6OQCxtZQiPYRcySjh TOqex752BEW2QtMfZFMkgf ErnEbunK6kSiKuWHFUatXb iS88BIIsRs1hLSMsyOcvdd 84gVPipHC8DHoipPQdG9Fi f2YtI78xp47sN7ZiW2VnLT Bhcn0= GROSS DESCRIPTION (test w6koxVZhSQObvGS8JvWaDE code = [id number]) Mgo9glx4IjkCEiaREsFAcj sYNmjoIvud50mDP9hW41FW 4yYXMoYxM6ZZUxmwM1Oph1 XCBjAFSnmKWoJ011l2gal3 rsaeTwcKR4EDDqIDGhH5Hz AR0kSAUskVVyQ44hrYDaES U6MSYhZWHxkVXaBKYlXBG4 QVBkkJFnS6jpNDKqNJ9ere fmHHunGWolYCEygHG8LXTp lXGeW6MzDOCwQNtkZLWdym m5RgImUv1fkPIleGyzHTfl JQXiy2feMZEjcVQlGLN1RL qtbNTyCXLqVMUbCMd1SHSr IFrygJAsSY8ecQlaEubdrW ljz2IbqQStRYxaLGLmZORg UDwfPLKvT3SKAYBqEhxzQJ V9OgVdVCs4YIegQ9NXASBp GDB3QIs9XBW3HoQ2TVn7CK KUUx0wESn3ZdInAMg9CPF7 MjEyIFxcdCAyIFxcZmwgXF iuUWQuwXHaVZfmkrU6HFKd CBfuZFHtZgLjCF3dSthivA X5YHMRezHjoI2uj0ElFfNX aXRlLlxwYXJcZnMyMFxjZj EhXtByWFs1DCMrrA9vKa6f xUFkoH2arCVbJPyhWUM7mL CuWSE5ICcgOOR1OEA4dgKp GFKsUJ16COdqZV41wQDrUJ ZhEYRvPZVmEgzogQO1FCHw tdCrcO0bv8IfMiYvqGUoNg WfebLojfIudZnuT6Hcb5Yq mDCkCQIpzjgteXluq1KwKT PwBcUeD58sjT4eE7VeMCMt h5TwRAmqCI4dvX0iOyYkVK hlIHNwZWNpbWVuIGlzIGVu mJdiJUo2GHR8Vr6yiLKhOR UhsrAkRAIaHNE7XABIVG9c ZKLQUL2sgUgyLYCzAzHyGr mmYqN3WULknYSzBVK3DA8f pPadPDGkS0TkC3DemyG5OI Bhcn0= MICROSCOPIC DESCRIPTION y5heiBTmESOfoTR6FgUrWQ (test code = 3371) Zup6jmx9DlnOCteZCzOAil kSIgfqUxkm49pIL6oG87CH 9kKVRdFnP7LIOswjQ7Clz5 ZHQzZDGmsAXdQ943r2afj5 lpgcTexCG4jRauTKKijqmn NjF7QBtmLCYsrivrOOi7QR jkPDFiqUV6KOJywIDhV6Zv VBZdZJ4tehz2PLV8YZpjTS JrKaE8EYYryVRjMLLavEqx WAzur343YKB7FyGnIOBkjp ThoFhhwI0aPuUvSYQADUEM I1QECJPoyDBfxC== [facility] [id number] 17:46:53 Test Item Value Reference Range Interpretation Comments Case Report (test code Surgical Pathology = 104) Report Case: [id number] Authorizing Provider: Antoine Leigh MD Collected: 05/18/2022 12:25 PM Ordering Location: [facility] Received: 05/18/2022 01:23 PM Pathologist: Stephanie Dawn MD Specimen: Biopsy, Anastomotic Site, anastomotic site polyp DIAGNOSIS (test code = [id number] 3220) FuZzEwMzNcZnRuYmpcdWMx IHtccnRmMVxlcGljOTYwMl pllsEgHODeyPZmU0Xkchsf ZAohJL6cNS1inRzqvGXvmT SwNCTrDtPwe4kde942hFNt j5wdAYIUzdqvzZl9ySbcH2 3bz3J1AjayJ59hlNUbNUY9 SXHdILKzyJRoRILxGVP6TY JolECcD0liPNRxKQ6uisfb HScwMLlxEOUxjZN6LXQgtI EuX1QzBOXxCPczWOXomzw3 EqEvZc5xkTAfuRfnRRasNC JkXHBsYWluXGZzMjAgVElT O2MDJSAJXl6QHKUBTIJIJv DCGmVHBS0XD2XOGoCIGRIU LCUHY9TRICgptVJdHGHzKK BIFZkFQAEPM5WBFQ5BM69V IYRSOGQKENVQU5OOOQ4GPF OwFFJWHRCjQE5BYOXKPXLP NP5SEZZXCICFBHRDUHoYHV ARTA1VPZ7ESKJZD1xEMEPO TZflHLWvXY6iFxQFXEEATg DsSa1NEWGUK4AYSRUDPSSY OzANOFhQK65MIjQLQNRjqj 61HNB4DqYrb3W0VQT1XSQr MKMbc0ytZHDreBWtPbVxNa NcZnRuYmpcdWMxXGRlZmYw y2qsr314yTCuq6isOLTfLn E6oHAfGIEgyMOjC793LWAg IPjfg4vnt8KnSGKvbQYgy4 Y4EVFOaroduLl5iVygD34s l6P2ZstqQ7uxSPUyYPRuM6 GyNK4iWXLhQcy0BIG2NEN9 EJMwBNNvA1GkPJ4jTMMwcJ FsMRa5w4vxaNmfUFRqGNH3 w7hhGRjxijHzDK6ggp3cxT w7p1vcbuCxNYGlCTYtuQBY JXPbF9OitQygQo7ssUs5dB zmLsxsGAP4Rir8QI8aex03 yly7bSpbOCHkosmaRuI4WM lkOHOkfhytRRi7MTnyQBCu lNJ7FQXjcOLeR1RtYKCkAE 2iwsn3AXZ6UWisNAPqBiP3 NDBcaGVhZGVyeTcyMFxmb2 58TRB2VuRtFO0mF0Dls6U5 gP6ssAWuSEQjqMZzXrEsWJ Xvcc5zzUQkYGfjl1IpQVY2 uyO7uSLvlHLqAUFgEeL1OM zgNY2xyg20YVImCUC9pn0q bGNccGdicmRyaGVhZFxwZ2 ClSZXok157DWKeU6OiDVCb u5O9zgBqJeSuUBQwrXP2xe O0QOJbFA1eizkwf5wpLJwy RPltHHLudcO9kvN3QLVxqY QeJ8AbpR0nUPVmHT3hxzwc k0ijCRU2YMmcUELnNVS1Xt AmZZMwv9Euvja7FeTbr2Ds lHXsLFleJ47ju992XHEibp CrX4slzJUssrgfcXQthcui UEkxkzZ9GACbYZhqycitID QqCBjdR9ynSkZaOURjcMud UAneb5IpHSBsPGUbRoDgrK YcCXKjPlc3MRDtmHSgHKIr XcUuR4fnqbfkKoKXFRIvo6 lqS6lzePITiMNcP3RwTOre bmUgTGluZTogMjgxLTYzNy 09LNKiQTHyuf73 CPT Code(s) (test code a7hejFIaJAUzcTH8KbLjUN = 3357) Wbn9gig2PlqYSziNIfVMjk xDFdlcFeqb22gCT5bK76CV 3cUYVjOoG1YAAnwpE0Pyq3 KIRlGUJgdJWaE531q0dlv7 vccaCvnHZ4zXjvNTXwrgkk MzX7FTvnJSTvantxRHt7GP khOCVbbFX8URPbsXPtE1Li BENmNX9mpny7MPP7CRhmWA HkChM6YRFnzDAbPYPdwYhu SOwhp643THF3TcTxIDUdut BflPfbtJ1fDeBtGJM0GTZn NVxwYXJ9 CLINICAL HISTORY (test g4pziPIsPJHfsTU6TdXjOM code = 3356) Flt2fdj0EjyYYnyANkQIqo vSNnghYbnr48gZT3iC83JM 7wLLBzQmQ3KKZjfiT2Khq5 XEMfOWAbiIImM721k4vmm4 mfhiVpzDY3aGssZRBorxxl HwO1EItuSUNlspccUTn5DS otIMExpWY8IWWhmCSkD5Fx YSFrIG4qhzn6ISV5PJpnNU UbEbX6ZRElpRPbNAKvmXjm SKimz676HVE8GmNsOYNoqc FolVvtsS4mIwTfIOGJuhXn fJ66HOMcLk6xCDKjmEhsyh 31hRZrfII7HUhtiSPlQ1Jx x6WnS10tv07jC7QbZ3BsOO Bhcn0= GROSS DESCRIPTION (test a2twxXCfBNXhwLA3NjBrOF code = [id number]) Tkq6tfg9CiiYCzyJNdQPkf oUUxeaLtti99hXL0eP25KF 6sJWYlZgH1IZVwqrJ0Cfn7 SJSrFOMjhTSjS530l2ggc3 dwhlOhpQO4JMEiDDLhR5Cx PY7cVZMwePGyQ41qyNEkAO B1RBYiNYVpvIKlMMEmPYI1 MCGzkTLdQ4npYTOoES5daf nrMMouQOfvPLGhyLJ3NOIg fLJaF8RcXMUeZBzrYHLeys g4KwTgRa4ksCWevHupQIxk LJWnm8xyKUTjoEDjJYF9NY fttQWdMYHkGQFnXNa3RDBl IPqanDShAT8ieZhtNifuoJ oyc1ZjdTQaANvvAEFxHIVr FYoiJDJcK0RCZFVoCmjhHV I6GsDvSAo0XYajA4BJNYXg QPW0VIy1VPC9FeN9CRc0WR MWNq5yVWi7RuEeWIr9JXL1 MjEyIFxcdCAyIFxcZmwgXF ubFPIquPRqAMclpgN0HDEw GAzaXFJsMiXpAQ3fSceuiM Y2JGJAxmFnwO6qk4QvPmYH aXRlLlxwYXJcZnMyMFxjZj SfAdXiCEi8CWBeyA4dLb6e dNZuqE4vsXIyWWizYLE9yR OlTUF2PVvdKON9UNP0cbFx JSRwBM90ULqaQI74cTPvXP TxVBOvMOEfKtvzhHB5NXYu kyPfxK2nf9EyVzDwiOQaFc GkyaTiyyDhhPabC0Ubb2Yr zRNdUMLbsldpyAezr1CaMI ItVvFfF71udQ8qC7TvKZRc s8GeFFqvPN2qrX2yUmYbTN hlIHNwZWNpbWVuIGlzIGVu hXyaVLy3EOQ2Rf6dtYGwWZ YliaMsIILdODL3TTTMEK5i JVEAEU1zcAdnGZMeLfFzEh umNrA5MYBglMRaAVT3EL6s lLrgJXLmP7YcB4ZomnO9CE Bhcn0= MICROSCOPIC DESCRIPTION n9xxvPQqTUTfwBH2HzUwYY (test code = 3371) Vpu6rmd7FzqDFevNEcYRlg rECfowNfjf58vFY9iV99DX 0oQAYaAzD2LAFumeX0Fid8 DJRoJSQxoBOfM042j7xnp8 xjqpEwiEW9vMoqJWIezdfh PtJ0XCohQDQneqvcGMa1WD eoOMJmsMJ8BPMsrDXrK6Lp GVTgYV6guyy5ISL6GIssWG GwZqI3YGRziCQqZQUmcQrc MLgkn939CNT8QzVbQCLkvm JqxLeqbV2hDcDaOQUMUKOP H3QVODRyeVBhoK== [facility] [id number] 17:46:53 Test Item Value Reference Range Interpretation Comments Case Report (test code Surgical Pathology = 104) Report Case: [id number] Authorizing Provider: Antoine Leigh MD Collected: 05/18/2022 12:25 PM Ordering Location: [facility] Received: 05/18/2022 01:23 PM Pathologist: Stephanie Dawn MD Specimen: Biopsy, Anastomotic Site, anastomotic site polyp DIAGNOSIS (test code = [id number] 3220) FuZzEwMzNcZnRuYmpcdWMx IHtccnRmMVxlcGljOTYwMl hjubZeUWRobMJkB3Kenzxa UXmoLF4mGR9uoZmlsQXsdU KnZYWoAiRnq6fnu521lXFk t3nvGVRGxittdSt9hJawB2 8fa2V2UbxhD60fkLVfYNG4 VTCnDORisMOgZCSqHHB6MH KimANbB6esHVNyMV6xnbnb OAzdLQwgCBOyxUZ8AGWnlR SwD8GpVVHeKCnsIRDtaxn7 GlYuNv6llVPnfOfiGFarEL JkXHBsYWluXGZzMjAgVElT T1IMQLFZYr3UVHEIBNLFQs XSZnXCHI2OB3IWPrLMJGGB DRWFT3WYDCqenZWqTXAbGG NVSWtYVTUQL0NVNX1MD79M DWPJJBQSIGMFP5BOUH5AMN YxGSCEMKCfVP2ZJQPFOUAM VQ9OYCSCTXGWRPNJQPmQCU YZHW5WRT3PSQTRA8xJRGYP UDtxWYZyZH2tBnQMXKGWEu DkOw8GLVMNR8VXCVSFVNDE HoNRWNbGU42SDzSDZBQxvw 00PJO8RwTgp0P5AOT1NLWu UPUqs2nzSHGmjQWmHgKgBa NcZnRuYmpcdWMxXGRlZmYw w4kmj877fYXxw4elINSeEw W0mGXcDLImcUScM428QWVy NEvjq6iai0VuGQYhqOFxm6 W1VOILqgzdrGe7hBraD26n u8Q2JomiF9plQSCeTCHeY7 UdWI4wGEJoEni3SXB6OEY1 EHHoSXTaU8TaZA8rMWEhlF ApCPw0d8mbpGmmESQgGLG8 n9dgRRvrflInEG1nyw3epL z6p3afegSzVZOsEUVfmMFZ HPXkY8SfnZajJv8rmJo3qP ezLppaBOM3Cbq6LM5cyc01 lod6vWfsMXVeholrQlI9FQ rhDEQnfymrCRm1JGniXZBg dID7LXHrzZOqJ5RrRGOaQZ 3yiut1IXN1URnyJERlMmO9 NDBcaGVhZGVyeTcyMFxmb2 25KKO2HhCpCD2dT7Inu5D5 aA5tuJVvIDCjpEQlCgLpVG Ayic6koLJiHEljs9MuPCQ8 sgP0xWAcwHPePEErEtL0SK suEQ9muc84LWDuFPF5uc8g bGNccGdicmRyaGVhZFxwZ2 YyLXFyr909PGXzS4NrMDOd q2N3ebMmXuPgYHIraUT9vm O2NDVpWY2eksohl4iyLQqd WIglPJDkhuM1keP4HUBopD FuT8WmrW4qJAYqBB4tyoke q7hoHIH8POhdKCTcUPI3Og MlSVCcs4Tfzrk5NdAua4Sb nQEyYUzpL91wl218TGYdgg PaB1itxGAdblmwnBUrpedw WTxfxaF8WHIoCOrbnyfhFR TpZXumT2reJkDoVMDtqJmf OPkgb6ItQRZsMCRiBwQiqU YnWXFxDrr6RVDprFEsHNOc AaZgG3bevkhrRrSLIRJso2 bfQ8ayjJNPtXHxC1PeVGgj bmUgTGluZTogMjgxLTYzNy 30NIZwNFFnxm07 CPT Code(s) (test code b0xnvAZnNYAhtWJ8ZbDyMZ = 3357) Btx9per6JsfLVsfYTyXEnx iPJuaiGbzx95sXH9lH85LZ 0uQPVmQyB3UNKkoqY3Kvc4 EHLgAWMbbNJvQ628z3vxb2 zxmyTyaGD3nWchBFLkbvsx RnB9AGsaCAUectorAOa4ZT qgRTKfmGV1KTNkpDOpX5Mz QWSdCS7jsrk1NMY7ZYfxHK RsChL4QAJrdTVmUKCusFuw BWcrd863EXL6KkKfKVOfnv UrrZsqwX2rJyNrDFA3ANGb NVxwYXJ9 CLINICAL HISTORY (test g1sbkDClFPGlaGJ0BdMnKJ code = 3356) Una3wtt4MpwUAhjHSvZFst gBXayqZmpo02sPS0wB32MB 2lGUYjIwJ1SVJxbmY3Ebj7 KLSpSNAvgSZeY009o4tui6 qsscUdoAU4pQbiFCMylwye UrV8ANfuCTZrhyteTNh2IQ dlUNPdiSF9UYMppAIhW0Zv AHVcNV2rqec5FQD8GEbzGY KnDrV8RJIlkNKuBQYvjXgs XEhwd272ODM5GkEtZLRuda HdcHcqeQ5lVaFcGAUXguYw pS60BBHzMg0pUQTyhBhwkl 30eTVskYJ6DOewxLGlT9Rc t5TbG27sv38xT4EiN9SvBF Bhcn0= GROSS DESCRIPTION (test a9ayoDRvWCRvvJF0TqEcJG code = [id number]) Frz2uxb4TcvEKpmDNzQPkk tHYfdyQzrm53wPX9nR02SW 3pKYZjAgL2FPNwdeH5Nvc2 AHXvUUWspCPbO782x7gwb1 buwkOxsEL4TWEaEUUeA9Rr MI8aWVVjyECtL60wxTCkLX D7TOWsZOUfcNDxENXiJOO4 JILkoEOpC4yjJLMqDL2dti gxGGnqXGahXRMjpCV6XTMn wDUkC1ZeRZJtKEflCYSfuu h5XaPjMe1srNSawTjvJFjb ROJkg7gnSYKjaCYcPYE0BK rkoTIlYTNlNCTzYPj1OJWs FCmikMYgWO6okHpwOnrveZ oga0LcfFOgMMwiPOUgXFAi XTwfMGRjF2FPOOIbYnunUX J3ZaVoZYk1BOhxP6PUOASb BQV4HFl7SJW2BkV5UTj6ZF NNJm4tFKs8EeKnDCs6BEK8 MjEyIFxcdCAyIFxcZmwgXF cwLWQquDIyVOrzabH4FHHl XLmrXRVgOhPeFG0uUhftlD V6YEVXfyTguL5yg1KeAbIB aXRlLlxwYXJcZnMyMFxjZj ZdSgHaPIq3MIDhhU4yZo0o uMIulE5srMFqOUzkDDK5rN NcAYY4HUqbRPW8PHX0jzHa AVDiBK95XFngKE69cRLzTI WkXJWaAKLnIioutZQ1IYKz ztMrmM3pv2RtSxOstXNjDm SjoeWrqpLqvEelC7Wae3Ti xWHhSILwdggryZrpe1KfZO XlRrGkR14nbX9vH2XgOWHv x5JzQOclOH8tlK4vUuVlLA hlIHNwZWNpbWVuIGlzIGVu tSzgBXe0UKM2Wm7exRSwBQ SbkePpDKGyOID4GCMRTM8j TWMCQQ0boBkwFQWkXfPdGx pvSrF9HSFsrIVmTIR5IL1l sOkxQORcN9BiL4CyroD7OM Bhcn0= MICROSCOPIC DESCRIPTION p8tudYWnSUQcbMU0OrTxVR (test code = 3371) Tpj4xcs2FljTZxpQTgTRcu uYAdztJmco58gQG0yA88CU 8dFTKlObL3JCDkjrE1Tvz6 ISTnKBYkvCZwD308g9kpz7 bfnlSxzHP7tGomDNJoaisj IcK9NWpkOXAppoudBGz9VN wbEJJfrBS9BUMbfLCrD7Tu GMClGX0incb9PMO3FOorFU GtXiE6RBUqePShTJMskBhp NPsrc118GUB8EwLxRCWqxa AerJnaxK4kLjPuEDJRLRRA S7QLULLqxTCsqO== [id number] 17:46:53 Test Item Value Reference Range Interpretation Comments Case Report (test code Surgical Pathology = 104) Report Case: [id number] Authorizing Provider: Antoine Leigh MD Collected: 05/18/2022 12:25 PM Ordering Location: [facility] Received: 05/18/2022 01:23 PM Pathologist: Stephanie Dawn MD Specimen: Biopsy, Anastomotic Site, anastomotic site polyp DIAGNOSIS (test code = [id number] 3220) FuZzEwMzNcZnRuYmpcdWMx IHtccnRmMVxlcGljOTYwMl rfyfHeCJNbkWRvO8Cbgnii MZuqBV3lZB7efSkjsHKzlN LsYSOaWmOwc0ohi770zUNh m1suYKYEdbjrnJr0jZakR1 1fx6E9CcqyY90nnQLoHAO8 WKEfOSDqiPYhIMBeRSF5LG AxwDDvY0uyYKBkUF5viite QCbyUSzxXFNgwUS0QVEpxY RmQ5HvVWFoNPqtLYKdkic2 CoTvYv7bnUGquWylDUgwCJ JkXHBsYWluXGZzMjAgVElT Z5XOOCFCJs1WJTQIOKXNRr WFFnNRMS9FE5XTVyCDCEUN JKKKE9YSQYnrfWZyTVOkJF QSDPtLQDCFP9BPHX7WR47F RAARAPSJAHYEU3YWIU2QMW WpXAFZKONyTG9KZGDGWLOF WB6VZRCDEHKCZYWBSCjUOG TJHI7EFT1LWBIEV5mFDTSG QVwdAXUuTM4qEiFQZUBELq NbPw7LFVRZO5FCDDHGTXRI OzANGKqZK74UBoALGJElmk 74QVM9CoTfu1S2OYT5DDIj TFLxu5dnSIWqtMXyTvFxFv NcZnRuYmpcdWMxXGRlZmYw p3qlx182pSXrd6qfAYQiTg Y7mSAoTRWxyZPrT303BTAl SPnvt1mfr2FeXCEnlIEqw6 V7CHXGukxkvGl5zIdsI80s p0F3QrqtE7hyJXNjNVRlE6 KeUH4qFNYkPvm4TQT7VAO1 UFCfZURfI4UeQY7fRLNvxH WsJAr7n0hwbNotCRFuEFL6 g3nhXGozdnBkUB7hph5tkR f1w1wkdgXtTEZeEEQvyOAY QFTyJ5QzlScbXw6jdCt1vQ neWndgWNG5Bku2CN7kmc06 frb6zEacOXMbbxpeNvZ7RK dmDYHprktxEHc1NUtfTMGj hRA5MGLnbOFiE7EvOSSdBL 2xpxe3LVV5HWawDMGcGuH2 NDBcaGVhZGVyeTcyMFxmb2 26LBW9HmXwDY7lV0Vya5H6 pZ1wjOAqWSJqdTDsQlJqHK Rkih7fpVEeJSyph1KwMFK1 hsD8eVGupFXgSPEiDlN7KH pqRL4oup85VCClVKS8as3c bGNccGdicmRyaGVhZFxwZ2 VfQWYhi775CQHeY6WwFQNx n0S8ioQsTpZjQIMbaOD9zz P9BPZyJP3ublzke2vgYAph TCprLOYextF2kfT3SYMipI UlG2MdjF4yKJOgGM0ghdid k4wyYHR9VFllWIEhRQX3Zj YmVSAht6Lotzf2DdAdn8Sq rQViGOviQ98tf499LLEgej PgP3ecfKXcaannrMGdookl RUodwaP6RBMyQNfxxbrgPP ZiPBzmE8lqOhAcKBBdhIcy XEzgy6RaDJCwNBDvJeJrkF IuNKAzEcl5ABXipQGcDSOd JqBkD4qxwdmpJoLDBAIpq0 ukT2bvbXHJtNTcH4IsHWgu bmUgTGluZTogMjgxLTYzNy 53SGUsMRXqdu79 CPT Code(s) (test code f2qkoCBvHLLnwYP7PyHgDB = 3357) Iec5vub3YxzTSlrMEtZGpj bCQqynVjao26uTK8jM31RL 8uVTMgJwS6GNYjwcW9Cjd2 UALeCKVhdMPqB193d6hes0 nfxpXqvTZ4rUalSRJlocva EiY4LUnsVGQbihhnEHt6XX qvYWDouYY1FFVkfXLhI9Qo CSSjOJ5jrda3GAU5SWwsEC MmEqI5KEBfyUPnCLRdaYzz VMaws519XJT9UsEjRYTtrl NsfHoceZ7bAfNfRNE1BVXc NVxwYXJ9 CLINICAL HISTORY (test f1fvrTIrWZGudXX0IhFtDU code = 3356) Ibv9avd2FefRVsoFSqZVdz dWXvraHvhr49bDS3oE54NH 4fQQZmGfZ6JMTnmfL8Itx5 PKNrBLBkdVZhL402c7ckz7 hndzHgjVL3nHsfDBWfnvlq ThJ2MMqlWTRkauweOEp7FA otDHNotKU9UCYzrLZwO8Xk VUVdXB5driz6DTZ6GPxyTK OlAxE4SLUngTMpHDBfvPor RQotg026WSL2OyNrNMZwxt NipNgisK8oWgYbZJMCeuZd nV50GHHuMo4pQTWbzPnnsq 64jTTmzKE5BOpgnPOoE6Zn q0MhI92yb37dV0JyC9IsCM Bhcn0= GROSS DESCRIPTION (test x0ybgFEbMXHrxID5YqFxXG code = [id number]) Pxx0ndh7SulKOosPYfYIxw kFRlygSepq38hAN7rP38YN 1uBJVoOfL3GXKxkwF1Gda4 ERTsXFOrcIIzA780u3iwc7 ytweVyyCD2OLXlJABpJ2Zr BC7rFATieGSaG69uqFKjXU M2LFCqJGSibZBdOGUbLMX7 RDSuxBRoC0awJIJdZM7qoc epNUelGIycJQVsuOH2UBQl oTNvS9QuYQUtHEtqRCYfyc x4OkPxGi1vyBNyhEfrMYqt TCYct1wnBBUrbLQlOGS9CW bwnHPgHLSmHWGhSGl8BVTf VYpnwPQnZX7cyDxyWlnjkO jmp9LslQMtMZciMXZyNCWt LHpqHKEqL2ADIIAfQvfqYR E9FlNpAFt5FJjlM9JXWDEl CKN4YUy9UIN1KxM0LCx1PH CLOe5uXNv7LkObQQz7YNA2 MjEyIFxcdCAyIFxcZmwgXF kuCZCzqFReMRuwsdY7BMFr MQueKOFzBrHeCO0pYxozoF H5IQUPjlZavV9uy3JmLtPF aXRlLlxwYXJcZnMyMFxjZj XtZxCxSBm5JMGmwT6xRt5v qYPkmY1qpYWbZAywKLA1wA VxEXO6URzmCLI0KAZ1zwTx ZQMjPQ95SNbmNH33iCWaUA NsRDSnGGHpVfebeEL5MCKh bdTbdN7ui7MvWxPbpOBiOg QrutUvdcPzbDpxI4Imp0Wr gVAgJXYqpvuiaKyvv0HrWS JfBuOuS31bgI3xX9JsGAXa r7FvYNbiJJ7saV0oAlIjAF hlIHNwZWNpbWVuIGlzIGVu wEibSLc1NII1El0yaPSpHO JucjPtICXrJYJ4ALJKCL7d MTKDLK6ywVhkDPOiOgMbZt avPhB9HSRryJRlLVF6OZ8q iWldLBEkF9CyP6EvpjY0PI Bhcn0= MICROSCOPIC DESCRIPTION f8ubiDJbGKSqoBH7RhIzEZ (test code = 3371) Rfa6bin3DssVBslNWrRRxk rAZlddJqac63jPF9yH19QP 6iGGFkNyK2NFErdfE1Rfy8 JVVmQLIcmPTyE056v8wpr0 wngsSifAO1aCasVDKidumr ZtW8QGloOOIjavrxPAn6RN eaHNItlWX1GUPryBPuO3Pv HAZrHB0zxsm4BWF9XUewQN WnSnB9RZIizDJoOHYzjNgz YUnve706ITW2JjFuAISgsl SykPdgsR3xEiPtFTMOOIYT W8RBBAObzYRjjP== [facility] [id number] 17:46:53 Test Item Value Reference Range Interpretation Comments Case Report (test code Surgical Pathology = 104) Report Case: [id number] Authorizing Provider: Antoine Leigh MD Collected: 05/18/2022 12:25 PM Ordering Location: [facility] Received: 05/18/2022 01:23 PM Pathologist: Stephanie Dawn MD Specimen: Biopsy, Anastomotic Site, anastomotic site polyp DIAGNOSIS (test code = [id number] 3220) FuZzEwMzNcZnRuYmpcdWMx IHtccnRmMVxlcGljOTYwMl rxryLzZDOqgWKcV4Pqdyaz ZSpsXN0rTI6twZahuDKlfH EkVNOxRvKny1gud359zLJy y4yeUSTOnocnyJe1wTsxW3 0py7W9XiwbK05hwGOrQSF1 GTLcPORwzKYmXXHzLNX4DB YavRNgL1vwFVApGY4wkzje HLjiEGsrYAPisFX3NIIriM XqA1IqYBAeKDtzCHLomps5 OmUaEw5kdZUkjKlkBMhkCY JkXHBsYWluXGZzMjAgVElT Z2XTZRQNWp6BYGBSDNSHTw KGMbHGDZ9IG4ZEEhXXJJFZ OGWYG6QLNOiorRYcEGNsVT BXIVfOASYXS1KLNX3DY23D UPVPZAWTHDEYL2VQNQ4CBR LsNESDSLJqTB2IAVAOEYKM JH1LXHPGDLNAZPEQYUsGEM SUHZ7QDG7EUVPLG2bKVHXY URnkZDCnBD8yQhKITBMCHr VyOa5EWZOTR3ZVJYWTNSCZ LiYSJJjLH88KRpGUNMSsnm 78CAC6SnUiu8Y0BKB8MOSr HRUbk0onQDJfcZSaPjOeDg NcZnRuYmpcdWMxXGRlZmYw d5cbq079gKMxq2ucUNSvZi K3mOGuMBDsbDBpR624NUKq YQmhm6ycj1EoTCHdqUKwf8 T2AJJScffoxZz7hAwbY92y b0V7WrrcW8xzGHRmOPSvS4 UeUA3lXLOdBis0BKB7KFL3 GJYxEGJjI3UmDP7oOLAnlU NxUQu3c2hzyDafMOPnJDA5 i0nvQQfmcqPsZA7hpx9ceQ s9w0wnlvFxPMPcWAXliSKF ZBAvQ9LxoHadDj6nbRs6aW bjGphjJYF2Qmt9SK9mpo14 elr2qEmsREFxegujBlR1PG ycEHYiokpsKVk6PAnnWYAi hYZ5WQKkpCHqT1MdNJBoDT 0yteu6DEV1GChlBXBqLkE2 NDBcaGVhZGVyeTcyMFxmb2 58ZUJ2HhXzIU9cB2Mii4L8 xE4dmFIhXBPlpXZtTkPtBR Qnpv7qxQOaEHmmk2NtMWO8 prS5fHBbmMXuDNKwEyW9NP zmFA9agh71FDXqALZ3gp0a bGNccGdicmRyaGVhZFxwZ2 EgGHBgz339BDCtG9YyVYPp w9G1jlXgRsSgMRXxhAR0ug M7NGKnMQ6wsvqhf4kmRNet URbuQOLwchC6mqS8OXTsnF XcH7BcnZ2zIZHfLD4rspuc a4onINL1MHkcEKPmTYD0Ue NvREXid3Bhita7OqCnx1Fl iDSwFAqwD11sv072SVPalq AiV1gmfCDrhzbepDGdlbca IHuthzD0HKDgTOdrdyhvMQ YtAPnvB6njXeNjCVSbyImz OShkh9MfKCVcKDAuKdExgJ PzRTSiSoz0PFXnlTPzCCHx ZuAtT6ymwftxLuZJNDOwv2 yyU1gjgAGFgZZbT6ReKLvw bmUgTGluZTogMjgxLTYzNy 21ZOMaMZOmiy28 CPT Code(s) (test code k0ymbSHcIZChlCM1InByHF = 3357) Vjw9jpr4TzpYAbgGKoYMcf bQUoxzHqvz97pJZ7bR82SE 7yWWRuQiU1SNGjppL1Zhu1 GTWmBHEynWGmF567d1stm3 mdtbPazWF6iJmbYUZzlifj AhE8RNumHHPxdkajBTj4PQ dtCHTdaOZ4PCAkwEUrZ0Gy BRTaPF9pzwp0QXM0CVljMQ HvCcV5KSOgzGNnCWMgbMhj OHkeo433RAM9CgXiBYXufs MtyAcazW1aRqMzWTW0MGMd NVxwYXJ9 CLINICAL HISTORY (test z9bqgRYjLNKyjME7QiVqHW code = 3356) Ulq7qok7PyuJEzdFPqFVfl iQSwfaVydd66nYV3tS56AL 2sJIMeWrK0SAEwmyR0Dej2 QAVsDOZuuDRhA563e0gix9 lbgkUycQC2cMxrMLHxdjji EfL8GSivRGRdkkgbEDu2TC vaOBDyvAK8JWWgrYIoW9Ct QBQiGJ4askx8EZD7XSemXY MxFbI0ZJQhwTFaSSTbaWpz DZgyy268HPB8HrBmEQSkxf XweDsifB8zKhZmYFYLofNa qU98LKXqHi7cCNSvmZvioh 40eBGdvGK2IKgyfZXxL0Eu t6OkM21kx37cI7TsR2QfOL Bhcn0= GROSS DESCRIPTION (test b7dhzFZkKHQuuBX4KhUvGD code = [id number]) Moa3ukc9DakXKrrWMdQCvl vXWjwcZxwg61qVR9cA83RG 5fZHXkJqU3HXRljkQ0Wwa3 JYTxHLQbuVJrC392c8soo9 kksqTrqBQ1ZCAoQYLqE4Mr DG4eLGGimZSjZ78heFWjTN O3BCXiZOCeiTDkLKOiQLI8 MISrbKTuU2ulBROvAZ4nrn wuDRwzPLxpDNSwtMO5OKSk hJDxT6IxPBMtDWxfSNCtse m9KbJgBt9szAHqcIxvZHrl FVQdv7fzTEEokYUaMCP2UZ hblTIvVRMyJWTiNKo2JTLh LTmaeXPoDL7lfHkpRowtaN duz0JjsANkKCinAHTfHXGv ANxmDIRbP1MULMEwEffpHL M2RgPqPYf0AAzjV4QRDIFo TMM7JWq2WQC2QeN0MLp0HX DRBf4rTCe0LtWtTRm8QSP7 MjEyIFxcdCAyIFxcZmwgXF ltMGFsyWXlVVykudQ4ZESi YZbuGMOlFwGzIK0nImevhO D0ULGMshCccR4ft5UxAsLS aXRlLlxwYXJcZnMyMFxjZj SqFrFeDYd6QNTefI9lJd6r xCBsrK0krKIgZQtyZEU2dU EvTYB7CZamDEL6IME8uaJz ZKVaQA15SEldYS18xLRyXF KjJPWpPXPnAfmflPY4JMSp qwUnxA2lh0UxQnVgeLZbWz JyosUbtpKdcYwsT1Ffn4Kd gKWwUHKbqvcrkZxbr7BfBP KnMzGnN32ksY5cH9OjASCp k3IhXEphBC0znU9qFxWxLQ hlIHNwZWNpbWVuIGlzIGVu qSpvSKz4UKW1Fy9inMJrVV YyjkGwPSWpGXX7TMRZVX0b HFSWBG1ovRujQKBbIkSxBu yyCbG6LQXhvBCwSEE3RF6k cBugATPdE6WiN9LgbjS3SZ Bhcn0= MICROSCOPIC DESCRIPTION u5tvwXHdAFSxkWS3QkEaVO (test code = 3371) Rlj9ruk6IoeAVfdHRbRIzy wGJgcpQdja15cUJ1aJ91WH 6hHWLqFbW4LWMwoyM3Wgk2 MKSlHYNzoBBrH577x8ubi6 bctpEnjPE0rEcnETEzraeo VcN2KUjaTFHmoyfbQAy5VE jzDONzyNH3GZQaxUUwH0Vn TKCsBR2iueo0CFR7XVuwGZ RtMwE2JFTasBBmJGIbmYwy MYepq194KKY2BxQeHAHlxy KzoNezrE5tXcBlQSDWQWEB B1HODZKmkIXqyW== [id number] 17:46:53 Test Item Value Reference Range Interpretation Comments Case Report (test code Surgical Pathology = 104) Report Case: [id number] Authorizing Provider: Antoine Leigh MD Collected: 05/18/2022 12:25 PM Ordering Location: [facility] Received: 05/18/2022 01:23 PM Pathologist: Stephanie Dawn MD Specimen: Biopsy, Anastomotic Site, anastomotic site polyp DIAGNOSIS (test code = f1jxaHFnGDJys4djODCbuG 3220) FuZzEwMzNcZnRuYmpcdWMx IHtccnRmMVxlcGljOTYwMl bsyjCzZRGfoTNtQ2Rveisc UFumQM1cKT2peRykdKDuiK VnRUStWbVlu1hvp015qLSk a9uuSITQelmfvWp1oGndQ1 1bf8A2ChpsD92rxGQcGQU8 JAKeHCQigVWpKSKgJHP5BO RjxDKzZ0jqMCFqMB3ukfhf AZjuISxcHVMesSM5KUQzeG OdP3DhNAJbNFdvRMMmuhf6 WpIrPg9rbCOksQujMUenQW JkXHBsYWluXGZzMjAgVElT J4SDVDARTz9GQALTRMRKZq RKOmIEWC5RC9SEPdYQJGNQ TCREM8PUNDwsxDFbBKAaTQ UFMQqYNMCBH3JIPU8LU95N TMUZAWGUKJYVX7NAJP8XKP CtTQETBANoAX1LRNBIVTTP UW8HCHMSWQELPBAWQDeVXT FFEA7XZB4PURDTA9uKUKYB ZVvzEOOlYA8bQsQDTBTQAv FiUj7XXQYWT0DUUZAWGKMT DtKNYBmBU14JYoWFKZErtg 77SQA4NyZea2M0TSZ1ZVKm XOEpk2sbAYKtcSLzSdPgPm NcZnRuYmpcdWMxXGRlZmYw u6lff299hWRdd2cpNRDiKj O5pXBrZCIvgBYbY051WSYc PIrta6tgs8HlOHCqbJChw7 G7CYJWxtyfsSk2rHdlC14t u0K9MavjJ1fnCGUsCTNmT5 SsJX1xJPObUcw2CBM8JGU6 MRZbMDLdU5HdNK4yLXDiqU AiYTm5s2vniBfaSUEdFJH8 w1blTLleaiKvEQ6wfe7ifT j4m9rkelXhJRSeDTKmuBDQ WQUlA8RlsVocOc4qnJq8tW cqIpumCBU7Isr6XP9byg46 oum2bRrhWKWapzhzOtV1DV ucGQNficlaJHt0GVkwEYAn aPW1CDZqtQVnT9KoQJSqXU 2sbmq6IMV8WAiuFNAcQzF7 NDBcaGVhZGVyeTcyMFxmb2 88KCR6ExHhCJ2lD6Xoj3U8 rF1niJUfAUIfnCYlYsCqPY Vyoh2rkUKsSLveu5AeUTV0 hcK8vEEygHUmTQOvSpH6MK ktNH0ulj74DCZtFPY9qq2m bGNccGdicmRyaGVhZFxwZ2 LmQVPwr014NTZyY8XzWHJa l9D5pkNuXpUmSPBefJC8fx G5HJJeUB2amcyqg2adMXxn YCqdTOUrflC1jaX4ZPAokV BkW7MjeN8fUNQcIH4gfuea u6omWQC7SWvhZCFpOCQ3Lu SlDLByh7Rzvyg8CxGjc0Qf iPKqXQwzV79ex989VHDnaz AlX2shfLHqqabhhZPyvtrl INctcwL4FFOwIQrretcaGS JyOOjeW8uoEgDuUMCojBkb JZqze2LaFFGaBKNqMnSgjD DpAUOhCnz5BPXscOZhTNOv XyVvD5laoiwbWvFMJZGvd7 hpF3nugKJIaXRdS2XtRXfi bmUgTGluZTogMjgxLTYzNy 33KIYeBSTwig84 CPT Code(s) (test code e1vjlMEwGKBjmFR3MtYmLY = 1675) Qis2nal6DrgMYrgZXfJHxe hHMwwkRbaj87jQK2mJ39LZ 3vEIXoRmZ7JAUqmaJ4Ulk7 FVCeFXIfvQRxJ054a5ifl1 mndxAgqXO7pChfJGMqtxos HaD4RPhtMLAfyuxeZWd9AE yxSTNoeHD4PJMccLSrZ2Lq TBDoNM1aziy1XCJ7NFhsLG XqCcM4RRXlgYGfGVDblNid LXpbw455WPH0JyPeNTHcfw WxsPpqjU5lIgOfZUQ4QMQf NVxwYXJ9 CLINICAL HISTORY (test f5cwjHUnNBJwiVS3GyTmYA code = 3356) Uye2yta1RrtKFwoCElQYor hRHtekUmzu31eBY9yM84VB 2sZJHtElV4DTTgqbS0Njk5 IZFrGAVdmSKiW983i4xqm3 vzdrSnbEH4rLftZLCtkbkt GsS9LFgzEIIaxoqlLNd5FE crHUFvnPY5JDJmfLOfV0Ti IYMiRG9kwsi9PNI6IDssAQ JyZhL8RIIfsZVwKAFthWeu NIpce788RYY8NuAxHFKvci JmgTnuiN9tJtDsBORRryWt zQ29FZUwFw6pBLLicRicik 05zIVroEO6CGsswENlW6Xi m3IbY05vp48jQ8DsK1YsSX Bhcn0= GROSS DESCRIPTION (test v5jasWMfNCOygGQ9ZgQcDV code = [id number]) Ffx3tyk2TacAKviVGwHHhm vTHcscUplj84zBE7eX97BB 3xEVPcQiG7UQLemnK5Ykw9 CSUxPVZncUDpF795u2tjv8 pbwrWggJZ4WRUzPWSmB7Dh KT3oJMEvwXZuL25xvZJkMT O8ZINuQYJxfKTjWOYpCXW5 YCEwxHXyN8aePTOoUK5iqu apGTskUYozNVFflWG3TUBz jNQbH5CyMTHjAGxiPHOecg c4HiJaLv7msSRnaGtlNNam AIDha0thIREkhHHySLR1DE oijJZcRSAcZAXmHKf4CBOe GBlxqPPiFR3dyKtvEmmqwD ypd7FxgGQhBVwtUAYvNQAv YWyaCTHpU9OJHPQsBgujTN U0LuPvXKf4IEdeX3FPRKFz SPX6YGr6TVC4DkO6GOd2ST MNTy4aJFb6XzCkWNg7NZC1 MjEyIFxcdCAyIFxcZmwgXF orSDKqxVPsPIyocpA7TXFa PXvkWAPwDlNdKJ2xRmypcN X2DIEBelTptS6xv1EwVyOZ aXRlLlxwYXJcZnMyMFxjZj YaRsUiFZx1WHVleU6lTt8k mXKriJ5pjOJhJSmmJBW1oL BrSPA0FLcmNKY3OCN1hyUl BZAsQK82ZVjxQF74dVRoIB YpVEKrJGPgQkxexJW7AIWy kuStgV6zl9LmKsMggRDzQx MhfqWudxHbcYuxR4Loj1Ct rAPaDBJtqkwijGwav9XdRR VbOkQbD24llE1xR2XhHXRk l5ZtYCtsRT1kaS8bBsWqDS hlIHNwZWNpbWVuIGlzIGVu sRunPPe6AKE5Bk2btKBpOI OghfYcIWOjLHH5ZZZYIO1k FXGEHI1wlJkbBZGpHyMvMz liAcD9NSXjzBYjDHJ8KL3t vCfwPTRwH6PaS7PcsdY7CO Bhcn0= MICROSCOPIC DESCRIPTION m2lucBXlEMVehNO8XcVoNA (test code = 3371) Rlk1eaw7OpcRJpxYByVTbv kXEmdxOtze55xSF5vT84YK 2hTXIrXxM3OYTwjqF2Cng2 AOKbCOAiqOEwM026p6wwy5 xxcvBtnBE8pFwiPAGoubwd YnY4AWruLKAnhwlzHDm7ZK elTJWzbYG6PREqyKBkF3Ug ZXBfCW8vtcs6ITK6WFktUJ YwIdI8PFWsrOItTMWroJhr ULpjw709AUZ2ItAjNVWgvo MmoKdnxV2hHoBmRWNHQHKN Z3LLYIHisTEhxL== [facility] [id number] 17:46:53 Test Item Value Reference Range Interpretation Comments Case Report (test code Surgical Pathology = 104) Report Case: [id number] Authorizing Provider: Antoine Leigh MD Collected: 05/18/2022 12:25 PM Ordering Location: [facility] Received: 05/18/2022 01:23 PM Pathologist: Stephanie Dawn MD Specimen: Biopsy, Anastomotic Site, anastomotic site polyp DIAGNOSIS (test code = a4vugHTuVOQvx3qoXZOmuB 3220) FuZzEwMzNcZnRuYmpcdWMx IHtccnRmMVxlcGljOTYwMl ncgxRtZOYpsDFaS4Vyahwm NTbfWD1yQK0vbMqobTEriR TdDHWkGaXsh3qyw133pBZh w6zzJHFCzwwssSz4xOayF5 0eb6G1TrwyC07hwVFgZVW7 VZFbZZOycVCvFITpUKT4XO FsdGIyF6onAAAzIU8hulva IYzpSHquFVLxvVH4TYDcuH TbT6LnHSXqPQngCTAhusl3 WbDeGi9vdQEwhFkmRPbcXP JkXHBsYWluXGZzMjAgVElT Q7XTVRQVNm7LURQYGTJZJt IABsALOB0XC9GQXyWGJQEG LDDWA7BNVYecrJMzSAWxUN QKTYqBILFOW3GUTX6YG36C TEAJIEIISNSJA9UXGN5CYW ZgKOXXQHCjOG0JFYDRHPGR ZL6GPMWHGRXULPKSBTkDLS FTAJ1AAN4WQKOKZ1uVALIF DSbzJWJlHI5wXmCVSYOWPa NyTx1TPMKWH6ADZSWFSFKU YmTBVIqSN28UHnQBJTRqag 90WQN2LwQan6O0EIT5GHVq TGYey2rvUHHxmMGiWlAeCm NcZnRuYmpcdWMxXGRlZmYw u6eeo825cSHwe3xaTRDtNc N8oLSnIBOwtLOqX946HXFt CTawg0vky6QlKKNcuKKzf1 U0JVVSocgloDu9bPacC07q t0R7MjwqT6ctYNUnJDViH7 UiMC0lWXCnGkn5LCM2UWI4 VYHxTKSwS2NwWL8uAKBrsV BiQDh0r9rtlOsdPIEuAYX3 x5axIKyerlCbJB5xns7rrX l8m6xnovPyUKOoGAEgmDEJ GLFhN5QumPmcDf9vdTy8cX bnHbssWEV5Oiy2TZ3zsw98 fyv0zPngZYXcmpwpXbP7DX hvFDVugnbdMVf3BZhxHXCg gWB2DPFjwRKmV6UqHXRoED 2xlhf6PBL6MZkhIMNqQpK8 NDBcaGVhZGVyeTcyMFxmb2 30ZJU7ErRyQF8jJ7Qwr0G8 jS3ilABlKFLzdBXtTqOpYW Oaaw1bdTJnNYfyu7UrXQB1 tmE3tKWtcSBnFCEdRaN6QJ qdCN0ffy84GCJuZMS1rt6c bGNccGdicmRyaGVhZFxwZ2 CcLQSch708OCFpN4SsTYFe u9I7tdCsHoWeXMEokNL0vo W0TMBoEL0vudloi8wnERvz LNyeBFUrivU0ryT1ZCLwcP RjG7JltS2jUHXrJX6vujqq n6gsACK9TXcrXPCaLHY6Ln MkNMXlw3Qxscq5VsAmf9Sh uQPsQMlzR16ad199HMUbtk AfU2thiKNnrhjitRIfzuwy YOroqcD2RRGrPLseyqjkQP QwHOzqY8yyDzSuKFDbvLci PDddp6PmJBAmXOCmAlPpeN XeVENdCbq4CUFjtVYgLZId PxSqY4vkeimvOfMNYCPgo6 uiT1fujSPKwTCkJ8BnVGof bmUgTGluZTogMjgxLTYzNy 06SQZcRRAawu29 CPT Code(s) (test code m3svjYEnHJNhbDB5GhGqPR = 3359) Nyo6rzm1PnrZBmiCLmGOsz tPGkmmIacp88jBS7nR77VO 4mKIMlIjK0SSCgepF7Ops0 CODwHOCjqWLaG625j1fol4 anczAqcHP0hMxsGNUsnrpn IuQ6YLkeYVHzcasiHWu1PR nnWRDlaOI1RKTayJZdR3Uw PSMkIK9bmnu8WNY5WUoqDI JyArT8GXNihZJzWLGmjHwv SOcrg564GNG1WmCpUSNzdf JktZohnK7zGcNrCIV1SNOm NVxwYXJ9 CLINICAL HISTORY (test a3ggaJDuVUVrwKX6VrDxIP code = 3355) Aai8wdy1KzhEYxzODnMTxe lKLfatQhsi16hMA8nA05DL 6fRYGbZmR3BIGgbjL0Zds6 APPyKJCbiJLoR796n4czx2 waeiZifIO7qUosDYCvtegs IyZ4DUchAZEnwnfjAQq3XJ mpWUJbjRR9TYFiuSUpH3Ex NMYfFX8fhgi7ZGJ8IIwqXX FyOrT2SKHlhBKkXJJzkEkf TCyvn485MLR0RrIoFNUevg WkyYpsrW9xYaSgNVGTzoCv yO49NHSpTe9cZZZbaHfgjc 35hPWucOV1DSzykLCnU4Mb j7UeC68hp07tH8DgN3HrPR Bhcn0= GROSS DESCRIPTION (test y3zxsSJnGUCsxYT8WxBtCQ code = [id number]) Sam3pfz6EtbOQbsBFdIFch rKVrrlJakm27sYZ9oW73BX 0aGOStHrQ4CRGaywS7Ome5 ZFKgQYDlwOGaQ664i8qro7 tkshUqhAV9WMLvQXZvG5Uk XC5pISLziTLmW57lgYAuVA M5OMEmROGfbTCmJUWqVBY9 KDZnsVIuV3svBUIyEY4zfp efSGxzVXcnWVEjyAN2ZOMq dFNhM3DfKBPoHTtdZRFnpj e7IdTdQs8znOPdgOflEGqu XMEze5sqNNEfcWEmARF9TS wmyORmBCRlDPFuBTx7WUAu EAjdnSUsHE3smOowWrzehC iwp6NswSGbTDlcWSAnMNDb TOjjMTDyK1LOJKZmWeeoRL F2UfIuPCt0HYnuB3TIQHSq FTT1WWw8GNZ7XoI1GOb5JL WXIi4yJPd1HwUrPRj4APP6 MjEyIFxcdCAyIFxcZmwgXF nrEIJivPIvTBdxtsH2ITZf MIlyENSyMpTyYB1aUiaupF N5JHUNenLboL0mp7ZcNzUD aXRlLlxwYXJcZnMyMFxjZj QqXqKnWCt2PEFcdL2dRo7b pIZpbG8bvZBsUQbeVNM1wE DrUVM0FEpqTFC3MVL4hlKq RPRfPK12KZxkPN43cVObWY WmLQDaBPObVdpkzIZ7USWm izEgmI6pv9UoSuXcoJKdNp SvhsXshuNrxIsgU4Ssx8Kl lVHaLKJutcicjFocp2ExQX VjGmHcU89idY8wP2PsZYQe f0PnOPepNG0rrT6eAlHiIG hlIHNwZWNpbWVuIGlzIGVu hAwcNXf8AAC0Lz4duYAsOT ToebKsKFWfLNV5YXPBCY5k OKXKUQ6neMvkNJCwQqViYi gaFqF3YIShnCExWSR8AS9q uOckPILnA8ZbQ3EbtkE7RA Bhcn0= MICROSCOPIC DESCRIPTION e5qjyUGoAXRkhSG7EdNuLB (test code = 3371) Sbi9rbm8YglXAhnUJjWRlm bDEntjAfwj68cER2uY45PY 3oUBVzHyD3FEOftxU8Kvt8 VFBdXMIhyRMzP648u3yzo4 upukAbnYW1vMxvSVFnzyri YeA8LKcsZKNriwmdUXg4CY ahPJLsrCN2ZNRirBIvA5Mu LHWeRG3ujth6RMT4EJjmQH AbIqO2CHHkaWHmMOJlnJlf YXwhk068VBT9TwNuQGPgra KkxFfteL1jUcPrCAVJRIAT S7EQFEBrsTLafL== [facility] [id number] 17:46:53 Test Item Value Reference Range Interpretation Comments Case Report (test code Surgical Pathology = 104) Report Case: [id number] Authorizing Provider: Antoine Leigh MD Collected: 05/18/2022 12:25 PM Ordering Location: [facility] Received: 05/18/2022 01:23 PM Pathologist: Stephanie Dawn MD Specimen: Biopsy, Anastomotic Site, anastomotic site polyp DIAGNOSIS (test code = c0gsbIOyGNBym0uzPPBfhJ 3220) FuZzEwMzNcZnRuYmpcdWMx IHtccnRmMVxlcGljOTYwMl ygnuKdJGOkfEZpZ9Vcqpkc NYtvAS9vMR6sjLpfjIChqH VgNTVdYqRqb2hen285aZFt y7igEGGBxbrztFv9hEtlQ4 3qw5O0BmrfT04oqKVbMHP7 TXXyFHMnqEZbSKHcEWV1YF GpaLQoE9ipSQSuNL5mmpld XUagMIleAYZnnQE9SMUumL VjQ9SfAKPxVZtcGYKjcqo4 FcMkXw0iqNBtcQrsHTcgUJ JkXHBsYWluXGZzMjAgVElT F2PGENDSTf8QCXCTVFARMt PMNwGEXD6WI2KYOyVKPLXF ODYTH3ANQZuveQXzLNHiOQ YYPLcYGTWDR4PBQO9YK73T MXVHRSIULRRXA7OIJV4UGQ MsEWOLINVvPU8AKMXEKNOF NB9IJSXFUYWZRAWSVDzHUV PMKJ1SVD2BOVEYL7jWHVMV FEaoAFCfFR8hBfNZZYUXJn QhEf6BITJVO3BKOHSTOIXY EwZHEDoMH04NDxCPFMIbpp 20VWE9GuTzt4H8MRR8VCTe VMKaw9fuYBAxpJBmSmEwSn NcZnRuYmpcdWMxXGRlZmYw g4cxf020pRMlk6ryGKFoRx A8oPAeUHNcbWUtI864VKOj XAzre4uzf9HdEXFimZCqy5 O7EUFCkmkdbNa9yPnxB06p q2C8YnkmU9dlMVVlWNFzJ3 LcFN5zHGUqAeo6ROQ2RGO4 UUIqBVTnF3WsPF8pCIDgrJ LhYXd9a7cigZyoKPVqMFF0 l7szZPossgYcSV5bkm2tmU y9j1zlkuSuIKVoPNQrjNUC SKDdO1IrzFlwJr6baDe7iB ghGtakXAE9Gbl7TB0hfv10 gdh8zKzmCMMlnkbeUtZ5ZU jhPTLltvxeGFh1NVvjROMe eIN6ISSfcXXrB8McCIQoPL 1simf0AYS4BGffYYYtAbS6 NDBcaGVhZGVyeTcyMFxmb2 99ZWR2JyLtNQ9sP8Ttv5D2 sX6ffFZzXGJblEThBcIhWA Pjrq5rrGEpLVjzf7PdNNF4 slM2xLEutHCtHCOcYqV0XU klLT8kpn44HTXaMYY8hm1r bGNccGdicmRyaGVhZFxwZ2 LmAEOyt458EZUzO8JkPIAy z1I8jcLwUeOaJZHdmNI6vi O5CBAqUD7lqumju0vgDVya NAsgFEXfybL5beP8KABpnN XcZ9RzuD2fRPRxSW9ttvcy u5ijZTI4MEunNWBaJQR5Jq NqQLRfd0Nzlcb3KvBuw9Ro rPXmQMetG96gb730CHCnhr LoL7xpnUNfyeuigCRurfbo RFcogjP8VXQnAPxrianjBA NiBAduM8lpRyOxXRCgqWbq VJekm1CpWNSsUEKtWyKrkQ HmSBHwYan7LVSxiGOdVBOw XuFhX5fnoyacQrIKDFXgs2 kwV9mrgWFUzGDtJ5BmICky bmUgTGluZTogMjgxLTYzNy 55CDTfUDUrtj08 CPT Code(s) (test code z3avpUTeGXStfYV2DwRqTR = 3357) Jcq4cmq7AkhHFgxJKsCFch lFVtdkPfwi21fKF4sE04OE 6bNARuHjP0XTKjxmK4Pbc5 YIPgJAMabQQoB253o5amd8 oygnBxlOT2aXinAFWmipzw ZvK8IMdwDOOiwcbeSRw6MT uqUSKmwQB4HIUbdWFcS3Fa HFMpKJ6lukj8QOM0XHosRJ YuLyI0HYLagHVrMZVdkPum OTbhp181MOF9DiDbTJTlfh SniFaezL2xBlObHWM2SFRw NVxwYXJ9 CLINICAL HISTORY (test u3wdhUBzVZLbiOW1BaUjNG code = 3356) Fxo1soi9KtpESdaIJtSTcg uJJilvXghp10iQI8cA32HT 6aYXCdEeJ7SBDkszH6Mqj1 FXQzKPDkvDTdZ175r5pwj6 znlqQdwDX7vItcJYIlqtpz FbZ4XBahJRMsnsakJHw2XK ufFYKuuQW6IECwrOMdG1Ub BYVwTO3teiw4STD9JHjuGR ReIbX3PTDpxXGxZCDkrIdy GPixk185HFU9OeGtFFQfos GakGexsW8aAwYuYHBHsqDp eE28OEOfTj8zLULvyNzpxx 85eMUlvRQ9KXvpiENjI1Dl a6EcP96yy44nL7EkH5FoZD Bhcn0= GROSS DESCRIPTION (test e8fvnDRtWTVqkFU5DhKtRE code = [id number]) Geo4tsi2QzxVRuxFGrYJiu gHZbqdIxkd37bWF9jX54BY 1tEFTzWzB0LHZhfsA0Pdx6 MPJbIBZhaMOzS873p5jxt8 ywwfJoePI8NLZiYWZwW6Zx JN2lAJNudAItQ53syDUaJU K3YSSbTIZfdDThGSHoEYT3 BEWufAUeX7yjACVhTF5hdv bpUXrhKXdlHJAnsZE3BUAa bFKiH9EcBNGtETniLMCqeo v9WxSkQa2mvGXjjUgiXLlb DOQrb8zkDVUypJMjZTS5ZZ iwcLIeTQKeMFSsEJk2RTVq JWkjvJVyTA0lmXksZhkqlI rvy7QydDIgBFpbAVNbKUNs AGvqJWSqR6QXKYNwSxekFD N3BaHtCGx7DAkiK1VTAUIc PLQ0YVq8VOK4UtK0PMe1YD KCUs1xCNu4RbSiMTj6HOD2 MjEyIFxcdCAyIFxcZmwgXF ddOZGoeUElXThbxlJ2AVPt CVrnINXpNkUfTP5kAyvtbI M9EITLzqSwfT2qk2ZzPjQN aXRlLlxwYXJcZnMyMFxjZj HdGfZnMVs1KNKapC1oRe8l cPNdvX3acWQzZBotMPU0eB WnQHK0WLjfUOI0NEJ8lsMe WIKgMJ46EQuiMQ34kBIbXP HyDOGyLWGxOxcmhCR1NETy xmOyfJ7fm3YtDbBxwBCiWp FtcdYnbuJxwLqrR5Nhf9Ga kGVqDLNjqpoytWmhu2ZyRJ HbHnTwW76rpJ0dU0CdRTMt i6EzXRexLT0ghB3jXeLsEQ hlIHNwZWNpbWVuIGlzIGVu lHabXZn8PNC3Gy2huIUiJM GacmUrVTJfUEI7JPMAQM8t TLCPTD0wlBiuHKEoLsGwBn znVzP1KGXmxLWkAOA8DA0a lQqwAKReR3XfU9JaogM3ZM Bhcn0= MICROSCOPIC DESCRIPTION y9csuIOuOZYjcPO3SyBqDB (test code = 3371) Kdy3xpu5CmySQcgISySUgy pZKghjFyss77gTT5yZ70IL 3hMHFiFcP8WRFqmjE8Zby7 YFKoJAVpuPToV509e9gyi0 hdwjUywTY8zAnaDQZcafep XbK9MTnfVCKbokgoTKb6LD rcUZRzcWH3CNCebXQkQ7Xa VMBuRT8znpj1DYK0WEyiCD HiHuR3PHIgiABeHADivMge UOtle378FFG0ZqGsNUHesa PhvJyfkF3gAlOkWTBMDVBA N7YJFOEtgUKuiB== [facility] [id number] 17:46:53 Test Item Value Reference Range Interpretation Comments Case Report (test code Surgical Pathology = 104) Report Case: [id number] Authorizing Provider: Antoine Leigh MD Collected: 05/18/2022 12:25 PM Ordering Location: [facility] Received: 05/18/2022 01:23 PM Pathologist: Stephanie Dawn MD Specimen: Biopsy, Anastomotic Site, anastomotic site polyp DIAGNOSIS (test code = h0anlTDvHSApd0lbHVGveX 3220) FuZzEwMzNcZnRuYmpcdWMx IHtccnRmMVxlcGljOTYwMl dmfzYpUQGqfFUaC6Entucf XZjiED1vOS0ouEmycWHspY OmFMPzZpJlb4mxr703jTZr y3cbNQCOhmyisHt1gDyhH2 3ya2Y3TpzsW98yqWWmADP5 SZVhURLvrBQbUBFiXBZ4EA FimHPrT8msATTiLX9mcsaq HDvhVLkdNFMqrPJ7GPBxqH KcV6OxCNZrEHzpDLPydfy8 ClGgFq8obCEgdCcjGGpqBL JkXHBsYWluXGZzMjAgVElT G6PBDHVGNe0ZZJPSRSOIRs PFKxKDEM3CN1IVEnWQXEDE HSWPS9LPGBcheGOhQHUyTS GGPXgVYDDRN1MOKE5PN05F FSCMJVHGXDATQ8VIXD2PJB NsOAKMUHJgTR0QTVSUGTRE JK9DMGTKHDMHFWCLHYmACP QRDN2KUN6SPUFCW9qBAOFU HPblTVNvXQ1sBuXDQHAKVj JgHo5YRVDCK7MHOIGGSCMQ QgCQDDxES55ZBdZYUZKimn 81RXU0BwKob0V3PHB4VCCi QYNtk0qrXQCzvJLfTfUqGs NcZnRuYmpcdWMxXGRlZmYw s3fgd636qYBin9mzYAOcNu V5dOZtTZKneXIaE367FGGg ICdsu3ttg5IzTZXviZVqv7 Y5SZFAhccsqTv0iIymR51b r2L3RrqiA9jwWFAuTORuU5 CkDX9qVTZcAjq6ENI1BQX8 SUCaHREpO6VfNZ9wKPVxlX UhVNy8l2dabEcsRMRuGBB4 w6uzEKxwcbMgAQ7zyc4vjK q7u0uqwwXvBWIeDKOxnCGZ PHIrA6ClmNerUx0xgYg0aE tuPomkLZF5Jlt4JQ6dam23 nbv8zRqyAHItvhssQsG9QL cmNFToalgqUPy4NTmwFWCs cKZ1SFGprSWeR3BmVTTjXB 9oqld5THV1TGawNOVsWaT3 NDBcaGVhZGVyeTcyMFxmb2 19TEP1FlXqIS4hH5Jyc1W4 dY4rsQEwMPNlvJRyMlNnIL Fzgj8tuUImWKrdu2BrNDL8 ngX4qXXriGWhDJUyFgT9UM fuXM3btv50PYPyYTL3ub9k bGNccGdicmRyaGVhZFxwZ2 TdHMOin072LRIfQ9WoBXDg k4B8obIdQqDwPWCahQD9bn Z4ABEhVZ6cdhiva4suTYqd NDfaOISmgxS3ryS8ASEonD YlY9YehY8rUYTpEO2sezao d1hnTYN8JWemDEGsYJB8Zd DbQLOcx4Oskvz0CePfr8Sm uBJoCNbpR83ox454IOLter LfN5arxIAfkjhxqSDchxmh VTbleoJ2YNOvDGjexrnkRE WrBNzaC2evKxUpNERpiCvg GGazy2DhCLCjDPXxByNldB UqVQHiLhl7FFOmfAXwCDZe FcFrR8hraoeeBiGRMTHpb2 kwA4rqlDAWbTLbO8OoPUkd bmUgTGluZTogMjgxLTYzNy 42GUAsGIEsqx34 CPT Code(s) (test code b1egbHFqIBTnlXW0ZzRkBP = 5166) Rvk8iyq1UpoLQsjIHyWFjm ySDpcgFsna80tXZ6dC55FD 2gWUJkHjN6RVTmtoY6Men4 HEToIEKfjQLmX913r8lbc7 ovnjDgsAT0jWvwHIZadfhn YwM1IVerGYAtimfxQEl9NB afEPWsiWI6BEUpfLFcJ0Bd TYQoCA6cpmb6OIX1ZJiyWK UuVhE8AROpkYGiXHGxkYtb OSgci592VNA3XqKjXCXiox CjzZgduZ1zYrSkEDD6TRKv NVxwYXJ9 CLINICAL HISTORY (test x8sihBMuZCPcjTW3EsByMB code = 3351) Fua5nxd3ZboXPhfPDfBFgl oNKxrqBlmk00lMM0fU15YN 7kTPCeWeO6WDWqmrK6Dzu1 IYFyJRUfsVRkA899u9upx0 tksfCjtIC7rNqyBQXzqowb VmU9JDolNEJefxicIRr5ZC nvTAGhcJO7NGEdgUYsG6Gf KEHeTT4bdij8IDR6FXawDJ LfGxT3CYTacHSmHLYycWqw DSjxt665XZE3NvPnWNOvmo UhlGgunK0dVpYhGTBMqcYd rU36KUCmCk2pDCDjnVnlxn 75dJVaxKD5ATcaxZYuJ3Gi k1HhL01xf24pA5VfG9HxTQ Bhcn0= GROSS DESCRIPTION (test d5lydEGwVXLfcWO2UoTxEV code = [id number]) Jjh9unr0FoxSRzwYEwJJie wNVqceRpjq93vBM8jJ06VX 2hVIBqLjV1QLBbwzR4Xef7 EOKlUZUuiOCgW994w0tmb5 btnoAivGH6XXVbOXLiE2Cp KY8cNUTeuBZeE07uxJWpLL S5STRjOOMmjVUrJIPhZSN6 OYDtwVYtY0ecJLSiJE2gvl vdAQbwBHmlSHPccVK6YUAt aZVtR3RfIMBtVGugHITyqe u5OxMnPv4isLHsfMczBLdt GJXxc7unEONbbRGjJCK4SV sivOKkEIUtQRBfKAa4AGGm VFpzgGErIF9vcFltNmpjvM unn3MavJIjMGyvGHQtMSWf XGctZCYkP0LAZJTnGoscSF Q3PtTtPJu9FYmjC1JHNGMk BKN7LCt6ZKR2DuY5UTo7XI ZIFf2iVYp4AwHhTQa2NOL7 MjEyIFxcdCAyIFxcZmwgXF dbSUPrwAHjXYaoaaO4QCYt DLziAJSrDiAkTA0gXnqaiZ O7GZQYcuPsiR9do5KsYaYD aXRlLlxwYXJcZnMyMFxjZj ZxViYhHMc7VPAfiZ9xVp8i fNAgjP9yhFOyYXbuFIJ1xS ZoHTD5NAmvJAB1NDZ2sgNh CIIqGZ55SCkvFT74pILgJQ RiYSDpXDRqJldwlEG6IXHd knHvjS2om3DrQyKisXYnEg UpuqCsecOrjHoaQ7Sei4Ma fHJoJHIhgqozvHkzt8LoUX FmAsOeO58uuE9fC3GgVINp t4LsIYcjLU6yjQ8qZgZqDH hlIHNwZWNpbWVuIGlzIGVu lNyiZUk7PXX5Hs2mvMPsKD UwprArJMAfVIK0ILFHLM5y BZJEBF7whShfPKIpSgGqBn liXhO7EVLrlHTrHFD5LI9x nXinQFByV5WpX4UxtpE7FO Bhcn0= MICROSCOPIC DESCRIPTION m9cxdMBjZRXrpKU4RdWjBK (test code = 3371) Vdi4vok5QuhEKppDDiQZwg vHSbwiYhje56xWU8rG19NN 7fJAMvWpO1SVNykhB1Cfm0 BBRyJXLnpIYqH812h9cpi4 quwcZuwRV3tNfcYCJjhibt QwX3DOdpTKFsvduhNSt9GD qqZMDftAC8OHFdwKMfI6Ve RRDyLE0jqhv2PLH3SVvqUG CjKiN1LCQxyAPaKPOxvOxf KVgjj364QJZ4PiCzMQAnvt SxtMideF0iNgIwMEBPHPUG P9RRTDCboETyfQ== [facility] [id number] 17:46:53Surgical Pathology Report Case: [id number] Authorizing Provider: Antoine Leigh MD Collected: 05/18/2022 12:25 PM Ordering Location: [facility] Received: 05/18/2022 01:23 PM Pathologist: Stephanie Dawn MD Specimen: Biopsy, Anastomotic Site, anastomotic site polyp TISSUE SUBMITTED ANASTOMOTIC SITE BIOPSY: - SMALL BOWEL MUCOSA WITH FOCAL MILD ACUTE INFLAMMATION AND REACTIVE LYMPHOID FOLLICLE - NEGATIVE FOR DYSPLASIA OR MALIGNANCY Signing Pathologist Direct Phone Line:[phone] signed by Stephanie Dawn MD on 05/21/2022 at 5:46 [id number] for follow-up surveillance of colon cancerA. Biopsy, Anastomotic Site.Received in formalin labeledwith at least two patient identifiers and "biopsy, anastomotic site" is one piece of north-pink tissue, 0.4 cm in greatest dimension. The specimen is entirely submitted in cassette A1. ND/fsBMAKUMDGGMUJWWQFOG9242-56-49 12:45:30 Test Item Value Reference Range Interpretation Comments POTASSIUM (BEAKER) 3.5 meq/L 3.6-5.5 L Specimen slightly (test code = 379) hemolyzed Ditching Machine Engineer ID - [id number] ID - [id number] ID - [id number] ID - [id number], SERUM, [id number] 12:14:14 Test Item Value Reference Range Interpretation Comments TEST SERUM (BEAKER) (test Negative code = 584) COVID [id number] 13:20:50 Test Item Value Reference Range Interpretation Comments SARS COVID ANTIGEN Negative Negative (test code = 34068-4) SHONDA (test code = SHONDA) The QuickVue SARS Antigen test does not differentiate between SARS-CoV and SARS-CoV-2. The test has been authorized by the FDA under an EUA for use by authorized laboratories. Lab Interpretation Normal (test code = 88632-7) [facility] [id number] 13:20:50 Test Item Value Reference Range Interpretation Comments SARS COVID ANTIGEN Negative Negative (test code = 51901-1) SHONDA (test code = SHONDA) The QuickVue SARS Antigen test does not differentiate between SARS-CoV and SARS-CoV-2. The test has been authorized by the FDA under an EUA for use by authorized laboratories. Lab Interpretation Normal (test code = 56537-4) [facility] [id number] 13:20:50 Test Item Value Reference Range Interpretation Comments SARS COVID ANTIGEN Negative Negative (test code = 62577-0) SHONDA (test code = SHONDA) The QuickVue SARS Antigen test does not differentiate between SARS-CoV and SARS-CoV-2. The test has been authorized by the FDA under an EUA for use by authorized laboratories. Lab Interpretation Normal (test code = 26158-4) [facility] [id number] 13:20:50 Test Item Value Reference Range Interpretation Comments SARS COVID ANTIGEN Negative Negative (test code = 87600-5) SHONDA (test code = SHONDA) The QuickVue SARS Antigen test does not differentiate between SARS-CoV and SARS-CoV-2. The test has been authorized by the FDA under an EUA for use by authorized laboratories. Lab Interpretation Normal (test code = 79502-6) [facility] [id number] 13:20:50 Test Item Value Reference Range Interpretation Comments SARS COVID ANTIGEN Negative Negative (test code = 16701-9) SHONDA (test code = SHONDA) The QuickVue SARS Antigen test does not differentiate between SARS-CoV and SARS-CoV-2. The test has been authorized by the FDA under an EUA for use by authorized laboratories. Lab Interpretation Normal (test code = 56186-5) [facility] [id number] 13:20:50 Test Item Value Reference Range Interpretation Comments SARS COVID ANTIGEN Negative Negative (test code = 60813-6) SHONDA (test code = SHONDA) The QuickVue SARS Antigen test does not differentiate between SARS-CoV and SARS-CoV-2. The test has been authorized by the FDA under an EUA for use by authorized laboratories. Lab Interpretation Normal (test code = 86471-3) [facility] [id number] 13:20:50 Test Item Value Reference Range Interpretation Comments SARS COVID ANTIGEN Negative Negative (test code = 89519-6) SHONDA (test code = SHONDA) The QuickVue SARS Antigen test does not differentiate between SARS-CoV and SARS-CoV-2. The test has been authorized by the FDA under an EUA for use by authorized laboratories. Lab Interpretation Normal (test code = 26028-7) [facility] [id number] 13:20:50 Test Item Value Reference Range Interpretation Comments SARS COVID ANTIGEN Negative Negative (test code = 62314-2) SHONDA (test code = SHONDA) The QuickVue SARS Antigen test does not differentiate between SARS-CoV and SARS-CoV-2. The test has been authorized by the FDA under an EUA for use by authorized laboratories. Lab Interpretation Normal (test code = 92009-6) [facility] [id number] 13:20:50 Test Item Value Reference Range Interpretation Comments SARS COVID ANTIGEN Negative Negative (test code = 00115-1) SHONDA (test code = SHONDA) The QuickVue SARS Antigen test does not differentiate between SARS-CoV and SARS-CoV-2. The test has been authorized by the FDA under an EUA for use by authorized laboratories. Lab Interpretation Normal (test code = 81189-9) [facility] [id number] 13:20:50 Test Item Value Reference Range Interpretation Comments SARS COVID ANTIGEN Negative Negative (test code = 74450-2) SHONDA (test code = SHONDA) The QuickVue SARS Antigen test does not differentiate between SARS-CoV and SARS-CoV-2. The test has been authorized by the FDA under an EUA for use by authorized laboratories. Lab Interpretation Normal (test code = 42551-4) [facility] [id number] 13:20:50 Test Item Value Reference Range Interpretation Comments SARS COVID ANTIGEN Negative Negative (test code = 45260-3) SHONDA (test code = SHONDA) The QuickVue SARS Antigen test does not differentiate between SARS-CoV and SARS-CoV-2. The test has been authorized by the FDA under an EUA for use by authorized laboratories. Lab Interpretation Normal (test code = 82525-4) [facility] [id number] 13:20:50 Test Item Value Reference Range Interpretation Comments SARS COVID ANTIGEN (test code = Negative Negative 32306096) The QuickVue SARS Antigen test does not differentiate between SARS-CoV and SARS-CoV-2.The test has been authorized by the FDA under an EUA for use by authorized laboratories.BASIC METABOLIC [id number] 13:15:49 Test Item Value Reference Range Interpretation Comments SODIUM (BEAKER) 140 meq/L 135-148 (test code = 381) POTASSIUM 3.0 meq/L 3.6-5.5 L (BEAKER) (test code = 379) CHLORIDE (BEAKER) 104 meq/L 98-106 (test code = 382) CO2 (BEAKER) 26 meq/L 20-29 (test code = 355) BLOOD UREA 10 mg/dL 10-26 NITROGEN (BEAKER) (test code = 354) CREATININE 0.85 mg/dL 0.50-1.20 (BEAKER) (test code = 358) GLUCOSE RANDOM 114 mg/dL 70-110 H (BEAKER) (test code = 652) CALCIUM (BEAKER) 8.7 mg/dL 8.5-10.5 (test code = 697) EGFR (BEAKER) 86 Interpretatio n of eGFR (test code = mL/min/1.73 values Stage De scription 1092) sq m Result G1 Julisa l or high >=90 G2 Mildly decreased 60-89 G3a Mildl y to moderately 45-5 9 G3b Moderately to s everely 30-44 G4 Sever ly decreased 15-29 G5 Kidney failure <15Repo rted eGFR is based on the CKD-EPI 2020 equation t hat does not use a race coefficientEsti mated GFR is not as accur ate as Creatinine Rimma mamie in predicting glom erular filtration rate . Estimated GFR is not appl icable for dialysis patien ts Ditching Machine Engineer ID - AZIZOperator ID - AZIZOperator ID - AZIZOperator ID - AZIZOperator ID - AZIZOperator ID - AZIZOperator ID - AZIZOperator ID - AZIZOperator ID - AZIZOperator ID - AZIZOperator ID - AZIZOperator ID - AZIZOperator ID - AZIZ PT/[id number] 13:07:45 Test Item Value Reference Range Interpretation Comments PROTIME (BEAKER) (test 11.2 seconds 9.3-12.0 Final Information code = 759) (Auto Output) INR (BEAKER) (test 1.02 See_Comment Final Inf ormation code = 370) (Auto Output) [Automated mess age] The system [employer] generated this result transmit waqar reference range : <=5.90. The reference range was not used to interpret this result as normal/abnormal . PARTIAL THROMBOPLASTIN 29.9 seconds 23.0-35.0 Final Information TIME (BEAKER) (test (Auto Ou tput) code = 760) RECOMMENDED COUMADIN/WARFARIN INR THERAPY RANGESSTANDARD DOSE: 2.0 - 3.0 Includes: PROPHYLAXIS for venous thrombosis, systemic embolization; TREATMENT for venous thrombosis and/or pulmonary embolus.HIGH RISK: Target INR is 2.5-3.5 for patients with mechanical heart valves.CBC W/PLT COUNT & AUTO [id number] 12:58:00 Test Item Value Reference Range Interpretation Comments WHITE BLOOD CELL COUNT (BEAKER) 5.3 K/ L 4.0-10.0 (test code = 775) RED BLOOD CELL COUNT (BEAKER) 3.92 M/ L 4.00-5.00 L (test code = 761) HEMOGLOBIN (BEAKER) (test code = 10.9 GM/DL 12.0-15.5 L 410) HEMATOCRIT (BEAKER) (test code = 33.3 % 36.0-46.0 L 411) MEAN CORPUSCULAR VOLUME (BEAKER) 84.9 fL 82.0-99.0 (test code = 753) MEAN CORPUSCULAR HEMOGLOBIN 27.8 pg 27.0-33.0 (BEAKER) (test code = 751) MEAN CORPUSCULAR HEMOGLOBIN CONC 32.7 GM/DL 32.0-36.0 (BEAKER) (test code = 752) RED CELL DISTRIBUTION WIDTH 14.7 % 12.0-15.0 (BEAKER) (test code = 412) PLATELET COUNT (BEAKER) (test 292 K/CU MM 150-430 code = 756) MEAN PLATELET VOLUME (BEAKER) 9.6 fL 6.0-11.5 (test code = 754) NUCLEATED RED BLOOD CELLS 0 /100 WBC 0-0 (BEAKER) (test code = 413) NEUTROPHILS RELATIVE PERCENT 50 % (BEAKER) (test code = 429) LYMPHOCYTES RELATIVE PERCENT 33 % (BEAKER) (test code = 430) MONOCYTES RELATIVE PERCENT 13 % (BEAKER) (test code = 431) EOSINOPHILS RELATIVE PERCENT 3 % (BEAKER) (test code = 432) BASOPHILS RELATIVE PERCENT 1 % (BEAKER) (test code = 437) NEUTROPHILS ABSOLUTE COUNT 2.65 K/ L 1.80-8.00 (BEAKER) (test code = 670) LYMPHOCYTES ABSOLUTE COUNT 1.74 K/ L 1.48-4.50 (BEAKER) (test code = 414) MONOCYTES ABSOLUTE COUNT (BEAKER) 0.70 K/ L 0.00-1.30 (test code = 415) EOSINOPHILS ABSOLUTE COUNT 0.17 K/ L 0.00-0.50 (BEAKER) (test code = 416) BASOPHILS ABSOLUTE COUNT (BEAKER) 0.03 K/ L 0.00-0.20 (test code = 417) IMMATURE GRANULOCYTES-RELATIVE 0 % 0-0 PERCENT (BEAKER) (test code = 2801) RAD, CHEST, 2 [id number] 18:12:00Reason for Exam:->[facility] 1975 Sex: FFINAL REPORT EXAM: RAD, CHEST, 2 VIEWSDATE: 04/20/2022 10:19 AM INDICATION: Shortness of breathCOMPARISON: None FINDINGS:Lines and tubes: None Heart size normal. No focal pulmonary opacity, pleural effusion or pneumothorax. Upper abdomen unremarkable. No acute bony abnormality. Cervical ribs are noted. IMPRESSION:No evidence for acute disease. Signed: Barbara Soni MDReport Verified Date/Time: 04/20/2022 18:12:53 Reading Location: [facility] Reading Room [address] [place] [address] CT, [id number] 16:50:00Unlisted Reason for Exam - Click Yes and Enter Reason Below->NoIs this for enterography?->NoWill this procedure require oral contrast?->No [facility] : 1975 Sex: FFINAL REPORT ABDOMINAL AND PELVIS CT DATED 03/24/2022 CLINICAL INFORMATION: Abdominal pain, acute, nonlocalized TECHNIQUE: Axial images of the abdomen and pelvis were obtained from diaphragm to the pubic symphysis with intravenous contrast. This exam was performed according to our departmental dose-optimization program, which includes automated exposure control, adjustment of the mA and/or kV according to patient size and/or use of interactive reconstruction technique. COMMENT: Liver and spleen are normal in size without focal abnormality. Gallbladder is contracted. No gallstone or biliary dilatation is noted. Pancreas and adrenals are unremarkable. Both kidneys are normal in siz e and functioning. No hydronephrosis, hydroureter, urolithiasis is seen. The small and large bowel are suboptimally evaluated secondary to lack of GI contrast. No small or large bowel dilatation is seen. Appendix is not visualized. Uterus and right ovary are unremarkable. A 1.3 x 1.8 cm cyst is seen in the left ovary. The urinary bladder is contracted. No mass, adenopathy or ascites is present. IMPRESSION: No focal abnormality seen in the abdomen or pelvis to account for patient's abdominal pain. Signed: Davina Rivera MDReport Verified Date/Time: 03/24/2022 16:50:41 Reading Location: [facility] C013Y CT Body Reading Room , QUANTITATIVE, [id number] 15:24:47 Test Item Value Reference Range Interpretation Comments GONADOTROPIN, CHORIONIC (HCG) QUANT < mIU/mL 0-10 (BEAKER) (test code = 649) Non- Females: <10 mIU/mL Females: Gestation Age Reference Range(mIU/mL) 0.2-1 Week 5-50 1-2 Weeks 50-500 2-3 Weeks 100-5,000 3-4 Weeks 500-10,000 4-5 Weeks 1,000-50,000 5-6 Weeks 10,000-100,000 6-8 Weeks 15,000- 200,000 2-3 Months 10,000-100,000 Ditching Machine Engineer ID - BARBARA MHIGH SENSITIVITY TROPONIN [id number] 15:22:31 Test Item Value Reference Range Interpretation Comments HIGH SENSITIVITY < pg/ml See_Comment [Automated message] TROPONIN I (test code = The system which [id number]) generated this result transmitted ref erence range: <=17. Th e reference range was not used to interpr et this result as normal/abnormal . Ditching Machine Engineer ID - BARBARA MThe STOCK WORKER AND DELIVERER STAT High Sensitivity Troponin-I results should be used in conjunction with other diagnostic information such as ECG, clinical observations and information, and patient symptoms to aid in the diagnosis of MA.[id number] 15:19:14 Test Item Value Reference Range Interpretation Comments LIPASE (BEAKER) (test code = 749) 36 U/L 8-78 Ditching Machine Engineer ID - BARBARA [id number] 15:19:13 Test Item Value Reference Range Interpretation Comments MAGNESIUM (BEAKER) 2.0 mg/dL 1.6-2.6 Specimen moderately (test code = 627) hemolyzed Ditching Machine Engineer ID - BARBARA [id number] 15:19:13 Test Item Value Reference Range Interpretation Comments PHOSPHORUS (BEAKER) 2.1 mg/dL 2.3-4.7 L Specimen moderately (test code = 604) hemolyzed Ditching Machine Engineer ID - BARBARA MCOMPREHENSIVE METABOLIC [id number] 15:19:13 Test Item Value Reference Range Interpretation Comments TOTAL PROTEIN 8.2 gm/dL 6.0-8.3 Specimen moder ately (BEAKER) (test code = hemoly zed 770) ALBUMIN (BEAKER) 4.1 g/dL 3.5-5.0 Specimen mo derately (test code = 1145) hemolyzed ALKALINE PHOSPHATASE 85 U/L 40-150 (BEAKER) (test code = 346) BILIRUBIN TOTAL 0.5 mg/dL 0.2-1.2 Specimen mod erately (BEAKER) (test code = hemoly zed 377) SODIUM (BEAKER) (test 137 meq/L 136-145 code = 381) POTASSIUM (BEAKER) 3.2 meq/L 3.5-5.1 L Specimen moderately (test code = 379) hemolyzed CHLORIDE (BEAKER) 100 meq/L 98-107 (test code = 382) CO2 (BEAKER) (test 26 meq/L 22-29 code = 355) BLOOD UREA NITROGEN 12 mg/dL 7-21 (BEAKER) (test code = 354) CREATININE (BEAKER) 0.89 mg/dL 0.57-1.25 Specimen moderately (test code = 358) hemolyzed GLUCOSE RANDOM 103 mg/dL 70-105 (BEAKER) (test code = 652) CALCIUM (BEAKER) 9.1 mg/dL 8.4-10.2 (test code = 697) AST (SGOT) (BEAKER) 27 U/L 5-34 Specimen moderately (test code = 353) hemolyzed ALT (SGPT) (BEAKER) 16 U/L 6-55 Specimen moderately (test code = 347) hemolyzed EGFR (BEAKER) (test 83 mL/min/1.73 ESTIMA WAQAR GFR IS code = 1092) sq m NOT ACCURATE CREATININE CLEARANCE IN PREDICTING GLOMERULAR FILTRATION RATE . ESTIMATED GFR I S NOT APPLICABLE FOR DIALYSIS PATIEN TS. Ditching Machine Engineer ID - BARBARA MCBC W/PLT COUNT & AUTO [id number] 14:55:05 Test Item Value Reference Range Interpretation Comments WHITE BLOOD CELL COUNT (BEAKER) 6.2 K/ L 3.5-10.5 (test code = 775) RED BLOOD CELL COUNT (BEAKER) 4.50 M/ L 3.93-5.22 (test code = 761) HEMOGLOBIN (BEAKER) (test code = 12.3 GM/DL 11.2-15.7 410) HEMATOCRIT (BEAKER) (test code = 38.7 % 34.1-44.9 411) MEAN CORPUSCULAR VOLUME (BEAKER) 86.0 fL 79.4-94.8 (test code = 753) MEAN CORPUSCULAR HEMOGLOBIN 27.3 pg 25.6-32.2 (BEAKER) (test code = 751) MEAN CORPUSCULAR HEMOGLOBIN CONC 31.8 GM/DL 32.2-35.5 L (BEAKER) (test code = 752) RED CELL DISTRIBUTION WIDTH 14.3 % 11.7-14.4 (BEAKER) (test code = 412) PLATELET COUNT (BEAKER) (test 290 K/CU MM 150-450 code = 756) MEAN PLATELET VOLUME (BEAKER) 9.8 fL 9.4-12.3 (test code = 754) NUCLEATED RED BLOOD CELLS 0 /100 WBC 0-0 (BEAKER) (test code = 413) NEUTROPHILS RELATIVE PERCENT 52 % (BEAKER) (test code = 429) LYMPHOCYTES RELATIVE PERCENT 32 % (BEAKER) (test code = 430) MONOCYTES RELATIVE PERCENT 13 % (BEAKER) (test code = 431) EOSINOPHILS RELATIVE PERCENT 3 % (BEAKER) (test code = 432) BASOPHILS RELATIVE PERCENT 1 % (BEAKER) (test code = 437) NEUTROPHILS ABSOLUTE COUNT 3.21 K/ L 1.56-6.13 (BEAKER) (test code = 670) LYMPHOCYTES ABSOLUTE COUNT 1.96 K/ L 1.18-3.74 (BEAKER) (test code = 414) MONOCYTES ABSOLUTE COUNT (BEAKER) 0.78 K/ L 0.24-0.36 H (test code = 415) EOSINOPHILS ABSOLUTE COUNT 0.19 K/ L 0.04-0.36 (BEAKER) (test code = 416) BASOPHILS ABSOLUTE COUNT (BEAKER) 0.04 K/ L 0.01-0.08 (test code = 417) IMMATURE GRANULOCYTES-RELATIVE 0 % 0-1 PERCENT (BEAKER) (test code = 2801) Venous Doppler Legs [id number] 16:44:44Ejection FractionSLEH ECHO HEARTLAB MKCK[facility] AP 2021-09-13 14:13:00Reason for Exam:->constipation unspecified,hx of abd surg, gen abd painL[facility]Name: [facility] : 1975 Sex: FFINAL REPORT EXAM: RAD, ABDOMEN/KUB, 1 VIEW AP HISTORY: Constipation, generalized abdominal pain COMPARISON: CT abdomen and pelvis 12/24/2020 DISCUSSION: Lines/Tubes: None. Bowel: Nonobstructive bowel gas pattern. Moderate stool burden throughout the colon. Other: No evidence of pneumoperitoneum given exam limitations. Surgical clips throughout the mid abdomen. No abnormal calcifications. Bones: No acute osseous abnormality. Chest: Inferior lungs and cardiac silhouette unremarkable. IMPRESSION: 1. Nonobstructive bowel gas pattern with moderate stool burden throughout the colon. Signed: Malcom Vera [facility] Verified Date/Time: 09/13/2021 14:13:47 RAD, SPINE, CERVICAL, COMPLETE, WITH [id number] 00:00:00Reason for Exam:->cervical radiculitis [facility] : 1975 Sex: FFINAL REPORT EXAM/TECHNIQUE: Cervical radiography seven views. INDICATION: Cervical radiculopathy. COMPARISON: None. FINDINGS: No acute fracture. No sagittal listhesis. No change in alignment between flexion and extension. No prevertebral soft tissues swelling. No significant osseous narrowing of the neural foramina. The odontoid view is normal. Lung apices are clear. Impression:No radiographic explanation for neck pain. Signed: Aaron Vieira MDReport Verified Date/Time: 06/01/2021 00:00:24 TISSUE [id number] 11:35:00Surgical Pathology Report Case: [id number] Authorizing Provider: Antoine Leigh MD Collected: 01/30/2021 09:23 AM Ordering Location: [facility] Received: 01/30/2021 12:27 PM SERVICES Pathologist: Lisbet Sargent MD Specimen: Stomach, random bx STOMACH, RANDOM BIOPSY: - GASTRIC BODY TYPEMUCOSA WITH MILD CHRONIC INACTIVE GASTRITIS - GASTRIC ANTRUM TYPE MUCOSA WITH REACTIVE GASTROPATHY -WARTHIN STARRY STAIN NEGATIVE FOR H. PYLORI-LIKE ORGANISMS - NEGATIVE FOR INTESTINAL METAPLASIA OR DYSPLASIA Signing Pathologist Direct Phone Line: [phone] signed by Lisbet Sargent MDon 02/01/2021 at 11:34 AMEndoscopic report reviewed./[id number] of gastric ulcerStoma chSpecimen A is received in formalin labelled with the patient's name, medical record number and "random stomach biopsy" and consists of 3 north-pink irregular soft tissue fragments (from 0.3 cm to 0.5 cm in greatest dimension). The specimen is submitted in toto in cassette A1.STEPHANI (resident)Performed The interpretation of this case included the use of immunohistochemistry or special stains.Control Slides Examined: In-house known positive controls were evaluated along with the test tissue. These controlslides run alongside of the patients sample show appropriate staining. Internal positive and negative controls when available are evaluated Immunohistochemistry technical testing was performed at [facility], Pathology Laboratory where it was developed and its performance characteristics were determined. It has not been cleared or approved by the U.S. Food and Drug Administration. The FDA has determined that such clearance or approval is not necessary. The test is used for clinical purposes. It should not be regarded as investigational or for research. This laboratory is certified under the Clinical Laboratory Improvement Amendments of 1988 (CLIA-88) as qualified to perform high complexity clinical laboratory testing.MM, U/S, BREAST, [id number] 14:38:00Diagnostic workup per radiologist?->YesReason for Exam:->N63.10 [facility] : 1975 Sex: FMRN#: [id number] - MM, U/S, BREAST, BILATERAL COMPLETE ULTRASOUND OF BOTH BREASTS AND AXILLA:01/16/2021omparison is made to exam dated: 01/16/2021 mammogram - [facility]. Color flow and real-time ultrasound of both breasts four quadrants, retroareolar, and axilla regions were performed. Blanc scale images of the real-time examination were reviewed. Nosignificant abnormalities were seen sonographically in either breast. IMPRESSION: BENIGN The findings and recommendations have been discussed with the patient. Previous films are not available for comparison. An addendum will be issued when those films become available. There is no sonographic evidence of malignancy. A 1 year screening mammogram is recommended. Christian Caro M.D. pth/penrad:114:38:06 Normal Exam Ultrasound BI-RADS: 2 Benign [id number] Electronically signed by: CHRISTIAN CARO M.D.on 01/16/2021 02:38 PMMM, DIGITAL MAMMO, DIAGNOSTIC, BILATERAL INCLUDING [id number] 14:22:00Diagnostic workup per radiologist?->YesReason for Exam:->N63.10 [facility] : 1975 Sex: FMRN#: [id number] - MM, DIGITAL MAMMO, DIAGNOSTIC, BILATERAL INCLUDING CAD BILATERAL DIGITAL DIAGNOSTIC MAMMOGRAM WITH CAD: 01/16/2021No prior exams were available for comparison. The tissue of both breasts is heterogeneously dense. This may lower the sensitivity of mammography. Current study wasalso evaluated with a Computer Aided Detection (CAD) system. Optimal positioning is not possible dueto patient's clinical condition, limiting evaluation. Benign appearing calcifications are present inthe left breast. Examination indicates an intramammary lymph node in the right breast. No significant masses, calcifications, or other findings are seen in either breast. IMPRESSION: Previous films arenot available. If they become available, they will be reviewed and we will issue an addendum. There is no mammographic evidence of malignancy. Christian Caro M.D. pth/:01/16/2021 14:22:25 Behavioral Therapy Coordinator: RT Roxanne(Crissy)(M), [facility] Mammogram BI-R ADS: 2 Benign [id number] TISSUE [id number] 14:46:00Surgical Pathology Report Case: [id number] Authorizing Provider: Antoine Leigh MD Collected: 12/27/2020 09:24 AM Ordering Location: [address] Received: 12/27/2020 12:01 PM Service Pathologist: Juliette Hogan MD Specimens: A) - Biopsy, Gastric, Random B) - Biopsy, Gastric, Ulcer This addendum is being issued to report the results of immunohistochemical stain H Pylori on B1, which is negative. The final diagnosis remains the same. [id number] electronically signed by Juliette Hogan MD on 12/29/2020 at 2:46 PMA. STOMACH, BIOPSY: - GASTRIC OXYNTIC AND ANTRAL MUCOSA WITH MILD CHRONIC INACTIVE GASTRITIS. - NEGATIVE FOR HELICOBACTER PYLORI ORGANISMS BY WARTHIN STARRY STAIN. - NEGATIVE FOR INTESTINAL METAPLASIA, DYSPLASIA OR MALIGNANCY.B. STOMACH, ULCER BIOPSY: - GASTRIC ANTRAL MUCOSA WITH ACUTE AND CHRONIC INFLAMMATION WITH MILD REACTIVE CHANGE, CONSISTENT WITH ADJACENT ULCER/EROSION. - NEGATIVE FOR HELICOBACTER PYLORI ORGANISMS BY WARTHIN STARRY STAIN. - NEGATIVE FOR INTESTINAL METAPLASIA, DYSPLASIA OR MALIGNANCY. Signing Pathologist Direct Phone Line: [phone] signedby Juliette Hogan MD on 12/28/2020 at 11:08 [id number] X 2, [id number] X 2ANEMIAA. GastricB. GastricA. Received in formalin labeled the patient's name, accession number and "gastric biopsy" are multiple north-pink tissue fragments measuring up to 0.3 cm in greatest dimension which are filtered and submitted in totoin A1.B. Received in formalin labeled the patient's name, accession number and "gastric ulcer biopsy" is a 0.3 x 0.2 x 0.1 cm north-pink tissue fragment which is filtered and submitted in toto in B1.BRIAN Gaytan, HT (ASCP)Performed.The interpretation of this case included the use of immunohistochemistry or special stains.A1. Warthin starry: negativeB1. Warthin starry: negativeControl Slides Examined: In-house known positive controls were evaluated along with the test tissue. These control slides run alongside of the patients sample show appropriate staining. Internal positive and negative controls when available are evaluated Immunohistochemistry technical testing was performed at [facility], Pathology Laboratory where it was developed and its performance characteristics were determined. It has not been cleared or approved by the U.S. Food and Drug Administration. The FDA has determined that such clearance or approval is not necessary. The test is used for clinical purposes. It should not be regarded as investigational or for research. This laboratory is certified under the Clinical Laboratory Improvement Amendments of 1988 (CLIA-88) as qualified to perform high complexity clinical laboratory testing.[facility], Department of Pathology, [address] [place] [address], [facility], [address] [place] [address], [facility], [facility] of [facility], [address] [place] [address], CQEXR METABOLIC [id number] 05:37:00 Test Item Value Reference Range Interpretation Comments SODIUM (BEAKER) 137 meq/L 136-145 (test code = 381) POTASSIUM (BEAKER) 3.8 meq/L 3.5-5.1 (test code = 379) CHLORIDE (BEAKER) 105 meq/L 98-107 (test code = 382) CO2 (BEAKER) (test 24 meq/L 22-29 code = 355) BLOOD UREA NITROGEN 5 mg/dL 7-21 L (BEAKER) (test code = 354) CREATININE (BEAKER) 0.80 mg/dL 0.57-1.25 (test code = 358) GLUCOSE RANDOM 102 mg/dL 70-105 (BEAKER) (test code = 652) CALCIUM (BEAKER) 8.2 mg/dL 8.4-10.2 L (test code = 697) EGFR (BEAKER) (test 94 mL/min/1.73 ESTIMA WAQAR GFR IS code = 1092) sq m NOT ACCURATE CREATININE CLEARANCE IN PREDICTING GLOMERULAR FILTRATION RATE . ESTIMATED GFR I S NOT APPLICABLE FOR DIALYSIS PATIEN TS. Ditching Machine Engineer ID - HUMBERTO [id number] 05:37:00 Test Item Value Reference Range Interpretation Comments MAGNESIUM (BEAKER) (test code = 2.0 mg/dL 1.6-2.6 627) Ditching Machine Engineer ID - HUMBERTO [id number] 05:37:00 Test Item Value Reference Range Interpretation Comments PHOSPHORUS (BEAKER) (test code = 3.3 mg/dL 2.3-4.7 604) Ditching Machine Engineer ID - HUMBERTO LCBC W/PLT COUNT & AUTO [id number] 05:04:00 Test Item Value Reference Range Interpretation Comments WHITE BLOOD CELL COUNT (BEAKER) 5.1 K/ L 3.5-10.5 (test code = 775) RED BLOOD CELL COUNT (BEAKER) 3.92 M/ L 3.93-5.22 L (test code = 761) HEMOGLOBIN (BEAKER) (test code = 10.4 GM/DL 11.2-15.7 L 410) HEMATOCRIT (BEAKER) (test code = 33.4 % 34.1-44.9 L 411) MEAN CORPUSCULAR VOLUME (BEAKER) 85.2 fL 79.4-94.8 (test code = 753) MEAN CORPUSCULAR HEMOGLOBIN 26.5 pg 25.6-32.2 (BEAKER) (test code = 751) MEAN CORPUSCULAR HEMOGLOBIN CONC 31.1 GM/DL 32.2-35.5 L (BEAKER) (test code = 752) RED CELL DISTRIBUTION WIDTH 15.0 % 11.7-14.4 H (BEAKER) (test code = 412) PLATELET COUNT (BEAKER) (test 248 K/CU MM 150-450 code = 756) MEAN PLATELET VOLUME (BEAKER) 9.7 fL 9.4-12.3 (test code = 754) NUCLEATED RED BLOOD CELLS 0 /100 WBC 0-0 (BEAKER) (test code = 413) NEUTROPHILS RELATIVE PERCENT 37 % (BEAKER) (test code = 429) LYMPHOCYTES RELATIVE PERCENT 43 % (BEAKER) (test code = 430) MONOCYTES RELATIVE PERCENT 16 % (BEAKER) (test code = 431) EOSINOPHILS RELATIVE PERCENT 3 % (BEAKER) (test code = 432) BASOPHILS RELATIVE PERCENT 1 % (BEAKER) (test code = 437) NEUTROPHILS ABSOLUTE COUNT 1.90 K/ L 1.56-6.13 (BEAKER) (test code = 670) LYMPHOCYTES ABSOLUTE COUNT 2.16 K/ L 1.18-3.74 (BEAKER) (test code = 414) MONOCYTES ABSOLUTE COUNT (BEAKER) 0.80 K/ L 0.24-0.36 H (test code = 415) EOSINOPHILS ABSOLUTE COUNT 0.16 K/ L 0.04-0.36 (BEAKER) (test code = 416) BASOPHILS ABSOLUTE COUNT (BEAKER) 0.03 K/ L 0.01-0.08 (test code = 417) IMMATURE GRANULOCYTES-RELATIVE 0 % 0-1 PERCENT (BEAKER) (test code = 2801) [id number] 06:44:00 Test Item Value Reference Range Interpretation Comments MAGNESIUM (BEAKER) 2.1 mg/dL 1.6-2.6 Specimen slightly (test code = 627) hemolyzed Ditching Machine Engineer ID - ZACHERY [id number] 06:44:00 Test Item Value Reference Range Interpretation Comments PHOSPHORUS (BEAKER) 3.9 mg/dL 2.3-4.7 Specimen slightly (test code = 604) hemolyzed Ditching Machine Engineer ID - ZACHERY FBASIC METABOLIC [id number] 06:44:00 Test Item Value Reference Range Interpretation Comments SODIUM (BEAKER) 137 meq/L 136-145 (test code = 381) POTASSIUM (BEAKER) 3.8 meq/L 3.5-5.1 Specimen slightly (test code = 379) hemolyzed CHLORIDE (BEAKER) 102 meq/L 98-107 (test code = 382) CO2 (BEAKER) (test 26 meq/L 22-29 code = 355) BLOOD UREA NITROGEN 7 mg/dL 7-21 (BEAKER) (test code = 354) CREATININE (BEAKER) 0.91 mg/dL 0.57-1.25 Specimen slightly (test code = 358) hemolyzed GLUCOSE RANDOM 107 mg/dL 70-105 H (BEAKER) (test code = 652) CALCIUM (BEAKER) 8.8 mg/dL 8.4-10.2 (test code = 697) EGFR (BEAKER) (test 81 mL/min/1.73 ESTIMA WAQAR GFR IS code = 1092) sq m NOT ACCURATE CREATININE CLEARANCE IN PREDICTING GLOMERULAR FILTRATION RATE . ESTIMATED GFR I S NOT APPLICABLE FOR DIALYSIS PATIEN TS. Ditching Machine Engineer ID Jerrell BINGHAM FCBC W/PLT COUNT & AUTO [id number] 06:29:00 Test Item Value Reference Range Interpretation Comments WHITE BLOOD CELL COUNT (BEAKER) 5.6 K/ L 3.5-10.5 (test code = 775) RED BLOOD CELL COUNT (BEAKER) 4.27 M/ L 3.93-5.22 (test code = 761) HEMOGLOBIN (BEAKER) (test code = 11.5 GM/DL 11.2-15.7 410) HEMATOCRIT (BEAKER) (test code = 35.7 % 34.1-44.9 411) MEAN CORPUSCULAR VOLUME (BEAKER) 83.6 fL 79.4-94.8 (test code = 753) MEAN CORPUSCULAR HEMOGLOBIN 26.9 pg 25.6-32.2 (BEAKER) (test code = 751) MEAN CORPUSCULAR HEMOGLOBIN CONC 32.2 GM/DL 32.2-35.5 (BEAKER) (test code = 752) RED CELL DISTRIBUTION WIDTH 14.9 % 11.7-14.4 H (BEAKER) (test code = 412) PLATELET COUNT (BEAKER) (test 291 K/CU MM 150-450 code = 756) MEAN PLATELET VOLUME (BEAKER) 9.9 fL 9.4-12.3 (test code = 754) NUCLEATED RED BLOOD CELLS 0 /100 WBC 0-0 (BEAKER) (test code = 413) NEUTROPHILS RELATIVE PERCENT 39 % (BEAKER) (test code = 429) LYMPHOCYTES RELATIVE PERCENT 44 % (BEAKER) (test code = 430) MONOCYTES RELATIVE PERCENT 14 % (BEAKER) (test code = 431) EOSINOPHILS RELATIVE PERCENT 3 % (BEAKER) (test code = 432) BASOPHILS RELATIVE PERCENT 1 % (BEAKER) (test code = 437) NEUTROPHILS ABSOLUTE COUNT 2.15 K/ L 1.56-6.13 (BEAKER) (test code = 670) LYMPHOCYTES ABSOLUTE COUNT 2.43 K/ L 1.18-3.74 (BEAKER) (test code = 414) MONOCYTES ABSOLUTE COUNT (BEAKER) 0.79 K/ L 0.24-0.36 H (test code = 415) EOSINOPHILS ABSOLUTE COUNT 0.17 K/ L 0.04-0.36 (BEAKER) (test code = 416) BASOPHILS ABSOLUTE COUNT (BEAKER) 0.03 K/ L 0.01-0.08 (test code = 417) IMMATURE GRANULOCYTES-RELATIVE 0 % 0-1 PERCENT (BEAKER) (test code = 2801) [id number] 06:17:00 Test Item Value Reference Range Interpretation Comments PARTIAL THROMBOPLASTIN TIME 31.2 seconds 22.5-36.0 (BEAKER) (test code = 760) [id number] 17:19:00 Test Item Value Reference Range Interpretation Comments PARTIAL THROMBOPLASTIN TIME 68.6 seconds 22.5-36.0 H (BEAKER) (test code = 760) TROPONIN [id number] 12:10:00 Test Item Value Reference Range Interpretation Comments TROPONIN I (BEAKER) (test code = 397) < ng/mL 0.00-0.03 Troponin I (TnI) levels must be interpreted in the context of the presenting symptoms and the clinical findings. Elevated TnI levels indicate myocardial damage, but are not specific for ischemic heart disease. Elevated TnI levels are seen in patients with other cardiac conditions (including myocarditis and congestive heart failure), and slight TnI elevations occur in patients with other conditions, including sepsis, renal failure, acidosis, acute neurological disease, and persistent tachyarrhythmia.Ditching Machine Engineer ID - EDASIBASIC METABOLIC PANEL 2020-12-25 06:21:00 Test Item Value Reference Range Interpretation Comments SODIUM (BEAKER) 139 meq/L 136-145 (test code = 381) POTASSIUM (BEAKER) 3.6 meq/L 3.5-5.1 (test code = 379) CHLORIDE (BEAKER) 105 meq/L 98-107 (test code = 382) CO2 (BEAKER) (test 24 meq/L 22-29 code = 355) BLOOD UREA NITROGEN 10 mg/dL 7-21 (BEAKER) (test code = 354) CREATININE (BEAKER) 0.83 mg/dL 0.57-1.25 (test code = 358) GLUCOSE RANDOM 101 mg/dL 70-105 (BEAKER) (test code = 652) CALCIUM (BEAKER) 8.5 mg/dL 8.4-10.2 (test code = 697) EGFR (BEAKER) (test 90 mL/min/1.73 ESTIMA WAQAR GFR IS code = 1092) sq m NOT ACCURATE CREATININE CLEARANCE IN PREDICTING GLOMERULAR FILTRATION RATE . ESTIMATED GFR I S NOT APPLICABLE FOR DIALYSIS PATIEN TS. Ditching Machine Engineer ID - [id number] 06:21:00 Test Item Value Reference Range Interpretation Comments MAGNESIUM (BEAKER) (test code = 2.1 mg/dL 1.6-2.6 627) Ditching Machine Engineer ID - [id number] 06:21:00 Test Item Value Reference Range Interpretation Comments PHOSPHORUS (BEAKER) (test code = 3.4 mg/dL 2.3-4.7 604) Ditching Machine Engineer ID - [id number] 06:15:00 Test Item Value Reference Range Interpretation Comments PARTIAL THROMBOPLASTIN TIME 103.4 seconds 22.5-36.0 H (BEAKER) (test code = 760) CBC (HEMOGRAM ONLY)2020-12-25 06:15:00 Test Item Value Reference Range Interpretation Comments WHITE BLOOD CELL COUNT (BEAKER) 6.2 K/ L 3.5-10.5 (test code = 775) RED BLOOD CELL COUNT (BEAKER) 4.00 M/ L 3.93-5.22 (test code = 761) HEMOGLOBIN (BEAKER) (test code = 10.8 GM/DL 11.2-15.7 L 410) HEMATOCRIT (BEAKER) (test code = 34.1 % 34.1-44.9 411) MEAN CORPUSCULAR VOLUME (BEAKER) 85.3 fL 79.4-94.8 (test code = 753) MEAN CORPUSCULAR HEMOGLOBIN 27.0 pg 25.6-32.2 (BEAKER) (test code = 751) MEAN CORPUSCULAR HEMOGLOBIN CONC 31.7 GM/DL 32.2-35.5 L (BEAKER) (test code = 752) RED CELL DISTRIBUTION WIDTH 15.2 % 11.7-14.4 H (BEAKER) (test code = 412) PLATELET COUNT (BEAKER) (test 260 K/CU MM 150-450 code = 756) MEAN PLATELET VOLUME (BEAKER) 10.1 fL 9.4-12.3 (test code = 754) NUCLEATED RED BLOOD CELLS 0 /100 WBC 0-0 (BEAKER) (test code = 413) PROTHROMBIN TIME/[id number] 06:05:00 Test Item Value Reference Range Interpretation Comments PROTIME (BEAKER) 13.5 seconds 11.9-14.2 (test code = 759) INR (BEAKER) (test 1.06 See_Comment [Automat ed message] code = 370) The system [employer] generated this result transmitted ref erence range: <=5.90. The reference range was not used to int erpret this result as normal/abnormal . Effective 03/18/2019: PT Reference Range ChangeNew: 11.9-14.2 Previous: 11.7- 14.7RECOMMENDED COUMADIN/WARFARIN INR THERAPY RANGESSTANDARD DOSE: 2.0-3.0 Includes: PROPHYLAXIS for venous thrombosis, systemic embolization; TREATMENT for venous thrombosis and/or pulmonary embolus.HIGH RISK: Target INR is 2.5-3.5 for patients wiht mechanical heart valves.[id number] 18:41:00 Test Item Value Reference Range Interpretation Comments PARTIAL THROMBOPLASTIN TIME 88.9 seconds 22.5-36.0 H (BEAKER) (test code = 760) [id number] 11:20:00 Test Item Value Reference Range Interpretation Comments PARTIAL THROMBOPLASTIN TIME 71.8 seconds 22.5-36.0 H (BEAKER) (test code = 760) CT, [id number] 04:27:00Lower abdominal pain, history of colon cancerUnlisted Reason for Exam - Click Yes and Enter Reason Below->NoWill this procedure require oral contrast?->No [facility] : 1975 Sex: FFINAL REPORT CLINICAL HISTORY: "Neoplasm: Colorectal" FINDINGS: Multiple axialimages of the abdomen and pelvis were performed after the uncomplicated administration of IV contrast. Oral contrast was not given. This exam was performed according to our departmental dose-optimization program, which includes automated exposure control, adjustment of the mA and/or kV according to patient size and/or use of the iterative reconstruction technique. Comparison:03/07/2020 Lower chest: Clear lungs. No pleural effusion or pneumothorax. Visualized cardiac contours normal. Liver: No significant findings. Gallbladder and biliary tree: No significant findings. Spleen: No significant findings. Adrenal Glands: No significant findings. Kidneys and ureters: No significant findings. Stomach and Duodenum: No significant findings. Pancreas: No significant findings. Bowel: Moderate fecal burden. No bowel obstruction. Postsurgical changes in the right colon. Appendix: Nonvisualized Bladder: No significant findings. Major vascular structures: No significant findings. Reproductive organs: No significant findings. Other: No free air, fluid or adenopathy Skeleton: No lytic or blastic skeletal lesions. IMPRESSION: No CT evidence of recurrent or metastatic malignancy in the abdomen or pelvis. Signed:Xenia Bermudez MDReport Verified Date/Time: 12/24/2020 04:27:19 APTT 2020-12-24 03:21:00 Test Item Value Reference Range Interpretation Comments PARTIAL THROMBOPLASTIN TIME 37.3 seconds 22.5-36.0 H (BEAKER) (test code = 760) BASIC METABOLIC [id number] 03:21:00 Test Item Value Reference Range Interpretation Comments SODIUM (BEAKER) 138 meq/L 136-145 (test code = 381) POTASSIUM (BEAKER) 3.7 meq/L 3.5-5.1 (test code = 379) CHLORIDE (BEAKER) 104 meq/L 98-107 (test code = 382) CO2 (BEAKER) (test 22 meq/L 22-29 code = 355) BLOOD UREA NITROGEN 10 mg/dL 7-21 (BEAKER) (test code = 354) CREATININE (BEAKER) 0.86 mg/dL 0.57-1.25 (test code = 358) GLUCOSE RANDOM 123 mg/dL 70-105 H (BEAKER) (test code = 652) CALCIUM (BEAKER) 8.5 mg/dL 8.4-10.2 (test code = 697) EGFR (BEAKER) (test 86 mL/min/1.73 ESTIMA WAQAR GFR IS code = 1092) sq m NOT ACCURATE CREATININE CLEARANCE IN PREDICTING GLOMERULAR FILTRATION RATE . ESTIMATED GFR I S NOT APPLICABLE FOR DIALYSIS PATIEN TS. Ditching Machine Engineer ID - [id number] 03:21:00 Test Item Value Reference Range Interpretation Comments MAGNESIUM (BEAKER) (test code = 2.0 mg/dL 1.6-2.6 627) Ditching Machine Engineer ID - [id number] 03:21:00 Test Item Value Reference Range Interpretation Comments PHOSPHORUS (BEAKER) (test code = 3.0 mg/dL 2.3-4.7 604) Ditching Machine Engineer ID - EDASIPROTHROMBIN TIME/[id number] 03:20:00 Test Item Value Reference Range Interpretation Comments PROTIME (BEAKER) 13.1 seconds 11.9-14.2 (test code = 759) INR (BEAKER) (test 1.03 See_Comment [Automat ed message] code = 370) The system [employer] generated this result transmitted ref erence range: <=5.90. The reference range was not used to int erpret this result as normal/abnormal . Effective 03/18/2019: PT Reference Range ChangeNew: 11.9-14.2 Previous: 11.7- 14.7RECOMMENDED COUMADIN/WARFARIN INR THERAPY RANGESSTANDARD DOSE: 2.0-3.0 Includes: PROPHYLAXIS for venous thrombosis, systemic embolization; TREATMENT for venous thrombosis and/or pulmonary embolus.HIGH RISK: Target INR is 2.5-3.5 for patients wiht mechanical heart valves.CBC (HEMOGRAM ONLY)2020-12-24 03:01:00 Test Item Value Reference Range Interpretation Comments WHITE BLOOD CELL COUNT (BEAKER) 5.9 K/ L 3.5-10.5 (test code = 775) RED BLOOD CELL COUNT (BEAKER) 4.28 M/ L 3.93-5.22 (test code = 761) HEMOGLOBIN (BEAKER) (test code = 11.3 GM/DL 11.2-15.7 410) HEMATOCRIT (BEAKER) (test code = 35.6 % 34.1-44.9 411) MEAN CORPUSCULAR VOLUME (BEAKER) 83.2 fL 79.4-94.8 (test code = 753) MEAN CORPUSCULAR HEMOGLOBIN 26.4 pg 25.6-32.2 (BEAKER) (test code = 751) MEAN CORPUSCULAR HEMOGLOBIN CONC 31.7 GM/DL 32.2-35.5 L (BEAKER) (test code = 752) RED CELL DISTRIBUTION WIDTH 15.2 % 11.7-14.4 H (BEAKER) (test code = 412) PLATELET COUNT (BEAKER) (test 290 K/CU MM 150-450 code = 756) MEAN PLATELET VOLUME (BEAKER) 10.1 fL 9.4-12.3 (test code = 754) NUCLEATED RED BLOOD CELLS 0 /100 WBC 0-0 (BEAKER) (test code = 413) CT, CHEST WITH IV CONTRAST- PE TEST [id number] 00:45:00Please compare to the CT PE protocol uploaded to PACS. Patient is symptomatic with arm pain and swellingUnlisted Reason for Exam - Click Yes and Enter Reason Below->No [facility] : 1975 Sex: FFINAL REPORT CLINICAL HISTORY: "Embolism or thrombosis, subclavian vein." Outside diagnosis of right upper extremity DVT. FINDINGS: Multiple axial images of the chest were performed after the uncomplicated administration of IV contrast, utilizing a pulmonary embolism protocol. Post-processing coronal reformats were created and interpreted. This exam was performed according to our departmental dose-optimization program, which includes automated exposure control, adjustment of themA and/or kV according to patient size and/or use of the iterative reconstruction technique. Study quality:Adequate. Comparison:None. Pulmonary arteries: No pulmonary embolism. Lung parenchyma: No significant findings. Pleural effusion: None. Pneumothorax: None. Tracheobronchial tree: No significant findings. Pulmonary vasculature: No significant findings. Cardiac contours and great vessels: No significant findings. Mediastinum: No significant findings. Lymph Nodes: No adenopathy in the mediastinum or chante. Skeleton: No acute abnormality. Limited images of upper abdomen: No significant findings. IMP RESSION: No pulmonary embolism or acute cardiopulmonary abnormality. Signed: Xenia Bermudez MDReport Verified Date/Time: 12/24/2020 00:45:30 [id number] 19:05:00 Test Item Value Reference Range Interpretation Comments PARTIAL THROMBOPLASTIN TIME 63.4 seconds 22.5-36.0 H (BEAKER) (test code = 760) [id number] 17:14:00 Test Item Value Reference Range Interpretation Comments PARTIAL THROMBOPLASTIN TIME 124.5 seconds 22.5-36.0 H (BEAKER) (test code = 760) [id number] 17:13:00 Test Item Value Reference Range Interpretation Comments FERRITIN (BEAKER) (test code = 15.91 ng/mL 5.00-275.00 361) Ditching Machine Engineer ID - KARIN CCARDIOLIPIN ANTIBODIES, IGG AND [id number] 13:06:00 Test Item Value Reference Range Interpretation Comments ANTICARDIOLIPIN IGG ANTIBODY (BEAKER) < GPL <20.0 (test code = 712) ANTICARDIOLIPIN IGM ANTIBODY (BEAKER) 0.9 MPL <20.0 (test code = 713) Anticardiolipin IgG Result Interpretation: <20.0 GPL Normal>/= 20.0 GPL PositiveAnticardiolipin IgM Result Interpretation: <20.0 MPL Normal>/= 20.0 MPL PositiveANTI-NUCLEAR ANTIBODY (KATHRYN)2020-12-23 10:20:00 Test Item Value Reference Range Interpretation Comments ANTI-NUCLEAR ANTIBODY (KATHRYN) (BEAKER) Negative Negative (test code = 418) Test performed by IFA method.Test performed by IFA method.B-TYPE NATRIURETIC FACTOR (BNP)2020-12-23 09:41:00 Test Item Value Reference Range Interpretation Comments B-TYPE NATRIURETIC PEPTIDE (BEAKER) < pg/mL 0-100 (test code = 700) Ditching Machine Engineer ID - KARIN CTROPONIN [id number] 09:35:00 Test Item Value Reference Range Interpretation Comments TROPONIN I (BEAKER) (test code = 397) < ng/mL 0.00-0.03 Troponin I (TnI) levels must be interpreted in the context of the presenting symptoms and the clinical findings. Elevated TnI levels indicate myocardial damage, but are not specific for ischemic heart disease. Elevated TnI levels are seen in patients with other cardiac conditions (including myocarditis and congestive heart failure), and slight TnI elevations occur in patients with other conditions, including sepsis, renal failure, acidosis, acute neurological disease, and persistent tachyarrhythmia.Ditching Machine Engineer ID - KARIN CSARS-COV2/RT-PCR ([facility])2020-12-23 08:45:00 Test Item Value Reference Range Interpretation Comments SARS-COV2/RT-PCR (test Negative Not Detected, Negative, code = 3822538) See external report for linked test SARS-COV-[address] [facility] ALEXANDRA (test code = 8024696) Negative result for this test determines that SARS-CoV-2 RNA was not present in the specimen above the Limit of Detection (LOD). However, Negative results do not preclude SARS-CoV-2 infection and should not be used as the sole basis for treatment or patient management decisions. Negative results must be combined with clinical observations, patient history, and epidemiological information. A false negative result may occur if a specimen is improperly collected, transported or handled. A false negative result should be considered if patient's recent exposures or clinical presentation indicate that COVID-19 (SARS-CoV-2) is likely and diagnostic tests for other causes of illness are negative. Re-testing should be considered in cases of suspected false negatives.The limit of detection for this assay is 800 copies/mL.This SARS CoV-2 test is a real-time RT-PCR test intended for the qualitative detection of nucleic acid from SARS-CoV-2 in a nasopharyngeal swab specimen collected from individuals suspected of COVID-19 by their healthcare provider.This test has not been Food and Drug Administration (FDA) cleared or approved. This is a modified version of an approved Emergency Use Authorization (EUA) and is in the process of review by the FDA. Once authorized by the FDA, the issued EUA will be effective until the declaration that circumstances exist justifying the authorization of the emergency use ofin vitro diagnostic tests for detection and/or diagnosis of COVID-19 is terminated under Section 564(b)(2) of the Act or the EUA is revoked under Section 564(g) of the Act.Fact Sheet for Healthcare Prov iders:https://www.[employer]/sites/default/files/product/documents/Fact_Sheet_HC _Pmwdlhkur_Lilo_GQOM-JbZ-7.pdfFact Sheet for Healthcare Patients:https://www.[employer]/sites/default/files/product/docume nts/Rzmx_Lomsw_Nimjhoim_Brse_ZLYY-ZnN-9.pdfPerforming Laboratory:[facility] [place], [place] [address]QHOPI METABOLIC PANEL 2020-12-23 07:03:00 Test Item Value Reference Range Interpretation Comments SODIUM (BEAKER) 138 meq/L 136-145 (test code = 381) POTASSIUM (BEAKER) 3.7 meq/L 3.5-5.1 (test code = 379) CHLORIDE (BEAKER) 107 meq/L 98-107 (test code = 382) CO2 (BEAKER) (test 22 meq/L 22-29 code = 355) BLOOD UREA NITROGEN 11 mg/dL 7-21 (BEAKER) (test code = 354) CREATININE (BEAKER) 0.83 mg/dL 0.57-1.25 (test code = 358) GLUCOSE RANDOM 136 mg/dL 70-105 H (BEAKER) (test code = 652) CALCIUM (BEAKER) 8.4 mg/dL 8.4-10.2 (test code = 697) EGFR (BEAKER) (test 90 mL/min/1.73 ESTIMA WAQAR GFR IS code = 1092) sq m NOT ACCURATE CREATININE CLEARANCE IN PREDICTING GLOMERULAR FILTRATION RATE . ESTIMATED GFR I S NOT APPLICABLE FOR DIALYSIS PATIEN TS. Ditching Machine Engineer ID - [id number] 07:03:00 Test Item Value Reference Range Interpretation Comments MAGNESIUM (BEAKER) (test code = 2.0 mg/dL 1.6-2.6 627) Ditching Machine Engineer ID - [id number] 07:03:00 Test Item Value Reference Range Interpretation Comments PHOSPHORUS (BEAKER) (test code = 3.3 mg/dL 2.3-4.7 604) Ditching Machine Engineer ID - [id number] 07:02:00 Test Item Value Reference Range Interpretation Comments PARTIAL THROMBOPLASTIN TIME 63.2 seconds 22.5-36.0 H (BEAKER) (test code = 760) 6 hours after starting heparin infusion and as indicated per sliding scaleIRON, TIBC, % SAT. (WITHOUT FERRITIN)2020-12-23 06:53:00 Test Item Value Reference Range Interpretation Comments IRON (BEAKER) (test code = 547) 47.0 ug/dL 40.0-160.0 TOTAL IRON BINDING CAPACITY 344 ug/dL 250-450 (BEAKER) (test code = 769) IRON % SATURATION (2) (BEAKER) 14 % 20-55 L (test code = 2590) Ditching Machine Engineer ID - [id number] 05:40:00 Test Item Value Reference Range Interpretation Comments D-DIMER QUANTITATIVE (BEAKER) < MG/L FEU <0.50 (test code = 671) Intended Use: The D-Dimer Assay can be used to aid in the diagnosis of Deep Vein Thrombosis (DVT) and Pulmonary Embolism Disease (PED).In patients with low pre- test probability, various studies concerning STA Liatest D-dimer test have reported that with a cutoff value of 0.50 MG/L FEU, the Negative Predictive Value (NPV) regarding the exclusion of thrombosis is within 95-100% range.Prior to initiating heparinCBC (HEMOGRAM ONLY)2020-12-23 05:27:00 Test Item Value Reference Range Interpretation Comments WHITE BLOOD CELL COUNT (BEAKER) 6.2 K/ L 3.5-10.5 (test code = 775) RED BLOOD CELL COUNT (BEAKER) 4.18 M/ L 3.93-5.22 (test code = 761) HEMOGLOBIN (BEAKER) (test code = 11.1 GM/DL 11.2-15.7 L 410) HEMATOCRIT (BEAKER) (test code = 35.0 % 34.1-44.9 411) MEAN CORPUSCULAR VOLUME (BEAKER) 83.7 fL 79.4-94.8 (test code = 753) MEAN CORPUSCULAR HEMOGLOBIN 26.6 pg 25.6-32.2 (BEAKER) (test code = 751) MEAN CORPUSCULAR HEMOGLOBIN CONC 31.7 GM/DL 32.2-35.5 L (BEAKER) (test code = 752) RED CELL DISTRIBUTION WIDTH 14.9 % 11.7-14.4 H (BEAKER) (test code = 412) PLATELET COUNT (BEAKER) (test 266 K/CU MM 150-450 code = 756) MEAN PLATELET VOLUME (BEAKER) 9.7 fL 9.4-12.3 (test code = 754) NUCLEATED RED BLOOD CELLS 0 /100 WBC 0-0 (BEAKER) (test code = 413) [id number] 05:25:00 Test Item Value Reference Range Interpretation Comments PARTIAL THROMBOPLASTIN TIME 81.1 seconds 22.5-36.0 H (BEAKER) (test code = 760) Prior to initiating heparinPROTHROMBIN TIME/[id number] 05:23:00 Test Item Value Reference Range Interpretation Comments PROTIME (BEAKER) 13.1 seconds 11.9-14.2 (test code = 759) INR (BEAKER) (test 1.02 See_Comment [Automat ed message] code = 370) The system [employer] generated this result transmitted ref erence range: <=5.90. The reference range was not used to int erpret this result as normal/abnormal . Effective 03/18/2019: PT Reference Range ChangeNew: 11.9-14.2 Previous: 11.7- 14.7RECOMMENDED COUMADIN/WARFARIN INR THERAPY RANGESSTANDARD DOSE: 2.0-3.0 Includes: PROPHYLAXIS for venous thrombosis, systemic embolization; TREATMENT for venous thrombosis and/or pulmonary embolus.HIGH RISK: Target INR is 2.5-3.5 for patients wiht mechanical heart valves.Prior to initiating heparinRAD, SHOULDER, COMPLETE (MIN 2 VIEWS), [id number] 04:30:00Reason for exam:->R shoulder/arm painShould this be performed at the bedside?->Yes [facility] : 1975 Sex: FFINAL REPORT TECHNIQUE: Internal/external rotation and scapular-Y views of theright shoulder. INDICATION: R shoulder/arm pain. COMPARISON: None. FINDINGS:No acute fracture or dislocation.Internal and external rotation is maintained.Joint spaces are within normal limits.Visualized right lung is clear.Soft tissues are grossly unremarkable. IMPRESSION:No acute osseous abnormality of the right shoulder. No finding to account for shoulder pain. Signed: Davina Max MDReport Verified Date/Time: 12/23/2020 04:30:48 [id number] 20:35:00 Test Item Value Reference Range Interpretation Comments PARTIAL THROMBOPLASTIN TIME 29.8 seconds 22.5-36.0 (BEAKER) (test code = 760) CBC (HEMOGRAM ONLY)2020-12-22 20:28:00 Test Item Value Reference Range Interpretation Comments WHITE BLOOD CELL COUNT (BEAKER) 5.3 K/ L 3.5-10.5 (test code = 775) RED BLOOD CELL COUNT (BEAKER) 4.47 M/ L 3.93-5.22 (test code = 761) HEMOGLOBIN (BEAKER) (test code = 11.8 GM/DL 11.2-15.7 410) HEMATOCRIT (BEAKER) (test code = 37.6 % 34.1-44.9 411) MEAN CORPUSCULAR VOLUME (BEAKER) 84.1 fL 79.4-94.8 (test code = 753) MEAN CORPUSCULAR HEMOGLOBIN 26.4 pg 25.6-32.2 (BEAKER) (test code = 751) MEAN CORPUSCULAR HEMOGLOBIN CONC 31.4 GM/DL 32.2-35.5 L (BEAKER) (test code = 752) RED CELL DISTRIBUTION WIDTH 14.8 % 11.7-14.4 H (BEAKER) (test code = 412) PLATELET COUNT (BEAKER) (test 297 K/CU MM 150-450 code = 756) MEAN PLATELET VOLUME (BEAKER) 9.9 fL 9.4-12.3 (test code = 754) NUCLEATED RED BLOOD CELLS 0 /100 WBC 0-0 (BEAKER) (test code = 413) MR, ABDOMEN, WITHOUT / WITH IV [id number] 18:20:00FINAL REPORT TECHNIQUE: MRI of the abdomen WITHOUT and WITH intravenous contrast . INDICATION: c18.2. COMPARISON: CT from 03/07/2020. FINDINGS: LOWER THORAX: Unremarkable. LIVER: No hepatic signal abnormality. A cyst in segment VII measures 1.3 cm on series 7 image 11. A cyst in segment measures 0.5 cm on series 7 image 13. BILIARY: Static bile in the gallbladder. No biliary ductal dilatation or filling defect.SPLEEN: No splenomegaly.PANCREAS: No focal masses or ductal dilatation. ADRENALS: No adrenal nodules.KIDNEYS/URETERS: No hydronephrosis or solid mass lesions. PERITONEUM/RETROPERITONEUM: Trace free fluid in the pelvis.LYMPH NODES: No lymphadenopathy.VESSELS: Unremarkable. GI TRACT: No distention or wall thickening. BONES AND SOFT TISSUES: Unremarkable. IMPRESSION: No metastatic disease in the abdomen. Signed: Dylan Sánchez Verified Date/Time: 05/11/2020 18:20:12Reading Location: [address] Radiology Reading Room Electronically signed by: Dom PHILIP 05/11/2020 06:[address], [id number] 16:09:00FINAL REPORT CT of the abdomen and pelvis, [...] No recurrent mass or metastatic disease identified inthe abdomen or pelvis. Signed: Frank Finn MDReport Verified Date/Time: 03/07/2020 16:09:09 Reading Location: [facility] B1 C013X Ortho Consult Reading Room TISSUE [id number] 13:45:00Surgical Pathology Report Case: [id number] Authorizing Provider: Marshall Sanon MD Collected: 01/25/2020 11:45 AM Ordering Location: [facility] Received: 01/25/2020 01:32 PM SERVICES Pathologist:Vashti Caballero MD Specimen: Large Intestine, Colon - Right/Ascending ASCENDING COLON AND TERMINAL ILEUM, HEMICOLECTOMY: - ADENOCARCINOMA, MODERATELY DIFFERENTIATED - GREATEST TUMOR DIMENSION: 2.8 CM - TUMOR INVADES INTO MUSCULARIS PROPRIA - ALL MARGINS NEGATIVE FOR INVASIVE OR INTRAMUCOSAL CARCINOMA,HIGH GRADE DYSPLASIA OR ADENOMA (PROXIMAL, DISTAL, MESENTERIC) - NO PERINEURAL INVASION IDENTIFIED -NO LYMPHOVASCULAR INVASION IDENTIFIED - 47 LYMPH NODES NEGATIVE FOR METASTATIC CARCINOMA (0/47) TATTOO PIGMENT SEEN IN SOME LYMPH NODES - PATHOLOGIC STAGE CLASSIFICATION (pTNM, AJCC 8th Edition) : [id number] - SEE SYNOPTIC REPORT - SEE COMMENT Signing Pathologist Direct Phone Line: [phone] signed by Vashti Caballero MD on 01/27/2020 at 1:45 PMImmunohistochemical stains for MMR proteins, MSH-2, MSH-6, PMS-2 and MLH-1, was performed on prior colon biopsy [id number]. IHC Interpretation:No loss of nuclear expression of MMR proteins: low probability of microsatellite instability-high (MSI-H).COLON AND RECTUM: Resection, Including Transanal Disk Excision of Rectal Neoplasms (ColoRectal - All Specimens)8th Edition - Protocol posted: 12/17/2018SPECIMEN Procedure: Right hemicolectomy TUMOR TumorSite: Right (ascending) colon Histologic Type: Adenocarcinoma Histologic [...] Nodes Involved: 0 Number of Lymph Nodes Examined:47 PATHOLOGIC STAGE CLASSIFICATION (pTNM, AJCC 8th Edition) Primary Tumor (pT): pT2 Regional Lymph Nodes (pN): pN0 ADDITIONAL FINDINGS Additional Pathologic Findings: None identified [id number] malignant neoplasm of colonA. Large intestine, colon-right/ascendingA. Received fresh, labeled with the patient's name, accession number "large intestine, colon-right/ascending" is a right hemicolectomy.The terminal ileum is 3.7 cm in length and 2.7 cm in diameter. The colon is 13.5 cm in length and 3.5 cm in diameter. There is a moderate amount of mesenteric adipose tissue. The appendix is absent.Theserosa displays an area of tattoo ink in the proximal ascending colon. The remaining serosa is pink and smooth. The specimen is opened to reveal an ill-defined, north-pink, polypoid mass just proximal tothe tattoo ink in the proximal ascending colon measuring 2.8 x 2.4 x 0.9 cm. The mass is 7.5 cm fromthe distal margin, 7.0 cm from the closest mesenteric margin, and 8.2 cm from the proximal margin. The mass involves the muscularis propria, but does not invade into the underlying fat or serosa. There is tattoo ink in the mucosa of the ileocecal valve. The mucosa is north-pink, smooth with normal architecture. There are multiple pink-blanc lymph nodes ranging 0.2- 1.1 cm. Cane Stripper sections (mass in its entirety) are submitted.Ink code:Blue-serosaSection code:A1: Entire proximal margin, en faceA2: Cane Stripper of distal margin, en faceA3: Closest mesenteric margin, en faceA4: Ileocecal valve with tattoo ink and terminal ileumA5-A7: Mass to muscleA8-A9: Mass to serosa, full-thicknessA 10-11: Remainder of massA 12: Uninvolved colonic mucosaA 13: 5 intact lymph nodesA 14: 5 intact lymph nodesA 1 5: 1 lymph node, trisectedA 16-A 27: 1 lymph node bisected in each cassetteA 28: 5 intact lymph nodesA 29: 5 intact lymph nodesA 30: 5 intact lymph nodesA 31: 5 intact lymph nodesRAY Loyola, BRIAN(ASCP)Performed.[facility], Department of Pathology, [address] [place] [address], [facility], [facility] of [facility], [address] [place] [address], [facility], Department of Pathology, [address] [place] [address], KRCB-GLUCOSE [id number] 00:49:00 Test Item Value Reference Range Interpretation Comments POC-GLUCOSE METER 104 mg/dL 70-110 : TESTED A T [facility] 6720 (BEAKER) (test code = [facility], [facility]) [address]: Ditching Machine Engineer/Techni johnathon ID = [id number] for CROW GOMEZ POCT-GLUCOSE [id number] 11:24:00 Test Item Value Reference Range Interpretation Comments POC-GLUCOSE METER 103 mg/dL 70-110 : TESTED A T [facility] 6720 (BEAKER) (test code = [facility], 153) [address]: Ditching Machine Engineer/Techni johnathon ID = [id number] for HÉCTOR VADIM, MARY POCT-GLUCOSE [id number] 09:24:00 Test Item Value Reference Range Interpretation Comments POC-GLUCOSE METER 92 mg/dL 70-110 : TESTED A T [facility] 6720 (BEAKER) (test code = [facility], 153) [address]: Ditching Machine Engineer/Techni johnathon ID = [id number] for BLAINE ER, MARY BASIC METABOLIC [id number] 04:27:00 Test Item Value Reference Range Interpretation [...] 697) EGFR (BEAKER) (test 91 mL/min/1.73 ESTIMA WAQAR GFR IS code = 1092) sq m NOT ACCURATE CREATININE CLEARANCE IN PREDICTING GLOMERULAR FILTRATION RATE . ESTIMATED GFR I S NOT APPLICABLE FOR DIALYSIS PATIEN TS. Ditching Machine Engineer ID - BARBARA [id number] 04:26:00 Test Item Value Reference Range Interpretation Comments PHOSPHORUS (BEAKER) (test code = 3.0 mg/dL 2.3-4.7 604) Ditching Machine Engineer ID - BARBARA [id number] 04:26:00 Test Item Value Reference Range Interpretation Comments MAGNESIUM (BEAKER) (test code = 1.9 mg/dL 1.6-2.6 627) Ditching Machine Engineer ID - BARBARA MCBC W/PLT COUNT & AUTO [id number] 04:09:00 Test Item Value Reference Range Interpretation [...] PERCENT (BEAKER) (test code = 2801) POCT-GLUCOSE [id number] 21:33:00 Test Item Value Reference Range Interpretation Comments POC-GLUCOSE METER 122 mg/dL 70-110 H : TESTED A T [facility] 6720 (BEAKER) (test code = [facility], 1538) [address]: Ditching Machine Engineer/Techni johnathon ID = [id number] for LOAN EMMANUEL POCT-GLUCOSE [id number] 14:21:00 Test Item Value Reference Range Interpretation Comments POC-GLUCOSE METER 126 mg/dL 70-110 H : TESTED A T [facility] 6720 (BEAKER) (test code = [facility], 1538) [address]: Ditching Machine Engineer/Techni johnathon ID = [id number] for TERESSA WHITAKER [id number] 10:08:30 Test Item Value Reference Interpretation Comments Range CEA (test <1.8 See_Comment In otherwise h ealthy smokers, 95% of code = patients fall i n the rangeof 0.0-5.5 2039-03) ng/mL. NOTE: Me thodology is Radha Yamilet Electrochemilum inescenceImmunoassay (ECLIA). Unless Otherwise Indicated, All Testing Perform ed At: [facility], [address] [place] [address] Laborator y Director: Rosemary Zarate M.D. CLIA Number [id number] Cap Accreditati on No. [Automated mess age] The system which generated this result transmitted reference range : <=3.8 NG/ML. The reference range was not used to interpret this result as normal/abnormal . [facility]PROT[facility] & [id number] 09:49:59 Test Item Value Reference Range Interpretation Comments PROTIME (test code = See_Comment [Autom ated message] The 3289-6) system which ge nerated this result tra nsmitted reference range : 12.5 - 14.7 SECONDS. T he reference range was not used to interpr et this result as normal/abnormal . INR (test code = 6301-6) SEE BELOW CU RRENT RECOMMENDATIONS ARE FOR AN INR OF 2.0-3.0 FOR ALL PATIENTS ON VITAMIN K ANTAGONISTS, EX CEPT THOSE WITH PROS THETIC HEART VALVES, F OR WHOM INR OF 2.5-3.5 IS RECOMMENDED. PARTIAL THROMBOPLASTIN See_Comment Unle ss Otherwise TIME (test code = Indicated, All Testing 12532-9) Performed At: [facility], [address] [place] [address] [facility] Director: Rosemary Zarate M.D. CLIA Number [id number] Cap Accreditation N o. [Autom ated message] The sy stem which generated this result transmit waqar reference range : 25.2 - 40.0 SECONDS. T he reference range was not used to interpr et this result as normal/abnormal . [facility] HospitalCOMPREHENSIVE METABOLIC [id number] 08:10:33 Test Item Value Reference Range Interpretation Comments GLUCOSE (test code = See_Comment H [Autom ated message] 6965-7) The system whic h generated this result transmitted ref erence range: 70 - 99 MG/DL. The reference r carol was not used to interpret this result as normal/abnor mal. BLOOD UREA NITROGEN See_Comment [Automa waqar message] (test code = 3091-6) The s tem which generated this result transmitted ref erence range: 6 - 20 M G/DL. The reference r carol was not used to interpret this result as normal/abnor mal. CREATININE (test code = See_Comment [Au tomated message] 2160-0) The system [employer] generated this result transmitted ref erence range: 0.60 - 1 .30 MG/DL. The refe rence range was not u sed to interpret this result as normal/abnor mal. EGFR AA (test code = See_Comment [Autom ated message] 34055-7) The system [employer] generated this result transmitted ref erence range: >60 ML/MIN/1.73. Th e reference range was not used to int erpret this result as normal/abnormal . EGFR (test code = See_Comment [Automate d message] 86232-5) The system [employer] generated this result transmitted ref erence range: >60 ML/MIN/1.73. Th e reference range was not used to int erpret this result as normal/abnormal . BUN/CREAT RATIO (test See_Comment [Auto mated message] code = 3097-3) The system [employer] generated this result transmitted ref erence range: 6 - 28 R ATIO. The reference r carol was not used to interpret this result as normal/abnor mal. SODIUM (test code = See_Comment [Automa waqar message] 2951-2) The system [employer] generated this result transmitted ref erence range: 133 - 14 6 MEQ/L. The refe rence range was not u sed to interpret this result as normal/abnor mal. POTASSIUM (test code = See_Comment [Aut omated message] 0403-3) The system [employer] generated this result transmitted ref erence range: 3.5 - 5. 4 MEQ/L. The refe rence range was not u sed to interpret this result as normal/abnor mal. CHLORIDE (test code = See_Comment [Auto mated message] 6505-0) The system [employer] generated this result transmitted ref erence range: 95 - 107 MEQ/L. The reference r carol was not used to interpret this result as normal/abnor mal. CO2 (test code = See_Comment [Automated message] 1963-8) The system [employer] generated this result transmitted ref erence range: 19 - 31 MEQ/L. The reference r carol was not used to interpret this result as normal/abnor mal. CALCIUM (test code = See_Comment [Autom ated message] 20059-9) The system [facility] [employer] generated this result transmitted ref erence range: 8.5 - 10 .5 MG/DL. The refe rence range was not u sed to interpret this result as normal/abnor mal. PROTEIN TOTAL (test See_Comment [Automa waqar message] code = 2885-2) The system [employer] generated this result transmitted ref erence range: 6.1 - 8. 3 G/DL. The reference r caorl was not used to interpret this result as normal/abnor mal. ALBUMIN (test code = See_Comment [Autom ated message] 00605-6) The system [facility] [employer] generated this result transmitted ref erence range: 3.5 - 5. 2 G/DL. The reference r carol was not used to interpret this result as normal/abnor mal. GLOBULINS, SERUM, TOTAL See_Comment [Au tomated message] (test code = 18662-0) The sy stem which generated this result transmitted ref erence range: 1.9 - 3. 7 G/DL. The reference r carol was not used to interpret this result as normal/abnor mal. A/G RATIO (test code = See_Comment [Aut omated message] 1759-0) The system [facility] [employer] generated this result transmitted ref erence range: 1.0 - 2. 6 RATIO. The refe rence range was not u sed to interpret this result as normal/abnor mal. BILIRUBIN TOTAL (test See_Comment [Auto mated message] code = 1975-2) The system [facility] generated this result transmitted ref erence range: <=1.2 MG /DL. The reference r carol was not used to interpret this result as normal/abnor mal. ALKALINE PHOSPHATASE 74 U/L 40-115 (test code = 6768-6) AST (SGOT) (test code = 25 U/L 9-40 0-8) ALT (SGPT) (test code = 18 U/L 5-40 Unl ess Otherwise 1744-2) Indicated, All Testing Performed At: [facility], [address] [place] [id number] [facility] Director: Rosemary Zarate M.D. CLIA Number [id number] Cap Accreditation N o. [id number] Lab Interpretation Abnormal (test code = 52644-7) [facility] W/AUTO DIFF WITH [id number] 08:02:39 Test Item Value Reference Range Interpretation Comments WHITE BLOOD CELL COUNT See_Comment [Aut omated message] (test code = 76080-2) The sy stem which generated this result transmitted ref erence range: 3.5 - 10 .0 K/UL. The refer ence range was not u sed to interpret this result as normal/abnor mal. RED BLOOD CELL COUNT See_Comment [Autom ated message] (test code = 55501-0) The sy stem which generated this result transmitted ref erence range: 3.80 - 5 .20 M/UL. The refer ence range was not u sed to interpret this result as normal/abnor mal. HEMOGLOBIN (test code = See_Comment L [Au tomated message] 718-7) The system whic h generated this result transmitted ref erence range: 12.0 - 1 6.0 G/DL. The refer ence range was not u sed to interpret this result as normal/abnor mal. HEMATOCRIT (test code = 32.2 % 35-46 L 35254-2) MEAN CORPUSCULAR VOLUME 76.8 fL 80-99 L (test code = 62919-6) MEAN CORPUSCULAR 24.8 PG 25-34 L HEMOGLOBIN (test code = 30032-7) MEAN CORPUSCULAR See_Comment [Automated message] HEMOGLOBIN CONC (test The sy stem which code = 09534-5) generated th is result transmitted ref erence range: 31.0 - 3 6.0 G/DL. The refer ence range was not u sed to interpret this result as normal/abnor mal. RED CELL DISTRIBUTION 15.0 % 11.5-15 WIDTH (test code = 71960-4) NEUTROPHILS % (test code 41.0 % 40-75 = 74171-8) LYMPHOCYTES % (test code 39.6 % 20-45 = 45296-6) MONOCYTES % (test code = 15.3 % 4-12 H 37026-5) EOSINOPHILS % (test code 3.2 % 0-7 = 83363-6) BASOPHILS % (test code = 0.9 % 0-2 47099-1) PLATELET COUNT (test See_Comment Unless Otherwise code = 84062-6) Indicated, A ll Testing Perform ed At: [facility], [address] [place] [address] Laborator y Director: Rosemary Zarate M.D. CLIA Number [id number] [place] o. [id number] [Autom ated message] The sy stem which generated this result transmit waqar reference range : 130 - 400 K/UL. The reference range was not used to int erpret this result as normal/abnormal . Lab Interpretation (test Abnormal code = 73196-0) [id number] 16:17:00Surgical Pathology Report Case: [id number] Authorizing Provider: Martin Cruz MD Collected: 12/21/2019 1412 Ordering Location: [facility] Received: 12/21/2019 1608 SERVICES Pathologist: Liv Azevedo MD Specimen: Large Intestine, Colon - Right/Ascending, ULCER/ MASS BX Immunohistochemical stains for MSH-2, MSH-6, PMS-2 and MLH-1 were performed on this adenocarcinoma. Tumor cellshave nuclear reactivity with MSH-2, MSH-6, PMS-2 and MLH-1. The lymphocytes and stromal cells show nuclear staining as positive internal controls. IHC Interpretation:No loss of nuclear expression of MMR proteins: low probability of microsatellite instability-high (MSI-H).Addendum electronically signedby Liv Brown MD on 12/31/2019 at 4:17 PMA. COLON, ASCENDING, BIOPSY OF ULCER/MASS: - INVASIVE ADENOCARCINOMA, MODERATELY DIFFERENTIATEDComment: The finding was communicated via secure email with Dr. Cruz at 8:36 on December 23, 2019.FREDISK/pl Signing Pathologist Direct Phone Line: [phone] signed by Liv Azevedo MD on 12/23/2019 at 5:25 [id number]; [id number] diagnosis: Lower abdominal painRight ascending colonReceived in formalin labeled with the patient's name,accession number and "right ascending colon ulcer/mass" are [...] test tissue. These control slides run alongside of the patients sample show appropriate staining. Internal positive and negative controls when available are evaluated Immunohistochemistry technical testing was performed at [facility], Pathology Laboratory where it was developed and its performance characteristics were determined. It has not been cleared or approved by the U.S. Food and Drug Administration. The FDA has determined that such clearance or approval is not necessary. The test is used for clinical purposes. It should not be regarded as investigational or for research. This laboratory is certified under the Clinical Laboratory Improvement Amendments of 1988 (CLIA-88) as qualified to perform high complexity clinical laboratory testing.CARCINOEMBRYONIC ANTIGEN (CEA)2019-12-21 17:16:00 Test Item Value Reference Range Interpretation Comments CARCINOEMBRYONIC ANTIGEN (BEAKER) 1.2 ng/mL 0.0-5.0 (test code = 685) Ditching Machine Engineer ID - [id number]
[2023-02-18 21:36] LABS: Absolute Lymphocytes (CBC) 2.6 K/uL (0.7-4.9); Hematocrit 35.9 % (36.0-45.0); Lymphocytes % 45.7 % (15.3-44.8); MCV 86.4 fL (80-100); MPV 7.9 fL (7.6-11.3); RBC Red Blood Cell Count 4.16 M/uL (3.86-4.86)
[2023-02-18] MEDS ORDERED: NITROGLYCERIN 0.4 MG/TAB SL ONE (21:36)
[2023-02-18] MEDS ORDERED: NA CHLORIDE 0.9% 1,000 ML ONE (21:36)
[2023-02-18 21:53] LABS: Albumin 3.8 g/dL (3.4-5.0); Bilirubin Direct 0.1 mg/dL (0-0.2); Bilirubin Total 0.4 mg/dL (0.2-1.0); Potassium 3.8 mEq/L (3.5-5.1); Protein, Total 7.7 g/dL (6.4-8.2); Troponin High Sensitivity 5.3 pg/mL (<58.9)
--- NOTE | 2023-02-18 21:59 | RAD REPORT ---
EXAM DESCRIPTION: [place] Single View02/18/2023 8:59 pm CLINICAL HISTORY: CHEST PAIN COMPARISON: Chest Single View dated 12/15/2020; CHEST SINGLE VIEW dated 06/05/2011 TECHNIQUE: Portable AP view of the chest. FINDINGS: Mild patchy bibasilar airspace opacities more pronounced on the right. No pneumothorax or effusion. The cardiomediastinal contours are unremarkable. IMPRESSION: Mild patchy bibasilar airspace opacities more pronounced on the right. Findings raise co ncern for pneumonia.
[2023-02-18] MEDS ORDERED: ONDANSETRON 4 MG/2 ML VIAL ONE (22:45)
--- NOTE | 2023-02-19 01:34 | EDPHYS ---
Physician Documentation [facility] Name: Melissa Cuadra Age: 47 yrs Sex: Female : 1975 Arrival Date: 02/18/2023 Time: 20:26 Bed 5 Private MD: ED Physician Lito Claire HPI: 02/18 20:52 This 47 yrs old Black Female presents to ER via Ambulatory with complaints of Chest rt Pain. 20:52 Patient presents to the ED with chest pain starting about 2 and half hours prior to rt arrival. Patient was walking when this occurred. The pain radiated to her shoulder, she had associated nausea and shortness of breath. She did take an aspirin following this. She is currently taking Eliquis for prior DVT. The patient initially had some improvement of the symptoms with rest, however, it is worsening in the ED. Denies other acute complaints at this time. Symptoms are moderate in severity, no other aggravating or alleviating factors.. 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 - Social history:: Smoking status: Patient denies any tobacco usage or history of. - Family history:: not pertinent. ROS: 20:52 Constitutional: Negative for fever, chills, and weight loss, MS/Extremity: Negative for rt injury and deformity, Skin: Negative for injury, rash, and discoloration, Neuro: Negative for headache, weakness, numbness, tingling, and seizure, Psych: Negative for depression, anxiety, suicide ideation, homicidal ideation, and hallucinations. 20:52 Cardiovascular: Positive for chest pain, Negative for edema. 20:52 Respiratory: Positive for shortness of breath, Negative for cough. 20:52 Abdomen/GI: Positive for nausea, Negative for abdominal pain. Exam: 20:52 Constitutional: This is a well developed, well nourished patient who is awake, alert, rt and in no acute distress. Head/Face: Normocephalic, atraumatic. Chest/axilla: Normal chest wall appearance and motion. Nontender with no deformity. No lesions are appreciated. Cardiovascular: Regular rate and rhythm with a normal S1 and S2. No gallops, murmurs, or rubs. Normal PMI, no JVD. No pulse deficits. Respiratory: Lungs have equal breath sounds bilaterally, clear to auscultation and percussion. No rales, rhonchi or wheezes noted. No increased work of breathing, no retractions or nasal flaring. Abdomen/GI: Soft, non-tender, with normal bowel sounds. No distension or tympany. No guarding or rebound. No evidence of tenderness throughout. Skin: Warm, dry with normal turgor. Normal color with no rashes, no lesions, and no evidence of cellulitis. MS/ Extremity: Pulses equal, no cyanosis. Neurovascular intact. Full, normal range of motion. Neuro: Awake and alert, GCS 15, oriented to person, place, time, and situation. Cranial nerves II-XII grossly intact. Motor strength 5/5 in all extremities. Sensory grossly intact. Cerebellar exam normal. Normal gait. Psych: Awake, alert, with orientation to person, place and time. Behavior, mood, and affect are within normal limits. 20:52 ECG was reviewed by the Attending Physician. Vital Signs: 20:31 Pulse 86; Resp 16; Temp 97.9; Pulse Ox 100% ; Weight 77.11 kg; Height 5 ft. 4 in. ; mb9 Pain 6/10; 20:31 BP 101 / 78; mb9 21:28 BP 105 / 88; Pulse 84; Resp 16; Pulse Ox 99% ; mb9 21:32 BP 108 / 82; mb9 22:15 BP 117 / 82; Pulse 82; Resp 16; Pulse Ox 97% ; mb9 23:42 BP 106 / 74; Pulse 79; Resp 15; Pulse Ox 99% on R/A; mb9 02/19 01:17 BP 115 / 84; Pulse 73; Resp 15 S; Pulse Ox 98% on R/A; lg3 02/18 20:31 Body Mass Index 29.18 (77.11 kg, 162.56 cm) mb9 02/18 20:31 Pain Scale: Adult mb9 MDM: 02/18 20:47 Patient medically screened. rt 02/19 01:34 Differential diagnosis: acute myocardial infarction, acute pericarditis, coronary rt artery disease pneumonia, pneumothorax, pulmonary embolus. HEART Score: History: Moderately Suspicious (1), ECG: Normal (0), Age: > 45 and < 65 years (1), Risk Factors: No Risk Factors Known (0), Troponin: < or = 1 x Normal Limit (0), Total Score = 2. The patient was not given aspirin in the Emergency Department. Patient reports taking aspirin within the past 24 hours. Data reviewed: vital signs, nurses notes, lab test result(s), EKG, radiologic studies. Consideration of Admission/Observation Escalation of care including admission/observation considered. Patient has 2 negative troponins, resolution of the chest pain, deemed stable for outpatient care. Patient to follow-up with cardiology, strict return precautions were given to the patient.. I considered the following discharge prescriptions or medication management in the emergency department Medications were administered in the Emergency Department. See MAR. Independent interpretation of the following test(s) in the Emergency Department CT Scan: My interpretation is No consolidation seen on my interpretation of the CT scan images. Counseling: I had a detailed discussion with the patient and/or guardian regarding: the historical points, exam findings, and any diagnostic results supporting the discharge/admit diagnosis, lab results, radiology results, the need for outpatient follow up, to return to the emergency department if symptoms worsen or persist or if there are any questions or concerns that arise at home. 02/18 20:48 Order name: Basic Metabolic Panel; Complete Time: 21:54 rt 02/18 20:48 Order name: CBC with Diff; Complete Time: 21:54 rt 02/18 20:48 Order name: LFT's; Complete Time: 21:54 rt 02/18 20:48 Order name: NT PRO-BNP; Complete Time: 21:54 rt 02/18 20:48 Order name: Troponin HS; Complete Time: 21:54 rt 02/18 23:58 Order name: Troponin High Sensitivity; Complete Time: 01:30 rt 02/18 20:48 Order name: XRAY Chest (1 view); Complete Time: 22:09 rt 02/18 22:13 Order name: CT Chest For PE Angio rt 02/18 20:48 Order name: EKG; Complete Time: 20:49 rt 02/18 20:41 Order name: EKG - Nurse/Tech; Complete Time: 20:41 mb9 02/18 20:48 Order name: Cardiac monitoring; Complete Time: 21:12 rt 02/18 20:48 Order name: EKG - Nurse/Tech; Complete Time: 21:13 rt 02/18 20:48 Order name: IV Saline Lock; Complete Time: 21:27 rt 02/18 20:48 Order name: Labs collected and sent; Complete Time: 21: rt 02/18 20:48 Order name: O2 Per Protocol; Complete Time: 21: rt 02/18 20:48 Order name: O2 Sat Monitoring; Complete Time: 21:13 rt EC/01 20:52 Rate is 78 beats/min. Rhythm is regular, Normal Sinus Rhythm with No ectopy. QRS [place] rt is Normal. MA interval is normal. QRS interval is normal. QT interval is normal. No Q waves. T waves are Normal. No ST changes noted. Administered Medications: 21:32 Drug: NS 0.9% IV 1000 ml Route: IV; Rate: 1 bolus; Site: left antecubital; mb9 21:32 Drug: Nitroglycerin Sublingual 0.4 mg Route: Sublingual; mb9 22:36 Drug: Nitroglycerin Sublingual 0.4 mg Route: Sublingual; mb9 22:41 Drug: Ondansetron IVP 4 mg Route: IVP; Site: left hand; mb9 23:10 Follow up: Response: No adverse reaction mb9 Disposition Summary: 02/19/23 01:33 Discharge Ordered Location: Home rt Problem: new rt Symptoms: are resolved rt Condition: Stable rt Diagnosis - Chest pain, unspecified rt Followup: rt - With: Kd Mullins MD - When: 2 - 3 days - Reason: Discharge Instructions: - Discharge Summary Sheet rt - Nonspecific Chest Pain, Adult rt Forms: - Medication Reconciliation Form rt - Thank You Letter rt - Antibiotic Education rt - Prescription Opioid Use rt Signatures: Dispatcher [employer] Jenifer Collier RN RN mb9 Lito Claire MD MD rt Corrections: (The following items were deleted from the chart) 20:36 20:35 Home Meds: Lasix 20 mg Oral tab 1 tab once daily; mb9 mb9
--- NOTE | 2023-02-19 01:34 | ER ---
Nurse's Notes [facility] Name: Melissa Cuadra Age: 47 yrs Sex: Female : 1975 Arrival Date: 02/18/2023 Time: 20:26 Bed 5 Private MD: Diagnosis: Chest pain, unspecified Presentation: 02/18 20:31 Chief complaint: Patient states: "I started having chest pain in the center of my chest mb9 after 1730 today. I got lightheaded, my right shoulder started throbbing and it radiated to my left arm. I was nauseous and my tongue started feeling funny. It's gotten better, but it's still throbbing and constant. I got SOB when it happened". Coronavirus screen: Vaccine status: Patient reports receiving the 2nd dose of the covid vaccine. Ebola Screen: No symptoms or risks identified at this time. Initial Sepsis Screen: Does the patient meet any 2 criteria? No. Patient's initial sepsis screen is negative. Does the patient have a suspected source of infection? No. Patient's initial sepsis screen is negative. Risk Assessment: Do you want to hurt yourself or someone else? Patient reports no desire to harm self or others. Onset of symptoms was February 18, 2023. 20:31 Method Of Arrival: Ambulatory mb9 20:31 Acuity: JENNY 3 mb9 Triage Assessment: 20:36 General: Appears uncomfortable, Behavior is anxious. Pain: Complains of pain in chest. mb9 Neuro: Level of Consciousness is awake, alert, obeys commands, Oriented to person, place, time, situation, Appropriate for age. Cardiovascular: Reports chest pain, lightheadedness, nausea, Patient's skin is warm and dry. Respiratory: Airway is patent Respiratory effort is even, unlabored, Respiratory pattern is regular, symmetrical. GI: Abdomen is flat, non-distended, Reports nausea. Derm: Skin is pink, warm \\T\\ dry. Musculoskeletal: Range of motion: intact in all extremities. 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 - Social history:: Smoking status: Patient denies any tobacco usage or history of. - Family history:: not pertinent. Screenin:[facility] ED Fall Risk Assessment (Adult) History of falling in the last 3 months, mb9 including since admission No falls in past 3 months (0 pts) Confusion or Disorientation No (0 pts) Intoxicated or Sedated No (0 pts) Impaired Gait No (0 pts) Mobility Assist Device Used No (0 pt) Altered Elimination No (0 pt) Score/Fall Risk Level 0 - 2 = Low Risk Oriented to surroundings, Maintained a safe environment, Educated pt \\T\\ family on fall prevention, incl call for assistance when getting out of bed. Abuse screen: Denies threats or abuse. Nutritional screening: No deficits noted. Tuberculosis screening: No symptoms or risk factors identified. Assessment: 21:28 Reassessment: see triage assessment. mb9 22:40 Reassessment: pt states she is feeling nauseous. Alethea BAUMANN, notified. New orders mb9 at this time. 23:10 Reassessment: pt taken to CT via stretcher. mb9 23:30 Reassessment: Patient and/or family updated on plan of care and expected duration. Pain mb9 level reassessed. Patient is alert, oriented x 3, equal unlabored respirations, skin warm/dry/pink. Patient states symptoms have improved. General:. 02/19 01:17 Reassessment: Patient appears in no apparent distress at this time. No changes from lg3 previously documented assessment. Patient and/or family updated on plan of care and expected duration. Pain level reassessed. Patient is alert, oriented x 3, equal unlabored respirations, skin warm/dry/pink. Patient states symptoms have improved. Vital Signs: 02/18 20:31 Pulse 86; Resp 16; Temp 97.9; Pulse Ox 100% ; Weight 77.11 kg; Height 5 ft. 4 in. ; mb9 Pain 6/10; 20:31 BP 101 / 78; mb9 21:28 BP 105 / 88; Pulse 84; Resp 16; Pulse Ox 99% ; mb9 21:32 BP 108 / 82; mb9 22:15 BP 117 / 82; Pulse 82; Resp 16; Pulse Ox 97% ; mb9 23:42 BP 106 / 74; Pulse 79; Resp 15; Pulse Ox 99% on R/A; mb9 02/19 01:17 BP 115 / 84; Pulse 73; Resp 15 S; Pulse Ox 98% on R/A; lg3 02/18 20:31 Body Mass Index 29.18 (77.11 kg, 162.56 cm) mb9 02/18 20:31 Pain Scale: Adult mb9 ED Course: 02/18 20:28 Patient arrived in ED. jj6 20:29 Lito Claire MD is Attending Physician. rt 20:35 Triage completed. mb9 20:36 Arm band placed on. mb9 20:42 EKG done, by ED staff, reviewed by Lito Claire MD. mb9 20:42 Patient maintains SpO2 saturation greater than 95% on room air. mb9 20:43 No provider procedures requiring assistance completed. mb9 21:01 XRAY Chest (1 view) In Process Unspecified. EDMS 21:27 Basic Metabolic Panel Sent. mb9 21:27 CBC with Diff Sent. mb9 21:27 LFT's Sent. mb9 21:27 NT PRO-BNP Sent. mb9 21:27 Troponin HS Sent. mb9 21:27 Inserted saline lock: 22 gauge in left antecubital area, using aseptic technique. Blood mb9 collected. 21:45 Placed in gown. Bed in low position. Call light in reach. Side rails up X 1. Client mb9 placed on continuous cardiac and pulse oximetry monitoring. NIBP monitoring applied. track welder on. 21:54 Jenifer Thakkar, WILIAM is Primary Nurse. mb9 23:18 Inserted saline lock: 22 gauge in left forearm, using aseptic technique. lg3 23:39 CT Chest For PE Angio In Process Unspecified. EDMS 02/19 01:33 Kd Mullins MD is Referral Physician. rt 01:55 IV discontinued, intact, bleeding controlled, No redness/swelling at site. Pressure lg3 dressing applied. Administered Medications: 02/18 21:32 Drug: NS 0.9% IV 1000 ml Route: IV; Rate: 1 bolus; Site: left antecubital; mb9 21:32 Drug: Nitroglycerin Sublingual 0.4 mg Route: Sublingual; mb9 22:36 Drug: Nitroglycerin Sublingual 0.4 mg Route: Sublingual; mb9 22:41 Drug: Ondansetron IVP 4 mg Route: IVP; Site: left hand; mb9 23:10 Follow up: Response: No adverse reaction mb9 Medication: 20:44 VIS not applicable for this client. mb9 Outcome: 02/19 01:33 Discharge ordered by MD. rt 01:55 Discharged to home ambulatory. lg3 01:55 Condition: stable 01:55 Discharge instructions given to patient, Instructed on discharge instructions, follow up and referral plans. Demonstrated understanding of instructions, follow-up care. 01:56 Patient left the ED. lg3 Signatures: Dispatcher [employer] EDJanet Harley RN RN lg3 Yuliet Heath Mary Beth RN RN mb9 Lito Claire MD MD rt Corrections: (The following items were deleted from the chart) 02/18 20:36 20:35 Home Meds: Lasix 20 mg Oral tab 1 tab once daily; mb9 9 20:44 20:31 Chief complaint: Patient states: "I started having chest pain in the center of my mb9 chest after 1730 today. I got lightheaded, my right shoulder started throbbing and it radiated to my left arm. I was nauseous and my tongue started feeling funny. It's gotten better, but it's still throbbing and constant" mb9
[2023-02-19 02:28] VITALS: TEMP 97.9
[2023-02-19 02:34] VITALS: BP 115/84; O2SAT 98
--- NOTE | 2023-02-19 16:06 | EKG ---
Test Date: 2023-02-18 Test Time: 20:41:18 Converting Operator: MB MEASUREMENT RESULTS: Intervals: Rate: 78 OR: 138 QRSD: 86 QT: 376 QTc: 428 Grant: P: 66 OR: 138 QRS: 64 T: 66 INTERPRETIVE STATEMENTS: Normal sinus rhythm Normal ECG Compared to ECG 06/05/2011 18:15:18 No significant changes Electronically Signed On 02-19-23 16:04:44 CDT by David Ivory
--- NOTE | 2023-02-19 17:00 | RAD REPORT ---
EXAM DESCRIPTION: CT - Chest For Pe Angio - 02/19/2023 6:37 am CLINICAL HISTORY: 47 years Female CHEST PAIN COMPARISON: None TECHNIQUE: Images were obtained in axial, sagittal, and coronal planes. Intravenous contrast was adm inistered. 3-D MIP imaging was performed. This exam was performed according to our departmental dose-optimization program which includes use of Automated Exposure Control, adjustment of the mA and/or kV according to patient size and/or use of i terative reconstruction technique. FINDINGS: No filling defects pulmonary arteries bilaterally. No aortic dissection or dilatation. No right heart strain. No pericardial or pleural effusions bilaterally. No adenopathy. No lung parenchymal infiltrates or nodules seen. No pneumothorax No abnormality upper abdomen. No acute osseous abnormality. IMPRESSION: No evidence for pulmonary embolus. No aortic dissection or dilatation. No infiltrates se en. Electronically signed by: Kenna Roman MD 02/19/2023 12:33 AM CDT Due to temporary technical issues with the PACS/Fluency reporting system, reports are being signed by the in house radiologists without review as a courtesy to insure prompt reporting. The interpreting radiologist is fully responsible for the content of the report.
== END 2023-02-19 01:56 | disposition home or self-care (01) ==
LOC: ER 20:26
DX: R07.89 Other chest pain (principal); Z79.01 Long term (current) use of anticoagulants; Z88.1 Allergy status to other antibiotic agents
CPT/HCPCS: 93005; 85025; 80048; 36415; 80076; 84484 ×2; 83880; 71275; 71045; 96374; 99285; Q9967; J2405; J7030